=== PATIENT | female | born 1960 | race American Indian/Alaskan Native ===

== ENCOUNTER 2017-05-20 01:27 | Inpatient (IN) | payer BC, OTHER ==
[2017-05-20] MEDS ORDERED: HYDROmorphone 2 mg/ml ISec IVP STA (01:39)
--- NOTE | 2017-05-20 01:50 | ED PDOC ---
Arrival/HPI - General Chief Complaint: Abdominal Pain Time Seen by Provider: 05/20/17 01:33 Historian: Patient - History of Present Illness Narrative History of Present Illness (Text): 05/20/17 01:32 56 year old female patient, whose past medical history includes history of hypertension, anemia, HIV, cholecystitis,bilateral hip replacement, and splenectomy, who presents to the emergency department brought in by EMS of abdominal pain. Patient began experiencing diffuse abdominal pain approximately 20:30. Patient notes she has also been experiencing nausea and vomiting. Patient denies any fever, chills, diarrhea, chest pain, palpitations , shortness of breath, cough, headache, or any other complaints. Time/Duration: 4-6 hours (20:30) Symptom Onset: Gradual Symptom Course: Unchanged Activities at Onset: Rest, Light Context: Home Past Medical History - Provider Review Nursing Documentation Reviewed: Yes - Cardiac Hx Hypertension: Yes - Pulmonary Hx Respiratory Disorders: No - Neurological Hx Neurological Disorder: No - HEENT Hx HEENT Disorder: Yes Hx Blind: No Other/Comment: Use eyeglasses for reading - Renal Hx Renal Disorder: No - Endocrine/Metabolic Hx Endocrine Disorders: No - Hematological/Oncological Hx Anemia: Yes - Integumentary Hx Dermatological Disorder: Yes (chronic ulcers) - Musculoskeletal/Rheumatological Hx Falls: No - Gastrointestinal Hx Gastrointestinal Disorders: No - Genitourinary/Gynecological Hx Genitourinary Disorders: No - Psychiatric Hx Emotional Abuse: No Hx Physical Abuse: No Hx Substance Use: No - Surgical History Hx Breast Biopsy: Yes (Right breast- benign finding) Hx Joint Replacement: Yes (bilateral hip) Hx Orthopedic Surgery: Yes (Bilateral hip replacement 2008) Hx Vascular Access Device: Yes (hx of [facility]) Other/Comment: 3 right benign breast biopsy, 2 bilateral hip surgery, 15 ankle surgery, 1 - Anesthesia Hx Anesthesia: Yes - Suicidal Assessment Feels Threatened In Home Enviroment: No Family/Social History - Physician Review Nursing Documentation Reviewed: Yes Family/Social History: No Known Family HX Smoking Status: Never Smoked Hx Alcohol Use: No Hx Substance Use: No Allergies/Home Meds Allergies/Adverse Reactions: Allergies doxycycline Allergy (Verified 05/20/17 01:30) RASH sulfamethoxazole [From Bactrim] Allergy (Verified 05/20/17 01:30) RASH tramadol HCl [From Ultram] Allergy (Verified 05/20/17 01:30) RASH trimethoprim [From Bactrim] Allergy (Verified 05/20/17 01:30) RASH Home Medications: Home Meds Medication Instructions Recorded Confirmed Abacavir Sulfate/Lamivudine 1 each PO DAILY 05/20/17 05/20/17 [Abacavir-Lamivudine 600-300 mg] Carvedilol [Coreg] 3.125 mg PO BID 05/20/17 05/20/17 Furosemide [Lasix] 40 mg PO BID 05/20/17 05/20/17 Gabapentin [Neurontin] 300 mg PO TID 05/20/17 05/20/17 Ledipasvir/Sofosbuvir [Harvoni 1 tab PO DAILY 05/20/17 05/20/17 90-400 mg Tablet] Lisinopril [Zestril] 2.5 mg PO DAILY 05/20/17 05/20/17 Omeprazole 40 mg PO DAILY 05/20/17 05/20/17 Ondansetron ODT [Zofran ODT] 4 mg PO Q8H PRN 05/20/17 05/20/17 Pentoxifylline [Pentoxil] 400 mg PO TID 05/20/17 05/20/17 Raltegravir Potassium [Isentress] 400 mg PO BID 05/20/17 05/20/17 oxyCODONE [oxyCODONE Immediate 15 mg PO Q6H PRN 05/20/17 05/20/17 Release Tab] Review of Systems - Physician Review All systems were reviewed & negative as marked: Yes - Review of Systems Constitutional: Normal. absent: Fevers, Night Sweats Respiratory: Normal. absent: SOB, Cough Cardiovascular: absent: Chest Pain, Palpitations Gastrointestinal: Abdominal Pain, Nausea, Vomiting. absent: Diarrhea Genitourinary Female: Normal Musculoskeletal: Normal Skin: Normal Neurological: Normal. absent: Headache, Dizziness Physical Exam Vital Signs Reviewed: Yes Vital Signs Temp Pulse Resp BP Pulse Ox 05/20/17 04:00 48 L 16 132/72 98 05/20/17 03:25 68 16 142/81 99 05/20/17 01:33 97.9 F 49 L 20 140/66 100 Temperature: Afebrile Blood Pressure: Normal Pulse: Bradycardic Respiratory Rate: Normal Appearance: Positive for: Well-Appearing, Non-Toxic Pain Distress: None Mental Status: Positive for: Alert and Oriented X 3 - Systems Exam Head: Present: Atraumatic, Normocephalic Pupils: Present: PERRL Extroacular Muscles: Present: EOMI Conjunctiva: Present: Normal Mouth: Present: Moist Mucous Membranes Neck: Present: Normal Range of Motion Respiratory/Chest: Present: Clear to Auscultation, Good Air Exchange. No: Respiratory Distress, Accessory Muscle Use Cardiovascular: Present: Regular Rate and Rhythm, Normal S1, S2. No: Murmurs Abdomen: Present: Tenderness (LUQ tenderness), Normal Bowel Sounds. No: Distention, Peritoneal Signs Back: Present: Normal Inspection Upper Extremity: Present: Normal Inspection. No: Cyanosis, Edema Lower Extremity: Present: Normal Inspection. No: Edema Neurological: Present: GCS=15, CN II-XII Intact, Speech Normal Skin: Present: Warm, Dry, Normal Color. No: Rashes Psychiatric: Present: Alert, Oriented x 3, Normal Insight, Normal Concentration Medical Decision Making ED Course and Treatment: 05/20/17 01:40 Impression: 56 year old female with severe abdominal pain. Physical exam shows LUQ tenderness. Differential Diagnosis included but are not limited to: Plan: -- CT Abdomen and Pelvis -- EKG -- Labs -- Dilaudid -- IV Fluids -- Zofran -- Urinalysis -- Blood Gas -- Reassess and disposition Prior Visits: Notes and results from previous visits were reviewed. Patient was last seen in the emergency department on 05/03/2016 presents to the ED with nausea, vomiting , and abdominal pain. Patient was admitted. Progress Notes: 05/20/2017 02:33 EKG: Ordered, reviewed, and independently interpreted the EKG. Rate : 43 BPM Rhythm : Sinus bradychardia Interpretation : No ST-segment elevations or depressions, no T-wave inversions, normal intervals. 05/20/2017 01:38 CT Abdomen and Pelvis Without Intravenous Contrast FINDINGS: Lower thorax: No acute findings. ABDOMEN: Liver: Decreased overall size of the liver that appears mildly hyperdense. Gallbladder and bile ducts: Gallbladder appears mildly distended. Pancreas: Unremarkable. No ductal dilation. Spleen: Spleen enlarged 19 cm length. Adrenals: Unremarkable. No mass. Kidneys and ureters: Unremarkable. No obstructing stones. No hydronephrosis. Stomach and bowel: Mild wall thickening and/or edema cecum-ascending colon. Appendix: Visualized portions of appendix appear normal. PELVIS: Bladder: Bladder not seen well. Uterus not seen well. Reproductive: See above. ABDOMEN and PELVIS: Intraperitoneal space: Unremarkable. No free air. No significant fluid collection. Bones/joints: Bilateral total hip arthroplasties create artifact limiting images of the pelvis. Chronic degenerative changes of the lumbar spine. Soft tissues: Mild inhomogeneity right paracolic fat. Vasculature: IVC filter. Chronic atherosclerotic calcification of the vasculature. No abdominal aortic aneurysm. Lymph nodes: Unremarkable. No enlarged lymph nodes. IMPRESSION: 1. Bilateral total hip arthroplasties create artifact limiting images of the pelvis. 2. Mild wall thickening and/or edema cecum-ascending colon. Possible mild inflammation/colitis. 3. Mild inhomogeneity right paracolic fat. 4. Possible underlying liver disease. 5. Splenomegaly. 6. Gallbladder appears mildly distended. No evidence of gallstones. No evidence of intrahepatic or extrahepatic biliary ductal dilatation. 05/20/17 04:[address] Denise, covering for Dr. Barton, who is aware and agrees with plan. Pt will go [facility] observation for abdominal pain. - Lab Interpretations Lab Results: 05/20/17 01:55 05/20/17 01:55 Lab Results 05/20/17 04:00: Urine Color yellow, Urine Appearance Clear, Urine pH 8.0, Ur Specific [place] 1.020, Urine Protein 30 H, Urine Glucose (UA) Negative, Urine Ketones 15 H, Urine Blood Negative, Urine Nitrate Negative, Urine Bilirubin Negative, Urine Urobilinogen 1.0 H, Ur Leukocyte Esterase Negative, Urine RBC TEST NOT PERFORMED, Urine WBC 5 - 10, Ur Epithelial Cells 6 - 8, Amorphous Sediment Small, Urine Bacteria Trace 05/20/17 01:55: pO2 37, VBG pH 7.53 H, VBG pCO2 28.0 L, VBG HCO3 23.4, VBG Total CO2 24.3, VBG O2 Sat (Calc) 81.6 H, VBG Base Excess 1.8, VBG Potassium 3.5 L, Sodium 142.0, Chloride 107.0, Glucose 135 H, Lactate 3.7 H, FiO2 21.0, Venous Blood Potassium 3.5 L 05/20/17 01:55: Sodium 141, Chloride 106, Potassium 3.4 L, Carbon Dioxide 25, Anion Gap 13, BUN 11, Creatinine 0.9, Est GFR ( Amer) > 60, Est GFR (Non- Af Amer) > 60, Random Glucose 142 H, Calcium 10.7 H, Total Bilirubin 1.8 H, AST 33, ALT 29, Alkaline Phosphatase 119, Lactate Dehydrogenase 477, Total Creatine Kinase 81, Troponin I 0.03, Total Protein 10.0 H, Albumin 4.2, Globulin 5.9, Albumin/Globulin Ratio 0.7 L, Amylase 110, Lipase 167 05/20/17 01:55: PT 15.3 H, INR 1.42 H, APTT 26.4 05/20/17 01:55: WBC 5.0, RBC 4.04, Hgb 13.7, Hct 39.8, MCV 98.5, MCH 33.9, MCHC 34.4, RDW 13.4, Plt Count 80 L, MPV 10.7, Gran % 62.9, Lymph % (Auto) 26.8, [place] % (Auto) 7.9 H, Eos % (Auto) 1.8, Baso % (Auto) 0.6, Gran # 3.17, Lymph # 1.4, [place] # 0.4, Eos # 0.1, Baso # 0.03 I have reviewed the lab results: Yes - RAD Interpretation Radiology Orders: 05/20/17 01:38 ABD & PELVIS W/O PO OR IV CONT [CT] Stat 05/20/17 04:18 CHEST PORTABLE [RAD] Stat Machine Clipper: ED Physician - EKG Interpretation Type: 12 lead EKG - Medication Orders Current Medication Orders: Acetaminophen (Tylenol 325mg Tab) 650 mg PO Q4H PRN PRN Reason: Fever >100.5 F Carvedilol (Coreg) 3.125 mg PO BID [facility] Last Admin: 05/20/17 18:01 Dose: Gabapentin (Neurontin) 300 mg PO TID DOUGIE PRN Reason: Protocol Last Admin: 05/20/17 18:00 Dose: 300 mg Re-Assess: Reassess Psych Meds Document 05/20/17 18:50 DLL (Rec: 05/20/17 18:50 DLL [id number]) Reassess Psych Med Effective Hydromorphone HCl (Dilaudid) 2 mg IVP Q6H PRN PRN Reason: Pain, severe (8-10) Last Admin: 05/21/17 00:24 Dose: 2 mg Sodium Chloride (Sodium Chloride 0.9%) 1,000 mls @ 80 mls/hr IV .[id number] DOUGIE Last Admin: 05/20/17 14:21 Dose: 80 mls/hr Piperacillin Sod/Tazobactam Sod (Zosyn 3.375 In Ns 100ml) 100 mls @ 200 mls/hr IVPB Q6 DOUGIE PRN Reason: Protocol Stop: 06/03/17 12:01 Last Admin: 05/21/17 00:14 Dose: 200 mls/hr Lisinopril (Zestril) 2.5 mg PO DAILY [facility] Last Admin: 05/20/17 12:17 Dose: Not Given Non-Admin Reason: BP Parameters Not Met Ondansetron HCl (Zofran Inj) 4 mg IVP Q4H PRN PRN Reason: Nausea/Vomiting Last Admin: 05/21/17 00:25 Dose: 4 mg Discontinued Medications Hydromorphone HCl (Dilaudid) 2 mg IVP STAT STA Stop: 05/20/17 01:40 Last Admin: 05/20/17 01:59 Dose: 2 mg Re-Assess: [facility] Pain Assessment Document 05/20/17 02:59 YP (Rec: 05/20/17 03:25 YP [id number]) Pain Reassessment Is this a pain reassessment? Yes Sleep Is patient sleeping during reassessment? No Presence of Pain Presence of Pain No Hydromorphone HCl (Dilaudid) 0.5 mg IVP STAT STA Stop: 05/20/17 06:10 Hydromorphone HCl (Dilaudid) 1 mg IVP Q3H PRN PRN Reason: Pain, moderate (4-7) Hydromorphone HCl (Dilaudid) 1 mg IVP Q3H PRN PRN Reason: Pain, moderate (4-7) Last Admin: 05/20/17 12:16 Dose: 1 mg Re-Assess: [facility] Pain Assessment Document 05/20/17 13:16 DLL (Rec: 05/20/17 14:20 DLL [id number]) Pain Reassessment Is this a pain reassessment? Yes Sleep Is patient sleeping during reassessment? No Presence of Pain Presence of Pain Yes Pain Scale Used Pain Scale Used Numeric Description Intensity of Pain at present 8 Pain not relieved and LIP/MD was Yes notified Hydromorphone HCl (Dilaudid) 2 mg IM Q6H PRN PRN Reason: Pain, severe (8-10) Metronidazole (Flagyl) 500 mg in 100 mls @ 100 mls/hr IVPB STAT STA PRN Reason: Protocol Stop: 05/20/17 03:42 Last Admin: 05/20/17 04:37 Dose: 100 mls/hr Piperacillin Sod/Tazobactam Sod (Zosyn 3.375 In Ns 100ml) 100 mls @ 200 mls/hr IVPB STAT STA PRN Reason: Protocol Stop: 05/20/17 03:11 Last Admin: 05/20/17 03:07 Dose: 200 mls/hr Sodium Chloride (Sodium Chloride 0.9%) 1,000 mls @ 100 mls/hr IV .Q10H STA Stop: 05/20/17 14:26 Last Admin: 05/20/17 04:37 Dose: 100 mls/hr Potassium Chloride (Potassium Chloride 10 Meq/100 Ml) 10 meq in 100 mls @ 100 mls/hr IVPB Q2H DOUGIE Stop: 05/20/17 09:59 Last Admin: 05/20/17 09:14 Dose: 100 mls/hr Non-Formulary Medication (Abacavir Sulfate/Lamivudine [Abacavir-Lamivudine 600- 300 Mg]) 1 each PO DAILY DOUGIE Non-Formulary Medication (Ledipasvir/Sofosbuvir [Harvoni 90-400 Mg Tablet]) 1 tab PO DAILY DOUGIE Ondansetron HCl (Zofran Inj) 4 mg IVP STAT STA Stop: 05/20/17 01:40 Last Admin: 05/20/17 01:59 Dose: 4 mg Raltegravir (Isentress) 400 mg PO BID DOUGIE - Scribe Statement The provider has reviewed the documentation as recorded by the Theresa Pineda training under Angle Kramer Disposition/Present on Arrival - Present on Arrival Any Indicators Present on Arrival: No History of DVT/PE: No History of Uncontrolled Diabetes: No Urinary Catheter: No History of Decub. Ulcer: No History Surgical Site Infection Following: None - Disposition Have Diagnosis and Disposition been Completed?: Yes Diagnosis: Abdominal pain Disposition: HOSPITALIZED Disposition Time: 04:25 Condition: FAIR
[2017-05-20] MEDS: Sodium Chloride 0.9% 1,000 ML IV SCH ×2 (01:59→14:21)
[2017-05-20 02:04] LABS: ADD MANUAL DIFF? NO
[2017-05-20 02:06] LABS: BASO # 0.03 K/mm3 (0.0-2.0); BASO % 0.6 % (0.0-3.0); EOS # 0.1 (0.0-0.7); EOS % 1.8 % (1.5-5.0); GRAN # 3.17 (1.4-6.5); GRAN % 62.9 % (50.0-68.0); HEMATOCRIT 39.8 % (36.0-48.0); LYMPH # 1.4 (1.2-3.4); LYMPH % 26.8 % (22.0-35.0); MEAN CELL VOLUME 98.5 fL (80.0-105.0); MEAN CORPUSCULAR HEMOGLOBIN 33.9 pg (25.0-35.0); MEAN CORPUSCULAR HGB CONC 34.4 g/dl (31.0-37.0); MEAN PLATELET VOLUME 10.7 fl (7.0-11.0); MONO # 0.4 (0.1-0.6); MONO % 7.9 % (1.0-6.0); PLATELET COUNT 80 10^3/uL (120.0-450.0); RED CELL DISTRIBUTION WIDTH 13.4 % (11.5-14.5); VENOUS BLOOD GAS BASE EXCESS 1.8 mmol/L (0.0-2.0); VENOUS BLOOD PH 7.53 (7.32-7.43)
[2017-05-20 02:17] LABS: ALB/GLOB RATIO 0.7 (1.1-1.8); ALKALINE PHOSPHATASE 119 U/L (38-133); ALT/SGPT 29 U/L (7-56); AMYLASE 110 U/L (35-125); AST/SGOT 33 U/L (15-39); BILIRUBIN,TOTAL 1.8 mg/dL (0.2-1.3); BLOOD UREA NITROGEN 11 mg/dL (7-21); CALCIUM 10.7 mg/dL (8.4-10.5); CARBON DIOXIDE 25 mmol/L (21-33); CHLORIDE 106 mmol/L (98-107); GFR AFRICAN-AMERICAN > 60; GLUCOSE,RANDOM 142 mg/dL (70-110); LIPASE 167 U/L (23-300); POTASSIUM 3.4 mmol/L (3.6-5.0); SODIUM 141 mmol/L (132-148)
[2017-05-20 02:18] LABS: INR 1.42 (0.93-1.08); PARTIAL THROMBOPLASTIN TIME 26.4 Seconds (23.7-30.8)
[2017-05-20 02:27] LABS: TROPONIN I 0.03 ng/mL
[2017-05-20] MEDS ORDERED: Piperacillin/Tazobact 3.375 gm 100 ML IVPB STA (02:42)
[2017-05-20] MEDS ORDERED: metroNIDAZOLE IV 500 mg/100 ml 500 MG/100 ML BAG IVPB STA (02:43)
[2017-05-20 04:21] LABS: URINE BILIRUBIN NEGATIVE (NEGATIVE); URINE BLOOD NEGATIVE (NEGATIVE); URINE GLUCOSE (UA) NEGATIVE (NEGATIVE); URINE KETONE 15 mg/dL (NEGATIVE); URINE LEUKOCYTE ESTERASE NEGATIVE Leu/uL (NEGATIVE); URINE PROTEIN 30 mg/dL (<30 mg/dL)
[2017-05-20] MEDS ORDERED: Sodium Chloride 0.9% 1,000 ML IV STA (04:27)
[2017-05-20 04:30] LABS: URINE APPEARANCE CLEAR (CLEAR)
[2017-05-20 04:32] LABS: URINE AMORPHOUS SEDIMENT SMALL; URINE BACTERIA TRACE (NEG)
[2017-05-20 05:16] LABS: VENOUS BLOOD GAS BASE EXCESS 3.6 mmol/L (0.0-2.0); VENOUS BLOOD PH 7.34 (7.32-7.43)
[2017-05-20] MEDS ORDERED: HYDROmorphone 0.5 mg/0.5 ml ISec IVP STA (06:09)
--- NOTE | 2017-05-20 07:03 | CP.PCM.PN ---
Subjective - Date & Time of Evaluation Date of Evaluation: 05/20/17 Time of Evaluation: 07:00 - Subjective Subjective: Patient was seen at bedside. Complains of RUQ pain. Also has nausea. Has no other Complaints. ROS:Negative for symptoms except as mentioned above. Medical record was reviewed. 55 year old woman was admitted abdominal pain,fever. Has PMH of HTN, hepatitis C , AIDS/HIV,chronic foot ulcer. Objective - Vital Signs/Intake and Output Vital Signs (last 24 hours): Temp Pulse Resp BP Pulse Ox 97.9 F 51 L 16 133/88 97 05/20/17 01:33 05/20/17 04:57 05/20/17 04:57 05/20/17 04:57 05/20/17 04:57 - Medications Medications: Current Medications Acetaminophen (Tylenol 325mg Tab) 650 mg PO Q4H PRN PRN Reason: Fever >100.5 F Sodium Chloride (Sodium Chloride 0.9%) 1,000 mls @ 80 mls/hr IV .[id number] [facility] Last Admin: 05/20/17 01:59 Dose: 80 mls/hr Sodium Chloride (Sodium Chloride 0.9%) 1,000 mls @ 100 mls/hr IV .Q10H STA Stop: 05/20/17 14:26 Last Admin: 05/20/17 04:37 Dose: 100 mls/hr Potassium Chloride (Potassium Chloride 10 Meq/100 Ml) 10 meq in 100 mls @ 100 mls/hr IVPB Q2H DOUGIE Stop: 05/20/17 09:59 Ondansetron HCl (Zofran Inj) 4 mg IVP Q4H PRN PRN Reason: Nausea/Vomiting - Labs Labs: PT 15.3 Seconds (9.9-11.8) H 05/20/17 01:55 INR 1.42 (0.93-1.08) H 05/20/17 01:55 APTT 26.4 Seconds (23.7-30.8) 05/20/17 01:55 Laboratory Last Values WBC 5.0 10^3/ul (4.5-11.0) 05/20/17 01:55 RBC 4.04 10^6/uL (3.5-6.1) 05/20/17 01:55 Hgb 13.7 gm/dL (12.0-16.0) 05/20/17 01:55 Hct 39.8 % (36.0-48.0) 05/20/17 01:55 MCV 98.5 fL (80.0-105.0) 05/20/17 01:55 MCH 33.9 pg (25.0-35.0) 05/20/17 01:55 MCHC 34.4 g/dl (31.0-37.0) 05/20/17 01:55 RDW 13.4 % (11.5-14.5) 05/20/17 01:55 Plt Count 80 10^3/uL (120.0-450.0) L 05/20/17 01:55 MPV 10.7 fl (7.0-11.0) 05/20/17 01:55 Gran % 62.9 % (50.0-68.0) 05/20/17 01:55 Lymph % (Auto) 26.8 % (22.0-35.0) 05/20/17 01:55 [place] % (Auto) 7.9 % (1.0-6.0) H 05/20/17 01:55 Eos % (Auto) 1.8 % (1.5-5.0) 05/20/17 01:55 Baso % (Auto) 0.6 % (0.0-3.0) 05/20/17 01:55 Gran # 3.17 (1.4-6.5) 05/20/17 01:55 Lymph # 1.4 (1.2-3.4) 05/20/17 01:55 [place] # 0.4 (0.1-0.6) 05/20/17 01:55 Eos # 0.1 (0.0-0.7) 05/20/17 01:55 Baso # 0.03 K/mm3 (0.0-2.0) 05/20/17 01:55 PT 15.3 Seconds (9.9-11.8) H 05/20/17 01:55 INR 1.42 (0.93-1.08) H 05/20/17 01:55 APTT 26.4 Seconds (23.7-30.8) 05/20/17 01:55 pO2 28 mm/Hg (30-55) L 05/20/17 05:00 VBG pH 7.34 (7.32-7.43) 05/20/17 05:00 VBG pCO2 57.0 (40-60) 05/20/17 05:00 VBG HCO3 30.8 mmol/l (21-28) H 05/20/17 05:00 VBG Total CO2 32.5 mmol.L (22-28) H 05/20/17 05:00 VBG O2 Sat (Calc) 56.3 % (40-65) 05/20/17 05:00 VBG Base Excess 3.6 mmol/L (0.0-2.0) H 05/20/17 05:00 VBG Potassium 3.6 mmol/L (3.6-5.2) 05/20/17 05:00 Sodium 142.0 mmol/L (132-148) 05/20/17 05:00 Chloride 109.0 mmol/L (98-107) H 05/20/17 05:00 Glucose 112 mg/dl (65-105) H 05/20/17 05:00 Lactate 1.4 mmol/L (0.7-2.1) 05/20/17 05:00 FiO2 21.0 % 05/20/17 05:00 Sodium 141 mmol/L (132-148) 05/20/17 01:55 Potassium 3.4 mmol/L (3.6-5.0) L 05/20/17 01:55 Chloride 106 mmol/L (98-107) 05/20/17 01:55 Carbon Dioxide 25 mmol/L (21-33) 05/20/17 01:55 Anion Gap 13 (10-20) 05/20/17 01:55 BUN 11 mg/dL (7-21) 05/20/17 01:55 Creatinine 0.9 mg/dL (0.5-1.4) 05/20/17 01:55 Est GFR ( Amer) > 60 05/20/17 01:55 Est GFR (Non-Af Amer) > 60 05/20/17 01:55 Random Glucose 142 mg/dL (70-110) H 05/20/17 01:55 Calcium 10.7 mg/dL (8.4-10.5) H 05/20/17 01:55 Total Bilirubin 1.8 mg/dL (0.2-1.3) H 05/20/17 01:55 AST 33 U/L (15-39) 05/20/17 01:55 ALT 29 U/L (7-56) 05/20/17 01:55 Alkaline Phosphatase 119 U/L (38-133) 05/20/17 01:55 Lactate Dehydrogenase 477 U/L (333-699) 05/20/17 01:55 Total Creatine Kinase 81 U/L (35-230) 05/20/17 01:55 Troponin I 0.03 ng/mL 05/20/17 01:55 Total Protein 10.0 g/dL (5.8-8.3) H 05/20/17 01:55 Albumin 4.2 g/dL (3.0-4.8) 05/20/17 01:55 Globulin 5.9 gm/dL 05/20/17 01:55 Albumin/Globulin Ratio 0.7 (1.1-1.8) L 05/20/17 01:55 Amylase 110 U/L (35-125) 05/20/17 01:55 Lipase 167 U/L (23-300) 05/20/17 01:55 Venous Blood Potassium 3.6 mmol/L (3.6-5.2) 05/20/17 05:00 Urine Color yellow (YELLOW) 05/20/17 04:00 Urine Appearance Clear (CLEAR) 05/20/17 04:00 Urine pH 8.0 (4.7-8.0) 05/20/17 04:00 Ur Specific [place] 1.020 (1.005-1.035) 05/20/17 04:00 Urine Protein 30 mg/dL (<30 mg/dL) H 05/20/17 04:00 Urine Glucose (UA) Negative mg/dL (NEGATIVE) 05/20/17 04:00 Urine Ketones 15 mg/dL (NEGATIVE) H 05/20/17 04:00 Urine Blood Negative (NEGATIVE) 05/20/17 04:00 Urine Nitrate Negative (NEGATIVE) 05/20/17 04:00 Urine Bilirubin Negative (NEGATIVE) 05/20/17 04:00 Urine Urobilinogen 1.0 E.U./dL (<1 E.U./dL) H 05/20/17 04:00 Ur Leukocyte Esterase Negative [place]/uL (NEGATIVE) 05/20/17 04:00 Urine RBC TEST NOT PERFORMED 05/20/17 04:00 Urine WBC 5 - 10 /hpf (0-6) 05/20/17 04:00 Ur Epithelial Cells 6 - 8 /hpf (0-5) 05/20/17 04:00 Amorphous Sediment Small 05/20/17 04:00 Urine Bacteria Trace (NEG) 05/20/17 04:00 - Constitutional Appears: Well, No Acute Distress - Head Exam Head Exam: ATRAUMATIC, NORMAL INSPECTION, NORMOCEPHALIC - Eye Exam Eye Exam: Normal appearance - ENT Exam ENT Exam: Mucous Membranes Dry - Neck Exam Neck Exam: Normal Inspection - Respiratory Exam Respiratory Exam: NORMAL BREATHING PATTERN - Cardiovascular Exam Cardiovascular Exam: absent: JVD - GI/Abdominal Exam GI & Abdominal Exam: Soft (Yes.), Tenderness (RUQ.), Normal Bowel Sounds. absent: Bruit, Distended, Firm, Guarding, Rigid, Mass, Organomegaly, Pulsatile Mass - Rectal Exam Rectal Exam: Deferred - Exam Additional comments: Deferred. - Extremities Exam Extremities Exam: Normal Inspection - Back Exam Back Exam: NORMAL INSPECTION - Neurological Exam Neurological Exam: Alert, Oriented x3 - Psychiatric Exam Psychiatric exam: Normal Affect, Normal Mood - Skin Skin Exam: Normal Color Assessment and Plan - Assessment and Plan (Free Text) Assessment: RUQ pain. Nausea. Hypokalemia. HIV/AIDS. Hepatitis C. Plan: K magali x 2 as ordered. Dilaudid 0.5 mg IV stat. Zofran 4 mg IV stat. Continue present management.
[2017-05-20 08:04] VITALS: BMI 31.2
[2017-05-20] MEDS ORDERED: HYDROmorphone 0.5 mg/0.5 ml ISec IVP PRN (08:34)
--- NOTE | 2017-05-20 08:44 | CT ---
PROCEDURE: CT Abdomen and Pelvis without intravenous contrast HISTORY: abd pain COMPARISON: None. TECHNIQUE: Without contrast.. Contrast Dose: 0 Radiation dose: Total exam DLP = 705.77 mGy-cm. This CT exam was performed using one or more of the following dose reduction techniques: Automated exposure control, adjustment of the mA and/or kV according to patient size, and/or use of iterative reconstruction technique. FINDINGS: LOWER THORAX: Unremarkable. LIVER: Normal size. Nodular contour consistent with hepatic cirrhosis. Periportal edema, nonspecific. No biliary dilatation. No mass. GALLBLADDER AND BILE DUCTS: Questionable nonspecific mural thickening of gallbladder. No calcified stones identified. No pericholecystic fluid/inflammatory change evident. PANCREAS: Unremarkable. No gross lesion or ductal dilatation. SPLEEN: Splenomegaly. The spleen measures up to is 18 cm in greatest dimension. No mass. ADRENALS: Unremarkable. No mass. KIDNEYS AND URETERS: Unremarkable. No hydronephrosis. No solid mass. VASCULATURE: Inferior vena caval filter. No evidence of abdominal aortic aneurysm. BOWEL: Mild circumferential mural thickening of the cecum and ascending colon. This is nonspecific. Also noted is streaky increased attenuation of the right pericolic. Consider infectious or inflammatory etiology. No other abnormal bowel loops. No bowel obstruction. APPENDIX: Unremarkable PERITONEUM: No ascites. No pneumoperitoneum. LYMPH NODES: Unremarkable. No enlarged lymph nodes. BLADDER: Grossly limited evaluation due to beam hardening artifact arising from bilateral hip prostheses. REPRODUCTIVE: Limited. BONES: Bilateral total hip replacement. No acute fracture identified. OTHER FINDINGS: None. IMPRESSION: Probable hepatic cirrhosis. Periportal edema. Splenomegaly. Mural thickening of cecum and ascending colon, nonspecific. Consider infectious or inflammatory colitis. Possible gallbladder wall thickening without evidence of calcified stones. No pericholecystic fluid/ inflammatory change. Please correlate clinically. No bowel obstruction. No generalized ascites. Bilateral total hip replacement. Preliminary interpretation of this examination was reported by [email or web address] at 3:42 a.m. on 05/20/2017. There is concurrence of this report with the preliminary interpretation.
[2017-05-20] MEDS: HYDROmorphone 1 mg/ml ISec IVP PRN ×2 (09:12→12:16)
--- NOTE | 2017-05-20 10:11 | RAD ---
HISTORY: cp COMPARISON: No prior. FINDINGS: LUNGS: No active pulmonary disease. PLEURA: No significant pleural effusion identified, no pneumothorax apparent. CARDIOVASCULAR: Normal heart size. Right internal jugular central venous infusion port terminating in right atrium. OSSEOUS STRUCTURES: No significant abnormalities. VISUALIZED UPPER ABDOMEN: Normal. OTHER FINDINGS: None. IMPRESSION: No active disease.
[2017-05-20] MEDS ORDERED: SOFOSBUVIR PO SCH (11:15)
[2017-05-20] MEDS ORDERED: [UNRECOGNIZED DRUG - OTHER] PO SCH (11:15)
[2017-05-20] MEDS ORDERED: LEDIPASVIR PO SCH (11:15)
[2017-05-20] MEDS ORDERED: ABACAVIR SULFATE PO SCH (11:15)
[2017-05-20] MEDS ORDERED: LAMIVUDINE PO SCH (11:15)
--- NOTE | 2017-05-20 11:33 | CARD ---
APPROVED REPORT EKG Measurement Heart [id number] <Conclusion> Marked sinus bradycardia Abnormal ECG
[2017-05-20] MEDS: Piperacillin/Tazobact 3.375 gm 100 ML IVPB SCH ×2 (12:18→17:59)
[2017-05-20] MEDS ORDERED: HYDROmorphone 2 mg/ml ISec IM PRN (16:01)
[2017-05-20] MEDS: HYDROmorphone 2 mg/ml ISec IVP PRN (16:21)
--- NOTE | 2017-05-20 21:11 | CON ---
DATE: 05/20/2017 The patient is in bed, in no acute distress. The patient was seen earlier in room 378, bed 1. CHIEF COMPLAINT: Abdominal pain since several days. HISTORY OF PRESENT ILLNESS: This is a 56-year-old female with hepatitic C, positive HIV and AIDS, hypertension, anemia, on HIV medications of abacavir, Isentress and on Harvoni which is ledipasvir and sofosbuvir for her hepatitic C. She is being managed by , her HIV and hepatitic C doctor at [facility]. The patient states she has been complaint with her raltegravir, abacavir and her Harvoni who is now admitted with an abdominal pain. The abdominal pain is located in her right upper quadrant, associated with nausea, but no vomiting. She states she has fevers at home but only low grade fevers have been documented here and no chills, no shortness of breath, cough and no headaches, no blurred vision and no diarrhea or constipation now. She did have diarrhea earlier. PAST MEDICAL HISTORY: Significant for positive HIV, positive AIDS, hepatitis C, hypertension, anemia. PAST SURGICAL HISTORY: Significant for bilateral hip replacement, splenectomy, right breast biopsy. She has a port just on her right chest, IVC filter and a hysterotomy. She states she has been taking her medications and she does not know what her T-cells are on laboratory. ALLERGIES: ALLERGIC TO DOXYCYCLINE, SULFAMETHOXAZOLE, TRAMADOL AND TRIMETHOPRIM. PHYSICAL EXAMINATION GENERAL: The patient is in bed. VITAL SIGNS: Temperature of 99.3, heart rate of 68, respiratory rate of 20, and blood pressure is 140/80. HEENT: Unremarkable. NECK: Supple. LUNGS: Decreased breath sounds. HEART: Normal S1 and S2. ABDOMEN: Soft and nontender. There is right upper quadrant but no rebound or guarding. LABORATORY DATA: Examination reveals a white count is 5,000, hemoglobin of 13, platelets of 80,000. Coagulation is noted. Chemistries reveal a BUN of 11, creatinine of 0.9, gulose is 142 and calcium is 10.7. Urine analysis is noted and 5-10 WBCs. The patient had a chest x-ray which was negative. Abdominal CAT scan showed cirrhosis and possibly colitis. No mention of ascites is noted. The patient's INR is 1.42 and PT of 16 with LFTs normal. Alkaline phosphatase is normal and the patient's bilirubin is elevated at 1.8. ASSESSMENT AND PLAN: This is a 56-year-old female with human immunodeficiency virus and acquired immune deficiency syndrome, hepatitic C, hypertension, anemia, presenting with abdominal pain, rule out cholecystitis and the patient did have colitis in a patient with acquired immune deficiency syndrome, hypercalcemia, and hepatitic C. We will continue the present course, her human immunodeficiency virus medications and Harvoni and I will add Zosyn and order a HIDA scan and do T-cells and HIV/PCR, order a crypt antigen and RPR. I will make further recommendation based upon initial workup results. Panfilo Marcelo MD
--- NOTE | 2017-05-20 23:08 | CP.PCM.CON ---
History of Present Illness - History of Present Illness History of Present Illness: ralph is a 56-year-old patient with the chronic hepatitis C on EPCLUSA HIV/ AIDS was admitted to [facility] with the complaints of acute right- sided abdominal pain. Patient had a CAT scan done which showed a circumferential thickening of the cecum and ascending colon area suggestive colitis patient has been on antibiotics Zosyn and patient is feeling much better. Patient was admitted several times in [facility] in [place]. History of colitis since her last colonoscopy. History of DVT status post filter placement. Patient also had complaint of low-grade fever at home history of nausea and vomiting. Her other past medical history significant for bilateral hip replacement hypertension splenectomy status post cholecystectomy Review of Systems - Review of Systems All systems: reviewed and no additional remarkable complaints except - Constitutional Constitutional: Fever, Weakness - EENT Eyes: absent: Diplopia, Pain Ears: Ear Discharge, Tinnitus Nose/Mouth/Throat: absent: Nasal Congestion, Post Nasal Drip, Neck Mass - Cardiovascular Cardiovascular: absent: Chest Pain, Palpitations - Respiratory Respiratory: absent: Cough, Dyspnea - Gastrointestinal Gastrointestinal: As Per HPI - Genitourinary Genitourinary: absent: Dysuria, Hematuria - Psychiatric Psychiatric: absent: Change in Libido, Panic Attacks - Hematologic/Lymphatic Hematologic: absent: Easy Bruising, Lymphadenopathy Past Patient History - Past Medical History & Family History Past Medical History?: Yes - Past Social History Smoking Status: Never Smoked - CARDIAC Hx Cardiac Disorders: Yes Hx Hypertension: Yes - PULMONARY Hx Respiratory Disorders: No - NEUROLOGICAL Hx Neurological Disorder: No - HEENT Hx HEENT Problems: Yes - RENAL Hx Chronic Kidney Disease: No - ENDOCRINE/METABOLIC Hx Endocrine Disorders: No - HEMATOLOGICAL/ONCOLOGICAL Hx Blood Disorders: Yes Hx AIDS: Yes Hx Anemia: Yes Hx Human Immunodeficiency Virus (HIV): Yes - INTEGUMENTARY Hx Dermatological Problems: Yes (chronic ulcers) - MUSCULOSKELETAL/RHEUMATOLOGICAL Hx Musculoskeletal Disorders: Yes Hx Falls: Yes - GASTROINTESTINAL Hx Gastrointestinal Disorders: No - GENITOURINARY/GYNECOLOGICAL Hx Genitourinary Disorders: No - PSYCHIATRIC Hx Psychophysiologic Disorder: No Hx Substance Use: No - SURGICAL HISTORY Hx Joint Replacement: Yes (B/L hip) Hx Orthopedic Surgery: Yes (B/L hip replacement) - ANESTHESIA Hx Anesthesia: Yes Meds Allergies/Adverse Reactions: Allergies Allergy/AdvReac Type Severity Reaction Status Date / Time doxycycline Allergy RASH Verified 05/20/17 01:30 sulfamethoxazole Allergy RASH Verified 05/20/17 01:30 [From Bactrim] tramadol HCl [From Ultram] Allergy RASH Verified 05/20/17 01:30 trimethoprim [From Bactrim] Allergy RASH Verified 05/20/17 01:30 - Medications Medications: Current Medications Acetaminophen (Tylenol 325mg Tab) 650 mg PO Q4H PRN PRN Reason: Fever >100.5 F Carvedilol (Coreg) 3.125 mg PO BID [facility] Last Admin: 05/20/17 18:01 Dose: Not Given Gabapentin (Neurontin) 300 mg PO TID [facility] PRN Reason: Protocol Last Admin: 05/20/17 18:00 Dose: 300 mg Hydromorphone HCl (Dilaudid) 2 mg IVP Q6H PRN PRN Reason: Pain, severe (8-10) Last Admin: 05/20/17 16:21 Dose: 2 mg Sodium Chloride (Sodium Chloride 0.9%) 1,000 mls @ 80 mls/hr IV .[id number] [facility] Last Admin: 05/20/17 14:21 Dose: 80 mls/hr Piperacillin Sod/Tazobactam Sod (Zosyn 3.375 In Ns 100ml) 100 mls @ 200 mls/hr IVPB Q6 [facility] PRN Reason: Protocol Stop: 06/03/17 12:01 Last Admin: 05/20/17 17:59 Dose: 200 mls/hr Lisinopril (Zestril) 2.5 mg PO DAILY [facility] Last Admin: 05/20/17 12:17 Dose: Not Given Ondansetron HCl (Zofran Inj) 4 mg IVP Q4H PRN PRN Reason: Nausea/Vomiting Last Admin: 05/20/17 16:19 Dose: 4 mg Physical Exam - Head Exam Head Exam: ATRAUMATIC, NORMOCEPHALIC - Eye Exam Eye Exam: EOMI, PERRL - ENT Exam ENT Exam: Mucous Membranes Moist, Normal External Ear Exam - Neck Exam Neck exam: Positive for: Full Rom. Negative for: Lymphadenopathy - Respiratory Exam Respiratory Exam: Clear to Auscultation Bilateral. absent: Accessory Muscle Use , Respiratory Distress - Cardiovascular Exam Cardiovascular Exam: REGULAR RHYTHM, +S1, +S2. absent: JVD - GI/Abdominal Exam GI & Abdominal Exam: Normal Bowel Sounds. absent: Mass - Extremities Exam Extremities exam: Positive for: pedal pulses present. Negative for: calf tenderness - Neurological Exam Neurological exam: Alert, CN II-XII Intact - Psychiatric Exam Psychiatric exam: Anxious, Normal Affect Results - Vital Signs Recent Vital Signs: Last Vital Signs Temp 98.5 F 05/20/17 16:00 Pulse 53 L 05/20/17 18:01 Resp 20 05/20/17 16:00 BP 146/85 05/20/17 18:01 Pulse Ox 100 05/20/17 16:00 - Labs Result Diagrams: 05/20/17 01:55 05/20/17 01:55 Labs: Laboratory Results - last 24 hr 05/20/17 05/20/17 05:00 12:45 pO2 28 L VBG pH 7.34 VBG pCO2 57.0 VBG HCO3 30.8 H VBG Total CO2 32.5 H VBG O2 Sat (Calc) 56.3 VBG Base Excess 3.6 H VBG Potassium 3.6 Sodium 142.0 Chloride 109.0 H Glucose 112 H Lactate 1.4 FiO2 21.0 Venous Blood Potassium 3.6 RPR Nonreactive Assessment & Plan - Assessment and Plan (Free Text) Plan: this 56-year-old patient with a past medical history of HIV AIDSchronic hep C on epclusa was admitted with acute onset of abdominal pain mainly right side CT shows thickening of the ascending colon and cecum. A pressure diagnosis should include her colitis rule out ischemic colitis. Rule out infectious colitis other differential diagnoses should include inflammatory bowel disease. Patient 's last CAT scan was more than 2 years ago patient did have significant bowel symptoms only after the colonoscopy as per the patient. Patient does have significant tenderness in the right lower quadrant area clinically improving. Plan 1. Continue the antibiotics number to slowly advance the diet and patient will benefit from elective repeat colonoscopy evaluation The findings and follow-up recommendations were discussed with the patient at length . Would slowly advance the diet need to complete the antibiotic Course
[2017-05-21] MEDS: Piperacillin/Tazobact 3.375 gm 100 ML IVPB SCH ×4 (00:14→18:46)
[2017-05-21] MEDS: HYDROmorphone 2 mg/ml ISec IVP PRN ×5 (00:24→22:00)
--- NOTE | 2017-05-21 00:51 | HP ---
HISTORY OF PRESENT ILLNESS: The patient is a 56-year-old female admitted with abdominal pain. She has history of HIV, hepatitis C. CAT scan of the abdomen showed hepatosplenomegaly. She also had nausea and vomiting. Denies any diarrhea. No fever. No cough with expectoration. She is on HAART for HIV. She is asking for 2 mg Dilaudid, currently, she is getting 1 mg. She is stating that if she does not get 2 mg Dilaudid she will leave AMA. CAT scan of the abdomen did not show any acute changes. She also had bilateral hip replacement. PAST MEDICAL HISTORY: Hypertension, hepatitis C, HIV positive, thrombocytopenia, anemia. PAST SURGICAL HISTORY: Bilateral hip replacement and breast biopsies. FAMILY HISTORY: Noncontributory. No positive family history in mother or father. PERSONAL HISTORY: Never smokes. No history of substance abuse. SOCIAL HISTORY: Lives at home with mother. ALLERGIES: DOXYCYCLINE, BACTRIM, TRAMADOL. HOME MEDICATIONS: HAART, abacavir/lamivudine 600/300 mg one daily, Coreg 3.125 mg p.o. b.i.d., Lasix 40 mg b.i.d., gabapentin 300 mg p.o. t.i.d., Harvoni one tablet daily, lisinopril 2.5 mg daily, omeprazole 40 mg daily, Zofran 4 mg q. 4 hours p.r.n., *------* 400 mg p.o. b.i.d., oxycodone p.r.n. q. 6 hours. REVIEW OF SYSTEMS: As per HPI. Rest of the 12-point review of systems reviewed and negative. PHYSICAL EXAMINATION GENERAL: Comfortable in bed, in no acute distress. VITAL SIGNS: Temperature 97.9, heart rate 65 per minute, respiratory rate 20 per minute, blood pressure 140/60, oxygen saturation 100% room air. HEENT: Normal. CHEST: Air entry present and equal bilaterally. No added sounds. CARDIOVASCULAR: S1 and S2 normal. No murmur. No gallop. ABDOMEN: Soft and nontender. No rebound or tenderness. Mildly tender right upper quadrant. EXTREMITIES: No edema. SKIN: No petechiae. No rash. NEUROLOGIC: Alert, oriented x 3. No focal sensory or motor deficit. SPINE: Nontender. LABORATORY DATA: White count 5, hemoglobin 13.7, hematocrit 39.8, platelet count 80. Sodium 141, potassium 3.4, BUN 11, creatinine 0.9, glucose 142. CAT scan imaging as per HPI. ASSESSMENT AND PLAN: 1. Abdominal pain. 2. Human immunodeficiency virus positive. 3. Hepatitis C. 4. Hepatosplenomegaly. 5. Thrombocytopenia. 6. History of deep vein thrombosis of lower extremities, status post IVC filter placement. PLAN: ID consultation with Dr. Marcelo appreciated. She is currently on Zosyn. HIDA scan is ordered to be done tomorrow. HAART and Harvoni on hold. Hepatitis and HIV serologies ordered. Dr. Marcelo following. Patient is insisting on 2 mg IV Dilaudid. I will change it to 2 mg q. 6 hour p.r.n. She was previously getting 1 mg q. 4 hour p.r.n. We will continue gabapentin 300 mg p.o. t.i.d. Continue Coreg 3.125 mg p.o. b.i.d. IV fluid at 80 mL/hour. She is tolerating liquid diet. If HIDA scan is negative, possible discharge tomorrow. Torrie Denise MD
[2017-05-21] MEDS: Sodium Chloride 0.9% 1,000 ML IV SCH ×2 (04:28→21:59)
--- NOTE | 2017-05-21 11:18 | CP.PCM.PN ---
<Alysa Gracia - Last Filed: 05/21/17 11:18> Subjective - Date & Time of Evaluation Date of Evaluation: 05/21/17 Time of Evaluation: 09:40 - Subjective Subjective: S&E at bedside, chart reviewed. Consuming clear liquid. No nausea now, taking Zofran prn, abdominal pain is under control on pain med prn. No reports of vomiting. Express that she want to be DC to day she has an important appt. that she needs to attend to. No acute overnight events reported. No BM. Objective - Vital Signs/Intake and Output Vital Signs (last 24 hours): Temp Pulse Resp BP Pulse Ox 98.5 F 53 L 20 146/85 100 05/20/17 16:00 05/20/17 18:01 05/20/17 16:00 05/20/17 18:01 05/20/17 16:00 Intake and Output: 05/21/17 05/21/17 06:59 18:59 Intake Total 540 Balance 540 - Medications Medications: Current Medications Acetaminophen (Tylenol 325mg Tab) 650 mg PO Q4H PRN PRN Reason: Fever >100.5 F Carvedilol (Coreg) 3.125 mg PO BID [facility] Last Admin: 05/20/17 18:01 Dose: Not Given Gabapentin (Neurontin) 300 mg PO TID [facility] PRN Reason: Protocol Last Admin: 05/20/17 18:00 Dose: 300 mg Hydromorphone HCl (Dilaudid) 2 mg IVP Q6H PRN PRN Reason: Pain, severe (8-10) Last Admin: 05/21/17 06:30 Dose: 2 mg Sodium Chloride (Sodium Chloride 0.9%) 1,000 mls @ 80 mls/hr IV .[id number] [facility] Last Admin: 05/21/17 04:28 Dose: 80 mls/hr Piperacillin Sod/Tazobactam Sod (Zosyn 3.375 In Ns 100ml) 100 mls @ 200 mls/hr IVPB Q6 [facility] PRN Reason: Protocol Stop: 06/03/17 12:01 Last Admin: 05/21/17 05:52 Dose: 200 mls/hr Lisinopril (Zestril) 2.5 mg PO DAILY [facility] Last Admin: 05/20/17 12:17 Dose: Not Given Ondansetron HCl (Zofran Inj) 4 mg IVP Q4H PRN PRN Reason: Nausea/Vomiting Last Admin: 05/21/17 10:05 Dose: 4 mg - Labs Labs: PT 15.3 Seconds (9.9-11.8) H 05/20/17 01:55 INR 1.42 (0.93-1.08) H 05/20/17 01:55 APTT 26.4 Seconds (23.7-30.8) 05/20/17 01:55 - Constitutional Appears: No Acute Distress - Head Exam Head Exam: NORMOCEPHALIC - Eye Exam Eye Exam: Normal appearance. absent: Scleral icterus - ENT Exam ENT Exam: Mucous Membranes Moist - Neck Exam Neck Exam: Normal Inspection - Respiratory Exam Respiratory Exam: NORMAL BREATHING PATTERN. absent: Respiratory Distress - Cardiovascular Exam Cardiovascular Exam: +S1, +S2 - GI/Abdominal Exam GI & Abdominal Exam: Guarding, Soft, Tenderness, Normal Bowel Sounds. absent: Distended, Rebound - Extremities Exam Extremities Exam: Normal Capillary Refill. absent: Calf Tenderness, Pedal Edema - Neurological Exam Neurological Exam: Alert, Awake, Oriented x3 Assessment and Plan - Assessment and Plan (Free Text) Assessment: Assessemnt: Acute Abdominal pain Right side ascending/cecal thickening on Ct scan, r/o ischemic colitis, infectious or Infammatory Bowel Disease. Patient's last CAT scan was more than 2 years ago patient did have significant bowel symptoms only after the colonoscopy as per the patient. Chronic Hepatitis C HIV/AIDS H/O DVT, s/p IVC filter HTN Splenectomy Plan on IV antibiotics, Zosyn on clear liquids, advance diet patient may benefit from elective repeat colonoscopy evaluation spoke to patient that if dc, important to FU with her GI doctor, patient states that she has personal GI MD. Also discussed with patient that if symptoms reoccur or worsen to return to the ER further evaluation. Discussed with Dr. Sharma. <Avery Sharma V - Last Filed: 06/09/17 21:54> Objective - Vital Signs/Intake and Output Vital Signs (last 24 hours): Temp Pulse Resp BP Pulse Ox 99.4 F 60 19 125/85 96 05/21/17 16:00 05/21/17 16:00 05/21/17 16:00 05/21/17 16:00 05/21/17 16:00 Intake and Output: 05/21/17 05/22/17 18:59 06:59 Intake Total 300 Balance 300 - Medications Medications: Current Medications Abacavir Sulfate (Ziagen) 600 mg PO DAILY [facility] Acetaminophen (Tylenol 325mg Tab) 650 mg PO Q4H PRN PRN Reason: Fever >100.5 F Carvedilol (Coreg) 3.125 mg PO BID [facility] Last Admin: 05/21/17 18:54 Dose: Not Given Gabapentin (Neurontin) 300 mg PO TID [facility] PRN Reason: Protocol Last Admin: 05/21/17 18:54 Dose: Not Given Hydromorphone HCl (Dilaudid) 2 mg IVP Q4H PRN PRN Reason: Pain, moderate (4-7) Last Admin: 05/21/17 22:00 Dose: 2 mg Sodium Chloride (Sodium Chloride 0.9%) 1,000 mls @ 80 mls/hr IV .[id number] [facility] Last Admin: 05/21/17 21:59 Dose: 80 mls/hr Piperacillin Sod/Tazobactam Sod (Zosyn 3.375 In Ns 100ml) 100 mls @ 200 mls/hr IVPB Q6 [facility] PRN Reason: Protocol Stop: 06/03/17 12:01 Last Admin: 05/21/17 18:46 Dose: 200 mls/hr Metronidazole (Flagyl) 250 mg in 50 mls @ 100 mls/hr IV Q8 [facility] PRN Reason: Protocol Stop: 05/26/17 14:01 Last Admin: 05/21/17 21:58 Dose: 100 mls/hr Vancomycin HCl (Vancomycin 1gm) 1 gm in 250 mls @ 167 mls/hr IVPB Q12H [facility] PRN Reason: Protocol Stop: 05/28/17 22:01 Last Admin: 05/21/17 21:58 Dose: 167 mls/hr Lisinopril (Zestril) 2.5 mg PO DAILY [facility] Last Admin: 05/21/17 11:00 Dose: Not Given Ondansetron HCl (Zofran Inj) 4 mg IVP Q4H PRN PRN Reason: Nausea/Vomiting Last Admin: 05/21/17 22:00 Dose: 4 mg Pentoxifylline (Pentoxil) 400 mg PO TID [facility] Last Admin: 05/21/17 18:55 Dose: Not Given Raltegravir (Isentress) 400 mg PO BID [facility] Last Admin: 05/21/17 18:54 Dose: Not Given - Labs Labs: PT 15.3 Seconds (9.9-11.8) H 05/20/17 01:55 INR 1.42 (0.93-1.08) H 05/20/17 01:55 APTT 26.4 Seconds (23.7-30.8) 05/20/17 01:55 Attending/Attestation - Attestation I have personally seen and examined this patient.: Yes I have fully participated in the care of the patient.: Yes I have reviewed all pertinent clinical information, including history, physical exam and plan: Yes Notes (Text): This is an addendum report dictated by Alysa Templeton's [employer] ATTENDANT. Patient was seen and evaluated the area discussed with . Also discussed with the infectious diseases specialist. History of AIDS ,hep C ,colitis, history of DVT status post IVC filter splenectomy. Abdominal examination revealed a softly distended abdomen with the diffuse tenderness no rebound. Stools for C. difficile continue the IV antibiotics would consider flexible sigmoidoscopy based on the clinical course awaiting for report from [facility].
--- NOTE | 2017-05-21 15:23 | CP.PCM.PN ---
Subjective - Date & Time of Evaluation Date of Evaluation: 05/21/17 Time of Evaluation: 11:40 - Subjective Subjective: Comfortable, not in distress, afebrile, still with right sided abdominal pain, still with nausea. Objective - Vital Signs/Intake and Output Vital Signs (last 24 hours): Temp Pulse Resp BP Pulse Ox 98.5 F 53 L 20 143/85 100 05/20/17 16:00 05/20/17 18:01 05/20/17 16:00 05/21/17 10:00 05/20/17 16:00 Intake and Output: 05/21/17 05/21/17 06:59 18:59 Intake Total 540 360 Balance 540 360 - Medications Medications: Current Medications Acetaminophen (Tylenol 325mg Tab) 650 mg PO Q4H PRN PRN Reason: Fever >100.5 F Carvedilol (Coreg) 3.125 mg PO BID [facility] Last Admin: 05/21/17 10:00 Dose: Not Given Gabapentin (Neurontin) 300 mg PO TID [facility] PRN Reason: Protocol Last Admin: 05/21/17 10:00 Dose: Not Given Hydromorphone HCl (Dilaudid) 2 mg IVP Q4H PRN PRN Reason: Pain, moderate (4-7) Sodium Chloride (Sodium Chloride 0.9%) 1,000 mls @ 80 mls/hr IV .[id number] [facility] Last Admin: 05/21/17 04:28 Dose: 80 mls/hr Piperacillin Sod/Tazobactam Sod (Zosyn 3.375 In Ns 100ml) 100 mls @ 200 mls/hr IVPB Q6 [facility] PRN Reason: Protocol Stop: 06/03/17 12:01 Last Admin: 05/21/17 12:34 Dose: 200 mls/hr Metronidazole (Flagyl) 250 mg in 50 mls @ 100 mls/hr IV Q8 [facility] PRN Reason: Protocol Stop: 05/26/17 14:01 Lisinopril (Zestril) 2.5 mg PO DAILY [facility] Last Admin: 05/20/17 12:17 Dose: Not Given Ondansetron HCl (Zofran Inj) 4 mg IVP Q4H PRN PRN Reason: Nausea/Vomiting Last Admin: 05/21/17 10:05 Dose: 4 mg Pentoxifylline (Pentoxil) 400 mg PO TID [facility] - Labs Labs: PT 15.3 Seconds (9.9-11.8) H 05/20/17 01:55 INR 1.42 (0.93-1.08) H 05/20/17 01:55 APTT 26.4 Seconds (23.7-30.8) 05/20/17 01:55 - Constitutional Appears: Non-toxic, No Acute Distress - Head Exam Head Exam: NORMAL INSPECTION - ENT Exam ENT Exam: Mucous Membranes Moist - Neck Exam Neck Exam: absent: Lymphadenopathy, Meningismus - Cardiovascular Exam Cardiovascular Exam: +S1, +S2 - GI/Abdominal Exam GI & Abdominal Exam: Soft, Tenderness (right sided). absent: Distended, Guarding, Rigid, Rebound Assessment and Plan - Assessment and Plan (Free Text) Plan: Assessment Acute colitis in a patient with liver cirrhosis from chronic active Hepatitis C (recently finished 16 weeks of therapy with Ledipasvir and Sofosbuvir but has not reached SVR yet) Coagulase negative staph bacteremia, R/O related to the port HIV/AIDS on Raltegravir and Abacavir HTN S/P bilateral hip replacement S/P right port placement chronic anemia Plan Continue Zosyn and follow up further plans of GI (ie. colonoscopy) will add IV vancomycin and will repeat 1 set of blood cx from the port and 1 set from a peripheral vein; will get Vanco trough before the 4th dose; will check a 2D echo continue Raltegravir and Abacavir follow up HIV-VL, CD4 count; RPR is non-reactive and serum Crypt Ag is negative
[2017-05-21] MEDS ORDERED: Vancomycin 1gm in NS 250ml 1 GM/250 ML BAG IVPB SCH (15:30)
--- NOTE | 2017-05-21 15:33 | PN ---
SUBJECTIVE: The patient is 56 years old with history of being HIV positive. The patient states last year, she had colonoscopy done and she had some complication in her rectal area. Since then, she is having intermittent colon infections, so she states she started with abdominal discomfort with some chills, no fever, no rectal bleeding, and no diarrhea. The patient states she was treated with Harvoni by Dr. Valentine and currently she is on HIV medication. Her surgical history is significant for 15 surgeries on her left ankle and status post hysterectomy and also has bilateral hip replacements. PHYSICAL EXAMINATION: GENERAL: Today complaining of abdominal discomfort and complaining of nausea. VITAL SIGNS: She is afebrile, pulse 53, respirations 20, and blood pressure 146/85. LUNGS: Bilateral good air flow. No rhonchi or crackles. HEART: S1 and S2 audible. ABDOMEN: Soft and nontender. No rebound. No guarding. NEUROLOGIC: The patient is awake and alert and communicative. LABORATORY DATA: WBC is 5.0, hemoglobin 13.7, hematocrit 39.8, and platelets of 80. Chemistry; sodium 141, potassium 3.4, chloride 106, CO2 of 25, BUN 11, creatinine 0.9, blood sugar of 142, calcium 10.7, and total bilirubin 1.8. LFTs are within normal limits. Urinalysis is unremarkable. RPR is undetectable. CT scan of the abdomen and pelvis was done that shows hepatic cirrhosis, periportal edema with splenomegaly, mural thickening of cecum, ascending colon, and also thickening of gallbladder without evidence of calcific stones. No pericholecystic fluid found. ASSESSMENT: 1. Abdominal pain, questionable colitis, mural thickening of the cecum and ascending colon and thickening of gallbladder wall. 2. Human immunodeficiency virus positive. 3. Hepatitis C. 4. Urine culture positive for Gram-negative rods and both blood culture positive for Gram-positive cocci. PLAN: Currently, the patient is on Coreg. I will continue her on analgesic. We will order echocardiogram. The patient is going for HIDA scan, Zofran as needed, and currently she is on antibiotic as per ID. She is getting Zosyn and I will add Flagyl and we will repeat blood culture. We will followup the patient and followup workup has been ordered. Will Barton MD [facility] # [id number]
--- NOTE | 2017-05-21 15:51 | NM ---
PROCEDURE: Nuclear Medicine Hepatobiliary Scan HISTORY: RUQ PAIN COMPARISON: None available. TECHNIQUE: 6.3 mCi of technetium 99m Mebrofenin was administered intravenously. Planar images of the abdomen were obtained at 5 min intervals to 60 mins. Delayed images were also obtained. FINDINGS: LIVER: Timely and homogenous uptake. COMMON BILE DUCT: identified at 15 mins. GALLBLADDER: identified at 15 mins. SMALL BOWEL: Identified at 30 mins. IMPRESSION: Normal Hepatobiliary Scan. The cystic duct is patent.
[2017-05-21] MEDS: metroNIDAZOLE IV 250mg/50 ml 250 MG/50 ML BAG IV SCH ×2 (17:08→21:58)
--- NOTE | 2017-05-21 20:15 | CARD ---
APPROVED REPORT EXAM: Two-dimensional and M-mode echocardiogram with Doppler and color Doppler. INDICATION R/O ENDOCARDITIS 2D DIMENSIONS Left Atrium (2D)4.9 (1.6-4.0cm)IVSd0.8 (0.7-1.1cm) LVDd4.6 (3.9-5.9cm)PWd0.9 (0.7-1.1cm) LVDs2.8 (2.5-4.0cm)FS (%) 40.0 % LVEF (%)70.6 (>50%) M-Mode DIMENSIONS Aortic Root3.20 (2.2-3.7cm)Aortic Cusp Exc.1.90 (1.5-2.0cm) Aortic Valve AoV Peak Jhghczhf870.0cm/Sandra Peak GR.10mmHg Mitral Valve MV E Numbzuhg81.1cm/sMV A Syardchf25.7cm/sE/A ratio0.8 TDI Lateral E' Peak V9.16cm/sMedial E' Peak V5.17cm/sE/Lateral E'6.1 E/Medial E'10.9 Pulmonary Valve PV Peak Aeohokpr59.7cm/sPV Peak Grad.2mmHg Tricuspid Valve TR Peak Kawahibb659hp/sRAP [id number] Peak Gr.38mmHg [id number] LEFT VENTRICLE The left ventricle is normal size. There is normal left ventricular wall thickness. The left ventricular function is normal. The left ventricular ejection fraction is within the normal range. There is normal LV segmental wall motion. Transmitral Doppler flow pattern is Grade I-abnormal relaxation pattern. RIGHT VENTRICLE The right ventricle is normal size. There is normal right ventricular wall thickness. The right ventricular systolic function is normal. ATRIA The left atrium is moderately dilated. The right atrium is mildly dilated. A catheter is seen in the right atrium AORTIC VALVE The aortic valve is mildly thickened. There is no aortic valvular vegetation. MITRAL VALVE The mitral valve is moderately thickened. Mitral regurgitation is trace. TRICUSPID VALVE There is mild to moderate tricuspid regurgitation. There is mild to moderate pulmonary hypertension. GREAT VESSELS The aortic root is normal in size. The IVC is normal in size and collapses >50% with inspiration. <Conclusion> The mitral valve is moderately thickened. No definit Vegitation Consider ALEXIA if Clinically suspicious A catheter is seen in the right atrium There is mild to moderate tricuspid regurgitation. There is mild to moderate pulmonary hypertension.
[2017-05-21] MEDS: Vancomycin 1gm in NS 250ml 1 GM/250 ML BAG IVPB SCH (21:58)
[2017-05-22] MEDS: Piperacillin/Tazobact 3.375 gm 100 ML IVPB SCH ×4 (00:57→17:13)
[2017-05-22] MEDS: HYDROmorphone 2 mg/ml ISec IVP PRN ×2 (03:10→07:16)
[2017-05-22] MEDS: Sodium Chloride 0.9% 1,000 ML IV SCH (04:43)
[2017-05-22] MEDS: metroNIDAZOLE IV 250mg/50 ml 250 MG/50 ML BAG IV SCH ×3 (05:04→22:08)
--- NOTE | 2017-05-22 06:43 | CP.PCM.PN ---
Subjective - Date & Time of Evaluation Date of Evaluation: 05/22/17 Time of Evaluation: 06:40 - Subjective Subjective: Nurse calls and tells that patient has been vomiting, has blood in vomiting , little bit more than tinge of blood,is diaphoretic. 215/115 98/min fsbs-130 mg %. Patient was seen at bedside. She had vomited about 15 ml blood tinge vomiting/sputum which I saw in a container. I also noticed patient laying in pool of dark , tarry , liquidy about 500 CC stool. Patient is sick looking, has no complaints. This 56 year old woman was admitted with abdominal pain,nausea, vomiting. Has PMH of HTN,HIV,hepatitis C,anemia, thrombocytopenia,DVT, IVC filter placement. Objective - Vital Signs/Intake and Output Vital Signs (last 24 hours): Temp Pulse Resp BP Pulse Ox 99.4 F 60 19 125/85 96 05/21/17 16:00 05/21/17 16:00 05/21/17 16:00 05/21/17 16:00 05/21/17 16:00 Intake and Output: 05/21/17 05/22/17 18:59 06:59 Intake Total 1710 Balance 1710 - Medications Medications: Current Medications Abacavir Sulfate (Ziagen) 600 mg PO DAILY [facility] Acetaminophen (Tylenol 325mg Tab) 650 mg PO Q4H PRN PRN Reason: Fever >100.5 F Carvedilol (Coreg) 3.125 mg PO BID [facility] Last Admin: 05/21/17 18:54 Dose: Not Given Gabapentin (Neurontin) 300 mg PO TID [facility] PRN Reason: Protocol Last Admin: 05/21/17 18:54 Dose: Not Given Hydromorphone HCl (Dilaudid) 2 mg IVP Q4H PRN PRN Reason: Pain, moderate (4-7) Last Admin: 05/22/17 03:10 Dose: 2 mg Sodium Chloride (Sodium Chloride 0.9%) 1,000 mls @ 80 mls/hr IV .[id number] [facility] Last Admin: 05/22/17 04:43 Dose: 80 mls/hr Piperacillin Sod/Tazobactam Sod (Zosyn 3.375 In Ns 100ml) 100 mls @ 200 mls/hr IVPB Q6 [facility] PRN Reason: Protocol Stop: 06/03/17 12:01 Last Admin: 05/22/17 05:05 Dose: 200 mls/hr Metronidazole (Flagyl) 250 mg in 50 mls @ 100 mls/hr IV Q8 [facility] PRN Reason: Protocol Stop: 05/26/17 14:01 Last Admin: 05/22/17 05:04 Dose: 100 mls/hr Vancomycin HCl (Vancomycin 1gm) 1 gm in 250 mls @ 167 mls/hr IVPB Q12H [facility] PRN Reason: Protocol Stop: 05/28/17 22:01 Last Admin: 05/21/17 21:58 Dose: 167 mls/hr Lisinopril (Zestril) 2.5 mg PO DAILY [facility] Last Admin: 05/21/17 11:00 Dose: Not Given Ondansetron HCl (Zofran Inj) 4 mg IVP Q4H PRN PRN Reason: Nausea/Vomiting Last Admin: 05/22/17 03:10 Dose: 4 mg Pentoxifylline (Pentoxil) 400 mg PO TID [facility] Last Admin: 05/21/17 18:55 Dose: Not Given Raltegravir (Isentress) 400 mg PO BID [facility] Last Admin: 05/21/17 18:54 Dose: Not Given - Labs Labs: PT 15.3 Seconds (9.9-11.8) H 05/20/17 01:55 INR 1.42 (0.93-1.08) H 05/20/17 01:55 APTT 26.4 Seconds (23.7-30.8) 05/20/17 01:55 - Constitutional Appears: Other (Ill looking.) - Head Exam Head Exam: ATRAUMATIC, NORMAL INSPECTION, NORMOCEPHALIC - Eye Exam Additional comments: Pale conjunctiva. - ENT Exam ENT Exam: Mucous Membranes Dry - Neck Exam Neck Exam: Normal Inspection - Respiratory Exam Respiratory Exam: Clear to Ausculation Bilateral, NORMAL BREATHING PATTERN - Cardiovascular Exam Cardiovascular Exam: REGULAR RHYTHM. absent: JVD - GI/Abdominal Exam GI & Abdominal Exam: Soft (Yes.), Tenderness (Mild diffuse tenderness.), Normal Bowel Sounds. absent: Distended, Firm, Guarding, Rigid, Organomegaly, Pulsatile Mass, Rebound - Rectal Exam Rectal Exam: Deferred - Exam Additional comments: Deferred. - Extremities Exam Extremities Exam: Normal Inspection - Back Exam Back Exam: NORMAL INSPECTION - Neurological Exam Neurological Exam: Alert, Oriented x3 - Psychiatric Exam Psychiatric exam: Normal Affect, Normal Mood - Skin Skin Exam: Pallor Assessment and Plan - Assessment and Plan (Free Text) Assessment: Hypertensive emergency. Upper GI bleeding. Hepatitis C. Cirrhosis of liver? Esophageal varices? Anemia. Thrombocytopenia. HIV. Plan: NPO. CBC,CMP,PT/INR/PTT,Type & crosss match for 2 units. Stool for occult blood , vomitus for occult blood. Hydralazine 10 mg IV stat. Discussed with . Discussed with . Manual platelet. Sandostatin drip as ordered. Transfer to ICU. Attempted to call and Dr.Inamul Byrd. CRITICAL CARE TIME SPENT 60 MINUTES.
[2017-05-22] MEDS ORDERED: Nitroglycerin 2% Ointment Foilpak UD TOP STA (06:56)
[2017-05-22 07:29] LABS: ADD MANUAL DIFF? NO
[2017-05-22 07:32] LABS: BASO # 0.02 K/mm3 (0.0-2.0); BASO % 0.4 % (0.0-3.0); EOS # 0.1 (0.0-0.7); EOS % 1.5 % (1.5-5.0); GRAN # 3.18 (1.4-6.5); GRAN % 60.7 % (50.0-68.0); HEMATOCRIT 38.9 % (36.0-48.0); LYMPH # 1.5 (1.2-3.4); LYMPH % 28.2 % (22.0-35.0); MEAN CELL VOLUME 99.7 fL (80.0-105.0); MEAN CORPUSCULAR HEMOGLOBIN 33.8 pg (25.0-35.0); MEAN CORPUSCULAR HGB CONC 33.9 g/dl (31.0-37.0); MEAN PLATELET VOLUME 11.2 fl (7.0-11.0); MONO # 0.5 (0.1-0.6); MONO % 9.2 % (1.0-6.0); PLATELET COUNT 60 10^3/uL (120.0-450.0); RED CELL DISTRIBUTION WIDTH 13.8 % (11.5-14.5); WHITE BLOOD COUNT 5.2 10^3/ul (4.5-11.0)
[2017-05-22 07:43] LABS: BLOOD UREA NITROGEN 21 mg/dL (7-21); CALCIUM 10.1 mg/dL (8.4-10.5); CARBON DIOXIDE 19 mmol/L (21-33); CHLORIDE 109 mmol/L (98-107); GFR AFRICAN-AMERICAN > 60; GLUCOSE,RANDOM 109 mg/dL (70-110); INR 1.46 (0.93-1.08); PARTIAL THROMBOPLASTIN TIME 24.9 Seconds (23.7-30.8); POTASSIUM 3.4 mmol/L (3.6-5.0); SODIUM 143 mmol/L (132-148)
[2017-05-22] MEDS ORDERED: Pantoprazole 40mg/100ml IVPB 40 MG/100 ML BAG IVPB SCH (08:00)
[2017-05-22] MEDS ORDERED: Naloxone 0.02 mg/ml Inj (Neonatal) IV ONE (09:03)
--- NOTE | 2017-05-22 09:05 | CP.PCM.PCO ---
<Jame Christine - Last Filed: 05/22/17 09:01> Physician Communication Note - Physician Communication Note Physician Communication Note: Please see attached section for code stroke NIHSS score NIHSS Scale ([place]) Time Performed: 08:42 - How Severe is the Stoke Baseline Level of Consciousness: 1=Drowsy LOC to Questions: 2=Neither correct (unable to answer) LOC to commands: 0=Obeys both correctly Best Gaze: 1=Partial gaze palsy Visual: 0=No visual loss Facial: 2=Partial (lower face paralysis) Motor Arm - Left: 3=No effort against gravity (falls immediately) Motor Arm - Right: 2=Falls before 10 sec Motor Leg - Left: 2=Falls before 5 sec Motor Leg - Right: 1=Drift before 5 sec Limb Ataxia: 0=Absent (Patient unable to comprehend/follow comand) Sensory: 0=Normal Best Language: 1=Mild to moderate aphasia Dysarthia: 2=Severe, near unintelligible or worse Extinction & Inattention (Neglect): 0=Normal, no object Score: 17 Risk Level: Mod/Sev Stroke Risk - Notes Notes: As per ICU team, patient was previously answering questions (occasionally nonsensical). Now only non-verbal moaning. Still following most commands. <Chente Byrd - Last Filed: 05/23/17 07:39> Addendum Addendum: 05/23/17 07:33 pt was in icu had received dilauded at 7:15 am. pt became obtunded . code stroke was called by resident .and pt was taken for ct brain.pt is drowsy but responds appropriately.pupils was pin potnt bilaterally.pt was rx narcain , but was held for the time for pt was commming around to be given later if needed.neurochecks was ordered.ct head was negative.
--- NOTE | 2017-05-22 09:07 | CT ---
PROCEDURE: CT HEAD WITHOUT CONTRAST. HISTORY: r/o stroke COMPARISON: None available. TECHNIQUE: Axial computed tomography images were obtained through the head/brain without intravenous contrast. This CT exam was performed using one or more of the following dose reduction techniques: Automated exposure control, adjustment of the mA and/or kV according to patient size, and/or use of iterative reconstruction technique. FINDINGS: HEMORRHAGE: No intracranial hemorrhage. BRAIN: Theodore-white matter differentiation is preserved. There is no mass, mass effect or abnormal extra-axial fluid collection. There are symmetric calcifications in bilateral basal ganglia. VENTRICLES: There is mild global parenchymal volume loss and proportionate enlargement of the ventricles and cortical sulci, advanced for the patient's age. CALVARIUM: The skull base and calvarium are normal. PARANASAL SINUSES: Predominantly clear. MASTOID AIR CELLS: Predominantly clear. OTHER FINDINGS: None. IMPRESSION: No acute intracranial abnormality. If there is a persistent focal neurologic deficit and an ongoing clinical concern for acute infarction, an MRI of the brain without intravenous contrast would be a more sensitive modality for evaluation of hyperacute/acute ischemic infarction. Important findings were discussed with Sabrina Gan on 05/22/2017 at 9:05 a.m.
--- NOTE | 2017-05-22 09:33 | CP.PCM.CON ---
<Sabrina Gan - Last Filed: 05/22/17 15:35> History of Present Illness - History of Present Illness History of Present Illness: PGY-2 ICU consult note 56 yo female with PMH of HIV, Hep C presented with abdominal pain with nausea and vomiting. Patient had CT scan showing CT abd showed CT abd showed hepatic cirrhosis, periportal edema, splenomegaly, mural thickening of cecum adn ascending colon possible colitis. This morning patient began to have episodes of vomiting with bright red blood. Per nurse she vomited about 300cc. This morning patient was having multiple episodes of hematemsis. She continues to report abd pain. When patient was evaluated in ICU she was alert but not able to answer questions. She also presented with facial asymmetry. Code stroke was called. CT showed no acute stroke. She was given narcan. PMH: HTN, Hep C, HIV, anemia PSH: bilateral hip replacement fam hx: denies social hx: denies alcohol use, smoking Review of Systems - Review of Systems Systems not reviewed;Unavailable: Altered Mental Status Past Patient History - Past Medical History & Family History Past Medical History?: Yes - Past Social History Smoking Status: Never Smoked - CARDIAC Hx Hypertension: Yes - PULMONARY Hx Respiratory Disorders: No - NEUROLOGICAL Hx Neurological Disorder: No - HEENT Hx HEENT Problems: Yes Hx Blind: No Other/Comment: Use eyeglasses for reading - RENAL Hx Chronic Kidney Disease: No - ENDOCRINE/METABOLIC Hx Endocrine Disorders: No - HEMATOLOGICAL/ONCOLOGICAL Hx Anemia: Yes - INTEGUMENTARY Hx Dermatological Problems: Yes (chronic ulcers) - MUSCULOSKELETAL/RHEUMATOLOGICAL Hx Falls: No - GASTROINTESTINAL Hx Gastrointestinal Disorders: No - GENITOURINARY/GYNECOLOGICAL Hx Genitourinary Disorders: No - PSYCHIATRIC Hx Emotional Abuse: No Hx Physical Abuse: No Hx Substance Use: No - SURGICAL HISTORY Hx Breast Biopsy: Yes (Right breast- benign finding) Hx Joint Replacement: Yes (bilateral hip) Hx Orthopedic Surgery: Yes (Bilateral hip replacement 2008) Hx Vascular Access Device: Yes (hx of LIFE PORT) Other/Comment: 3 right benign breast biopsy, 2 bilateral hip surgery, 15 ankle surgery, 1 - ANESTHESIA Hx Anesthesia: Yes Meds Allergies/Adverse Reactions: Allergies Allergy/AdvReac Type Severity Reaction Status Date / Time doxycycline Allergy RASH Verified 05/20/17 01:30 sulfamethoxazole Allergy RASH Verified 05/20/17 01:30 [From Bactrim] tramadol HCl [From Ultram] Allergy RASH Verified 05/20/17 01:30 trimethoprim [From Bactrim] Allergy RASH Verified 05/20/17 01:30 - Medications Medications: Current Medications Abacavir Sulfate (Ziagen) 600 mg PO DAILY [facility] Acetaminophen (Tylenol 325mg Tab) 650 mg PO Q4H PRN PRN Reason: Fever >100.5 F Carvedilol (Coreg) 3.125 mg PO BID [facility] Last Admin: 05/21/17 18:54 Dose: Not Given Gabapentin (Neurontin) 300 mg PO TID [facility] PRN Reason: Protocol Last Admin: 05/21/17 18:54 Dose: Not Given Hydromorphone HCl (Dilaudid) 2 mg IVP Q4H PRN PRN Reason: Pain, moderate (4-7) Last Admin: 05/22/17 07:16 Dose: 2 mg Sodium Chloride (Sodium Chloride 0.9%) 1,000 mls @ 80 mls/hr IV .[id number] [facility] Last Admin: 05/22/17 04:43 Dose: 80 mls/hr Piperacillin Sod/Tazobactam Sod (Zosyn 3.375 In Ns 100ml) 100 mls @ 200 mls/hr IVPB Q6 [facility] PRN Reason: Protocol Stop: 06/03/17 12:01 Last Admin: 05/22/17 05:05 Dose: 200 mls/hr Metronidazole (Flagyl) 250 mg in 50 mls @ 100 mls/hr IV Q8 [facility] PRN Reason: Protocol Stop: 05/26/17 14:01 Last Admin: 05/22/17 05:04 Dose: 100 mls/hr Vancomycin HCl (Vancomycin 1gm) 1 gm in 250 mls @ 167 mls/hr IVPB Q12H [facility] PRN Reason: Protocol Stop: 05/28/17 22:01 Last Admin: 05/21/17 21:58 Dose: 167 mls/hr Octreotide Acetate 50 mcg/ (Sodium Chloride) 51 mls @ 102 mls/hr IV Q8 [facility] PRN Reason: Protocol Pantoprazole Sodium (Protonix 40mg Ivpb) 40 mg in 100 mls @ 20 mls/hr IVPB .Q5H [facility] Last Admin: 05/22/17 08:31 Dose: 20 mls/hr Lisinopril (Zestril) 2.5 mg PO DAILY [facility] Last Admin: 05/21/17 11:00 Dose: Not Given Naloxone HCl (Narcan) 0.02 mg IV ONCE ONE Stop: 05/22/17 09:04 Ondansetron HCl (Zofran Inj) 4 mg IVP Q4H PRN PRN Reason: Nausea/Vomiting Last Admin: 05/22/17 07:16 Dose: 4 mg Pentoxifylline (Pentoxil) 400 mg PO TID [facility] Last Admin: 05/21/17 18:55 Dose: Not Given Raltegravir (Isentress) 400 mg PO BID [facility] Last Admin: 05/21/17 18:54 Dose: Not Given Physical Exam - Constitutional Appears: In Acute Distress - Head Exam Head Exam: ATRAUMATIC, NORMOCEPHALIC - Eye Exam Eye Exam: EOMI, Normal appearance - ENT Exam ENT Exam: Mucous Membranes Moist - Respiratory Exam Respiratory Exam: Clear to Auscultation Bilateral, NORMAL BREATHING PATTERN. absent: Rales, Rhonchi, Wheezes, Respiratory Distress - Cardiovascular Exam Cardiovascular Exam: REGULAR RHYTHM, +S1, +S2. absent: Tachycardia, Diastolic murmur, Systolic Murmur - GI/Abdominal Exam GI & Abdominal Exam: Guarding, Normal Bowel Sounds, Tenderness. absent: Distended Additional comments: bloody emesis - Extremities Exam Extremities exam: Positive for: normal inspection. Negative for: pedal edema, tenderness - Neurological Exam Neurological exam: Alert, Oriented x3 - Skin Skin Exam: Dry, Intact, Normal Color, Warm Results - Vital Signs Recent Vital Signs: Last Vital Signs Temp 99.4 F 05/21/17 16:00 Pulse 59 L 05/22/17 07:15 Resp 19 05/21/17 16:00 BP 206/107 H 05/22/17 07:15 Pulse Ox 96 05/21/17 16:00 - Labs Result Diagrams: 05/22/17 07:25 05/22/17 07:25 Labs: Laboratory Results - last 24 hr 05/22/17 05/22/17 05/22/17 07:25 07:25 07:25 WBC 5.2 RBC 3.90 Hgb 13.2 Hct 38.9 MCV 99.7 MCH 33.8 MCHC 33.9 RDW 13.8 Plt Count 60 L Manual Plt Count MPV 11.2 H Gran % 60.7 Lymph % (Auto) 28.2 [place] % (Auto) 9.2 H Eos % (Auto) 1.5 Baso % (Auto) 0.4 Gran # 3.18 Lymph # 1.5 [place] # 0.5 Eos # 0.1 Baso # 0.02 PT 15.8 H INR 1.46 H APTT 24.9 Sodium 143 Potassium 3.4 L Chloride 109 H Carbon Dioxide 19 L Anion Gap 18 BUN 21 Creatinine 0.9 Est GFR ( Amer) > 60 Est GFR (Non-Af Amer) > 60 Random Glucose 109 Calcium 10.1 Stool Occult Blood Blood Type Antibody Screen Crossmatch BBK History Checked 05/22/17 05/22/17 05/22/17 07:25 07:25 08:00 WBC RBC Hgb Hct MCV MCH MCHC RDW Plt Count Manual Plt Count 70 L* MPV Gran % Lymph % (Auto) [place] % (Auto) Eos % (Auto) Baso % (Auto) Gran # Lymph # [place] # Eos # Baso # PT INR APTT Sodium Potassium Chloride Carbon Dioxide Anion Gap BUN Creatinine Est GFR ( Amer) Est GFR (Non-Af Amer) Random Glucose Calcium Stool Occult Blood Positive H Blood Type A POSITIVE Antibody Screen Negative Crossmatch See Detail BBK History Checked No verified bt Assessment & Plan - Assessment and Plan (Free Text) Assessment: 56 yo female with PMH of HIV, Hep C presented to ICU with hematemsis, abdominal pain. Patient had CT abd showed hepatic cirrhosis, periportal edema, splenomegaly, mural thickening of cecum adn ascending colon possible colitis. CT head showed no acute stroke. Plan: Neuro: patient was altered in ED with facial asymmetry CT head showed no acute stroke. patient received Dilaudid, most likely cause of AMS, patient given narcan hold dilaudid continue to monitor Cardio patient SBP was greater then 200. she was given 20 hydralazine BP improved will start lopressor 5 q2 prn Echo showed mitral valve thickened. EF of 70% will need ALEXIA to r/o endocarditis maintain MAP>65 Pulm patient is saturating well continue to monitor maintain supplemental O2> 90% GI continues to have abd pain will start morphine prn requested records of EGD from [place] EGD per GI, Dr. Sharma CT abd showed hepatic cirrhosis, periportal edema, splenomegaly, mural thickening of cecum adn ascending colon possible colitis. octretide drip and protonix 40 q12 NPO hold medications Renal stable BUN and cr cont to replace electrolytes as needed continue to monitor ID Blood cultures positive for gram positive cocci urine cultures positive for gram neg charles cont zosyn, metronidazole echo showed mitral valve thickening, will need possible ALEXIA patient has h/o HIV ID following heme/onc hemetemais and positive stool occult cont to monitor CBC platelets decreased to 70 patient typed and screened for possible blood transfusion will consult hemetologist <Israel Byrd MD - Last Filed: 05/23/17 14:26> Meds - Medications Medications: Current Medications Abacavir Sulfate (Ziagen) 600 mg PO DAILY [facility] Last Admin: 05/23/17 10:38 Dose: Not Given Carvedilol (Coreg) 3.125 mg PO BID [facility] Last Admin: 05/23/17 10:37 Dose: Not Given Gabapentin (Neurontin) 300 mg PO TID [facility] PRN Reason: Protocol Last Admin: 05/23/17 14:07 Dose: Not Given Hydralazine HCl (Apresoline) 10 mg IVP Q6 PRN PRN Reason: for SBP>170 & Diastolic>100 Piperacillin Sod/Tazobactam Sod (Zosyn 3.375 In Ns 100ml) 100 mls @ 200 mls/hr IVPB Q6 [facility] PRN Reason: Protocol Stop: 06/03/17 12:01 Last Admin: 05/23/17 11:57 Dose: 200 mls/hr Vancomycin HCl (Vancomycin 1gm) 1 gm in 250 mls @ 167 mls/hr IVPB Q12H [facility] PRN Reason: Protocol Stop: 05/28/17 22:01 Last Admin: 05/23/17 10:09 Dose: 167 mls/hr Pantoprazole Sodium (Protonix 40mg Ivpb) 40 mg in 100 mls @ 20 mls/hr IVPB .Q5H [facility] Last Admin: 05/22/17 08:31 Dose: 20 mls/hr Octreotide Acetate 1,250 mcg/ (Dextrose) 252.5 mls @ 5.05 mls/hr IV .Q24H [facility]; 25 MCG/HR PRN Reason: Protocol Last Admin: 05/22/17 13:41 Dose: 25 mcg/hr, 5.05 mls/hr Metronidazole (Flagyl) 500 mg in 100 mls @ 100 mls/hr IVPB Q8 [facility] PRN Reason: Protocol Last Admin: 05/23/17 13:54 Dose: 100 mls/hr Sodium Chloride (Sodium Chloride 0.9%) 1,000 mls @ 200 mls/hr IV .Q5H [facility] Last Admin: 05/23/17 13:15 Dose: 200 mls/hr Potassium Chloride (Potassium Chloride 10 Meq/100 Ml) 10 meq in 100 mls @ 100 mls/hr IVPB Q2H [facility] Stop: 05/23/17 16:29 Last Admin: 05/23/17 13:48 Dose: 100 mls/hr Lisinopril (Zestril) 20 mg PO DAILY [facility] Last Admin: 05/23/17 10:38 Dose: Not Given Morphine Sulfate (Morphine) 2 mg IVP Q4H PRN PRN Reason: Pain, moderate (4-7) Last Admin: 05/23/17 11:59 Dose: 2 mg Ondansetron HCl (Zofran Inj) 4 mg IVP Q4H PRN PRN Reason: Nausea/Vomiting Last Admin: 05/23/17 08:47 Dose: 4 mg Pantoprazole Sodium (Protonix Inj) 40 mg IVP Q12 [facility] Last Admin: 05/23/17 10:07 Dose: 40 mg Pentoxifylline (Pentoxil) 400 mg PO TID [facility] Last Admin: 05/23/17 14:07 Dose: Not Given Phytonadione (Vitamin K Inj) 10 mg SC DAILY [facility] Stop: 05/24/17 16:00 Last Admin: 05/23/17 10:07 Dose: 10 mg Raltegravir (Isentress) 400 mg PO BID [facility] Last Admin: 05/23/17 10:37 Dose: Not Given Rifaximin (Xifaxan) 550 mg PO BID [facility] PRN Reason: Protocol Last Admin: 05/23/17 14:07 Dose: Not Given Results - Vital Signs Recent Vital Signs: Last Vital Signs Temp 98.7 F 05/23/17 12:00 Pulse 65 05/23/17 13:35 Resp 15 05/23/17 13:35 BP 155/81 H 05/23/17 07:00 Pulse Ox 83 L 05/23/17 07:30 - Labs Result Diagrams: 05/23/17 05:00 05/23/17 04:45 Labs: Laboratory Results - last 24 hr 05/22/17 05/23/17 05/23/17 18:13 00:00 04:45 WBC 5.5 5.2 RBC 3.66 3.75 Hgb 12.5 12.8 Hct 35.7 L 35.7 L MCV 97.5 95.2 MCH 34.2 34.1 MCHC 35.0 35.9 RDW 13.8 13.7 Plt Count 61 L 68 L MPV 11.2 H 10.7 Gran % 87.3 H 78.4 H Lymph % (Auto) 10.9 L 16.0 L [place] % (Auto) 1.6 5.4 Eos % (Auto) 0.0 L 0.0 L Baso % (Auto) 0.2 0.2 Gran # 4.78 4.06 Lymph # 0.6 L 0.8 L [place] # 0.1 0.3 Eos # 0.0 0.0 Baso # 0.01 0.01 Sodium 136 Potassium 3.1 L Chloride 100 Carbon Dioxide 31 Anion Gap 8 L BUN 10 Creatinine 0.8 Est GFR ( Amer) > 60 Est GFR (Non-Af Amer) > 60 Random Glucose 173 H Calcium 11.9 H Magnesium Total Bilirubin 1.5 H AST 29 ALT 13 Alkaline Phosphatase 51 Total Protein 8.9 H Albumin 4.0 Globulin 4.9 Albumin/Globulin Ratio 0.8 L 05/23/17 05/23/17 04:45 05:00 WBC 5.5 RBC 3.80 Hgb 13.0 Hct 36.4 MCV 95.8 MCH 34.2 MCHC 35.7 RDW 13.9 Plt Count 70 L MPV 11.5 H Gran % 74.0 H Lymph % (Auto) 17.7 L [place] % (Auto) 8.1 H Eos % (Auto) 0.0 L Baso % (Auto) 0.2 Gran # 4.10 Lymph # 1.0 L [place] # 0.5 Eos # 0.0 Baso # 0.01 Sodium Potassium Chloride Carbon Dioxide Anion Gap BUN Creatinine Est GFR ( Amer) Est GFR (Non-Af Amer) Random Glucose Calcium Magnesium 2.8 H Total Bilirubin AST ALT Alkaline Phosphatase Total Protein Albumin Globulin Albumin/Globulin Ratio Attending/Attestation - Attestation I have personally seen and examined this patient.: Yes I have fully participated in the care of the patient.: Yes I have reviewed all pertinent clinical information: Yes Notes (Text): 05/23/17 14:25 56 y/o F w/ HEp C cirrhosis AIDS UGI vs LGI bleed Encephalopathy ? Hepatology consult, serial cbc Keep HGB> 7 Platelets > 20k INR<2 ABX , cx drawn. monitor airway . Opiod withdrawl treatment. dvt p SCD PPI and Octreotide . cc time 72 min
[2017-05-22] MEDS ORDERED: Naloxone 0.4 mg/ml Inj (Adult) IVP ONE (09:35)
[2017-05-22] MEDS: Vancomycin 1gm in NS 250ml 1 GM/250 ML BAG IVPB SCH ×2 (10:23→22:12)
[2017-05-22 10:31] LABS: % CD16+CD56+(NK CELL) 6 Percent (4-25); % CD19 (B CELL) 18 Percent (6-29); % CD3 (MATURE T CELL) 73 Percent (57-85); ABSOLUTE CD16+CD56+CELLS 25 Cells/mcL (70-760)
[2017-05-22] MEDS: Morphine 2 mg/ml ISec IVP PRN ×3 (10:31→18:24)
--- NOTE | 2017-05-22 11:10 | CP.PCM.PN ---
<Alysa Gracia - Last Filed: 05/22/17 11:07> Subjective - Date & Time of Evaluation Date of Evaluation: 05/22/17 Time of Evaluation: 09:05 - Subjective Subjective: S&E in ICU, patient had hematemesis this am and also reported to have melena. Patient just given pain med for abdominal pain, she is drowsy but arousable. No respiratory distress. No CP. Code stroke was called in ICU. Objective - Vital Signs/Intake and Output Vital Signs (last 24 hours): Temp Pulse Resp BP Pulse Ox 99.4 F 59 L 19 206/107 H 96 05/21/17 16:00 05/22/17 07:15 05/21/17 16:00 05/22/17 07:15 05/21/17 16:00 Intake and Output: 05/22/17 05/22/17 06:59 18:59 Intake Total 1710 Balance 1710 - Medications Medications: Current Medications Abacavir Sulfate (Ziagen) 600 mg PO DAILY [facility] Last Admin: 05/22/17 10:15 Dose: Not Given Acetaminophen (Tylenol 325mg Tab) 650 mg PO Q4H PRN PRN Reason: Fever >100.5 F Carvedilol (Coreg) 3.125 mg PO BID [facility] Last Admin: 05/22/17 10:14 Dose: Not Given Gabapentin (Neurontin) 300 mg PO TID [facility] PRN Reason: Protocol Last Admin: 05/22/17 10:14 Dose: Not Given Sodium Chloride (Sodium Chloride 0.9%) 1,000 mls @ 80 mls/hr IV .[id number] [facility] Last Admin: 05/22/17 04:43 Dose: 80 mls/hr Piperacillin Sod/Tazobactam Sod (Zosyn 3.375 In Ns 100ml) 100 mls @ 200 mls/hr IVPB Q6 [facility] PRN Reason: Protocol Stop: 06/03/17 12:01 Last Admin: 05/22/17 05:05 Dose: 200 mls/hr Metronidazole (Flagyl) 250 mg in 50 mls @ 100 mls/hr IV Q8 [facility] PRN Reason: Protocol Stop: 05/26/17 14:01 Last Admin: 05/22/17 05:04 Dose: 100 mls/hr Vancomycin HCl (Vancomycin 1gm) 1 gm in 250 mls @ 167 mls/hr IVPB Q12H [facility] PRN Reason: Protocol Stop: 05/28/17 22:01 Last Admin: 05/22/17 10:23 Dose: 167 mls/hr Octreotide Acetate 50 mcg/ (Sodium Chloride) 51 mls @ 102 mls/hr IV Q8 [facility] PRN Reason: Protocol Last Admin: 05/22/17 10:20 Dose: 102 mls/hr Pantoprazole Sodium (Protonix 40mg Ivpb) 40 mg in 100 mls @ 20 mls/hr IVPB .Q5H [facility] Last Admin: 05/22/17 08:31 Dose: 20 mls/hr Lisinopril (Zestril) 2.5 mg PO DAILY [facility] Last Admin: 05/22/17 10:15 Dose: Not Given Metoprolol Tartrate (Lopressor) 5 mg IVP Q2H PRN PRN Reason: Systolic Blood Pressure Morphine Sulfate (Morphine) 2 mg IVP Q4H PRN PRN Reason: Pain, moderate (4-7) Last Admin: 05/22/17 10:31 Dose: 2 mg Ondansetron HCl (Zofran Inj) 4 mg IVP Q4H PRN PRN Reason: Nausea/Vomiting Last Admin: 05/22/17 10:28 Dose: 4 mg Pantoprazole Sodium (Protonix Inj) 40 mg IVP Q12 [facility] Last Admin: 05/22/17 10:45 Dose: 40 mg Pentoxifylline (Pentoxil) 400 mg PO TID [facility] Last Admin: 05/22/17 10:14 Dose: Not Given Raltegravir (Isentress) 400 mg PO BID [facility] Last Admin: 05/22/17 10:14 Dose: Not Given - Labs Labs: 05/22/17 07:25 05/22/17 07:25 PT 15.8 Seconds (9.9-11.8) H 05/22/17 07:25 INR 1.46 (0.93-1.08) H 05/22/17 07:25 APTT 24.9 Seconds (23.7-30.8) 05/22/17 07:25 - Constitutional Appears: No Acute Distress - Head Exam Head Exam: NORMAL INSPECTION - Eye Exam Eye Exam: absent: Scleral icterus - ENT Exam ENT Exam: Mucous Membranes Moist - Neck Exam Neck Exam: Normal Inspection - Cardiovascular Exam Cardiovascular Exam: +S1, +S2 - GI/Abdominal Exam GI & Abdominal Exam: Distended, Soft, Tenderness, Normal Bowel Sounds. absent: Guarding, Rebound Additional comments: diffuse tenderness but seems more left quaderant - Extremities Exam Extremities Exam: absent: Calf Tenderness, Pedal Edema - Neurological Exam Neurological Exam: Altered (s/p pain med, sleepy but arousable) - Skin Skin Exam: Dry, Warm Assessment and Plan - Assessment and Plan (Free Text) Assessment: ASSESSMENT: Acute GI bleed, r/o varices, PUD S/P Code stroke, ct head no bleed/infarct Acute Abdominal pain Anemia, secondary to bleeding Right side ascending/cecal thickening on Ct scan, r/o ischemic colitis, infectious or Infammatory Bowel Disease. Patient's last CAT scan was more than 2 years ago patient did have significant bowel symptoms only after the colonoscopy as per the patient. Chronic Hepatitis C Thrombocytopenia HIV/AIDS H/O DVT, s/p IVC filter HTN Splenectomy Plan NPO, continue IVF for hydration continue Protonix drip continue Sandostain on IV antibiotics, Zosyn monitor H/H Q 4H consider repeat ct scan A& P, increase abdominal pain consider FFP, check stat manual platelets spoke to ICU team for copy of recent GI work up done at [facility] in [place] , patient was hospitalized on July Patient will need EGD evaluate GI bleeding, discussed with ICU team, FU closely Discussed with Dr. Sharma. <Avery Sharma V - Last Filed: 06/09/17 22:08> Objective - Vital Signs/Intake and Output Vital Signs (last 24 hours): Temp Pulse Resp BP Pulse Ox 97.8 F 70 18 187/78 H 100 05/22/17 18:00 05/22/17 21:00 05/22/17 18:54 05/22/17 21:00 05/22/17 18:50 Intake and Output: 05/22/17 05/23/17 18:59 06:59 Intake Total 1340 Output Total 710 Balance 630 - Medications Medications: Current Medications Abacavir Sulfate (Ziagen) 600 mg PO DAILY [facility] Last Admin: 05/22/17 10:15 Dose: Not Given Carvedilol (Coreg) 3.125 mg PO BID [facility] Last Admin: 05/22/17 17:12 Dose: Not Given Gabapentin (Neurontin) 300 mg PO TID [facility] PRN Reason: Protocol Last Admin: 05/22/17 17:12 Dose: Not Given Sodium Chloride (Sodium Chloride 0.9%) 1,000 mls @ 80 mls/hr IV .[id number] [facility] Last Admin: 05/22/17 04:43 Dose: 80 mls/hr Piperacillin Sod/Tazobactam Sod (Zosyn 3.375 In Ns 100ml) 100 mls @ 200 mls/hr IVPB Q6 [facility] PRN Reason: Protocol Stop: 06/03/17 12:01 Last Admin: 05/22/17 17:13 Dose: 200 mls/hr Metronidazole (Flagyl) 250 mg in 50 mls @ 100 mls/hr IV Q8 [facility] PRN Reason: Protocol Stop: 05/26/17 14:01 Last Admin: 05/22/17 22:08 Dose: 100 mls/hr Vancomycin HCl (Vancomycin 1gm) 1 gm in 250 mls @ 167 mls/hr IVPB Q12H [facility] PRN Reason: Protocol Stop: 05/28/17 22:01 Last Admin: 05/22/17 22:12 Dose: 167 mls/hr Pantoprazole Sodium (Protonix 40mg Ivpb) 40 mg in 100 mls @ 20 mls/hr IVPB .Q5H [facility] Last Admin: 05/22/17 08:31 Dose: 20 mls/hr Octreotide Acetate 1,250 mcg/ (Dextrose) 252.5 mls @ 5.05 mls/hr IV .Q24H [facility]; 25 MCG/HR PRN Reason: Protocol Last Admin: 05/22/17 13:41 Dose: 25 mcg/hr, 5.05 mls/hr Lactulose (Enulose) 20 gm PO Q8H [facility] Lisinopril (Zestril) 2.5 mg PO DAILY [facility] Last Admin: 05/22/17 10:15 Dose: Not Given Metoprolol Tartrate (Lopressor) 5 mg IVP Q2H PRN PRN Reason: Systolic Blood Pressure Last Admin: 05/22/17 21:00 Dose: 5 mg Metronidazole (Flagyl) 500 mg PO Q8 [facility] PRN Reason: Protocol Last Admin: 05/22/17 22:08 Dose: 500 mg Morphine Sulfate (Morphine) 2 mg IVP Q4H PRN PRN Reason: Pain, moderate (4-7) Last Admin: 05/22/17 18:24 Dose: 2 mg Ondansetron HCl (Zofran Inj) 4 mg IVP Q4H PRN PRN Reason: Nausea/Vomiting Last Admin: 05/22/17 14:26 Dose: 4 mg Pantoprazole Sodium (Protonix Inj) 40 mg IVP Q12 [facility] Last Admin: 05/22/17 22:11 Dose: 40 mg Pentoxifylline (Pentoxil) 400 mg PO TID [facility] Last Admin: 05/22/17 17:13 Dose: Not Given Phytonadione (Vitamin K Inj) 10 mg SC DAILY [facility] Stop: 05/24/17 16:00 Last Admin: 05/22/17 16:06 Dose: 10 mg Raltegravir (Isentress) 400 mg PO BID [facility] Last Admin: 05/22/17 17:12 Dose: Not Given - Labs Labs: 05/22/17 18:13 05/22/17 07:25 PT 15.8 Seconds (9.9-11.8) H 05/22/17 07:25 INR 1.46 (0.93-1.08) H 05/22/17 07:25 APTT 24.9 Seconds (23.7-30.8) 05/22/17 07:25 Attending/Attestation - Attestation I have personally seen and examined this patient.: Yes I have fully participated in the care of the patient.: Yes I have reviewed all pertinent clinical information, including history, physical exam and plan: Yes Notes (Text): the patient still complains of diffuse abdominal pain. CT and sonogram were reviewed. Examination abdomen soft and diffuse tenderness present. Would request to do repeat stool for C. difficile and add by mouth Flagyl patent recently had EGD and colonoscopy at [facility]. Still awaiting for the reports
[2017-05-22] MEDS: Metoprolol 1 mg/ml Inj IVP PRN ×4 (12:31→21:00)
[2017-05-22] MEDS ORDERED: Octreotide 1,250 MCG in Dextrose 5% In Water 250 ML IV SCH (12:45)
--- NOTE | 2017-05-22 12:53 | CP.PCM.CON ---
<Jim Balbuena - Last Filed: 05/22/17 12:48> History of Present Illness - History of Present Illness History of Present Illness: PGY-[address] Venegas's Neurology Service: Reason for consult: Code stroke This is a 56 year old female with PMHx HTN, HIV/AIDS, Hepatitis C who presented to the hospital with complaint of chronic abdominal pain. Patient was transferred to the ICU for multiple episodes of hematemesis. While in the ICU, patient became unable to answer questions and had some facial droop. Code stroke was called. PMHx: HTN, HIV/AIDS, Hep C, DVT PSHx: Bilateral hip replacement, cholecystectomy, splenectomy, IVC filter placement Allergies: doxycycline, sulfamethoxazole, trimethoprim, tramadol Review of Systems - Review of Systems Review of Systems: 14 point ROS could not be ascertained due to patient's lethargic and drowsy status Past Patient History - Past Medical History & Family History Past Medical History?: Yes - Past Social History Smoking Status: Never Smoked - CARDIAC Hx Hypertension: Yes - PULMONARY Hx Respiratory Disorders: No - NEUROLOGICAL Hx Neurological Disorder: No - HEENT Hx HEENT Problems: Yes Hx Blind: No Other/Comment: Use eyeglasses for reading - RENAL Hx Chronic Kidney Disease: No - ENDOCRINE/METABOLIC Hx Endocrine Disorders: No - HEMATOLOGICAL/ONCOLOGICAL Hx Anemia: Yes - INTEGUMENTARY Hx Dermatological Problems: Yes (chronic ulcers) - MUSCULOSKELETAL/RHEUMATOLOGICAL Hx Falls: No - GASTROINTESTINAL Hx Gastrointestinal Disorders: No - GENITOURINARY/GYNECOLOGICAL Hx Genitourinary Disorders: No - PSYCHIATRIC Hx Emotional Abuse: No Hx Physical Abuse: No Hx Substance Use: No - SURGICAL HISTORY Hx Breast Biopsy: Yes (Right breast- benign finding) Hx Joint Replacement: Yes (bilateral hip) Hx Orthopedic Surgery: Yes (Bilateral hip replacement 2008) Hx Vascular Access Device: Yes (hx of LIFE PORT) Other/Comment: 3 right benign breast biopsy, 2 bilateral hip surgery, 15 ankle surgery, 1 - ANESTHESIA Hx Anesthesia: Yes Meds Allergies/Adverse Reactions: Allergies Allergy/AdvReac Type Severity Reaction Status Date / Time doxycycline Allergy RASH Verified 05/20/17 01:30 sulfamethoxazole Allergy RASH Verified 05/20/17 01:30 [From Bactrim] tramadol HCl [From Ultram] Allergy RASH Verified 05/20/17 01:30 trimethoprim [From Bactrim] Allergy RASH Verified 05/20/17 01:30 - Medications Medications: Current Medications Abacavir Sulfate (Ziagen) 600 mg PO DAILY [facility] Last Admin: 05/22/17 10:15 Dose: Not Given Acetaminophen (Tylenol 325mg Tab) 650 mg PO Q4H PRN PRN Reason: Fever >100.5 F Carvedilol (Coreg) 3.125 mg PO BID [facility] Last Admin: 05/22/17 10:14 Dose: Not Given Gabapentin (Neurontin) 300 mg PO TID [facility] PRN Reason: Protocol Last Admin: 05/22/17 10:14 Dose: Not Given Sodium Chloride (Sodium Chloride 0.9%) 1,000 mls @ 80 mls/hr IV .[id number] [facility] Last Admin: 05/22/17 04:43 Dose: 80 mls/hr Piperacillin Sod/Tazobactam Sod (Zosyn 3.375 In Ns 100ml) 100 mls @ 200 mls/hr IVPB Q6 [facility] PRN Reason: Protocol Stop: 06/03/17 12:01 Last Admin: 05/22/17 12:31 Dose: 200 mls/hr Metronidazole (Flagyl) 250 mg in 50 mls @ 100 mls/hr IV Q8 [facility] PRN Reason: Protocol Stop: 05/26/17 14:01 Last Admin: 05/22/17 05:04 Dose: 100 mls/hr Vancomycin HCl (Vancomycin 1gm) 1 gm in 250 mls @ 167 mls/hr IVPB Q12H [facility] PRN Reason: Protocol Stop: 05/28/17 22:01 Last Admin: 05/22/17 10:23 Dose: 167 mls/hr Pantoprazole Sodium (Protonix 40mg Ivpb) 40 mg in 100 mls @ 20 mls/hr IVPB .Q5H [facility] Last Admin: 05/22/17 08:31 Dose: 20 mls/hr Octreotide Acetate 1,250 mcg/ (Dextrose) 252.5 mls @ 5.05 mls/hr IV .Q24H [facility]; 25 MCG/HR PRN Reason: Protocol Lisinopril (Zestril) 2.5 mg PO DAILY [facility] Last Admin: 05/22/17 10:15 Dose: Not Given Metoprolol Tartrate (Lopressor) 5 mg IVP Q2H PRN PRN Reason: Systolic Blood Pressure Last Admin: 05/22/17 12:31 Dose: 5 mg Morphine Sulfate (Morphine) 2 mg IVP Q4H PRN PRN Reason: Pain, moderate (4-7) Last Admin: 05/22/17 10:31 Dose: 2 mg Ondansetron HCl (Zofran Inj) 4 mg IVP Q4H PRN PRN Reason: Nausea/Vomiting Last Admin: 05/22/17 10:28 Dose: 4 mg Pantoprazole Sodium (Protonix Inj) 40 mg IVP Q12 [facility] Last Admin: 05/22/17 10:45 Dose: 40 mg Pentoxifylline (Pentoxil) 400 mg PO TID [facility] Last Admin: 05/22/17 10:14 Dose: Not Given Raltegravir (Isentress) 400 mg PO BID [facility] Last Admin: 05/22/17 10:14 Dose: Not Given Physical Exam - Constitutional Additional comments: Drowsy - Head Exam Head Exam: ATRAUMATIC, NORMAL INSPECTION, NORMOCEPHALIC - Eye Exam Eye Exam: EOMI, PERRL - Respiratory Exam Respiratory Exam: Clear to Auscultation Bilateral - Cardiovascular Exam Cardiovascular Exam: REGULAR RHYTHM - GI/Abdominal Exam GI & Abdominal Exam: Normal Bowel Sounds - Neurological Exam Additional comments: No focal neurologic signs. Patient able to move all extremities but is limited due to pain. No pronator drift. No Babinski. Normal finger to nose. Results - Vital Signs Recent Vital Signs: Last Vital Signs Temp 99.4 F 05/21/17 16:00 Pulse 76 05/22/17 12:31 Resp 19 05/21/17 16:00 BP 198/97 H 05/22/17 12:31 Pulse Ox 96 05/21/17 16:00 - Labs Result Diagrams: 05/22/17 07:25 05/22/17 07:25 Labs: Laboratory Results - last 24 hr 05/22/17 05/22/17 05/22/17 06:46 07:25 07:25 WBC 5.2 RBC 3.90 Hgb 13.2 Hct 38.9 MCV 99.7 MCH 33.8 MCHC 33.9 RDW 13.8 Plt Count 60 L Manual Plt Count MPV 11.2 H Gran % 60.7 Lymph % (Auto) 28.2 [place] % (Auto) 9.2 H Eos % (Auto) 1.5 Baso % (Auto) 0.4 Gran # 3.18 Lymph # 1.5 [place] # 0.5 Eos # 0.1 Baso # 0.02 PT INR APTT Sodium 143 Potassium 3.4 L Chloride 109 H Carbon Dioxide 19 L Anion Gap 18 BUN 21 Creatinine 0.9 Est GFR ( Amer) > 60 Est GFR (Non-Af Amer) > 60 POC Glucose (mg/dL) 95 Random Glucose 109 Calcium 10.1 Ammonia Stool Occult Blood Blood Type Blood Type Confirm Antibody Screen Crossmatch BBK History Checked 05/22/17 05/22/17 05/22/17 07:25 07:25 07:25 WBC RBC Hgb Hct MCV MCH MCHC RDW Plt Count Manual Plt Count 70 L* MPV Gran % Lymph % (Auto) [place] % (Auto) Eos % (Auto) Baso % (Auto) Gran # Lymph # [place] # Eos # Baso # PT 15.8 H INR 1.46 H APTT 24.9 Sodium Potassium Chloride Carbon Dioxide Anion Gap BUN Creatinine Est GFR ( Amer) Est GFR (Non-Af Amer) POC Glucose (mg/dL) Random Glucose Calcium Ammonia Stool Occult Blood Blood Type A POSITIVE Blood Type Confirm Antibody Screen Negative Crossmatch See Detail BBK History Checked No verified bt 05/22/17 05/22/17 05/22/17 08:00 10:50 10:50 WBC RBC Hgb Hct MCV MCH MCHC RDW Plt Count Manual Plt Count MPV Gran % Lymph % (Auto) [place] % (Auto) Eos % (Auto) Baso % (Auto) Gran # Lymph # [place] # Eos # Baso # PT INR APTT Sodium Potassium Chloride Carbon Dioxide Anion Gap BUN Creatinine Est GFR ( Amer) Est GFR (Non-Af Amer) POC Glucose (mg/dL) Random Glucose Calcium Ammonia < 9 L Stool Occult Blood Positive H Blood Type Blood Type Confirm A POSITIVE Antibody Screen Crossmatch BBK History Checked Assessment & Plan - Assessment and Plan (Free Text) Assessment: This is a 56 year old female with PMHx HTN, HIV/AIDS, Hepatitis C who presented to the hospital with complaint of chronic abdominal pain. Patient's transient confusional state is due to pain medication side effects as well as episodes of hypertensive urgency secondary to pain. CT head did not reveal evidence of acute ischemic or hemorrhagic pathology. Plan: 1) Continue to monitor. 2) Avoid hypotensive or hypertensive episodes. 3) Avoid sedating medications and opioid overuse. 4) Check ammonia levels. Case discussed with Dr. Rubi Balbuena, PGY-1 - Date & Time Date: 05/22/17 Time: 09:30 <Corey Venegas - Last Filed: 05/23/17 09:50> Meds - Medications Medications: Current Medications Abacavir Sulfate (Ziagen) 600 mg PO DAILY [facility] Last Admin: 05/22/17 10:15 Dose: Not Given Carvedilol (Coreg) 3.125 mg PO BID [facility] Last Admin: 05/22/17 17:12 Dose: Not Given Gabapentin (Neurontin) 300 mg PO TID [facility] PRN Reason: Protocol Last Admin: 05/23/17 09:40 Dose: Not Given Hydralazine HCl (Apresoline) 10 mg IVP Q6 PRN PRN Reason: for SBP>170 & Diastolic>100 Sodium Chloride (Sodium Chloride 0.9%) 1,000 mls @ 80 mls/hr IV .[id number] [facility] Last Admin: 05/22/17 04:43 Dose: 80 mls/hr Piperacillin Sod/Tazobactam Sod (Zosyn 3.375 In Ns 100ml) 100 mls @ 200 mls/hr IVPB Q6 [facility] PRN Reason: Protocol Stop: 06/03/17 12:01 Last Admin: 05/23/17 00:00 Dose: 200 mls/hr Vancomycin HCl (Vancomycin 1gm) 1 gm in 250 mls @ 167 mls/hr IVPB Q12H [facility] PRN Reason: Protocol Stop: 05/28/17 22:01 Last Admin: 05/22/17 22:12 Dose: 167 mls/hr Pantoprazole Sodium (Protonix 40mg Ivpb) 40 mg in 100 mls @ 20 mls/hr IVPB .Q5H [facility] Last Admin: 05/22/17 08:31 Dose: 20 mls/hr Octreotide Acetate 1,250 mcg/ (Dextrose) 252.5 mls @ 5.05 mls/hr IV .Q24H [facility]; 25 MCG/HR PRN Reason: Protocol Last Admin: 05/22/17 13:41 Dose: 25 mcg/hr, 5.05 mls/hr Metronidazole (Flagyl) 500 mg in 100 mls @ 100 mls/hr IVPB Q8 [facility] PRN Reason: Protocol Sodium Chloride (Sodium Chloride 0.9%) 2,000 mls @ 999 mls/hr IV .Q2H1M [facility] Stop: 05/23/17 11:40 Lactulose (Enulose) 20 gm PO Q8H [facility] Last Admin: 05/23/17 06:00 Dose: Not Given Lisinopril (Zestril) 20 mg PO DAILY [facility] Morphine Sulfate (Morphine) 2 mg IVP Q4H PRN PRN Reason: Pain, moderate (4-7) Last Admin: 05/23/17 08:47 Dose: 2 mg Ondansetron HCl (Zofran Inj) 4 mg IVP Q4H PRN PRN Reason: Nausea/Vomiting Last Admin: 05/23/17 08:47 Dose: 4 mg Pantoprazole Sodium (Protonix Inj) 40 mg IVP Q12 [facility] Last Admin: 05/22/17 22:11 Dose: 40 mg Pentoxifylline (Pentoxil) 400 mg PO TID [facility] Last Admin: 05/22/17 17:13 Dose: Not Given Phytonadione (Vitamin K Inj) 10 mg SC DAILY [facility] Stop: 05/24/17 16:00 Last Admin: 05/22/17 16:06 Dose: 10 mg Raltegravir (Isentress) 400 mg PO BID [facility] Last Admin: 05/22/17 17:12 Dose: Not Given Results - Vital Signs Recent Vital Signs: Last Vital Signs Temp 99.2 F 05/23/17 00:00 Pulse 58 L 05/23/17 07:30 Resp 16 05/23/17 07:30 BP 155/81 H 05/23/17 07:00 Pulse Ox 83 L 05/23/17 07:30 - Labs Result Diagrams: 05/23/17 05:00 05/23/17 04:45 Labs: Laboratory Results - last 24 hr 05/22/17 05/22/17 05/22/17 07:25 10:50 10:50 WBC RBC Hgb Hct MCV MCH MCHC RDW Plt Count MPV Gran % Lymph % (Auto) [place] % (Auto) Eos % (Auto) Baso % (Auto) Gran # Lymph # [place] # Eos # Baso # Sodium Potassium Chloride Carbon Dioxide Anion Gap BUN Creatinine Est GFR ( Amer) Est GFR (Non-Af Amer) Random Glucose Calcium Total Bilirubin AST ALT Alkaline Phosphatase Ammonia < 9 L Total Protein Albumin Globulin Albumin/Globulin Ratio Blood Type A POSITIVE Blood Type Confirm A POSITIVE Antibody Screen Negative Crossmatch See Detail BBK History Checked No verified bt 05/22/17 05/23/17 05/23/17 18:13 00:00 04:45 WBC 5.5 5.2 RBC 3.66 3.75 Hgb 12.5 12.8 Hct 35.7 L 35.7 L MCV 97.5 95.2 MCH 34.2 34.1 MCHC 35.0 35.9 RDW 13.8 13.7 Plt Count 61 L 68 L MPV 11.2 H 10.7 Gran % 87.3 H 78.4 H Lymph % (Auto) 10.9 L 16.0 L [place] % (Auto) 1.6 5.4 Eos % (Auto) 0.0 L 0.0 L Baso % (Auto) 0.2 0.2 Gran # 4.78 4.06 Lymph # 0.6 L 0.8 L [place] # 0.1 0.3 Eos # 0.0 0.0 Baso # 0.01 0.01 Sodium 136 Potassium 3.1 L Chloride 100 Carbon Dioxide 31 Anion Gap 8 L BUN 10 Creatinine 0.8 Est GFR ( Amer) > 60 Est GFR (Non-Af Amer) > 60 Random Glucose 173 H Calcium 11.9 H Total Bilirubin 1.5 H AST 29 ALT 13 Alkaline Phosphatase 51 Ammonia Total Protein 8.9 H Albumin 4.0 Globulin 4.9 Albumin/Globulin Ratio 0.8 L Blood Type Blood Type Confirm Antibody Screen Crossmatch BBK History Checked 05/23/17 05:00 WBC 5.5 RBC 3.80 Hgb 13.0 Hct 36.4 MCV 95.8 MCH 34.2 MCHC 35.7 RDW 13.9 Plt Count 70 L MPV 11.5 H Gran % 74.0 H Lymph % (Auto) 17.7 L [place] % (Auto) 8.1 H Eos % (Auto) 0.0 L Baso % (Auto) 0.2 Gran # 4.10 Lymph # 1.0 L [place] # 0.5 Eos # 0.0 Baso # 0.01 Sodium Potassium Chloride Carbon Dioxide Anion Gap BUN Creatinine Est GFR ( Amer) Est GFR (Non-Af Amer) Random Glucose Calcium Total Bilirubin AST ALT Alkaline Phosphatase Ammonia Total Protein Albumin Globulin Albumin/Globulin Ratio Blood Type Blood Type Confirm Antibody Screen Crossmatch BBK History Checked Attending/Attestation - Attestation I have personally seen and examined this patient.: Yes I have fully participated in the care of the patient.: Yes I have reviewed all pertinent clinical information: Yes
--- NOTE | 2017-05-22 14:29 | PN ---
DATE: 05/22/2017 SUBJECTIVE: The patient is now in the ICU 128, bed #7. The patient has had a "stroke" and was transferred to unit and ICU team following her and there is no fevers reported and no chills reported. PHYSICAL EXAMINATION: VITAL SIGNS: Temperature is 99, blood pressure is 206/107, respiratory rate of 19 and heart rate of 60. HEENT: Noted. NECK: Supple. LUNGS: Decreased breath sounds. HEART: Normal S1 and S2. ABDOMEN: Soft and nontender. LABORATORY DATA: Reveal a white count of 5.2, hemoglobin of 13 and platelets of 70. Coagulation is noted. The patient has a BUN of 11, creatinine of 0.9 and RPR is negative, crypt antigen is negative and microbiology reveals all the blood cultures are positive for gram-positive cocci which is coag-negative staph by PNA FISH in both bottles and the patient has a gram-negative charles in the urine. ASSESSMENT AND PLAN: She is a 56-year-old female with acute colitis in a patient with cirrhosis and chronic active hepatitis C with a coag-negative staph bacteremia, possibly related to the port, now status post "stroke" in a patient with HIV and AIDS, was on raltegravir and abacavir; history of hypertension, history of bilateral hip replacement and currently on Zosyn and awaiting for repeat blood cultures. We will give a dose of vancomycin pending repeat panculture and HIV PCR and T cells and we will make further recommendations. Currently on vancomycin and Zosyn. The patient had an echo yesterday, which did not reveal any vegetations. No definite vegetations as read by Dr. Velasquez. There is mitral valve thickening and we will follow with you. Panfilo Marcelo MD
--- NOTE | 2017-05-22 14:57 | PN ---
SUBJECTIVE: The patient is 56-year-old, this morning's event noted. The patient was found to be lethargic after she was given Dilaudid, residents called code stroke, and thus the patient was transferred to ICU. Also earlier this morning, her blood pressure went up to 206/107 and her blood work shows she has episode of coffee-ground vomitus, complained of belly pain, so initial plan was to transfer to telemetry, but she was found to be lethargic after Dilaudid, she was transferred to ICU. The patient was seen and examined in the ICU, seems to be little better. No chest pain. No shortness of breath. PHYSICAL EXAMINATION: VITAL SIGNS: She has a temperature of 99.4, pulse 60, respirations 19, blood pressure 125/85. LUNGS: Bilateral fair air flow. No rhonchi or crackle. HEART: S1, S2 audible. ABDOMEN: Soft, nontender. Slight epigastric and left lower quadrant discomfort. NEUROLOGIC: She is awake and alert, communicative. LABORATORY DATA: WBC is 5.2, hemoglobin 13, hematocrit 38 and platelets 60, manual platelet count is 70. PT 15.8, INR 1.46. Chemistry; sodium 143, potassium 3.4, chloride 109, CO2 of 19, BUN 21, creatinine 0.9, blood sugar of 109. Stool for Hemoccult is positive. RPR is negative. Cryptococcal antigen is negative. She had CT scan of the head done, negative. ASSESSMENT: 1 Gastrointestinal bleed. 2. Status post episode of melena. 3. Chronic anemia. 4. Diverticulitis versus ischemic colitis, cannot rule out infectious or inflammatory causes yet. 5. History of hepatitis C, was treated with Harvoni. 6. Thrombocytopenia. 7. Human immunodeficiency virus positive. 8. Hypertension. 9. Chronic pain syndrome. PLAN: Currently, the patient is on Coreg, metronidazole 250 q. 8 and she is getting gabapentin. She is on IV fluids. She is on Protonix. She is getting vancomycin 1 g q. 12, and she is on Zosyn. We will continue on that, but now she is n.p.o. We will follow up her electrolyte and CBC and CMP in the a.m. Will Barton MD [facility] # [id number]
--- NOTE | 2017-05-22 15:24 | US ---
HISTORY: Abdominal pain COMPARISON: CT abdomen and pelvis from 05/20/2017 TECHNIQUE: Grayscale imaging was performed. FINDINGS: LIVER: Measures 17.8 cm. There is diffuse increased echogenicity with heterogeneous coarse echotexture and nodular contour. No mass. No intrahepatic bile duct dilatation. GALLBLADDER: There are no gallstones. There is diffuse gallbladder wall thickening likely secondary to liver disease. No pericholecystic fluid. COMMON BILE DUCT: Measures 5.0 mm. No stones. No dilatation. PANCREAS: Unremarkable as visualized. No mass. No ductal dilatation. RIGHT KIDNEY: Measures 8.9cm. Normal echogenicity. No calculus, mass, or hydronephrosis. LEFT KIDNEY: Measures 11.2cm. Normal echogenicity. No calculus, mass, or hydronephrosis. SPLEEN: Enlarged and measures 16.4 cm. Also noted are multiple splenic varices. AORTA: No aneurysmal dilatation. IVC: Unremarkable. OTHER FINDINGS: None. IMPRESSION: Findings are most compatible with cirrhosis of liver with splenomegaly and splenic varices.
[2017-05-22] MEDS: Phytonadione 10 mg/ml Inj (Adult) SC SCH (16:06)
--- NOTE | 2017-05-22 16:18 | CT ---
PROCEDURE: CT Abdomen and Pelvis without intravenous contrast HISTORY: adb pain' COMPARISON: 05/20/2017 TECHNIQUE: Without contrast. Contrast Dose: Radiation dose: Total exam DLP = 623 mGy-cm. This CT exam was performed using one or more of the following dose reduction techniques: Automated exposure control, adjustment of the mA and/or kV according to patient size, and/or use of iterative reconstruction technique. FINDINGS: LOWER THORAX: Unremarkable. LIVER: There is hepatic cirrhosis with an abnormal contour of the liver and periportal edema. GALLBLADDER AND BILE DUCTS: There is moderate distention of the gallbladder. There is a small amount of ascites. Fluid is seen adjacent to the gallbladder PANCREAS: Unremarkable. No gross lesion or ductal dilatation. SPLEEN: Unremarkable. ADRENALS: Unremarkable. No mass. KIDNEYS AND URETERS: Unremarkable. No hydronephrosis. No solid mass. VASCULATURE: Unremarkable. No aortic aneurysm. A caval filter is seen BOWEL: There is extensive mural thickening and edema throughout the colon consistent with severe colitis. This has rapidly progressed since the previous exam. APPENDIX: Unremarkable. Normal appendix. PERITONEUM: Unremarkable. No free fluid. No free air. LYMPH NODES: Unremarkable. No enlarged lymph nodes. BLADDER: Unremarkable. REPRODUCTIVE: Unremarkable. BONES: No acute fracture. OTHER FINDINGS: None. IMPRESSION: There is extensive mural thickening and edema throughout the colon consistent with severe colitis. This has rapidly progressed since the previous exam.
[2017-05-22 18:14] LABS: ADD MANUAL DIFF? NO
[2017-05-22 18:19] LABS: BASO # 0.01 K/mm3 (0.0-2.0); BASO % 0.2 % (0.0-3.0); GRAN # 4.78 (1.4-6.5); GRAN % 87.3 % (50.0-68.0); HEMATOCRIT 35.7 % (36.0-48.0); LYMPH # 0.6 (1.2-3.4); LYMPH % 10.9 % (22.0-35.0); MEAN CELL VOLUME 97.5 fL (80.0-105.0); MEAN CORPUSCULAR HEMOGLOBIN 34.2 pg (25.0-35.0); MEAN PLATELET VOLUME 11.2 fl (7.0-11.0); MONO # 0.1 (0.1-0.6); MONO % 1.6 % (1.0-6.0); PLATELET COUNT 61 10^3/uL (120.0-450.0); RED CELL DISTRIBUTION WIDTH 13.8 % (11.5-14.5); WHITE BLOOD COUNT 5.5 10^3/ul (4.5-11.0)
--- NOTE | 2017-05-22 23:21 | CP.PCM.PN ---
Subjective - Date & Time of Evaluation Date of Evaluation: 05/22/17 Time of Evaluation: 18:00 - Subjective Subjective: Pt. is a 56 year old female admitted with abdominal pain. CT abdomen showed colitis. She has chirrosis of liver, Hep C, HIV positive. History of DVT in past with IVC filter. She developed hematemesis. She was also confused. She demanded increase in dilaudid dose to 2 mg from 1 mg or she will leave AMA on 05/20. She was transferred to ICU. she became alert with one dose of narcan. Repeat CT abdomen showed progression of colitis. Objective - Vital Signs/Intake and Output Vital Signs (last 24 hours): Temp Pulse Resp BP Pulse Ox 97.8 F 70 18 187/78 H 100 05/22/17 18:00 05/22/17 21:00 05/22/17 18:54 05/22/17 21:00 05/22/17 18:50 Intake and Output: 05/22/17 05/23/17 18:59 06:59 Intake Total 1340 Output Total 710 Balance 630 - Medications Medications: Current Medications Abacavir Sulfate (Ziagen) 600 mg PO DAILY [facility] Last Admin: 05/22/17 10:15 Dose: Not Given Carvedilol (Coreg) 3.125 mg PO BID [facility] Last Admin: 05/22/17 17:12 Dose: Not Given Gabapentin (Neurontin) 300 mg PO TID [facility] PRN Reason: Protocol Last Admin: 05/22/17 17:12 Dose: Not Given Sodium Chloride (Sodium Chloride 0.9%) 1,000 mls @ 80 mls/hr IV .[id number] [facility] Last Admin: 05/22/17 04:43 Dose: 80 mls/hr Piperacillin Sod/Tazobactam Sod (Zosyn 3.375 In Ns 100ml) 100 mls @ 200 mls/hr IVPB Q6 [facility] PRN Reason: Protocol Stop: 06/03/17 12:01 Last Admin: 05/22/17 17:13 Dose: 200 mls/hr Metronidazole (Flagyl) 250 mg in 50 mls @ 100 mls/hr IV Q8 [facility] PRN Reason: Protocol Stop: 05/26/17 14:01 Last Admin: 05/22/17 22:08 Dose: 100 mls/hr Vancomycin HCl (Vancomycin 1gm) 1 gm in 250 mls @ 167 mls/hr IVPB Q12H [facility] PRN Reason: Protocol Stop: 05/28/17 22:01 Last Admin: 05/22/17 22:12 Dose: 167 mls/hr Pantoprazole Sodium (Protonix 40mg Ivpb) 40 mg in 100 mls @ 20 mls/hr IVPB .Q5H [facility] Last Admin: 05/22/17 08:31 Dose: 20 mls/hr Octreotide Acetate 1,250 mcg/ (Dextrose) 252.5 mls @ 5.05 mls/hr IV .Q24H [facility]; 25 MCG/HR PRN Reason: Protocol Last Admin: 05/22/17 13:41 Dose: 25 mcg/hr, 5.05 mls/hr Lactulose (Enulose) 20 gm PO Q8H [facility] Lisinopril (Zestril) 2.5 mg PO DAILY [facility] Last Admin: 05/22/17 10:15 Dose: Not Given Metoprolol Tartrate (Lopressor) 5 mg IVP Q2H PRN PRN Reason: Systolic Blood Pressure Last Admin: 05/22/17 21:00 Dose: 5 mg Metronidazole (Flagyl) 500 mg PO Q8 [facility] PRN Reason: Protocol Last Admin: 05/22/17 22:08 Dose: 500 mg Morphine Sulfate (Morphine) 2 mg IVP Q4H PRN PRN Reason: Pain, moderate (4-7) Last Admin: 05/22/17 18:24 Dose: 2 mg Ondansetron HCl (Zofran Inj) 4 mg IVP Q4H PRN PRN Reason: Nausea/Vomiting Last Admin: 05/22/17 14:26 Dose: 4 mg Pantoprazole Sodium (Protonix Inj) 40 mg IVP Q12 [facility] Last Admin: 05/22/17 22:11 Dose: 40 mg Pentoxifylline (Pentoxil) 400 mg PO TID [facility] Last Admin: 05/22/17 17:13 Dose: Not Given Phytonadione (Vitamin K Inj) 10 mg SC DAILY [facility] Stop: 05/24/17 16:00 Last Admin: 05/22/17 16:06 Dose: 10 mg Raltegravir (Isentress) 400 mg PO BID [facility] Last Admin: 05/22/17 17:12 Dose: Not Given - Labs Labs: 05/22/17 18:13 05/22/17 07:25 PT 15.8 Seconds (9.9-11.8) H 05/22/17 07:25 INR 1.46 (0.93-1.08) H 05/22/17 07:25 APTT 24.9 Seconds (23.7-30.8) 05/22/17 07:25 - Constitutional Appears: Agitated, Confused - Head Exam Head Exam: ATRAUMATIC, NORMAL INSPECTION, NORMOCEPHALIC - Eye Exam Eye Exam: Normal appearance Pupil Exam: NORMAL ACCOMODATION - ENT Exam ENT Exam: Mucous Membranes Moist - Neck Exam Neck Exam: Normal Inspection - Respiratory Exam Respiratory Exam: Clear to Ausculation Bilateral - Cardiovascular Exam Cardiovascular Exam: REGULAR RHYTHM, +S1, +S2 - GI/Abdominal Exam GI & Abdominal Exam: Soft, Normal Bowel Sounds - Back Exam Back Exam: NORMAL INSPECTION - Neurological Exam Neurological Exam: Awake, CN II-XII Intact - Skin Skin Exam: Normal Color, Warm Assessment and Plan - Assessment and Plan (Free Text) Assessment: 1. Colitis. 2. HIV 3. Hep C 4. Coagulopathy 5. Chirrosis liver 6. Hematemesis 7. Thrombocytopenia Plan : Vit K 10 mg SQ q daily for 3 days. Coagulopathy related to chirrosis of liver. If develops hematemesis agin consider platelet transfusion. If needed FFP can be considered. She has history of DVT in past. Thrombocytopenia likely related to splenomegaly related to chirrosis of liver. Will monitor blood counts. Coags in am. ID following for colitis. Discussed with staff nurse, ICU MD. Thank you Dr. Barton for allowing us to participate in her care.
[2017-05-23] MEDS: Morphine 2 mg/ml ISec IVP PRN ×4 (00:01→20:10)
[2017-05-23 01:09] LABS: ADD MANUAL DIFF? NO; BASO # 0.01 K/mm3 (0.0-2.0); BASO % 0.2 % (0.0-3.0); GRAN # 4.06 (1.4-6.5); GRAN % 78.4 % (50.0-68.0); HEMATOCRIT 35.7 % (36.0-48.0); LYMPH # 0.8 (1.2-3.4); MEAN CELL VOLUME 95.2 fL (80.0-105.0); MEAN CORPUSCULAR HEMOGLOBIN 34.1 pg (25.0-35.0); MEAN CORPUSCULAR HGB CONC 35.9 g/dl (31.0-37.0); MEAN PLATELET VOLUME 10.7 fl (7.0-11.0); MONO # 0.3 (0.1-0.6); MONO % 5.4 % (1.0-6.0); PLATELET COUNT 68 10^3/uL (120.0-450.0); RED CELL DISTRIBUTION WIDTH 13.7 % (11.5-14.5); WHITE BLOOD COUNT 5.2 10^3/ul (4.5-11.0)
[2017-05-23 05:51] LABS: ADD MANUAL DIFF? NO; BASO # 0.01 K/mm3 (0.0-2.0); BASO % 0.2 % (0.0-3.0); HEMATOCRIT 36.4 % (36.0-48.0); LYMPH % 17.7 % (22.0-35.0); MEAN CELL VOLUME 95.8 fL (80.0-105.0); MEAN CORPUSCULAR HEMOGLOBIN 34.2 pg (25.0-35.0); MEAN CORPUSCULAR HGB CONC 35.7 g/dl (31.0-37.0); MEAN PLATELET VOLUME 11.5 fl (7.0-11.0); MONO # 0.5 (0.1-0.6); MONO % 8.1 % (1.0-6.0); PLATELET COUNT 70 10^3/uL (120.0-450.0); RED CELL DISTRIBUTION WIDTH 13.9 % (11.5-14.5); WHITE BLOOD COUNT 5.5 10^3/ul (4.5-11.0)
[2017-05-23 06:38] LABS: ALB/GLOB RATIO 0.8 (1.1-1.8); ALKALINE PHOSPHATASE 51 U/L (38-133); ALT/SGPT 13 U/L (7-56); AST/SGOT 29 U/L (15-39); BILIRUBIN,TOTAL 1.5 mg/dL (0.2-1.3); BLOOD UREA NITROGEN 10 mg/dL (7-21); CALCIUM 11.9 mg/dL (8.4-10.5); CHLORIDE 100 mmol/L (98-107); GFR AFRICAN-AMERICAN > 60; GLUCOSE,RANDOM 173 mg/dL (70-110); POTASSIUM 3.1 mmol/L (3.6-5.0); SODIUM 136 mmol/L (132-148); TOTAL PROTEIN 8.9 g/dL (5.8-8.3)
[2017-05-23 07:19] LABS: CARBON DIOXIDE 31 mmol/L (21-33)
--- NOTE | 2017-05-23 09:22 | CP.PCM.PN ---
<AndrewMarissa - Last Filed: 05/23/17 15:15> Subjective - Date & Time of Evaluation Date of Evaluation: 05/23/17 Time of Evaluation: 09:19 - Subjective Subjective: Patient seen and examined at bedside. Overnight patient had nausea and vomiting. Vomitus was clear, non-bloody. Patient is currently resting comfortably. Objective - Vital Signs/Intake and Output Vital Signs (last 24 hours): Temp Pulse Resp BP Pulse Ox 99.2 F 58 L 16 155/81 H 83 L 05/23/17 00:00 05/23/17 07:30 05/23/17 07:30 05/23/17 07:00 05/23/17 07:30 Intake and Output: 05/23/17 05/23/17 06:59 18:59 Intake Total 2850 Output Total 4810 Balance -1960 - Medications Medications: Current Medications Abacavir Sulfate (Ziagen) 600 mg PO DAILY [facility] Last Admin: 05/22/17 10:15 Dose: Not Given Carvedilol (Coreg) 3.125 mg PO BID [facility] Last Admin: 05/22/17 17:12 Dose: Not Given Gabapentin (Neurontin) 300 mg PO TID [facility] PRN Reason: Protocol Last Admin: 05/22/17 17:12 Dose: Not Given Hydralazine HCl (Apresoline) 10 mg IVP Q6 PRN PRN Reason: for SBP>170 & Diastolic>100 Sodium Chloride (Sodium Chloride 0.9%) 1,000 mls @ 80 mls/hr IV .[id number] [facility] Last Admin: 05/22/17 04:43 Dose: 80 mls/hr Piperacillin Sod/Tazobactam Sod (Zosyn 3.375 In Ns 100ml) 100 mls @ 200 mls/hr IVPB Q6 [facility] PRN Reason: Protocol Stop: 06/03/17 12:01 Last Admin: 05/23/17 00:00 Dose: 200 mls/hr Vancomycin HCl (Vancomycin 1gm) 1 gm in 250 mls @ 167 mls/hr IVPB Q12H [facility] PRN Reason: Protocol Stop: 05/28/17 22:01 Last Admin: 05/22/17 22:12 Dose: 167 mls/hr Pantoprazole Sodium (Protonix 40mg Ivpb) 40 mg in 100 mls @ 20 mls/hr IVPB .Q5H [facility] Last Admin: 05/22/17 08:31 Dose: 20 mls/hr Octreotide Acetate 1,250 mcg/ (Dextrose) 252.5 mls @ 5.05 mls/hr IV .Q24H [facility]; 25 MCG/HR PRN Reason: Protocol Last Admin: 05/22/17 13:41 Dose: 25 mcg/hr, 5.05 mls/hr Metronidazole (Flagyl) 500 mg in 100 mls @ 100 mls/hr IVPB Q8 [facility] PRN Reason: Protocol Lactulose (Enulose) 20 gm PO Q8H [facility] Last Admin: 05/23/17 06:00 Dose: Not Given Lisinopril (Zestril) 20 mg PO DAILY [facility] Morphine Sulfate (Morphine) 2 mg IVP Q4H PRN PRN Reason: Pain, moderate (4-7) Last Admin: 05/23/17 08:47 Dose: 2 mg Ondansetron HCl (Zofran Inj) 4 mg IVP Q4H PRN PRN Reason: Nausea/Vomiting Last Admin: 05/23/17 08:47 Dose: 4 mg Pantoprazole Sodium (Protonix Inj) 40 mg IVP Q12 [facility] Last Admin: 05/22/17 22:11 Dose: 40 mg Pentoxifylline (Pentoxil) 400 mg PO TID [facility] Last Admin: 05/22/17 17:13 Dose: Not Given Phytonadione (Vitamin K Inj) 10 mg SC DAILY [facility] Stop: 05/24/17 16:00 Last Admin: 05/22/17 16:06 Dose: 10 mg Raltegravir (Isentress) 400 mg PO BID [facility] Last Admin: 05/22/17 17:12 Dose: Not Given - Labs Labs: 05/23/17 05:00 05/23/17 04:45 PT 15.8 Seconds (9.9-11.8) H 05/22/17 07:25 INR 1.46 (0.93-1.08) H 05/22/17 07:25 APTT 24.9 Seconds (23.7-30.8) 05/22/17 07:25 - Constitutional Appears: No Acute Distress - Head Exam Head Exam: ATRAUMATIC, NORMOCEPHALIC - Eye Exam Eye Exam: Normal appearance Assessment and Plan - Assessment and Plan (Free Text) Assessment: 56 yo AA female with HIV, HCV, HTN, history of IV drug use, who was admitted to the ICU for hematemesis complicated by AMS secondary to TIA vs drug withdrawal. Plan: Neurologic: Patient's stroke-like symptoms resolved within [address] head w/o contrast showed no evidence of intracranial bleed. MRI not ordered given the transient nature of her neurologic symptoms, but will reconsider if symptoms re-emerge. Given her episode of AMS, likely multifactorial in nature, we will still try to reverse treatable causes her potential AMS. Serum ammonia was and may be related to drug withdrawal (opiods, specifically). Hypercalcemia, of unknown origin. Currently, patient is lethargic/sleeping, awakens to verbal/tactile. Cardiovascular: Patient's BP is stable. Will continue to monitor and treat as needed with PRN hydralazine. Currently, carvedilol and lisinopril are being held given BP is stable. TTE performed which did not identify any vegetations, but did note mitral valve thickening. ALEXIA ordered to assess for any vegetations on the valves. Given the patient's history of IV drug abuse, HIV, HCV, recent catheter insertion, and blood culture positive for Coagulase (-) Staph and recent introduction of a port cath, a ALEXIA is scheduled today to further evaluate for any possible clots/ vegetations. Respiratory: CTAB, on RA maintaining O2>90%. Renal: 3.1 K. Repleting intravenously, will continue to monitor via serial BMP. Mg is normal. Hypercalcemia due to unknown etiology, will check PTH, Parathyroid related peptide, and repeat serum Ca. GI: No hematemesis or hematochezia today, H&H stable. Will continue with IV protonix and octreotide. GI is following, at this time no bright red blood PO or rectum. Awaiting old records from [facility] reports. ID: Patient CD4 count is 129, need to consider prophylactic antimicrobials, following. On Vancomycin, pipercillin/tazobactam, and metronidazole per ID. Endocrine: Euglycemia. <Israel Byrd MD H - Last Filed: 05/23/17 19:33> Objective - Vital Signs/Intake and Output Vital Signs (last 24 hours): Temp Pulse Resp BP Pulse Ox 98.7 F 67 15 133/61 100 05/23/17 12:00 05/23/17 18:01 05/23/17 17:50 05/23/17 17:00 05/23/17 17:50 Intake and Output: 05/23/17 05/24/17 18:59 06:59 Intake Total 5310 Output Total 1400 Balance 3910 - Medications Medications: Current Medications Abacavir Sulfate (Ziagen) 600 mg PO DAILY [facility] Last Admin: 05/23/17 10:38 Dose: Not Given Carvedilol (Coreg) 3.125 mg PO BID [facility] Last Admin: 05/23/17 17:36 Dose: Not Given Gabapentin (Neurontin) 300 mg PO TID [facility] PRN Reason: Protocol Last Admin: 05/23/17 17:37 Dose: Not Given Hydralazine HCl (Apresoline) 10 mg IVP Q6 PRN PRN Reason: for SBP>170 & Diastolic>100 Piperacillin Sod/Tazobactam Sod (Zosyn 3.375 In Ns 100ml) 100 mls @ 200 mls/hr IVPB Q6 [facility] PRN Reason: Protocol Stop: 06/03/17 12:01 Last Admin: 05/23/17 17:17 Dose: 200 mls/hr Vancomycin HCl (Vancomycin 1gm) 1 gm in 250 mls @ 167 mls/hr IVPB Q12H [facility] PRN Reason: Protocol Stop: 05/28/17 22:01 Last Admin: 05/23/17 10:09 Dose: 167 mls/hr Pantoprazole Sodium (Protonix 40mg Ivpb) 40 mg in 100 mls @ 20 mls/hr IVPB .Q5H [facility] Last Admin: 05/22/17 08:31 Dose: 20 mls/hr Octreotide Acetate 1,250 mcg/ (Dextrose) 252.5 mls @ 5.05 mls/hr IV .Q24H [facility]; 25 MCG/HR PRN Reason: Protocol Last Admin: 05/22/17 13:41 Dose: 25 mcg/hr, 5.05 mls/hr Metronidazole (Flagyl) 500 mg in 100 mls @ 100 mls/hr IVPB Q8 [facility] PRN Reason: Protocol Last Admin: 05/23/17 13:54 Dose: 100 mls/hr Sodium Chloride (Sodium Chloride 0.9%) 1,000 mls @ 200 mls/hr IV .Q5H [facility] Last Admin: 05/23/17 17:16 Dose: 200 mls/hr Potassium Chloride (Potassium Chloride 20 Meq/100 Ml) 20 meq in 100 mls @ 50 mls/hr IVPB Q2H [facility] Stop: 05/23/17 22:29 Last Admin: 05/23/17 19:01 Dose: 50 mls/hr Lisinopril (Zestril) 20 mg PO DAILY [facility] Last Admin: 05/23/17 10:38 Dose: Not Given Morphine Sulfate (Morphine) 2 mg IVP Q4H PRN PRN Reason: Pain, moderate (4-7) Last Admin: 05/23/17 11:59 Dose: 2 mg Ondansetron HCl (Zofran Inj) 4 mg IVP Q4H PRN PRN Reason: Nausea/Vomiting Last Admin: 05/23/17 08:47 Dose: 4 mg Pantoprazole Sodium (Protonix Inj) 40 mg IVP Q12 [facility] Last Admin: 05/23/17 10:07 Dose: 40 mg Pentoxifylline (Pentoxil) 400 mg PO TID [facility] Last Admin: 05/23/17 17:37 Dose: Not Given Phytonadione (Vitamin K Inj) 10 mg SC DAILY [facility] Stop: 05/24/17 16:00 Last Admin: 05/23/17 10:07 Dose: 10 mg Raltegravir (Isentress) 400 mg PO BID [facility] Last Admin: 05/23/17 17:36 Dose: Not Given Rifaximin (Xifaxan) 550 mg PO BID [facility] PRN Reason: Protocol Last Admin: 05/23/17 17:37 Dose: Not Given - Labs Labs: 05/23/17 05:00 05/23/17 15:45 PT 15.8 Seconds (9.9-11.8) H 05/22/17 07:25 INR 1.46 (0.93-1.08) H 05/22/17 07:25 APTT 24.9 Seconds (23.7-30.8) 05/22/17 07:25 Attending/Attestation - Attestation I have personally seen and examined this patient.: Yes I have fully participated in the care of the patient.: Yes I have reviewed all pertinent clinical information, including history, physical exam and plan: Yes Notes (Text): 05/23/17 19:31 56 y/o F w/ Severe COlitis in th esetting of immunocompromised state. On empiric abx per ID. If no improvement can treat or look for other causes such as CMV etc. Hypercalcemia on treatment with IV fluids , repeat Ca in the afternoon. Monitor urine output. HGB stable, no further melena noted. HGB>7 Mental status improved. Records needed from ID and PCP. HIV/AIDS HEP C Liver cirrhosis . poor prognosis cc time 65 min
[2017-05-23] MEDS ORDERED: Sodium Chloride 0.9% 2,000 ML IV STA (09:40)
[2017-05-23] MEDS: Phytonadione 10 mg/ml Inj (Adult) SC SCH (10:07)
[2017-05-23] MEDS: Vancomycin 1gm in NS 250ml 1 GM/250 ML BAG IVPB SCH ×2 (10:09→22:44)
--- NOTE | 2017-05-23 11:11 | CP.PCM.PN ---
<Alysa Gracia - Last Filed: 05/24/17 07:22> Subjective - Date & Time of Evaluation Date of Evaluation: 05/23/17 Time of Evaluation: 08:50 - Subjective Subjective: S&E at bedside, A/A/O, still have abdominal pain, but better than yesterday. Mainly abdominal pain is mid abdomen.Had no BM yet, does get nausea but no vomiting/hematemesis. Still await record from [facility] workup. Had repeat ct scan yesterday and show increase inflammation in colon then previous study on admission. Objective - Vital Signs/Intake and Output Vital Signs (last 24 hours): Temp Pulse Resp BP Pulse Ox 99.2 F 58 L 16 155/81 H 83 L 05/23/17 00:00 05/23/17 07:30 05/23/17 07:30 05/23/17 07:00 05/23/17 07:30 Intake and Output: 05/23/17 05/23/17 06:59 18:59 Intake Total 2850 Output Total 4810 Balance -1960 - Medications Medications: Current Medications Abacavir Sulfate (Ziagen) 600 mg PO DAILY [facility] Last Admin: 05/23/17 10:38 Dose: Not Given Carvedilol (Coreg) 3.125 mg PO BID [facility] Last Admin: 05/23/17 10:37 Dose: Not Given Gabapentin (Neurontin) 300 mg PO TID [facility] PRN Reason: Protocol Last Admin: 05/23/17 09:40 Dose: Not Given Hydralazine HCl (Apresoline) 10 mg IVP Q6 PRN PRN Reason: for SBP>170 & Diastolic>100 Piperacillin Sod/Tazobactam Sod (Zosyn 3.375 In Ns 100ml) 100 mls @ 200 mls/hr IVPB Q6 [facility] PRN Reason: Protocol Stop: 06/03/17 12:01 Last Admin: 05/23/17 00:00 Dose: 200 mls/hr Vancomycin HCl (Vancomycin 1gm) 1 gm in 250 mls @ 167 mls/hr IVPB Q12H [facility] PRN Reason: Protocol Stop: 05/28/17 22:01 Last Admin: 05/23/17 10:09 Dose: 167 mls/hr Pantoprazole Sodium (Protonix 40mg Ivpb) 40 mg in 100 mls @ 20 mls/hr IVPB .Q5H [facility] Last Admin: 05/22/17 08:31 Dose: 20 mls/hr Octreotide Acetate 1,250 mcg/ (Dextrose) 252.5 mls @ 5.05 mls/hr IV .Q24H [facility]GIE; 25 MCG/HR PRN Reason: Protocol Last Admin: 05/22/17 13:41 Dose: 25 mcg/hr, 5.05 mls/hr Metronidazole (Flagyl) 500 mg in 100 mls @ 100 mls/hr IVPB Q8 [facility] PRN Reason: Protocol Sodium Chloride (Sodium Chloride 0.9%) 2,000 mls @ 999 mls/hr IV .Q2H1M STA Stop: 05/23/17 11:40 Last Admin: 05/23/17 10:08 Dose: 999 mls/hr Sodium Chloride (Sodium Chloride 0.9%) 1,000 mls @ 200 mls/hr IV .Q5H [facility] Lactulose (Enulose) 20 gm PO Q8H [facility] Last Admin: 05/23/17 06:00 Dose: Not Given Lisinopril (Zestril) 20 mg PO DAILY [facility] Last Admin: 05/23/17 10:38 Dose: Not Given Morphine Sulfate (Morphine) 2 mg IVP Q4H PRN PRN Reason: Pain, moderate (4-7) Last Admin: 05/23/17 08:47 Dose: 2 mg Ondansetron HCl (Zofran Inj) 4 mg IVP Q4H PRN PRN Reason: Nausea/Vomiting Last Admin: 05/23/17 08:47 Dose: 4 mg Pantoprazole Sodium (Protonix Inj) 40 mg IVP Q12 [facility] Last Admin: 05/23/17 10:07 Dose: 40 mg Pentoxifylline (Pentoxil) 400 mg PO TID [facility] Last Admin: 05/23/17 10:37 Dose: Not Given Phytonadione (Vitamin K Inj) 10 mg SC DAILY [facility] Stop: 05/24/17 16:00 Last Admin: 05/23/17 10:07 Dose: 10 mg Raltegravir (Isentress) 400 mg PO BID [facility] Last Admin: 05/23/17 10:37 Dose: Not Given - Labs Labs: 05/23/17 05:00 05/23/17 04:45 PT 15.8 Seconds (9.9-11.8) H 05/22/17 07:25 INR 1.46 (0.93-1.08) H 05/22/17 07:25 APTT 24.9 Seconds (23.7-30.8) 05/22/17 07:25 - Constitutional Appears: No Acute Distress - Head Exam Head Exam: NORMOCEPHALIC - Eye Exam Eye Exam: Normal appearance. absent: Scleral icterus - ENT Exam ENT Exam: Mucous Membranes Moist - Neck Exam Neck Exam: Normal Inspection - Respiratory Exam Respiratory Exam: Respiratory Distress. absent: NORMAL BREATHING PATTERN - Cardiovascular Exam Cardiovascular Exam: +S1, +S2 - GI/Abdominal Exam GI & Abdominal Exam: Distended, Guarding, Soft, Tenderness, Normal Bowel Sounds. absent: Rebound - Neurological Exam Neurological Exam: Alert, Awake, Oriented x3 - Skin Skin Exam: Dry, Warm Assessment and Plan - Assessment and Plan (Free Text) Assessment: ASSESSMENT: Acute GI bleed, r/o varices, PUD, S/P Code stroke, ct head no bleed/infarct, likely narcotic induced Acute Abdominal pain Worsening Colitis, H/O colitis post colonoscopy 2 years ago (+) Blood cultures; staph/Mitral Valve thickening, r/o endocarditis Thrombocytopenia HIV/AIDS H/O DVT, s/p IVC filter HTN Splenectomy Plan NPO, continue IVF for hydration continue Protonix drip continue Sandostatin drip on IV antibiotics, Zosyn, vancomycin,flagyl as per ID on antiviral meds monitor H/H Q 4H repeat CDiff for ALEXIA w/cardiology on lactulose but patient refusing, will change Xifaxin Await endo report from [facility], request sent yesterday. No immediate plans for endo now, H/H is stable, no active GI bleed now Discussed with Dr. Sharma. <Avery Sharma V - Last Filed: 06/09/17 22:16> Objective - Vital Signs/Intake and Output Vital Signs (last 24 hours): Temp Pulse Resp BP Pulse Ox 98.4 F 57 L 19 125/76 100 05/23/17 20:00 05/23/17 21:10 05/23/17 21:10 05/23/17 21:00 05/23/17 21:10 Intake and Output: 05/23/17 05/24/17 18:59 06:59 Intake Total 5310 Output Total 1400 Balance 3910 - Medications Medications: Current Medications Abacavir Sulfate (Ziagen) 600 mg PO DAILY [facility] Last Admin: 05/23/17 10:38 Dose: Not Given Carvedilol (Coreg) 3.125 mg PO BID [facility] Last Admin: 05/23/17 17:36 Dose: Not Given Gabapentin (Neurontin) 300 mg PO TID [facility] PRN Reason: Protocol Last Admin: 05/23/17 17:37 Dose: Not Given Hydralazine HCl (Apresoline) 10 mg IVP Q6 PRN PRN Reason: for SBP>170 & Diastolic>100 Piperacillin Sod/Tazobactam Sod (Zosyn 3.375 In Ns 100ml) 100 mls @ 200 mls/hr IVPB Q6 [facility] PRN Reason: Protocol Stop: 06/03/17 12:01 Last Admin: 05/23/17 17:17 Dose: 200 mls/hr Vancomycin HCl (Vancomycin 1gm) 1 gm in 250 mls @ 167 mls/hr IVPB Q12H [facility] PRN Reason: Protocol Stop: 05/28/17 22:01 Last Admin: 05/23/17 22:44 Dose: 167 mls/hr Pantoprazole Sodium (Protonix 40mg Ivpb) 40 mg in 100 mls @ 20 mls/hr IVPB .Q5H [facility] Last Admin: 05/22/17 08:31 Dose: 20 mls/hr Octreotide Acetate 1,250 mcg/ (Dextrose) 252.5 mls @ 5.05 mls/hr IV .Q24H [facility]; 25 MCG/HR PRN Reason: Protocol Last Admin: 05/22/17 13:41 Dose: 25 mcg/hr, 5.05 mls/hr Metronidazole (Flagyl) 500 mg in 100 mls @ 100 mls/hr IVPB Q8 [facility] PRN Reason: Protocol Last Admin: 05/23/17 22:43 Dose: 100 mls/hr Sodium Chloride (Sodium Chloride 0.9%) 1,000 mls @ 200 mls/hr IV .Q5H [facility] Last Admin: 05/23/17 22:44 Dose: 200 mls/hr Lisinopril (Zestril) 20 mg PO DAILY [facility] Last Admin: 05/23/17 10:38 Dose: Not Given Morphine Sulfate (Morphine) 2 mg IVP Q4H PRN PRN Reason: Pain, moderate (4-7) Last Admin: 05/23/17 20:10 Dose: 2 mg Ondansetron HCl (Zofran Inj) 4 mg IVP Q4H PRN PRN Reason: Nausea/Vomiting Last Admin: 05/23/17 08:47 Dose: 4 mg Pantoprazole Sodium (Protonix Inj) 40 mg IVP Q12 [facility] Last Admin: 05/23/17 10:07 Dose: 40 mg Pentoxifylline (Pentoxil) 400 mg PO TID [facility] Last Admin: 05/23/17 17:37 Dose: Not Given Phytonadione (Vitamin K Inj) 10 mg SC DAILY [facility] Stop: 05/24/17 16:00 Last Admin: 05/23/17 10:07 Dose: 10 mg Raltegravir (Isentress) 400 mg PO BID [facility] Last Admin: 05/23/17 17:36 Dose: Not Given Rifaximin (Xifaxan) 550 mg PO BID [facility] PRN Reason: Protocol Last Admin: 05/23/17 17:37 Dose: Not Given - Labs Labs: 05/23/17 05:00 05/23/17 15:45 PT 15.8 Seconds (9.9-11.8) H 05/22/17 07:25 INR 1.46 (0.93-1.08) H 05/22/17 07:25 APTT 24.9 Seconds (23.7-30.8) 05/22/17 07:25 Attending/Attestation - Attestation I have personally seen and examined this patient.: Yes I have fully participated in the care of the patient.: Yes I have reviewed all pertinent clinical information, including history, physical exam and plan: Yes Notes (Text): This patient was seen and evaluated. Discussed with the PCP and ID feeling slightly better complaining of abdominal pain and loose BMs. On examination had diffuse tenderness ,no rebound, soft distended abdomen Follow-up the previous GI workup 2. Continue antibiotics as per ID. Follow up Stool studies.
[2017-05-23] MEDS: Piperacillin/Tazobact 3.375 gm 100 ML IVPB SCH ×3 (11:57→17:17)
[2017-05-23] MEDS: Sodium Chloride 0.9% 1,000 ML IV SCH ×3 (13:15→22:44)
--- NOTE | 2017-05-23 13:53 | CON ---
DATE: 05/23/2017 REASON FOR CONSULTATION: ALEXIA to rule out endocarditis. BRIEF CLINICAL HISTORY: The patient is a 56-year-old female with a past medical history significant for hepatitis C, positive HIV, admitted with hematemesis. Blood culture is positive. Cardiology consult was called for ALEXIA to rule out endocarditis. Past history is significant for nonischemic cardiomyopathy, status post cardiac catheterization at [facility] found to be decreased LV function with leaky valve and the patient was sent with the LifeVest admitted here with abdominal pain and had bright red blood vomited and then the patient is very lethargic responded to Narcan, now the patient is awake and alert. PAST SURGICAL HISTORY: Significant for bilateral hip replacement. PAST MEDICAL HISTORY: As mentioned hepatitis C, hepatitis B, anemia, and HIV. SOCIAL HISTORY: . Denies any history of alcohol abuse. CURRENT MEDICATIONS: The patient at home supposed to take HIV medication plus lisinopril 2.5 mg, Coreg 3.125 mg, Lasix, and gabapentin plus HIV medication as mentioned. ALLERGIES: DOXYCYCLINE, SULFAMETHOXAZOLE, TRAMADOL, TRIMETHOPRIM, AND SULFA. REVIEW OF SYSTEMS: As per HPI. PHYSICAL EXAMINATION: As follows: GENERAL: The patient is awake and alert. VITAL SIGNS: Height of the patient 5 feet 2 inches, weight of the patient 155 pounds, and body mass index 30.2 kg/m2. Heart rate is 58 and blood pressure 175/115. HEENT: PERRLA. Extraocular muscles are intact. NECK: Supple. No carotid bruits or thyromegaly. HEART: S1 and S2. Regular. CHEST: Clear to auscultation. ABDOMEN: Soft. EXTREMITIES: Clubbing and cyanosis negative. LABORATORY DATA: Blood workup as follows; WBC 5.5, hemoglobin 13, hematocrit 36.4, and platelet count 70. Chemistry shows sodium 137, potassium 3.1, chloride 100, carbon dioxide 31, anion gap of 8, BUN 10, creatinine 3.8, and total bilirubin 1.5. Blood culture, urine Gram-negative charles, blood Coagulase positive, Staphylococcus aureus. We have the regular echo dated 05/21/2017. Mitral valve is moderately patent. No definite vegetation. clinically suspicious. Catheter seen in right atrium, [id number] tricuspid regurgitation, moderate pulmonary hypertension of 48, ejection fraction of 70% suggested ALEXIA. IMPRESSION: A 56-year-old female with past medical history of human immunodeficiency virus, hepatitis C, admitted with abdominal pain, hematemesis now in the unit, n.p.o., history of Port-A-Cath, history of Gram-positive sepsis, transesophageal echocardiogram recommended, rule out vegetation. The patient is recently seen at [facility]. Cardiac catheterization found to be nonischemic cardiomyopathy. Chart is still pending. Awaiting to be transferred chart or faxed from [facility], but by history said the patient's heart muscles are weak and it was given LifeVest and discharged on LifeVest to be followed by EP there. RECOMMENDATIONS: We will keep n.p.o., do the ALEXIA, further recommendations after ALEXIA. Thank you doctor for providing me the opportunity in taking care of the patient, Brynn Perea. We will discontinue beta-ruben, because the patient is bradycardic. We will put p.r.n. hydralazine. Once the patient has started p.o., we will change it lisinopril. We will follow with you. We will discuss with her mother also. Shaji Modi MD
[2017-05-23] MEDS: metroNIDAZOLE IV 500 mg/100 ml 500 MG/100 ML BAG IVPB SCH ×2 (13:54→22:43)
[2017-05-23] MEDS ORDERED: Midazolam 2 MG/2 ML VIAL ONE (14:09)
[2017-05-23] MEDS ORDERED: Flumazenil 0.1 mg/ml Inj (5ml) IVP ONE (14:10)
[2017-05-23] MEDS ORDERED: Naloxone 0.4 mg/ml Inj (Adult) ONE (14:10)
[2017-05-23] MEDS ORDERED: Midazolam 2 MG/2 ML VIAL IV ONE ×4 (14:57→15:02)
[2017-05-23 16:22] LABS: CALCIUM 6.7 mg/dL (8.4-10.5)
--- NOTE | 2017-05-23 16:36 | CARD ---
APPROVED REPORT EXAM: Transesophageal echocardiogram with color flow Doppler. INDICATION ENDOCARDITIS Reason For Test : Rule out endocarditis. PROCEDURE After obtaining informed consent, patient underwent transesophageal echo in the ICU. Type of Sedation : Conscious Sedation Sedation was administered by Dr conde. Sedation was achieved with Versed and , Fentanyl 4mg and 100mcg intravenously. Transesophageal probe was inserted and advanced into esophagus without difficulty. Echo enhancement indication: R/O Septal defect. Echo enhancement agent administered: Agitated Saline The ALEXIA was performed without complications. Throughout the procedure, the blood pressure, pulse oximetry, cardiac rhythm, and rate were monitored. The patient tolerated the procedure without adverse effects. Recovery from conscious sedation was uneventful and vital signs were stable. LEFT VENTRICLE The left ventricle is normal size. There is normal left ventricular wall thickness. The left ventricular function is normal.EF-65% There is normal LV segmental wall motion. The left ventricular diastolic function is normal. No left ventricle thrombus noted on this study. There is no ventricular septal defect visualized. There is no left ventricular aneurysm. There is no mass noted in the left ventricle. RIGHT VENTRICLE The right ventricle is normal size. There is normal right ventricular wall thickness. The right ventricular systolic function is normal. ATRIA The left atrium is mildly dilated. The right atrium is mildly dilated. The interatrial septum is intact with no evidence for an atrial septal defect. AORTIC VALVE The aortic valve is normal in structure. No aortic regurgitation is present. There is no aortic valvular stenosis. There is no aortic valvular vegetation. MITRAL VALVE The mitral valve leaflets are thickened. There is no evidence of mitral valve prolapse. There is no mitral valve stenosis. Mitral regurgitation is trace. TRICUSPID VALVE The tricuspid valve leaflets display thickening. There is trace tricuspid regurgitation. There is no tricuspid valve prolapse or vegetation. There is no tricuspid valve stenosis. PULMONIC VALVE The pulmonic valve is mildly thickened. There is trace pulmonic valvular regurgitation. There is no pulmonic valvular stenosis. GREAT VESSELS The aortic root is normal in size. The ascending aorta is normal in size. The pulmonary artery is normal. The IVC is normal in size and collapses >50% with inspiration. PERICARDIAL EFFUSION There is no pericardial effusion. There is no pleural effusion. <Conclusion> Normal LV Size and Fx, EF-65% Biatrial Enlargement Trace MR/TR?PI No Vegetation noted on Valves but Echogenic Mobile structure notes attaced to To tip of yuli catheter, can not R/o Vegetation Vs Fibrin thread. Suggest ; Removal Of yuli catheter If blood Culture remains positive.
[2017-05-23 18:11] LABS: ALB/GLOB RATIO 0.7 (1.1-1.8); ALKALINE PHOSPHATASE < 20 U/L (38-133); ALT/SGPT 10 U/L (7-56); AST/SGOT 21 U/L (15-39); BILIRUBIN,TOTAL 1.2 mg/dL (0.2-1.3); BLOOD UREA NITROGEN 8 mg/dL (7-21); CARBON DIOXIDE 28 mmol/L (21-33); CHLORIDE 109 mmol/L (95-110); GFR AFRICAN-AMERICAN > 60; GLUCOSE,RANDOM 123 mg/dL (70-110); SODIUM 138 mmol/L (132-148); TOTAL PROTEIN 6.4 g/dL (5.8-8.3)
[2017-05-23 18:19] LABS: POTASSIUM 2.7 mmol/L (3.6-5.0)
--- NOTE | 2017-05-23 19:25 | PN ---
SUBJECTIVE: The patient is [id number] seen and examined, seems to be much more awake, alert and oriented, communicative, no more nausea or vomiting, no hemoptysis, no hematemesis. She is in ICU. PHYSICAL EXAMINATION: VITAL SIGNS: She is afebrile, pulse 67, respirations 18, blood pressure 133/61. LUNGS: Bilateral fair air flow. No rhonchi or crackles. HEART: S1 and S2 audible. ABDOMEN: Soft and nontender. No rebound. No guarding. NEUROLOGIC: She is awake and alert and communicative. LABORATORY DATA: WBC is 5.5, hemoglobin 13, hematocrit 36, and platelets of 70. PT 15.8, INR 1.46. Chemistry; sodium 138, potassium 2.7, chloride 109, CO2 of 28, BUN 8, creatinine 0.7, blood sugar of 123, calcium 6.7. Her stool for Hemoccult is positive, cryptococcal antigen negative. The two blood cultures are positive for coag negative staph and urine is gram-negative rods, colony count is below 10,000. ASSESSMENT: 1. Bacteriemia. 2. HIV positive. 3. Upper GI bleed. 4. History of hepatitis C. 5. Biatrial enlargement. 6. Port-A-Cath lumen positive for questionable vegetation. 7. Mural thickening and edema of colon consistent with colitis. PLAN: At this point, the patient is currently n.p.o. She is on IV fluids. Continue on Protonix until she is on antibiotic as per ID. She is receiving Flagyl and vancomycin 1 g q. 12 and cefixime. She is also receiving Zosyn. She will continue all that. Her hypokalemia has been addressed and the patient received 40 mEq IV. Followup CBC and CMP in a.m. We will discuss with other consultants. Also we will discuss with ID if we need to have ALEXIA done since repeat cultures are negative. We might be able to treat her with IV antibiotics and not remove Port-A-Cath. Will Barton MD
--- NOTE | 2017-05-23 23:07 | CP.PCM.CON ---
History of Present Illness - History of Present Illness History of Present Illness: General Surgery - Dr. Moss 56 yo F w/ hx of HIV, Hep C/Cirrhosis, HTN, DVT, who was admitted on 05/21 with colitis. Initial Blood Cx were positive for Coag Negative Staph x2. Pt underwent ALEXIA today which showed thickening of the mitral valve, no vegetations seen on the valves, however something seen on the tip of her port-a-cath which could be vegetation vs. fibrin. Pt states that she had the port placed approx 5 years ago for medications/access as she has poor veins. She has never had any issues with the port functioning or being infected. PT currently complains of abdominal pain, diarrhea, and some blurry vision but states that these issues have been ongoing for some time and her abdominal pain is slowly improving. She denies any discomfort at the port site, Fevers/Chills, SOb/ Chest pains. PMH: HIV, HepC/Cirrhosis, HTN, DVT PSH: B/L Hip replacement, IVC Filter, Hysterectomy, Port-a-cath Allergic to Doxy, Bactrim, Tramadol Review of Systems - Review of Systems All systems: reviewed and no additional remarkable complaints except (as per hPI ) Past Patient History - Past Medical History & Family History Past Medical History?: Yes - Past Social History Smoking Status: Never Smoked - CARDIAC Hx Hypertension: Yes - PULMONARY Hx Respiratory Disorders: No - NEUROLOGICAL Hx Neurological Disorder: No - HEENT Hx HEENT Problems: Yes Hx Blind: No Other/Comment: Use eyeglasses for reading - RENAL Hx Chronic Kidney Disease: No - ENDOCRINE/METABOLIC Hx Endocrine Disorders: No - HEMATOLOGICAL/ONCOLOGICAL Hx Blood Transfusions: Yes - INTEGUMENTARY Hx Dermatological Problems: Yes (chronic ulcers) - MUSCULOSKELETAL/RHEUMATOLOGICAL Hx Falls: No - GASTROINTESTINAL Hx Gastrointestinal Disorders: No - GENITOURINARY/GYNECOLOGICAL Hx Genitourinary Disorders: No - PSYCHIATRIC Hx Emotional Abuse: No Hx Physical Abuse: No Hx Substance Use: No - SURGICAL HISTORY Hx Surgeries: Yes - ANESTHESIA Hx Anesthesia Reactions: No Hx Malignant Hyperthermia: No Meds Allergies/Adverse Reactions: Allergies Allergy/AdvReac Type Severity Reaction Status Date / Time doxycycline Allergy RASH Verified 05/20/17 01:30 sulfamethoxazole Allergy RASH Verified 05/20/17 01:30 [From Bactrim] tramadol HCl [From Ultram] Allergy RASH Verified 05/20/17 01:30 trimethoprim [From Bactrim] Allergy RASH Verified 05/20/17 01:30 - Medications Medications: Current Medications Abacavir Sulfate (Ziagen) 600 mg PO DAILY [facility] Last Admin: 05/23/17 10:38 Dose: Not Given Carvedilol (Coreg) 3.125 mg PO BID [facility] Last Admin: 05/23/17 17:36 Dose: Not Given Gabapentin (Neurontin) 300 mg PO TID [facility] PRN Reason: Protocol Last Admin: 05/23/17 17:37 Dose: Not Given Hydralazine HCl (Apresoline) 10 mg IVP Q6 PRN PRN Reason: for SBP>170 & Diastolic>100 Piperacillin Sod/Tazobactam Sod (Zosyn 3.375 In Ns 100ml) 100 mls @ 200 mls/hr IVPB Q6 [facility]IE PRN Reason: Protocol Stop: 06/03/17 12:01 Last Admin: 05/23/17 17:17 Dose: 200 mls/hr Vancomycin HCl (Vancomycin 1gm) 1 gm in 250 mls @ 167 mls/hr IVPB Q12H [facility] PRN Reason: Protocol Stop: 05/28/17 22:01 Last Admin: 05/23/17 22:44 Dose: 167 mls/hr Pantoprazole Sodium (Protonix 40mg Ivpb) 40 mg in 100 mls @ 20 mls/hr IVPB .Q5H [facility] Last Admin: 05/22/17 08:31 Dose: 20 mls/hr Octreotide Acetate 1,250 mcg/ (Dextrose) 252.5 mls @ 5.05 mls/hr IV .Q24H DOUGIE; 25 MCG/HR PRN Reason: Protocol Last Admin: 05/22/17 13:41 Dose: 25 mcg/hr, 5.05 mls/hr Metronidazole (Flagyl) 500 mg in 100 mls @ 100 mls/hr IVPB Q8 [facility] PRN Reason: Protocol Last Admin: 05/23/17 22:43 Dose: 100 mls/hr Sodium Chloride (Sodium Chloride 0.9%) 1,000 mls @ 200 mls/hr IV .Q5H [facility] Last Admin: 05/23/17 22:44 Dose: 200 mls/hr Lisinopril (Zestril) 20 mg PO DAILY [facility] Last Admin: 05/23/17 10:38 Dose: Not Given Morphine Sulfate (Morphine) 2 mg IVP Q4H PRN PRN Reason: Pain, moderate (4-7) Last Admin: 05/23/17 20:10 Dose: 2 mg Ondansetron HCl (Zofran Inj) 4 mg IVP Q4H PRN PRN Reason: Nausea/Vomiting Last Admin: 05/23/17 08:47 Dose: 4 mg Pantoprazole Sodium (Protonix Inj) 40 mg IVP Q12 [facility] Last Admin: 05/23/17 10:07 Dose: 40 mg Pentoxifylline (Pentoxil) 400 mg PO TID [facility] Last Admin: 05/23/17 17:37 Dose: Not Given Phytonadione (Vitamin K Inj) 10 mg SC DAILY [facility] Stop: 05/24/17 16:00 Last Admin: 05/23/17 10:07 Dose: 10 mg Raltegravir (Isentress) 400 mg PO BID [facility] Last Admin: 05/23/17 17:36 Dose: Not Given Rifaximin (Xifaxan) 550 mg PO BID [facility] PRN Reason: Protocol Last Admin: 05/23/17 17:37 Dose: Not Given Physical Exam - Constitutional Appears: No Acute Distress - Head Exam Head Exam: ATRAUMATIC, NORMAL INSPECTION, NORMOCEPHALIC - Eye Exam Eye Exam: Normal appearance - Respiratory Exam Respiratory Exam: NORMAL BREATHING PATTERN. absent: Respiratory Distress - Cardiovascular Exam Cardiovascular Exam: REGULAR RHYTHM - GI/Abdominal Exam GI & Abdominal Exam: Soft, Tenderness (mild). absent: Distended - Neurological Exam Neurological exam: Alert, Oriented x3 - Psychiatric Exam Psychiatric exam: Normal Affect, Normal Mood - Skin Skin Exam: Dry, Intact Additional comments: Port Site C/D/I with no erythema, warmth, tenderness, drainage or swelling Results - Vital Signs Recent Vital Signs: Last Vital Signs Temp 98.4 F 05/23/17 20:00 Pulse 57 L 05/23/17 21:10 Resp 19 05/23/17 21:10 BP 125/76 05/23/17 21:00 Pulse Ox 100 05/23/17 21:10 - Labs Result Diagrams: 05/23/17 05:00 05/23/17 15:45 Labs: Laboratory Results - last 24 hr 05/23/17 05/23/17 05/23/17 00:00 04:45 04:45 WBC 5.2 RBC 3.75 Hgb 12.8 Hct 35.7 L MCV 95.2 MCH 34.1 MCHC 35.9 RDW 13.7 Plt Count 68 L MPV 10.7 Gran % 78.4 H Lymph % (Auto) 16.0 L [place] % (Auto) 5.4 Eos % (Auto) 0.0 L Baso % (Auto) 0.2 Gran # 4.06 Lymph # 0.8 L [place] # 0.3 Eos # 0.0 Baso # 0.01 Sodium 136 Potassium 3.1 L Chloride 100 Carbon Dioxide 31 Anion Gap 8 L BUN 10 Creatinine 0.8 Est GFR ( Amer) > 60 Est GFR (Non-Af Amer) > 60 Random Glucose 173 H Calcium 11.9 H Magnesium 2.8 H Total Bilirubin 1.5 H AST 29 ALT 13 Alkaline Phosphatase 51 Total Protein 8.9 H Albumin 4.0 Globulin 4.9 Albumin/Globulin Ratio 0.8 L 05/23/17 05/23/17 05:00 15:45 WBC 5.5 RBC 3.80 Hgb 13.0 Hct 36.4 MCV 95.8 MCH 34.2 MCHC 35.7 RDW 13.9 Plt Count 70 L MPV 11.5 H Gran % 74.0 H Lymph % (Auto) 17.7 L [place] % (Auto) 8.1 H Eos % (Auto) 0.0 L Baso % (Auto) 0.2 Gran # 4.10 Lymph # 1.0 L [place] # 0.5 Eos # 0.0 Baso # 0.01 Sodium 138 Potassium 2.7 L* Chloride 109 Carbon Dioxide 28 Anion Gap 4 L BUN 8 Creatinine 0.7 Est GFR ( Amer) > 60 Est GFR (Non-Af Amer) > 60 Random Glucose 123 H Calcium 6.7 L* Magnesium Total Bilirubin 1.2 AST 21 ALT 10 Alkaline Phosphatase < 20 L Total Protein 6.4 Albumin 2.6 L Globulin 3.8 Albumin/Globulin Ratio 0.7 L Assessment & Plan - Assessment and Plan (Free Text) Assessment: 56 yo F HIV+ with severe colitis, +Blood Cultures and poss. infected port -F/U repeat Blood Cx as initial coag neg. staph may have been contaminant -Cont. care as per ICU and ID -Will plan for Port removal if repeat cultures positive DW Dr Ajay iFnch PGY3
[2017-05-24] MEDS: Morphine 2 mg/ml ISec IVP PRN ×6 (00:12→21:12)
[2017-05-24] MEDS: Piperacillin/Tazobact 3.375 gm 100 ML IVPB SCH ×3 (00:13→12:46)
--- NOTE | 2017-05-24 00:34 | PN ---
DATE: 05/23/2017 SUBJECTIVE: The patient is seen in bed, in no acute distress, was nontoxic. Seen early this morning in ICU 128, bed 7. PHYSICAL EXAMINATION: VITAL SIGNS: Temperature is 98, blood pressure is 130/60 and respiratory rate of 18. HEENT: Unremarkable. NECK: Supple. LUNGS: Decreased breath sounds. HEART: Normal S1 and S2. ABDOMEN: Soft. LABORATORY DATA: Reveals a white count of 5.5, hemoglobin of 13 and platelets of 70. Chemistry reveals a BUN of 8 and creatinine of 0.7. Urinalysis is noted and percent of CD4 is 30% with an absolute CD4 count of 129 and serology antigen is negative. RPR is negative. Microbiology, initial blood cultures, coag-negative staph and repeat blood cultures have no growth. Urine culture is gram-negative charles. ASSESSMENT AND PLAN: A 56-year-old female with cirrhosis and chronic active hepatitis presenting with coag-negative Staphylococcus bacteremia with acute colitis on CAT scan; currently on vancomycin, Zosyn and Flagyl. Etiology of the colitis is not entirely clear. Transesophageal echo results are noted by Dr. Modi. Also, no vegetation is seen. Questionable mobile echo is seen on the tip of the Port-a-Cath and echogenic mobile structure, by definition that is an endocarditis mobile structure on tip of the Port-a-Cath. We recommend Port-a-Cath removal. I will continue the vancomycin and Zosyn. Stool workup still pending. Doubt CMV, due to the relatively high CD4 count, even at 129 absolute number would be too high, for CMV colitis should be less than 50 with 30% of T4 most likely a CD4 absolute count of 125 was mostly low. We will check on the stool cultures, norovirus, rotavirus and HIV PCR, and we will also order a CMV quantitative PCR and will follow closely with you. Should have a vancomycin trough level. Reviewed medications. In view of the patient receives the vancomycin on 10 a.m. and 10 p.m., we will order a vancomycin trough level and transfer tomorrow morning at 9 a.m. an hour before the 10 a.m. dose for vancomycin trough level. We will follow closely with you. Panfilo Marcelo MD
[2017-05-24] MEDS: metroNIDAZOLE IV 500 mg/100 ml 500 MG/100 ML BAG IVPB SCH ×3 (05:19→21:34)
--- NOTE | 2017-05-24 07:01 | CP.PCM.PN ---
<AndrewMarissa - Last Filed: 05/24/17 17:00> Subjective - Date & Time of Evaluation Date of Evaluation: 05/24/17 Time of Evaluation: 15:26 - Subjective Subjective: Patient reports having persistent diarrhea, abdominal discomfort controlled with current pain medications. Objective - Vital Signs/Intake and Output Vital Signs (last 24 hours): Temp Pulse Resp BP Pulse Ox 98.4 F 50 L 40 H 139/72 96 05/23/17 20:00 05/24/17 05:50 05/24/17 05:50 05/24/17 05:00 05/24/17 05:50 Intake and Output: 05/23/17 05/24/17 18:59 06:59 Intake Total 5310 Output Total 1400 Balance 3910 - Medications Medications: Current Medications Abacavir Sulfate (Ziagen) 600 mg PO DAILY COUNTS INCLUDE 234 BEDS AT [facility] Last Admin: 05/23/17 10:38 Dose: Not Given Carvedilol (Coreg) 3.125 mg PO BID COUNTS INCLUDE 234 BEDS AT THE [facility] Last Admin: 05/23/17 17:36 Dose: Not Given Gabapentin (Neurontin) 300 mg PO TID [facility]IE PRN Reason: Protocol Last Admin: 05/23/17 17:37 Dose: Not Given Hydralazine HCl (Apresoline) 10 mg IVP Q6 PRN PRN Reason: for SBP>170 & Diastolic>100 Piperacillin Sod/Tazobactam Sod (Zosyn 3.375 In Ns 100ml) 100 mls @ 200 mls/hr IVPB Q6 DOUGIE PRN Reason: Protocol Stop: 06/03/17 12:01 Last Admin: 05/24/17 05:20 Dose: 200 mls/hr Vancomycin HCl (Vancomycin 1gm) 1 gm in 250 mls @ 167 mls/hr IVPB Q12H [facility]IE PRN Reason: Protocol Stop: 05/28/17 22:01 Last Admin: 05/23/17 22:44 Dose: 167 mls/hr Pantoprazole Sodium (Protonix 40mg Ivpb) 40 mg in 100 mls @ 20 mls/hr IVPB .Q5H COUNTS INCLUDE 234 BEDS AT THE [facility] Last Admin: 05/22/17 08:31 Dose: 20 mls/hr Octreotide Acetate 1,250 mcg/ (Dextrose) 252.5 mls @ 5.05 mls/hr IV .Q24H DOUGIE; 25 MCG/HR PRN Reason: Protocol Last Admin: 05/22/17 13:41 Dose: 25 mcg/hr, 5.05 mls/hr Metronidazole (Flagyl) 500 mg in 100 mls @ 100 mls/hr IVPB Q8 [facility]IE PRN Reason: Protocol Last Admin: 05/24/17 05:19 Dose: 100 mls/hr Sodium Chloride (Sodium Chloride 0.9%) 1,000 mls @ 200 mls/hr IV .Q5H COUNTS INCLUDE 234 BEDS AT [facility] Last Admin: 05/23/17 22:44 Dose: 200 mls/hr Lisinopril (Zestril) 20 mg PO DAILY COUNTS INCLUDE 234 BEDS AT [facility] Last Admin: 05/23/17 10:38 Dose: Not Given Morphine Sulfate (Morphine) 2 mg IVP Q4H PRN PRN Reason: Pain, moderate (4-7) Last Admin: 05/24/17 05:21 Dose: 2 mg Ondansetron HCl (Zofran Inj) 4 mg IVP Q4H PRN PRN Reason: Nausea/Vomiting Last Admin: 05/24/17 00:12 Dose: 4 mg Pantoprazole Sodium (Protonix Inj) 40 mg IVP Q12 COUNTS [facility]CLUDE 234 BEDS AT [facility] Last Admin: 05/24/17 00:16 Dose: 40 mg Pentoxifylline (Pentoxil) 400 mg PO TID COUNTS INCLUDE 234 BEDS AT [facility] Last Admin: 05/23/17 17:37 Dose: Not Given Phytonadione (Vitamin K Inj) 10 mg SC DAILY COUNTS INCLUDE 234 BEDS AT [facility] Stop: 05/24/17 16:00 Last Admin: 05/23/17 10:07 Dose: 10 mg Raltegravir (Isentress) 400 mg PO BID COUNTS INCLUDE 234 BEDS AT [facility] Last Admin: 05/23/17 17:36 Dose: Not Given Rifaximin (Xifaxan) 550 mg PO BID COUNTS INCLUDE 234 BEDS AT [facility] PRN Reason: Protocol Last Admin: 05/23/17 17:37 Dose: Not Given - Labs Labs: 05/23/17 05:00 05/23/17 15:45 PT 15.8 Seconds (9.9-11.8) H 05/22/17 07:25 INR 1.46 (0.93-1.08) H 05/22/17 07:25 APTT 24.9 Seconds (23.7-30.8) 05/22/17 07:25 - Constitutional Appears: Non-toxic, No Acute Distress - Head Exam Head Exam: ATRAUMATIC, NORMOCEPHALIC - Eye Exam Eye Exam: EOMI, Normal appearance, PERRL Pupil Exam: PERRL - Neck Exam Neck Exam: Normal Inspection - Respiratory Exam Respiratory Exam: Clear to Ausculation Bilateral, NORMAL BREATHING PATTERN Assessment and Plan - Assessment and Plan (Free Text) Assessment: 56 yo female admitted to the ICU for hematemesis Plan: Neurologic: TIA vs embolic stroke secondary to endocarditis. -ALEXIA reads a "vegetation vs fibrin clot" attached to tip Port-a-Cath. -Persistent blood cultures positive raise the probability that there was an embolic phenomena. -Consider MRI to evaluate for infarction -AMS resolved after repleting electrolytes (Ca) and fluid resuscitation. Cardiovascular: Endocarditis, will continue with IV Vancomycin. Respiratory: CTAB on RA maintaining O2>90%. Renal: Potassium repleted - Serum Ca normal. - Will continue to monitor via serial BMP. -Mg is normal. - Hypercalcemia has resolved with IV fluids; work-up pending to rule of other etiologies of hypercalcemia GI: Pancolitis, abdominal discomfort, persistent diarrhea with C. difficile (+) antigen, toxin (-) - Tx for Pseudomembranous colitis with IV metronidazole and PO Vancomycin 250 mg QID - Check stool for ova and parasites Pseudomembranous colitsNo hematemesis or hematochezia today, H&H stable. Will continue with IV protonix and octreotide. GI is following, at this time no bright red blood PO or rectum. Awaiting old records from [facility] endoscopy reports. ID: Endocarditis treatment with IV vancomycin. -C.difficile antigen (+), toxin (-), started PO 250 Vancomycin QID and continue IV Metronidazole. Hematology: Pancytopenia vs aplastic anemia: work-up pending <Carson LEW,Israel H - Last Filed: 05/24/17 17:19> Objective - Vital Signs/Intake and Output Vital Signs (last 24 hours): Temp Pulse Resp BP Pulse Ox 100 F H 55 L 14 147/80 100 05/24/17 12:00 05/24/17 16:20 05/24/17 16:20 05/24/17 16:00 05/24/17 16:20 Intake and Output: 05/24/17 05/24/17 06:59 18:59 Intake Total 2760 Output Total 300 Balance 2460 - Medications Medications: Current Medications Abacavir Sulfate (Ziagen) 600 mg PO DAILY COUNTS INCLUDE 234 BEDS AT [facility] Last Admin: 05/24/17 11:18 Dose: Not Given Carvedilol (Coreg) 6.25 mg PO BID [facility] Gabapentin (Neurontin) 300 mg PO TID COUNTS INCLUDE 234 BEDS AT [facility] PRN Reason: Protocol Last Admin: 05/24/17 14:41 Dose: 300 mg Hydralazine HCl (Apresoline) 10 mg IVP Q6 PRN PRN Reason: for SBP>170 & Diastolic>100 Vancomycin HCl (Vancomycin 1gm) 1 gm in 250 mls @ 167 mls/hr IVPB Q12H [facility]IE PRN Reason: Protocol Stop: 05/28/17 22:01 Last Admin: 05/24/17 09:16 Dose: 167 mls/hr Pantoprazole Sodium (Protonix 40mg Ivpb) 40 mg in 100 mls @ 20 mls/hr IVPB .Q5H COUNTS INCLUDE 234 BEDS AT [facility] Last Admin: 05/22/17 08:31 Dose: 20 mls/hr Metronidazole (Flagyl) 500 mg in 100 mls @ 100 mls/hr IVPB Q8 [facility] PRN Reason: Protocol Last Admin: 05/24/17 14:42 Dose: 100 mls/hr Lisinopril (Zestril) 20 mg PO DAILY COUNTS INCLUDE 234 BEDS AT [facility] Last Admin: 05/24/17 11:18 Dose: Not Given Morphine Sulfate (Morphine) 2 mg IVP Q4H PRN PRN Reason: Pain, moderate (4-7) Last Admin: 05/24/17 16:33 Dose: 2 mg Ondansetron HCl (Zofran Inj) 4 mg IVP Q4H PRN PRN Reason: Nausea/Vomiting Last Admin: 05/24/17 00:12 Dose: 4 mg Pantoprazole Sodium (Protonix Inj) 40 mg IVP Q12 COUNTS INCLUDE 234 BEDS AT [facility] Last Admin: 05/24/17 11:29 Dose: 40 mg Pentoxifylline (Pentoxil) 400 mg PO TID COUNTS INCLUDE 234 BEDS AT [facility] Last Admin: 05/24/17 14:41 Dose: 400 mg Raltegravir (Isentress) 400 mg PO BID COUNTS INCLUDE 234 BEDS AT [facility] Last Admin: 05/24/17 09:10 Dose: Not Given Vancomycin HCl (Vancocin 25 Mg/Ml (Oral Use)) 250 mg PO QID COUNTS INCLUDE 234 BEDS AT THE [facility] PRN Reason: Protocol Stop: 06/07/17 18:00 - Labs Labs: 05/24/17 16:20 05/24/17 05:40 PT 15.9 Seconds (9.9-11.8) H 05/24/17 16:20 INR 1.47 (0.93-1.08) H 05/24/17 16:20 APTT 25.4 Seconds (23.7-30.8) 05/24/17 16:20 Attending/Attestation - Attestation I have personally seen and examined this patient.: Yes I have fully participated in the care of the patient.: Yes I have reviewed all pertinent clinical information, including history, physical exam and plan: Yes Notes (Text): 05/24/17 17:12 56 y/o F w/ acute colitis . C DIFF On Flagyl I.V , P.O vancomycin to complete 14 days of treatment . PORT on ALEXIA shows possible vegetation at the tip and needs to be removed emergently. Surgery team is aware . On Empiric treatment for Endocarditis . Lab work today shows leukopenia, anemia and thrombocytopenia. Unclear if this is due to worsening sepsis state , HIV/HEP C or medications. Pain better controlled and diet resumed as tolerated. HIV plan to restart p.o medications . HGB lowered today likely from large hydration for hypercalcemia , no overt blood loss noted. Keep HGB>7 . Platelets> 50k INR< 2 dvt p scd cc time 65 min
[2017-05-24 07:26] LABS: ALB/GLOB RATIO 0.7 (1.1-1.8); ALKALINE PHOSPHATASE 47 U/L (38-133); ALT/SGPT 23 U/L (7-56); AST/SGOT 30 U/L (15-39); BILIRUBIN,TOTAL 1.2 mg/dL (0.2-1.3); BLOOD UREA NITROGEN 9 mg/dL (7-21); CALCIUM 8.3 mg/dL (8.4-10.5); CARBON DIOXIDE 26 mmol/L (21-33); CHLORIDE 110 mmol/L (98-107); GFR AFRICAN-AMERICAN > 60; GLUCOSE,RANDOM 93 mg/dL (70-110); POTASSIUM 3.3 mmol/L (3.6-5.0); SODIUM 141 mmol/L (132-148)
[2017-05-24 07:33] LABS: HEMATOCRIT 26.2 % (36.0-48.0); MEAN CELL VOLUME 98.9 fL (80.0-105.0); MEAN CORPUSCULAR HEMOGLOBIN 32.5 pg (25.0-35.0); MEAN CORPUSCULAR HGB CONC 32.8 g/dl (31.0-37.0); MEAN PLATELET VOLUME 9.9 fl (7.0-11.0); PLATELET COUNT 31 10^3/uL (120.0-450.0)
[2017-05-24 07:54] LABS: ADD MANUAL DIFF? YES; WHITE BLOOD COUNT 1.3 10^3/ul (4.5-11.0)
--- NOTE | 2017-05-24 08:32 | CP.PCM.PN ---
Subjective - Date & Time of Evaluation Date of Evaluation: 05/24/17 Time of Evaluation: 08:30 - Subjective Subjective: General Surgery Dr. Moss Patient seen and examined at bedside this morning. No acute events overnight. Patient states that she is still having abdominal pain and diarrhea. Denies F/C , N/V, SOB or CP. Objective - Vital Signs/Intake and Output Vital Signs (last 24 hours): Temp Pulse Resp BP Pulse Ox 98.4 F 50 L 40 H 139/72 96 05/23/17 20:00 05/24/17 05:50 05/24/17 05:50 05/24/17 05:00 05/24/17 05:50 Intake and Output: 05/24/17 05/24/17 06:59 18:59 Intake Total 2760 Output Total 300 Balance 2460 - Medications Medications: Current Medications Abacavir Sulfate (Ziagen) 600 mg PO DAILY [facility] Last Admin: 05/23/17 10:38 Dose: Not Given Carvedilol (Coreg) 3.125 mg PO BID [facility] Last Admin: 05/23/17 17:36 Dose: Not Given Gabapentin (Neurontin) 300 mg PO TID DOUGIE PRN Reason: Protocol Last Admin: 05/23/17 17:37 Dose: Not Given Hydralazine HCl (Apresoline) 10 mg IVP Q6 PRN PRN Reason: for SBP>170 & Diastolic>100 Piperacillin Sod/Tazobactam Sod (Zosyn 3.375 In Ns 100ml) 100 mls @ 200 mls/hr IVPB Q6 DOUGIE PRN Reason: Protocol Stop: 06/03/17 12:01 Last Admin: 05/24/17 05:20 Dose: 200 mls/hr Vancomycin HCl (Vancomycin 1gm) 1 gm in 250 mls @ 167 mls/hr IVPB Q12H [facility]OU[facility]IE PRN Reason: Protocol Stop: 05/28/17 22:01 Last Admin: 05/23/17 22:44 Dose: 167 mls/hr Pantoprazole Sodium (Protonix 40mg Ivpb) 40 mg in 100 mls @ 20 mls/hr IVPB .Q5H [facility] Last Admin: 05/22/17 08:31 Dose: 20 mls/hr Octreotide Acetate 1,250 mcg/ (Dextrose) 252.5 mls @ 5.05 mls/hr IV .Q24H DOUGIE; 25 MCG/HR PRN Reason: Protocol Last Admin: 05/22/17 13:41 Dose: 25 mcg/hr, 5.05 mls/hr Metronidazole (Flagyl) 500 mg in 100 mls @ 100 mls/hr IVPB Q8 DOUGIE PRN Reason: Protocol Last Admin: 05/24/17 05:19 Dose: 100 mls/hr Sodium Chloride (Sodium Chloride 0.9%) 1,000 mls @ 200 mls/hr IV .Q5H [facility] Last Admin: 05/23/17 22:44 Dose: 200 mls/hr Lisinopril (Zestril) 20 mg PO DAILY [facility] Last Admin: 05/23/17 10:38 Dose: Not Given Morphine Sulfate (Morphine) 2 mg IVP Q4H PRN PRN Reason: Pain, moderate (4-7) Last Admin: 05/24/17 05:21 Dose: 2 mg Ondansetron HCl (Zofran Inj) 4 mg IVP Q4H PRN PRN Reason: Nausea/Vomiting Last Admin: 05/24/17 00:12 Dose: 4 mg Pantoprazole Sodium (Protonix Inj) 40 mg IVP Q12 [facility] Last Admin: 05/24/17 00:16 Dose: 40 mg Pentoxifylline (Pentoxil) 400 mg PO TID [facility] Last Admin: 05/23/17 17:37 Dose: Not Given Phytonadione (Vitamin K Inj) 10 mg SC DAILY [facility] Stop: 05/24/17 16:00 Last Admin: 05/23/17 10:07 Dose: 10 mg Raltegravir (Isentress) 400 mg PO BID [facility] Last Admin: 05/23/17 17:36 Dose: Not Given Rifaximin (Xifaxan) 550 mg PO BID [facility] PRN Reason: Protocol Last Admin: 05/23/17 17:37 Dose: Not Given - Labs Labs: 05/24/17 05:40 05/24/17 05:40 PT 15.8 Seconds (9.9-11.8) H 05/22/17 07:25 INR 1.46 (0.93-1.08) H 05/22/17 07:25 APTT 24.9 Seconds (23.7-30.8) 05/22/17 07:25 - Constitutional Appears: Non-toxic, No Acute Distress - Eye Exam Eye Exam: EOMI - ENT Exam ENT Exam: Mucous Membranes Moist - Respiratory Exam Respiratory Exam: NORMAL BREATHING PATTERN. absent: Accessory Muscle Use, Respiratory Distress - Cardiovascular Exam Cardiovascular Exam: REGULAR RHYTHM - GI/Abdominal Exam GI & Abdominal Exam: Soft, Tenderness. absent: Distended, Guarding - Neurological Exam Neurological Exam: Alert, Awake, Oriented x3 - Psychiatric Exam Psychiatric exam: Normal Affect, Normal Mood - Skin Skin Exam: Dry, Normal Color, Warm - Additional Findings Additional findings: Port site is C/D/I, no signs of inflammation, tenderness, erythema or drainage. Assessment and Plan - Assessment and Plan (Free Text) Assessment: 56 yo F HIV+ with severe colitis, + Blood Cultures and poss. infected port Plan: F/U repeat Blood Cx -initial coag neg. staph may have been contaminant - no growth on repeat cultures at 48 hours Cont. medicine jason. as per ICU and ID Will plan for Port removal if repeat cultures positive Will discuss with Dr Ajay Seaman Karlene PGY 1
[2017-05-24 08:52] LABS: BASOPHIL 1 % (0.0-1.0); EOSINOPHIL 1 % (0.0-3.0); MYELOCYTE 1 %; NEUTROPHIL 53 % (50.0-70.0)
[2017-05-24 08:53] LABS: PLATELET ESTIMATE LOW (NORMAL)
[2017-05-24 09:07] LABS: ADD MANUAL DIFF? NO
[2017-05-24 09:10] LABS: BASO # 0.01 K/mm3 (0.0-2.0); BASO % 0.7 % (0.0-3.0); EOS % 2.1 % (1.5-5.0); GRAN # 0.74 (1.4-6.5); GRAN % 50.6 % (50.0-68.0); HEMATOCRIT 25.5 % (36.0-48.0); LYMPH # 0.6 (1.2-3.4); LYMPH % 37.7 % (22.0-35.0); MEAN CELL VOLUME 99.2 fL (80.0-105.0); MEAN CORPUSCULAR HEMOGLOBIN 33.5 pg (25.0-35.0); MEAN CORPUSCULAR HGB CONC 33.7 g/dl (31.0-37.0); MEAN PLATELET VOLUME 10.3 fl (7.0-11.0); MONO # 0.1 (0.1-0.6); MONO % 8.9 % (1.0-6.0)
[2017-05-24] MEDS: Phytonadione 10 mg/ml Inj (Adult) SC SCH (09:14)
[2017-05-24] MEDS: Vancomycin 1gm in NS 250ml 1 GM/250 ML BAG IVPB SCH ×2 (09:16→22:20)
[2017-05-24 09:21] LABS: PLATELET COUNT 30 10^3/uL (120.0-450.0)
[2017-05-24 09:22] LABS: WHITE BLOOD COUNT 1.5 10^3/ul (4.5-11.0)
--- NOTE | 2017-05-24 11:59 | CP.PCM.PN ---
<Alysa Gracia - Last Filed: 05/24/17 11:57> Subjective - Date & Time of Evaluation Date of Evaluation: 05/24/17 Time of Evaluation: 09:10 - Subjective Subjective: S&E at bedside, no acute overnight events, No N/V, no further bleeding. Abdominal still present and have diarrhea. No SOB, or CP. Had ALEXIA yesterday no vegetation on valves but echogenic structure on tip of port. Objective - Vital Signs/Intake and Output Vital Signs (last 24 hours): Temp Pulse Resp BP Pulse Ox 98.4 F 71 14 140/73 86 L 05/23/17 20:00 05/24/17 11:10 05/24/17 11:00 05/24/17 11:00 05/24/17 11:10 Intake and Output: 05/24/17 05/24/17 06:59 18:59 Intake Total 2760 Output Total 300 Balance 2460 - Medications Medications: Current Medications Abacavir Sulfate (Ziagen) 600 mg PO DAILY [facility] Last Admin: 05/24/17 11:18 Dose: Not Given Carvedilol (Coreg) 6.25 mg PO BID [facility] Gabapentin (Neurontin) 300 mg PO TID DOUGIE PRN Reason: Protocol Last Admin: 05/24/17 11:17 Dose: Not Given Hydralazine HCl (Apresoline) 10 mg IVP Q6 PRN PRN Reason: for SBP>170 & Diastolic>100 Piperacillin Sod/Tazobactam Sod (Zosyn 3.375 In Ns 100ml) 100 mls @ 200 mls/hr IVPB Q6 DOUGIE PRN Reason: Protocol Stop: 06/03/17 12:01 Last Admin: 05/24/17 05:20 Dose: 200 mls/hr Vancomycin HCl (Vancomycin 1gm) 1 gm in 250 mls @ 167 mls/hr IVPB Q12H [facility] PRN Reason: Protocol Stop: 05/28/17 22:01 Last Admin: 05/24/17 09:16 Dose: 167 mls/hr Pantoprazole Sodium (Protonix 40mg Ivpb) 40 mg in 100 mls @ 20 mls/hr IVPB .Q5H [facility] Last Admin: 05/22/17 08:31 Dose: 20 mls/hr Metronidazole (Flagyl) 500 mg in 100 mls @ 100 mls/hr IVPB Q8 [facility] PRN Reason: Protocol Last Admin: 05/24/17 05:19 Dose: 100 mls/hr Sodium Chloride (Sodium Chloride 0.9%) 1,000 mls @ 200 mls/hr IV .Q5H [facility] Last Admin: 05/23/17 22:44 Dose: 200 mls/hr Potassium Chloride (Potassium Chloride 20 Meq/100 Ml) 20 meq in 100 mls @ 50 mls/hr IVPB Q2H [facility] Stop: 05/24/17 14:59 Last Admin: 05/24/17 11:29 Dose: 50 mls/hr Lisinopril (Zestril) 20 mg PO DAILY [facility] Last Admin: 05/24/17 11:18 Dose: Not Given Morphine Sulfate (Morphine) 2 mg IVP Q4H PRN PRN Reason: Pain, moderate (4-7) Last Admin: 05/24/17 09:11 Dose: 2 mg Ondansetron HCl (Zofran Inj) 4 mg IVP Q4H PRN PRN Reason: Nausea/Vomiting Last Admin: 05/24/17 00:12 Dose: 4 mg Pantoprazole Sodium (Protonix Inj) 40 mg IVP Q12 [facility] Last Admin: 05/24/17 11:29 Dose: 40 mg Pentoxifylline (Pentoxil) 400 mg PO TID [facility] Last Admin: 05/24/17 11:18 Dose: Not Given Phytonadione (Vitamin K Inj) 10 mg SC DAILY [facility] Stop: 05/24/17 16:00 Last Admin: 05/24/17 09:14 Dose: 10 mg Raltegravir (Isentress) 400 mg PO BID [facility] Last Admin: 05/24/17 09:10 Dose: Not Given Rifaximin (Xifaxan) 550 mg PO BID [facility] PRN Reason: Protocol Last Admin: 05/24/17 11:18 Dose: Not Given - Labs Labs: 05/24/17 09:00 05/24/17 05:40 PT 15.8 Seconds (9.9-11.8) H 05/22/17 07:25 INR 1.46 (0.93-1.08) H 05/22/17 07:25 APTT 24.9 Seconds (23.7-30.8) 05/22/17 07:25 - Constitutional Appears: No Acute Distress - Head Exam Head Exam: NORMOCEPHALIC - Eye Exam Eye Exam: Normal appearance. absent: Scleral icterus - ENT Exam ENT Exam: Mucous Membranes Moist - Neck Exam Neck Exam: Normal Inspection - Respiratory Exam Respiratory Exam: NORMAL BREATHING PATTERN. absent: Respiratory Distress - Cardiovascular Exam Cardiovascular Exam: +S1, +S2 - GI/Abdominal Exam GI & Abdominal Exam: Soft, Tenderness, Normal Bowel Sounds. absent: Guarding, Rebound - Extremities Exam Extremities Exam: absent: Calf Tenderness, Pedal Edema - Neurological Exam Neurological Exam: Alert, Awake, Oriented x3 - Skin Skin Exam: Dry, Warm Assessment and Plan - Assessment and Plan (Free Text) Assessment: ASSESSMENT: Acute GI bleed, r/o varices, PUD, S/P Code stroke, ct head no bleed/infarct, likely narcotic induced Acute Abdominal pain Worsening Colitis, H/O colitis post colonoscopy 2 years ago (+) Blood cultures; staph/Mitral Valve thickening, r/o endocarditis Thrombocytopenia HIV/AIDS H/O DVT, s/p IVC filter HTN Splenectomy Plan start on clear continue IVF for hydration Protonix drip D/C , now pn IV BID D/C Sandostatin drip on IV antibiotics, Zosyn, vancomycin,flagyl as per ID on antiviral meds monitor H/H Q 4H repeat CDiff continue Xifaxin may have to remove port if reepat blood culture are positive. Await endo report from [facility], request sent yesterday. No immediate plans for endo now, H/H is stable, no active GI bleed now Discussed with Dr. Sharma. <Avery Sharma V - Last Filed: 06/09/17 22:23> Objective - Vital Signs/Intake and Output Vital Signs (last 24 hours): Temp Pulse Resp BP Pulse Ox 98.9 F 58 L 16 108/55 L 97 05/24/17 18:00 05/24/17 23:00 05/24/17 23:00 05/24/17 23:00 05/24/17 23:00 - Medications Medications: Current Medications Abacavir Sulfate (Ziagen) 600 mg PO DAILY [facility] Last Admin: 05/24/17 11:18 Dose: Not Given Carvedilol (Coreg) 6.25 mg PO BID [facility] Last Admin: 05/24/17 17:49 Dose: 6.25 mg Gabapentin (Neurontin) 300 mg PO TID [facility] PRN Reason: Protocol Last Admin: 05/24/17 17:49 Dose: 300 mg Hydralazine HCl (Apresoline) 10 mg IVP Q6 PRN PRN Reason: for SBP>170 & Diastolic>100 Vancomycin HCl (Vancomycin 1gm) 1 gm in 250 mls @ 167 mls/hr IVPB Q12H [facility] PRN Reason: Protocol Stop: 05/28/17 22:01 Last Admin: 05/24/17 22:20 Dose: 167 mls/hr Pantoprazole Sodium (Protonix 40mg Ivpb) 40 mg in 100 mls @ 20 mls/hr IVPB .Q5H [facility] Last Admin: 05/22/17 08:31 Dose: 20 mls/hr Metronidazole (Flagyl) 500 mg in 100 mls @ 100 mls/hr IVPB Q8 [facility] PRN Reason: Protocol Last Admin: 05/24/17 21:34 Dose: 100 mls/hr Micafungin Sodium 100 mg/ (Sodium Chloride) 100 mls @ 100 mls/hr IV DAILY [facility] PRN Reason: Protocol Stop: 05/25/17 22:01 Last Admin: 05/24/17 22:20 Dose: 100 mls/hr Lisinopril (Zestril) 20 mg PO DAILY [facility] Last Admin: 05/24/17 11:18 Dose: Not Given Morphine Sulfate (Morphine) 2 mg IVP Q4H PRN PRN Reason: Pain, moderate (4-7) Last Admin: 05/24/17 21:12 Dose: 2 mg Ondansetron HCl (Zofran Inj) 4 mg IVP Q4H PRN PRN Reason: Nausea/Vomiting Last Admin: 05/24/17 00:12 Dose: 4 mg Pantoprazole Sodium (Protonix Inj) 40 mg IVP Q12 [facility] Last Admin: 05/24/17 21:34 Dose: 40 mg Pentoxifylline (Pentoxil) 400 mg PO TID [facility] Last Admin: 05/24/17 17:48 Dose: 400 mg Raltegravir (Isentress) 400 mg PO BID [facility] Last Admin: 05/24/17 17:49 Dose: 400 mg Vancomycin HCl (Vancocin 25 Mg/Ml (Oral Use)) 250 mg PO QID [facility] PRN Reason: Protocol Stop: 06/07/17 18:00 Last Admin: 05/24/17 21:34 Dose: 250 mg - Labs Labs: 05/24/17 16:20 05/24/17 05:40 PT 15.9 Seconds (9.9-11.8) H 05/24/17 16:20 INR 1.47 (0.93-1.08) H 05/24/17 16:20 APTT 25.4 Seconds (23.7-30.8) 05/24/17 16:20 Attending/Attestation - Attestation I have personally seen and examined this patient.: Yes I have fully participated in the care of the patient.: Yes I have reviewed all pertinent clinical information, including history, physical exam and plan: Yes Notes (Text): This is an addendum to the GI progress report dictated by Alysa Dumont.Patient is thrombocytopenic ,diffuse colitis HIV aids. On examination Abdomen Softly distended with mild diffuse tenderness present. Continue antibiotics as per ID close follow-up for platelet count hematology follow-up discussed with the patient and patient's family.
--- NOTE | 2017-05-24 12:56 | PN ---
DATE: 05/24/2017 SUBJECTIVE: The patient is in bed and in no acute distress, nontoxic. She is awake and alert. She is having abdominal cramps and she is having diarrhea. PHYSICAL EXAMINATION: VITAL SIGNS: Temperature is 98, blood pressure is 150/50 and respiratory rate of 18. HEENT: Unremarkable. NECK: Supple. LUNGS: Decreased breath sounds. HEART: Normal S1 and S2. ABDOMEN: Soft and nontender. LABORATORY DATA: Examination reveals a white count of 1.5, hemoglobin of 8, and platelets of 30. Chemistry reveals a BUN of 9 and creatinine of 0.9. Her vancomycin trough is 15.9. Cryptococcal antigen is negative. RPR is negative. Microbiology reveals the repeat blood cultures are negative. DIAGNOSTIC DATA: The patient's echo results are noted and notes is reviewed. ASSESSMENT AND PLAN: This is a 56-year-old female with cirrhosis, chronic active hepatitis, with hepatitis C with port-a-cath who was admitted with bacteremia, and positive blood cultures, which are coagulase negative Staphylococcus with a questionable vegetation on the catheter tip of the port-a-cath with high definition is endocarditis with transient ischemic attack, questionable embolic disease, recommend removal of the port-a-cath. We will continue the vancomycin and stool workup for colitis pending. The patient does have a human immunodeficiency virus and acquired immune deficiency syndrome, with hepatitis C and cirrhosis and chronic active hepatitis, and cirrhosis of the liver, now with coagulase negative Staphylococcus bacteriemia with a positive port-a-cath tip, positive echogenic mobile and a the patient had a status post "stroke," questionable transient ischemic attack, may be endocarditis with embolic phenomenon. Once the port-a-cath is removed, we will consider an MRI of the head and we will make further recommendations, currently awaiting for the stool workup for stool cultures and stool for Clostridium difficile. Repeat blood cultures are negative. The patient is on Flagyl intravenously, intravenous vancomycin and the patient is also on Zosyn, vancomycin intravenously and intravenous Flagyl. Pending stool culture results. Recommend removal of the port-a-cath. We will follow with you Panfilo Marcelo MD
--- NOTE | 2017-05-24 13:51 | PN ---
SUBJECTIVE: The patient is a 56-year-old seen and examined. She is ICU. She is more alert, less pain, no nausea or hemoptysis, no vomiting or hematemesis. PHYSICAL EXAMINATION: VITAL SIGNS: She is afebrile, pulse 54, respirations 18, blood pressure 140/73. LUNGS: Bilateral fair air flow. No rhonchi or crackles. HEART: S1 and S2 audible. ABDOMEN: Soft and nontender. No rebound. No guarding. NEUROLOGIC: She is awake and alert, able to communicative. LABORATORY DATA: WBC is 1.5, hemoglobin 8.6, hematocrit 25, platelets of 30. Chemistry; sodium 141, potassium 3.3, chloride 110, CO2 of 26, BUN 9, creatinine 0.9, blood sugar of 93. Her initial blood culture was positive for coag negative both bottles, repeat are negative, and first two were positive. Her echocardiogram shows small vegetation, thread like. The patient was seen by other various bi consultant including surgeon, GI and infectious disease and input noted and appreciated. ASSESSMENT: 1. Sepsis. 2. Pancytopenia. 3. Bacteremia, followup cultures are clear. 4. HIV positive. 5. Treated hepatitis C. 6. Pancolitis. PLAN: The patient is currently on Coreg. She is on metronidazole, Protonix. She is on IV fluid and clear liquid. She is getting vancomycin. She is on cefixime and Zosyn. We will cut down on her fluid. Followup with CBC, CMP. Potassium has been supplemented. Will Barton MD
--- NOTE | 2017-05-24 16:00 | PN ---
DATE: 05/24/2017 REASON FOR FOLLOWUP: Rule out endocarditis. BRIEF CLINICAL HISTORY: He is a 56-year-old female with a past medical history significant for hepatitis C, HIV positive, admitted with hematemesis, blood culture positive. Yesterday, patient underwent a ALEXIA, no evidence of endocarditis, preserved LV function. Denies any chest pain, shortness of breath, any palpitation. PHYSICAL EXAMINATION VITAL SIGNS: Temperature afebrile, heart rate 72, blood pressure 150/78. HEENT: PERRLA. Extraocular muscles intact. NECK: Supple. No carotid bruits or thyromegaly. CHEST: Clear to auscultation. HEART: S1 and S2. Regular. ABDOMEN: Soft. EXTREMITIES: Clubbing and cyanosis negative. LABORATORY DATA: Blood workup as follows: WBC of 1.5, hemoglobin 8.6, hematocrit of 25.5, and platelet count 30. Chemistry shows sodium 141, potassium 3.3, chloride of 110, carbon dioxide of 26, anion gap of 8, BUN 9, creatinine 0.9, calcium 8.2. Total protein 2.9. IMPRESSION: Gastrointestinal bleed, pancytopenia, anemia, thrombocytopenia, severe neutropenia, hypokalemia, protein-calorie malnutrition, negative very well for endocarditis, but echogenic mobile structure noted attached to the tip of the Port-A-Cath. If the blood culture remains positive, suggested removal of the tip. The patient also had history of that ____ had cardiac catheterization, being followed by Dr. Meg Kaiser and was told the patient may need the defibrillator, but yesterday echo showed preserved LV function, and according to the patient, he has normal coronaries. I doubt the patient may need defibrillator or any coronary intervention, but needs aggressive control of blood pressure and hematologic problem as well as HIV. Suggested yesterday that if the blood culture remains positive, needs removal of Port-A-Cath, optimize antihypertensive medication. We will sign off and would like to follow p.r.n. Upon discharge explained the patient and the patient's mom that patient needs to be followed with Dr. Meg Kaiser. In the interim, continue medication for HIV and follow with the ID. We will increase carvedilol 6.25, we will increase lisinopril to 20 mg, and as mentioned, upon discharge the patient will be followed with Dr. Kaiser and we will sign off the case for now, glad to follow p.r.n. We will supplement potassium as well. Thank you taking care of the patient. Shaji Modi MD
[2017-05-24 16:25] LABS: ADD MANUAL DIFF? NO
[2017-05-24 16:30] LABS: BASO # 0.02 K/mm3 (0.0-2.0); EOS # 0.1 (0.0-0.7); EOS % 3.8 % (1.5-5.0); GRAN # 1.09 (1.4-6.5); GRAN % 52.2 % (50.0-68.0); HEMATOCRIT 27.7 % (36.0-48.0); LYMPH # 0.7 (1.2-3.4); LYMPH % 34.9 % (22.0-35.0); MEAN CORPUSCULAR HEMOGLOBIN 33.2 pg (25.0-35.0); MEAN CORPUSCULAR HGB CONC 33.2 g/dl (31.0-37.0); MEAN PLATELET VOLUME 10.7 fl (7.0-11.0); MONO # 0.2 (0.1-0.6); MONO % 8.1 % (1.0-6.0); RED CELL DISTRIBUTION WIDTH 13.9 % (11.5-14.5)
[2017-05-24 16:32] LABS: PLATELET COUNT 38 10^3/uL (120.0-450.0); WHITE BLOOD COUNT 2.1 10^3/ul (4.5-11.0)
[2017-05-24 16:43] LABS: INR 1.47 (0.93-1.08); PARTIAL THROMBOPLASTIN TIME 25.4 Seconds (23.7-30.8)
[2017-05-24] MEDS: Vancomycin 25 MG/ML PO SCH ×2 (18:42→21:34)
[2017-05-24] MEDS: Micafungin 100 MG in Sodium Chloride 0.9% 100 ML IV SCH (22:20)
[2017-05-25] MEDS: Morphine 2 mg/ml ISec IVP PRN ×3 (01:26→08:36)
[2017-05-25] MEDS: metroNIDAZOLE IV 500 mg/100 ml 500 MG/100 ML BAG IVPB SCH ×3 (05:09→21:31)
[2017-05-25 05:48] LABS: HEMATOCRIT 26.6 % (36.0-48.0); MEAN CELL VOLUME 99.3 fL (80.0-105.0); MEAN CORPUSCULAR HEMOGLOBIN 33.2 pg (25.0-35.0); MEAN CORPUSCULAR HGB CONC 33.5 g/dl (31.0-37.0); MEAN PLATELET VOLUME 10.5 fl (7.0-11.0); RED CELL DISTRIBUTION WIDTH 13.9 % (11.5-14.5)
[2017-05-25 06:01] LABS: WHITE BLOOD COUNT 1.7 10^3/ul (4.5-11.0)
[2017-05-25 06:02] LABS: PLATELET COUNT 36 10^3/uL (120.0-450.0)
--- NOTE | 2017-05-25 06:08 | CP.CCUPN ---
CCU Objective - Vital Signs / Intake & Output Vital Signs (Last 4 hours): Vital Signs Pulse Resp BP Pulse Ox 05/25/17 05:00 56 L 138/63 96 05/25/17 04:50 56 L 20 97 05/25/17 04:40 54 L 20 97 05/25/17 04:30 55 L 14 98 05/25/17 04:20 55 L 14 97 05/25/17 04:10 56 L 14 97 05/25/17 04:00 51 L 12 155/74 H 98 05/25/17 03:50 56 L 20 98 05/25/17 03:40 60 17 98 05/25/17 03:30 57 L 16 98 05/25/17 03:20 57 L 15 97 05/25/17 03:10 56 L 15 97 05/25/17 03:00 55 L 15 128/72 96 05/25/17 02:50 52 L 15 99 05/25/17 02:40 53 L 13 98 05/25/17 02:30 53 L 14 99 05/25/17 02:20 50 L 13 98 05/25/17 02:10 48 L 13 99 Intake and Output (Last 8hrs): Intake & Output 05/24/17 05/24/17 05/25/17 14:59 22:59 06:59 Intake Total 750 Output Total 700 Balance 50 Intake: IV 500 Right Subclavian 500 Oral 250 Output: Urine 700 Urine, Voided 700 Other: Voiding Method Bedpan Diaper # Bowel Movements 3 - Physical Exam Head: Positive for: Atraumatic, Normocephalic Pupils: Positive for: PERRL Extroacular Muscles: Positive for: EOMI Conjunctiva: Positive for: Normal Mouth: Positive for: Moist Mucous Membranes Neck: Positive for: Normal Range of Motion Respiratory/Chest: Positive for: Clear to Auscultation, Good Air Exchange. Negative for: Respiratory Distress, Accessory Muscle Use Cardiovascular: Positive for: Regular Rate and Rhythm, Normal S1, S2. Negative for: Murmurs Abdomen: Positive for: Tenderness (LUQ tenderness), Normal Bowel Sounds. Negative for: Distention, Peritoneal Signs Back: Positive for: Normal Inspection Upper Extremity: Positive for: Normal Inspection. Negative for: Cyanosis, Edema Lower Extremity: Positive for: Normal Inspection. Negative for: Edema Neurological: Positive for: GCS=15, CN II-XII Intact, Speech Normal Skin: Positive for: Warm, Dry, Normal Color. Negative for: Rashes Psychiatric: Positive for: Alert, Oriented x 3, Normal Insight, Normal Concentration - Medications Active Medications: Active Medications Generic Name Dose Route Start Last Admin Trade Name Freq PRN Reason Stop Dose Admin Abacavir Sulfate 600 mg 05/22/17 10:00 05/24/17 11:18 Ziagen PO Not Given DAILY DOUGIE Carvedilol 6.25 mg 05/24/17 18:00 05/24/17 17:49 Coreg PO 6.25 mg BID DOUGIE Administration Gabapentin 300 mg 05/20/17 14:00 05/24/17 17:49 Neurontin PO 300 mg TID DOUGIE Administration Protocol Hydralazine HCl 10 mg 05/23/17 08:46 Apresoline IVP Q6 PRN for SBP>170 & Diastolic>100 Vancomycin HCl 1 gm in 250 mls @ 167 mls/hr 05/21/17 22:00 05/24/17 22:20 Vancomycin 1gm IVPB 05/28/17 22:01 167 mls/hr Q12H DOUGIE Administration Protocol Pantoprazole Sodium 40 mg in 100 mls @ 20 mls/hr 05/22/17 08:00 05/22/17 08: 31 Protonix 40mg Ivpb IVPB 20 mls/hr .Q5H DOUGIE Administration Metronidazole 500 mg in 100 mls @ 100 mls/hr 05/23/17 14:00 05/25/17 05:09 Flagyl IVPB 100 mls/hr Q8 DOUGIE Administration Protocol Micafungin Sodium 100 mg/ 100 mls @ 100 mls/hr 05/24/17 22:00 05/24/17 22:20 Sodium Chloride IV 05/25/17 22:01 100 mls/hr DAILY DOUGIE Administration Protocol Lisinopril 20 mg 05/23/17 10:00 05/24/17 11:18 Zestril PO Not Given DAILY DOUGIE Morphine Sulfate 2 mg 05/22/17 10:26 05/25/17 05:29 Morphine IVP 2 mg Q4H PRN Administration Pain, moderate (4-7) Ondansetron HCl 4 mg 05/20/17 04:27 05/24/17 00:12 Zofran Inj IVP 4 mg Q4H PRN Administration Nausea/Vomiting Pantoprazole Sodium 40 mg 05/22/17 10:30 05/24/17 21:34 Protonix Inj IVP 40 mg Q12 DOUGIE Administration Pentoxifylline 400 mg 05/21/17 14:00 05/24/17 17:48 Pentoxil PO 400 mg TID DOUGIE Administration Raltegravir 400 mg 05/21/17 18:00 05/24/17 17:49 Isentress PO 400 mg BID DOUGIE Administration Vancomycin HCl 250 mg 05/24/17 18:00 05/24/17 21:34 Vancocin 25 Mg/Ml (Oral Use) PO 06/07/17 18:00 250 mg QID DOUGIE Administration Protocol - Patient Studies Lab Studies: Microbiology Studies 05/23/17 04:45 Blood Culture - Preliminary Blood NO GROWTH AFTER 24 HOURS Gram Stain - Final 05/23/17 04:45 Blood Culture - Preliminary Blood NO GROWTH AFTER 24 HOURS 05/21/17 18:30 Blood Culture - Preliminary Blood-Venous NO GROWTH AFTER 3 DAYS 05/21/17 18:00 Blood Culture - Preliminary Blood-Thru Central Line NO GROWTH AFTER 3 DAYS 05/23/17 21:15 C. difficile Antigen & Toxin A,B (M - Final Stool Lab Studies 05/25/17 05/24/17 05/24/17 Range/Units 05:30 16:20 16:20 WBC 1.7 L* (4.5-11.0) 10^3/ul RBC 2.68 L (3.5-6.1) 10^6/uL Hgb 8.9 L (12.0-16.0) gm/dL Hct 26.6 L (36.0-48.0) % MCV 99.3 (80.0-105.0) fL MCH 33.2 (25.0-35.0) pg MCHC 33.5 (31.0-37.0) g/dl RDW 13.9 (11.5-14.5) % Plt Count 36 L* (120.0-450.0) 10^3/uL MPV 10.5 (7.0-11.0) fl Gran % 50.6 (50.0-68.0) % Lymph % (Auto) 36.9 H (22.0-35.0) % [place] % (Auto) 8.3 H (1.0-6.0) % Eos % (Auto) 3.0 (1.5-5.0) % Baso % (Auto) 1.2 (0.0-3.0) % Gran # 0.85 L (1.4-6.5) Lymph # 0.6 L (1.2-3.4) [place] # 0.1 (0.1-0.6) Eos # 0.1 (0.0-0.7) Baso # 0.02 (0.0-2.0) K/mm3 Neutrophils % (Manual) (50.0-70.0) % Lymphocytes % (Manual) (22.0-35.0) % Monocytes % (Manual) (1.0-6.0) % Eosinophils % (Manual) (0.0-3.0) % Basophils % (Manual) (0.0-1.0) % Myelocytes % % Platelet Evaluation (NORMAL) Retic Count (0.5-1.5) % PT 15.9 H (9.9-11.8) Seconds INR 1.47 H (0.93-1.08) APTT 25.4 (23.7-30.8) Seconds Sodium (132-148) mmol/L Potassium (3.6-5.0) mmol/L Chloride (98-107) mmol/L Carbon Dioxide (21-33) mmol/L Anion Gap (10-20) BUN (7-21) mg/dL Creatinine (0.5-1.4) mg/dL Est GFR ( Amer) Est GFR (Non-Af Amer) Random Glucose (70-110) mg/dL Calcium (8.4-10.5) mg/dL Ferritin 67.0 ng/mL Total Bilirubin (0.2-1.3) mg/dL AST (15-39) U/L ALT (7-56) U/L Alkaline Phosphatase (38-133) U/L Lactate Dehydrogenase 417 (333-699) U/L Total Protein (5.8-8.3) g/dL Albumin (3.0-4.8) g/dL Globulin gm/dL Albumin/Globulin Ratio (1.1-1.8) Triglycerides 82 (35-160) mg/dL PTH Intact Whole Molec (14-64) pg/mL Vancomycin Trough (5.0-10.0) ug/mL 05/24/17 05/24/17 05/24/17 Range/Units 16:20 09:00 09:00 WBC 2.1 L* D 1.5 L* (4.5-11.0) 10^3/ul RBC 2.77 L 2.57 L (3.5-6.1) 10^6/uL Hgb 9.2 L 8.6 L (12.0-16.0) gm/dL Hct 27.7 L 25.5 L (36.0-48.0) % MCV 100.0 99.2 (80.0-105.0) fL MCH 33.2 33.5 (25.0-35.0) pg MCHC 33.2 33.7 (31.0-37.0) g/dl RDW 13.9 14.0 (11.5-14.5) % Plt Count 38 L* 30 L* (120.0-450.0) 10^3/uL MPV 10.7 10.3 (7.0-11.0) fl Gran % 52.2 50.6 (50.0-68.0) % Lymph % (Auto) 34.9 37.7 H (22.0-35.0) % [place] % (Auto) 8.1 H 8.9 H (1.0-6.0) % Eos % (Auto) 3.8 2.1 (1.5-5.0) % Baso % (Auto) 1.0 0.7 (0.0-3.0) % Gran # 1.09 L 0.74 L (1.4-6.5) Lymph # 0.7 L 0.6 L (1.2-3.4) [place] # 0.2 0.1 (0.1-0.6) Eos # 0.1 0.0 (0.0-0.7) Baso # 0.02 0.01 (0.0-2.0) K/mm3 Neutrophils % (Manual) (50.0-70.0) % Lymphocytes % (Manual) (22.0-35.0) % Monocytes % (Manual) (1.0-6.0) % Eosinophils % (Manual) (0.0-3.0) % Basophils % (Manual) (0.0-1.0) % Myelocytes % % Platelet Evaluation (NORMAL) Retic Count 2.40 H (0.5-1.5) % PT (9.9-11.8) Seconds INR (0.93-1.08) APTT (23.7-30.8) Seconds Sodium (132-148) mmol/L Potassium (3.6-5.0) mmol/L Chloride (98-107) mmol/L Carbon Dioxide (21-33) mmol/L Anion Gap (10-20) BUN (7-21) mg/dL Creatinine (0.5-1.4) mg/dL Est GFR ( Amer) Est GFR (Non-Af Amer) Random Glucose (70-110) mg/dL Calcium (8.4-10.5) mg/dL Ferritin ng/mL Total Bilirubin (0.2-1.3) mg/dL AST (15-39) U/L ALT (7-56) U/L Alkaline Phosphatase (38-133) U/L Lactate Dehydrogenase (333-699) U/L Total Protein (5.8-8.3) g/dL Albumin (3.0-4.8) g/dL Globulin gm/dL Albumin/Globulin Ratio (1.1-1.8) Triglycerides (35-160) mg/dL PTH Intact Whole Molec (14-64) pg/mL Vancomycin Trough 15.9 H* (5.0-10.0) ug/mL 05/24/17 05/24/17 05/23/17 Range/Units 05:40 05:40 11:00 WBC 1.3 L* D (4.5-11.0) 10^3/ul RBC 2.65 L (3.5-6.1) 10^6/uL Hgb 8.6 L (12.0-16.0) gm/dL Hct 26.2 L (36.0-48.0) % MCV 98.9 (80.0-105.0) fL MCH 32.5 (25.0-35.0) pg MCHC 32.8 (31.0-37.0) g/dl RDW 14.0 (11.5-14.5) % Plt Count 31 L* (120.0-450.0) 10^3/uL MPV 9.9 (7.0-11.0) fl Gran % (50.0-68.0) % Lymph % (Auto) (22.0-35.0) % [place] % (Auto) (1.0-6.0) % Eos % (Auto) (1.5-5.0) % Baso % (Auto) (0.0-3.0) % Gran # (1.4-6.5) Lymph # (1.2-3.4) [place] # (0.1-0.6) Eos # (0.0-0.7) Baso # (0.0-2.0) K/mm3 Neutrophils % (Manual) 53 (50.0-70.0) % Lymphocytes % (Manual) 38 H (22.0-35.0) % Monocytes % (Manual) 6 (1.0-6.0) % Eosinophils % (Manual) 1 (0.0-3.0) % Basophils % (Manual) 1 (0.0-1.0) % Myelocytes % 1 % Platelet Evaluation Low (NORMAL) Retic Count (0.5-1.5) % PT (9.9-11.8) Seconds INR (0.93-1.08) APTT (23.7-30.8) Seconds Sodium 141 (132-148) mmol/L Potassium 3.3 L (3.6-5.0) mmol/L Chloride 110 H (98-107) mmol/L Carbon Dioxide 26 (21-33) mmol/L Anion Gap 8 L (10-20) BUN 9 (7-21) mg/dL Creatinine 0.9 (0.5-1.4) mg/dL Est GFR ( Amer) > 60 Est GFR (Non-Af Amer) > 60 Random Glucose 93 (70-110) mg/dL Calcium 8.3 L (8.4-10.5) mg/dL Ferritin ng/mL Total Bilirubin 1.2 (0.2-1.3) mg/dL AST 30 (15-39) U/L ALT 23 (7-56) U/L Alkaline Phosphatase 47 (38-133) U/L Lactate Dehydrogenase (333-699) U/L Total Protein 7.0 (5.8-8.3) g/dL Albumin 2.9 L (3.0-4.8) g/dL Globulin 4.1 gm/dL Albumin/Globulin Ratio 0.7 L (1.1-1.8) Triglycerides (35-160) mg/dL PTH Intact Whole Molec 82 H (14-64) pg/mL Vancomycin Trough (5.0-10.0) ug/mL Laboratory Results - last 24 hr 05/23/17 05/24/17 05/24/17 11:00 05:40 05:40 WBC 1.3 L* D RBC 2.65 L Hgb 8.6 L Hct 26.2 L MCV 98.9 MCH 32.5 MCHC 32.8 RDW 14.0 Plt Count 31 L* MPV 9.9 Gran % Lymph % (Auto) [place] % (Auto) Eos % (Auto) Baso % (Auto) Gran # Lymph # [place] # Eos # Baso # Neutrophils % (Manual) 53 Lymphocytes % (Manual) 38 H Monocytes % (Manual) 6 Eosinophils % (Manual) 1 Basophils % (Manual) 1 Myelocytes % 1 Platelet Evaluation Low Retic Count PT INR APTT Sodium 141 Potassium 3.3 L Chloride 110 H Carbon Dioxide 26 Anion Gap 8 L BUN 9 Creatinine 0.9 Est GFR ( Amer) > 60 Est GFR (Non-Af Amer) > 60 Random Glucose 93 Calcium 8.3 L Ferritin Total Bilirubin 1.2 AST 30 ALT 23 Alkaline Phosphatase 47 Lactate Dehydrogenase Total Protein 7.0 Albumin 2.9 L Globulin 4.1 Albumin/Globulin Ratio 0.7 L Triglycerides PTH Intact Whole Molec 82 H Vancomycin Trough 05/24/17 05/24/17 05/24/17 09:00 09:00 16:20 WBC 1.5 L* 2.1 L* D RBC 2.57 L 2.77 L Hgb 8.6 L 9.2 L Hct 25.5 L 27.7 L MCV 99.2 100.0 MCH 33.5 33.2 MCHC 33.7 33.2 RDW 14.0 13.9 Plt Count 30 L* 38 L* MPV 10.3 10.7 Gran % 50.6 52.2 Lymph % (Auto) 37.7 H 34.9 [place] % (Auto) 8.9 H 8.1 H Eos % (Auto) 2.1 3.8 Baso % (Auto) 0.7 1.0 Gran # 0.74 L 1.09 L Lymph # 0.6 L 0.7 L [place] # 0.1 0.2 Eos # 0.0 0.1 Baso # 0.01 0.02 Neutrophils % (Manual) Lymphocytes % (Manual) Monocytes % (Manual) Eosinophils % (Manual) Basophils % (Manual) Myelocytes % Platelet Evaluation Retic Count 2.40 H PT INR APTT Sodium Potassium Chloride Carbon Dioxide Anion Gap BUN Creatinine Est GFR ( Amer) Est GFR (Non-Af Amer) Random Glucose Calcium Ferritin Total Bilirubin AST ALT Alkaline Phosphatase Lactate Dehydrogenase Total Protein Albumin Globulin Albumin/Globulin Ratio Triglycerides PTH Intact Whole Molec Vancomycin Trough 15.9 H* 05/24/17 05/24/17 05/25/17 16:20 16:20 05:30 WBC 1.7 L* RBC 2.68 L Hgb 8.9 L Hct 26.6 L MCV 99.3 MCH 33.2 MCHC 33.5 RDW 13.9 Plt Count 36 L* MPV 10.5 Gran % 50.6 Lymph % (Auto) 36.9 H [place] % (Auto) 8.3 H Eos % (Auto) 3.0 Baso % (Auto) 1.2 Gran # 0.85 L Lymph # 0.6 L [place] # 0.1 Eos # 0.1 Baso # 0.02 Neutrophils % (Manual) Lymphocytes % (Manual) Monocytes % (Manual) Eosinophils % (Manual) Basophils % (Manual) Myelocytes % Platelet Evaluation Retic Count PT 15.9 H INR 1.47 H APTT 25.4 Sodium Potassium Chloride Carbon Dioxide Anion Gap BUN Creatinine Est GFR ( Amer) Est GFR (Non-Af Amer) Random Glucose Calcium Ferritin 67.0 Total Bilirubin AST ALT Alkaline Phosphatase Lactate Dehydrogenase 417 Total Protein Albumin Globulin Albumin/Globulin Ratio Triglycerides 82 PTH Intact Whole Molec Vancomycin Trough Critical Care Progress Note - Nutrition Nutrition: Nutrition Category Date Time Status Regular Diet [DIET] Diets 05/24/17 Dinner Ordered Assessment/Plan - Assessment and Plan (Free Text) Plan: Neurologic: TIA vs embolic stroke secondary to endocarditis -ALEXIA read as "vegetation vs fibrin clot" attached to tip Port-a-Cath. -Persistent blood cultures positive raise the probability that there was an embolic phenomena. -We will consider an MRI of brain once Port-a-Cath is removed. -AMS resolved after repleting electrolytes (Ca) and fluid resuscitation. Cardiovascular:Empirically treating for Endocarditis, will continue with IV Vancomycin. Respiratory: CTAB. No wheezes, rubs, or rhonchi. -On RA maintaining O2>90%. Renal: Potassium repleted - Serum Ca normal. - Will continue to monitor via serial BMP and replace electrolytes as needed - Hypercalcemia has resolved with IV fluids; work-up pending to rule of other etiologiesof hypercalcemia GI: Pancolitis, abdominal discomfort, persistent diarrhea with C. difficile (+) antigen, toxin (-) - Tx for Pseudomembranous colitis with IV metronidazole and PO Vancomycin 250 mg QID - Check stool for ova and parasites - No hematemesis, melena, or hematochezia. Pain better tolerated and diet resume as tolerate Patient switched from therapetuc Protonix drip to with prophylactic IV, d/c octreotide, will consider starting non-selective B-ruben based . GI is following, at this time no bright red blood PO or rectum. Awaiting old records from [facility] endoscopy reports. ID: Endocarditis treatment with IV vancomycin -C.difficile antigen (+), toxin (-), started PO 250 Vancomycin QID and continue IV Metronidazole. - Blood culture from ___ site showed yeast, patient started on Micafungin IV. Hematology:Leukopenia, throbocytopenia, and anemia. Unclear if this is due to worsening sepsis state, HIV/HCV or medications. Keep Hgb > 7. Platelets> 50,000, INR<2 56 y/o F w/ acute colitis . C DIFF On Flagyl I.V , P.O vancomycin to complete 14 days of treatment . PORT on ALEXIA shows possible vegetation at the tip and needs to be removed emergently. Surgery team is aware . On Empiric treatment for Endocarditis . Lab work today shows leukopenia, anemia and thrombocytopenia. Unclear if this is due to worsening sepsis state , HIV/HEP C or medications. Pain better controlled and diet resumed as tolerated. HIV plan to restart p.o medications . HGB lowered today likely from large hydration for hypercalcemia , no overt blood loss noted. Keep HGB>7 . Platelets> 50k INR< 2 dvt p scd
[2017-05-25 06:14] LABS: ALB/GLOB RATIO 0.7 (1.1-1.8); ALKALINE PHOSPHATASE 51 U/L (38-133); ALT/SGPT 24 U/L (7-56); AST/SGOT 30 U/L (15-39); BILIRUBIN,TOTAL 0.7 mg/dL (0.2-1.3); BLOOD UREA NITROGEN 7 mg/dL (7-21); CALCIUM 8.5 mg/dL (8.4-10.5); CARBON DIOXIDE 28 mmol/L (21-33); CHLORIDE 108 mmol/L (98-107); GFR AFRICAN-AMERICAN > 60; GLUCOSE,RANDOM 94 mg/dL (70-110); POTASSIUM 3.2 mmol/L (3.6-5.0); SODIUM 139 mmol/L (132-148); TOTAL PROTEIN 7.3 g/dL (5.8-8.3)
--- NOTE | 2017-05-25 10:08 | CP.PCM.PN ---
<Alysa Gracia - Last Filed: 05/25/17 10:09> Subjective - Date & Time of Evaluation Date of Evaluation: 05/25/17 Time of Evaluation: 08:15 - Subjective Subjective: S&E at bedside, chart reviewed. Hadepisode of loose BMs 2 AM last night, no reports of any melena or bright red blood. Still has abdominal discomfort 8 out of 10, no acute distress. Patient positive C. difficile, started on oral vancomycin. Tolerating oral intake. Denies any dyspepsia, nausea, vomiting, shortness of breath, or chest pain. Objective - Vital Signs/Intake and Output Vital Signs (last 24 hours): Temp Pulse Resp BP Pulse Ox 98.1 F 59 L 14 155/47 H 97 05/25/17 00:01 05/25/17 08:10 05/25/17 08:10 05/25/17 06:00 05/25/17 08:10 Intake and Output: 05/25/17 05/25/17 06:59 18:59 Intake Total 750 Output Total 700 Balance 50 - Medications Medications: Current Medications Abacavir Sulfate (Ziagen) 600 mg PO DAILY [facility] Last Admin: 05/24/17 11:18 Dose: Not Given Carvedilol (Coreg) 6.25 mg PO BID [facility] Last Admin: 05/24/17 17:49 Dose: 6.25 mg Gabapentin (Neurontin) 300 mg PO TID DOUGIE PRN Reason: Protocol Last Admin: 05/24/17 17:49 Dose: 300 mg Hydralazine HCl (Apresoline) 10 mg IVP Q6 PRN PRN Reason: for SBP>170 & Diastolic>100 Vancomycin HCl (Vancomycin 1gm) 1 gm in 250 mls @ 167 mls/hr IVPB Q12H DOUGIE PRN Reason: Protocol Stop: 05/28/17 22:01 Last Admin: 05/24/17 22:20 Dose: 167 mls/hr Pantoprazole Sodium (Protonix 40mg Ivpb) 40 mg in 100 mls @ 20 mls/hr IVPB .Q5H [facility] Last Admin: 05/22/17 08:31 Dose: 20 mls/hr Metronidazole (Flagyl) 500 mg in 100 mls @ 100 mls/hr IVPB Q8 DOUGIE PRN Reason: Protocol Last Admin: 05/25/17 05:09 Dose: 100 mls/hr Micafungin Sodium 100 mg/ (Sodium Chloride) 100 mls @ 100 mls/hr IV DAILY [facility] PRN Reason: Protocol Stop: 05/25/17 22:01 Last Admin: 05/24/17 22:20 Dose: 100 mls/hr Lisinopril (Zestril) 20 mg PO DAILY [facility] Last Admin: 05/24/17 11:18 Dose: Not Given Morphine Sulfate (Morphine) 2 mg IVP Q4H PRN PRN Reason: Pain, moderate (4-7) Last Admin: 05/25/17 08:36 Dose: 2 mg Ondansetron HCl (Zofran Inj) 4 mg IVP Q4H PRN PRN Reason: Nausea/Vomiting Last Admin: 05/24/17 00:12 Dose: 4 mg Pentoxifylline (Pentoxil) 400 mg PO TID [facility] Last Admin: 05/24/17 17:48 Dose: 400 mg Raltegravir (Isentress) 400 mg PO BID [facility] Last Admin: 05/24/17 17:49 Dose: 400 mg Vancomycin HCl (Vancocin 25 Mg/Ml (Oral Use)) 250 mg PO QID [facility] PRN Reason: Protocol Stop: 06/07/17 18:00 Last Admin: 05/24/17 21:34 Dose: 250 mg - Labs Labs: 05/25/17 05:30 05/25/17 05:30 PT 15.9 Seconds (9.9-11.8) H 05/24/17 16:20 INR 1.47 (0.93-1.08) H 05/24/17 16:20 APTT 25.4 Seconds (23.7-30.8) 05/24/17 16:20 - Constitutional Appears: No Acute Distress - Head Exam Head Exam: NORMOCEPHALIC - Eye Exam Eye Exam: absent: Scleral icterus - ENT Exam ENT Exam: Mucous Membranes Moist - Neck Exam Neck Exam: Normal Inspection - Respiratory Exam Respiratory Exam: NORMAL BREATHING PATTERN. absent: Respiratory Distress - Cardiovascular Exam Cardiovascular Exam: +S1, +S2 - GI/Abdominal Exam GI & Abdominal Exam: Soft, Tenderness, Normal Bowel Sounds. absent: Guarding, Rebound - Extremities Exam Extremities Exam: absent: Calf Tenderness, Pedal Edema - Neurological Exam Neurological Exam: Alert, Awake, Oriented x3 - Skin Skin Exam: Dry, Warm Assessment and Plan - Assessment and Plan (Free Text) Assessment: ASSESSMENT: Sepsis s/p GI Bleed S/P Code stroke, ct head no bleed/infarct, likely narcotic induced Acute Abdominal pain Pancolitis, H/O colitis post colonoscopy 2 years ago (+) Blood cultures; staph/Mitral Valve thickening, r/o endocarditis Thrombocytopenia HIV/AIDS Hepatitis C, was on [place] H/O DVT, s/p IVC filter HTN Splenectomy Plan on regular diet Decrease Protonix to 20 mg daily continue IVF for hydration on oral vancomycin on IV antibiotics, Zosyn, vancomycin,flagyl , on Micfungin as per ID on antiviral meds monitor H/H Q 4H repeat CDiff continue Xifaxin possible port removal for today still Await endo report from [facility], spoke to the unit reactor operator for follow-up Discussed with Dr. Sharma. <Avery Sharma V - Last Filed: 06/09/17 22:30> Objective - Vital Signs/Intake and Output Vital Signs (last 24 hours): Temp Pulse Resp BP Pulse Ox 98.1 F 53 L 20 135/78 97 05/25/17 00:01 05/26/17 00:00 05/26/17 00:00 05/26/17 00:00 05/26/17 00:00 Intake and Output: 05/25/17 05/26/17 18:59 06:59 Intake Total 1050 Output Total 1350 Balance -300 - Medications Medications: Current Medications Abacavir Sulfate (Ziagen) 600 mg PO DAILY [facility] Last Admin: 05/25/17 10:45 Dose: 300 mg Carvedilol (Coreg) 6.25 mg PO BID [facility] Last Admin: 05/25/17 18:12 Dose: 6.25 mg Gabapentin (Neurontin) 300 mg PO TID [facility] PRN Reason: Protocol Last Admin: 05/25/17 18:08 Dose: 300 mg Hydralazine HCl (Apresoline) 10 mg IVP Q6 PRN PRN Reason: for SBP>170 & Diastolic>100 Hydromorphone HCl (Dilaudid) 1 mg IVP Q3 PRN PRN Reason: Pain, severe (8-10) Last Admin: 05/25/17 23:03 Dose: 1 mg Vancomycin HCl (Vancomycin 1gm) 1 gm in 250 mls @ 167 mls/hr IVPB Q12H DOUGIE PRN Reason: Protocol Stop: 05/28/17 22:01 Last Admin: 05/25/17 21:32 Dose: 167 mls/hr Metronidazole (Flagyl) 500 mg in 100 mls @ 100 mls/hr IVPB Q8 DOUGIE PRN Reason: Protocol Last Admin: 05/25/17 21:31 Dose: 100 mls/hr Lisinopril (Zestril) 20 mg PO DAILY [facility] Last Admin: 05/25/17 10:46 Dose: 20 mg Ondansetron HCl (Zofran Inj) 4 mg IVP Q4H PRN PRN Reason: Nausea/Vomiting Last Admin: 05/25/17 12:10 Dose: 4 mg Pantoprazole Sodium (Protonix Ec Tab) 20 mg PO 0600 [facility] Pentoxifylline (Pentoxil) 400 mg PO TID [facility] Last Admin: 05/25/17 18:09 Dose: 400 mg Raltegravir (Isentress) 400 mg PO BID [facility] Last Admin: 05/25/17 18:04 Dose: 400 mg Vancomycin HCl (Vancocin 25 Mg/Ml (Oral Use)) 250 mg PO QID [facility] PRN Reason: Protocol Stop: 06/07/17 18:00 Last Admin: 05/25/17 21:31 Dose: 250 mg - Labs Labs: 05/25/17 05:30 05/25/17 05:30 PT 15.9 Seconds (9.9-11.8) H 05/24/17 16:20 INR 1.47 (0.93-1.08) H 05/24/17 16:20 APTT 25.4 Seconds (23.7-30.8) 05/24/17 16:20 Attending/Attestation - Attestation I have personally seen and examined this patient.: Yes I have fully participated in the care of the patient.: Yes I have reviewed all pertinent clinical information, including history, physical exam and plan: Yes Notes (Text): This is an addendum to the GI progress report dictated by Alysa Gracia APN. Patient did complaints of abdominal discomfort Abdomen soft and mild tenderness on deep palpationIn the epigastric area otherwise unremarkable Follow up with the hemoglobin hematocrit Follow her platelet count Continue antibiotics as per ID. .
[2017-05-25] MEDS: Micafungin 100 MG in Sodium Chloride 0.9% 100 ML IV SCH (10:53)
[2017-05-25] MEDS: Vancomycin 25 MG/ML PO SCH ×4 (10:54→21:31)
[2017-05-25] MEDS ORDERED: Lidocaine 2% Inj (20ml) ONE (11:07)
--- NOTE | 2017-05-25 11:29 | CP.PCM.PN ---
Subjective - Date & Time of Evaluation Date of Evaluation: 05/25/17 Time of Evaluation: 11:24 - Subjective Subjective: General Surgery Progress Note for Dr. Moss PT S&E at bedside. VITA. Dr. Dangelo said he would remove the port. Patient denies F/C, N/V, Abdominal pain. Objective - Vital Signs/Intake and Output Vital Signs (last 24 hours): Temp Pulse Resp BP Pulse Ox 98.1 F 58 L 15 148/82 99 05/25/17 00:01 05/25/17 10:46 05/25/17 10:10 05/25/17 10:46 05/25/17 10:10 Intake and Output: 05/25/17 05/25/17 06:59 18:59 Intake Total 750 Output Total 700 350 Balance 50 -350 - Medications Medications: Current Medications Abacavir Sulfate (Ziagen) 600 mg PO DAILY [facility] Last Admin: 05/25/17 10:45 Dose: 300 mg Carvedilol (Coreg) 6.25 mg PO BID [facility] Last Admin: 05/25/17 10:44 Dose: 6.25 mg Gabapentin (Neurontin) 300 mg PO TID [facility] PRN Reason: Protocol Last Admin: 05/25/17 10:42 Dose: 300 mg Hydralazine HCl (Apresoline) 10 mg IVP Q6 PRN PRN Reason: for SBP>170 & Diastolic>100 Hydromorphone HCl (Dilaudid) 1 mg IVP Q3 PRN PRN Reason: Pain, severe (8-10) Vancomycin HCl (Vancomycin 1gm) 1 gm in 250 mls @ 167 mls/hr IVPB Q12H [facility]IE PRN Reason: Protocol Stop: 05/28/17 22:01 Last Admin: 05/24/17 22:20 Dose: 167 mls/hr Metronidazole (Flagyl) 500 mg in 100 mls @ 100 mls/hr IVPB Q8 DOUGIE PRN Reason: Protocol Last Admin: 05/25/17 05:09 Dose: 100 mls/hr Micafungin Sodium 100 mg/ (Sodium Chloride) 100 mls @ 100 mls/hr IV DAILY [facility] PRN Reason: Protocol Stop: 05/25/17 22:01 Last Admin: 05/25/17 10:53 Dose: 100 mls/hr Lisinopril (Zestril) 20 mg PO DAILY [facility] Last Admin: 05/25/17 10:46 Dose: 20 mg Ondansetron HCl (Zofran Inj) 4 mg IVP Q4H PRN PRN Reason: Nausea/Vomiting Last Admin: 05/24/17 00:12 Dose: 4 mg Pantoprazole Sodium (Protonix Ec Tab) 20 mg PO 0600 [facility] Pentoxifylline (Pentoxil) 400 mg PO TID [facility] Last Admin: 05/25/17 10:44 Dose: 400 mg Raltegravir (Isentress) 400 mg PO BID [facility] Last Admin: 05/25/17 10:51 Dose: 400 mg Vancomycin HCl (Vancocin 25 Mg/Ml (Oral Use)) 250 mg PO QID [facility] PRN Reason: Protocol Stop: 06/07/17 18:00 Last Admin: 05/25/17 10:54 Dose: 225 mg - Labs Labs: 05/25/17 05:30 05/25/17 05:30 PT 15.9 Seconds (9.9-11.8) H 05/24/17 16:20 INR 1.47 (0.93-1.08) H 05/24/17 16:20 APTT 25.4 Seconds (23.7-30.8) 05/24/17 16:20 - Constitutional Appears: Chronically Ill - Head Exam Head Exam: NORMAL INSPECTION, NORMOCEPHALIC - Eye Exam Eye Exam: EOMI, Normal appearance - ENT Exam ENT Exam: Mucous Membranes Moist - Neck Exam Neck Exam: Full ROM, Normal Inspection - Respiratory Exam Respiratory Exam: NORMAL BREATHING PATTERN - Cardiovascular Exam Cardiovascular Exam: REGULAR RHYTHM. absent: Bradycardia, Tachycardia - GI/Abdominal Exam GI & Abdominal Exam: Soft, Normal Bowel Sounds. absent: Distended, Firm, Guarding, Tenderness, Diminished Bowel Sounds, Hyperactive Bowel Sounds, Hypoactive Bowel Sounds - Extremities Exam Extremities Exam: Full ROM, Normal Capillary Refill. absent: Joint Swelling - Neurological Exam Neurological Exam: Alert, Awake, Oriented x3. absent: Altered - Skin Skin Exam: Dry, Intact, Normal Color, Warm Assessment and Plan - Assessment and Plan (Free Text) Assessment: 56 F colitis. with history of of HIV/AIDs, Hep C, HTN Plan: Reg Diet c/w abx treatment C/w current medical management IR will take out the portacath, no surgical intervention at this time. Jazmine Varela, PGY1
[2017-05-25] MEDS: HYDROmorphone 1 mg/ml ISec IVP PRN ×3 (12:09→23:03)
--- NOTE | 2017-05-25 12:22 | CP.CCUPN ---
CCU Subjective - Physician Review Events Since Last Encounter (Free Text): 05/25/17 12:17 No acute events overnight. Continues to have some loose stools. Pain somewhat controlled. Vitals are WNL. CCU Objective - Vital Signs / Intake & Output Vital Signs (Last 4 hours): Vital Signs Pulse Resp BP Pulse Ox 05/25/17 10:46 58 L 148/82 05/25/17 10:44 58 L 142/82 05/25/17 10:10 56 L 15 99 05/25/17 10:00 67 18 141/62 97 05/25/17 09:50 58 L 16 98 05/25/17 09:40 57 L 11 L 98 05/25/17 09:30 59 L 48 H 97 05/25/17 09:20 58 L 15 98 05/25/17 09:10 55 L 13 96 05/25/17 09:00 53 L 13 143/66 95 05/25/17 08:50 55 L 12 96 05/25/17 08:40 58 L 13 97 05/25/17 08:30 56 L 11 L 97 05/25/17 08:20 59 L 11 L 99 Intake and Output (Last 8hrs): Intake & Output 05/24/17 05/25/17 05/25/17 22:59 06:59 14:59 Intake Total 750 Output Total 700 350 Balance 50 -350 Intake: IV 500 Right Subclavian 500 Oral 250 Output: Urine 700 350 Urine, Voided 700 350 Other: Voiding Method Diaper Diaper # Bowel Movements 3 - Physical Exam Head: Positive for: Atraumatic, Normocephalic Pupils: Positive for: PERRL Extroacular Muscles: Positive for: EOMI Conjunctiva: Positive for: Normal Mouth: Positive for: Moist Mucous Membranes Neck: Positive for: Normal Range of Motion Respiratory/Chest: Positive for: Clear to Auscultation, Good Air Exchange. Negative for: Respiratory Distress, Accessory Muscle Use Cardiovascular: Positive for: Regular Rate and Rhythm, Normal S1, S2. Negative for: Murmurs Abdomen: Positive for: Tenderness (LUQ tenderness), Normal Bowel Sounds, Guarding. Negative for: Distention, Peritoneal Signs Genitourinary/Pelvic Exam: Positive for: Normal External Genitalia Back: Positive for: Normal Inspection Upper Extremity: Positive for: Normal Inspection. Negative for: Cyanosis, Edema Lower Extremity: Positive for: Normal Inspection. Negative for: Edema Neurological: Positive for: GCS=15, CN II-XII Intact, Speech Normal Skin: Positive for: Warm, Dry, Normal Color. Negative for: Rashes Psychiatric: Positive for: Alert, Oriented x 3, Normal Insight, Normal Concentration - Medications Active Medications: Active Medications Generic Name Dose Route Start Last Admin Trade Name Freq PRN Reason Stop Dose Admin Abacavir Sulfate 600 mg 05/22/17 10:00 05/25/17 10:45 Ziagen PO 300 mg DAILY DOUGIE Administration Carvedilol 6.25 mg 05/24/17 18:00 05/25/17 10:44 Coreg PO 6.25 mg BID DOUGIE Administration Gabapentin 300 mg 05/20/17 14:00 05/25/17 10:42 Neurontin PO 300 mg TID DOUGIE Administration Protocol Hydralazine HCl 10 mg 05/23/17 08:46 Apresoline IVP Q6 PRN for SBP>170 & Diastolic>100 Hydromorphone HCl 1 mg 05/25/17 09:35 05/25/17 12:09 Dilaudid IVP 1 mg Q3 PRN Administration Pain, severe (8-10) Vancomycin HCl 1 gm in 250 mls @ 167 mls/hr 05/21/17 22:00 05/24/17 22:20 Vancomycin 1gm IVPB 05/28/17 22:01 167 mls/hr Q12H DOUGIE Administration Protocol Metronidazole 500 mg in 100 mls @ 100 mls/hr 05/23/17 14:00 05/25/17 05:09 Flagyl IVPB 100 mls/hr Q8 DOUGIE Administration Protocol Micafungin Sodium 100 mg/ 100 mls @ 100 mls/hr 05/24/17 22:00 05/25/17 10:53 Sodium Chloride IV 05/25/17 22:01 100 mls/hr DAILY DOUGIE Administration Protocol Lisinopril 20 mg 05/23/17 10:00 05/25/17 10:46 Zestril PO 20 mg DAILY [facility]IE Administration Ondansetron HCl 4 mg 05/20/17 04:27 05/25/17 12:10 Zofran Inj IVP 4 mg Q4H PRN Administration Nausea/Vomiting Pantoprazole Sodium 20 mg 05/26/17 06:00 Protonix Ec Tab PO 0600 DOUGIE Pentoxifylline 400 mg 05/21/17 14:00 05/25/17 10:44 Pentoxil PO 400 mg TID DOUGIE Administration Raltegravir 400 mg 05/21/17 18:00 05/25/17 10:51 Isentress PO 400 mg BID DOUGIE Administration Vancomycin HCl 250 mg 05/24/17 18:00 05/25/17 10:54 Vancocin 25 Mg/Ml (Oral Use) PO 06/07/17 18:00 225 mg QID DOUGIE Administration Protocol - Patient Studies Lab Studies: Microbiology Studies 05/23/17 04:45 Blood Culture - Preliminary Blood Yeast Species Gram Stain - Final 05/23/17 04:45 Blood Culture - Preliminary Blood NO GROWTH AFTER 48 HOURS 05/21/17 18:30 Blood Culture - Preliminary Blood-Venous NO GROWTH AFTER 3 DAYS 05/21/17 18:00 Blood Culture - Preliminary Blood-Thru Central Line NO GROWTH AFTER 3 DAYS 05/23/17 21:15 C. difficile Antigen & Toxin A,B (M - Final Stool Lab Studies 05/25/17 05/25/17 05/24/17 Range/Units 05:30 05:30 16:20 WBC 1.7 L* (4.5-11.0) 10^3/ul RBC 2.68 L (3.5-6.1) 10^6/uL Hgb 8.9 L (12.0-16.0) gm/dL Hct 26.6 L (36.0-48.0) % MCV 99.3 (80.0-105.0) fL MCH 33.2 (25.0-35.0) pg MCHC 33.5 (31.0-37.0) g/dl RDW 13.9 (11.5-14.5) % Plt Count 36 L* (120.0-450.0) 10^3/uL MPV 10.5 (7.0-11.0) fl Gran % 50.6 (50.0-68.0) % Lymph % (Auto) 36.9 H (22.0-35.0) % [place] % (Auto) 8.3 H (1.0-6.0) % Eos % (Auto) 3.0 (1.5-5.0) % Baso % (Auto) 1.2 (0.0-3.0) % Gran # 0.85 L (1.4-6.5) Lymph # 0.6 L (1.2-3.4) [place] # 0.1 (0.1-0.6) Eos # 0.1 (0.0-0.7) Baso # 0.02 (0.0-2.0) K/mm3 Retic Count (0.5-1.5) % Haptoglobin <15 L (43-212) mg/dL PT (9.9-11.8) Seconds INR (0.93-1.08) APTT (23.7-30.8) Seconds Sodium 139 (132-148) mmol/L Potassium 3.2 L (3.6-5.0) mmol/L Chloride 108 H (98-107) mmol/L Carbon Dioxide 28 (21-33) mmol/L Anion Gap 6 L (10-20) BUN 7 (7-21) mg/dL Creatinine 0.9 (0.5-1.4) mg/dL Est GFR ( Amer) > 60 Est GFR (Non-Af Amer) > 60 Random Glucose 94 (70-110) mg/dL Calcium 8.5 (8.4-10.5) mg/dL Ferritin ng/mL Total Bilirubin 0.7 (0.2-1.3) mg/dL AST 30 (15-39) U/L ALT 24 (7-56) U/L Alkaline Phosphatase 51 (38-133) U/L Lactate Dehydrogenase (333-699) U/L Total Protein 7.3 (5.8-8.3) g/dL Albumin 3.1 (3.0-4.8) g/dL Globulin 4.3 gm/dL Albumin/Globulin Ratio 0.7 L (1.1-1.8) Triglycerides (35-160) mg/dL PTH Intact Whole Molec (14-64) pg/mL Crossmatch 05/24/17 05/24/17 05/24/17 Range/Units 16:20 16:20 16:20 WBC 2.1 L* D (4.5-11.0) 10^3/ul RBC 2.77 L (3.5-6.1) 10^6/uL Hgb 9.2 L (12.0-16.0) gm/dL Hct 27.7 L (36.0-48.0) % MCV 100.0 (80.0-105.0) fL MCH 33.2 (25.0-35.0) pg MCHC 33.2 (31.0-37.0) g/dl RDW 13.9 (11.5-14.5) % Plt Count 38 L* (120.0-450.0) 10^3/uL MPV 10.7 (7.0-11.0) fl Gran % 52.2 (50.0-68.0) % Lymph % (Auto) 34.9 (22.0-35.0) % [place] % (Auto) 8.1 H (1.0-6.0) % Eos % (Auto) 3.8 (1.5-5.0) % Baso % (Auto) 1.0 (0.0-3.0) % Gran # 1.09 L (1.4-6.5) Lymph # 0.7 L (1.2-3.4) [place] # 0.2 (0.1-0.6) Eos # 0.1 (0.0-0.7) Baso # 0.02 (0.0-2.0) K/mm3 Retic Count 2.40 H (0.5-1.5) % Haptoglobin (43-212) mg/dL PT 15.9 H (9.9-11.8) Seconds INR 1.47 H (0.93-1.08) APTT 25.4 (23.7-30.8) Seconds Sodium (132-148) mmol/L Potassium (3.6-5.0) mmol/L Chloride (98-107) mmol/L Carbon Dioxide (21-33) mmol/L Anion Gap (10-20) BUN (7-21) mg/dL Creatinine (0.5-1.4) mg/dL Est GFR ( Amer) Est GFR (Non-Af Amer) Random Glucose (70-110) mg/dL Calcium (8.4-10.5) mg/dL Ferritin 67.0 ng/mL Total Bilirubin (0.2-1.3) mg/dL AST (15-39) U/L ALT (7-56) U/L Alkaline Phosphatase (38-133) U/L Lactate Dehydrogenase 417 (333-699) U/L Total Protein (5.8-8.3) g/dL Albumin (3.0-4.8) g/dL Globulin gm/dL Albumin/Globulin Ratio (1.1-1.8) Triglycerides 82 (35-160) mg/dL PTH Intact Whole Molec (14-64) pg/mL Crossmatch 05/23/17 05/22/17 Range/Units 11:00 07:25 WBC (4.5-11.0) 10^3/ul RBC (3.5-6.1) 10^6/uL Hgb (12.0-16.0) gm/dL Hct (36.0-48.0) % MCV (80.0-105.0) fL MCH (25.0-35.0) pg MCHC (31.0-37.0) g/dl RDW (11.5-14.5) % Plt Count (120.0-450.0) 10^3/uL MPV (7.0-11.0) fl Gran % (50.0-68.0) % Lymph % (Auto) (22.0-35.0) % [place] % (Auto) (1.0-6.0) % Eos % (Auto) (1.5-5.0) % Baso % (Auto) (0.0-3.0) % Gran # (1.4-6.5) Lymph # (1.2-3.4) [place] # (0.1-0.6) Eos # (0.0-0.7) Baso # (0.0-2.0) K/mm3 Retic Count (0.5-1.5) % Haptoglobin (43-212) mg/dL PT (9.9-11.8) Seconds INR (0.93-1.08) APTT (23.7-30.8) Seconds Sodium (132-148) mmol/L Potassium (3.6-5.0) mmol/L Chloride (98-107) mmol/L Carbon Dioxide (21-33) mmol/L Anion Gap (10-20) BUN (7-21) mg/dL Creatinine (0.5-1.4) mg/dL Est GFR ( Amer) Est GFR (Non-Af Amer) Random Glucose (70-110) mg/dL Calcium (8.4-10.5) mg/dL Ferritin ng/mL Total Bilirubin (0.2-1.3) mg/dL AST (15-39) U/L ALT (7-56) U/L Alkaline Phosphatase (38-133) U/L Lactate Dehydrogenase (333-699) U/L Total Protein (5.8-8.3) g/dL Albumin (3.0-4.8) g/dL Globulin gm/dL Albumin/Globulin Ratio (1.1-1.8) Triglycerides (35-160) mg/dL PTH Intact Whole Molec 82 H (14-64) pg/mL Crossmatch See Detail Laboratory Results - last 24 hr 05/22/17 05/23/17 05/24/17 07:25 11:00 16:20 WBC 2.1 L* D RBC 2.77 L Hgb 9.2 L Hct 27.7 L MCV 100.0 MCH 33.2 MCHC 33.2 RDW 13.9 Plt Count 38 L* MPV 10.7 Gran % 52.2 Lymph % (Auto) 34.9 [place] % (Auto) 8.1 H Eos % (Auto) 3.8 Baso % (Auto) 1.0 Gran # 1.09 L Lymph # 0.7 L [place] # 0.2 Eos # 0.1 Baso # 0.02 Retic Count 2.40 H Haptoglobin PT INR APTT Sodium Potassium Chloride Carbon Dioxide Anion Gap BUN Creatinine Est GFR ( Amer) Est GFR (Non-Af Amer) Random Glucose Calcium Ferritin Total Bilirubin AST ALT Alkaline Phosphatase Lactate Dehydrogenase Total Protein Albumin Globulin Albumin/Globulin Ratio Triglycerides PTH Intact Whole Molec 82 H Crossmatch See Detail 05/24/17 05/24/17 05/24/17 16:20 16:20 16:20 WBC RBC Hgb Hct MCV MCH MCHC RDW Plt Count MPV Gran % Lymph % (Auto) [place] % (Auto) Eos % (Auto) Baso % (Auto) Gran # Lymph # [place] # Eos # Baso # Retic Count Haptoglobin <15 L PT 15.9 H INR 1.47 H APTT 25.4 Sodium Potassium Chloride Carbon Dioxide Anion Gap BUN Creatinine Est GFR ( Amer) Est GFR (Non-Af Amer) Random Glucose Calcium Ferritin 67.0 Total Bilirubin AST ALT Alkaline Phosphatase Lactate Dehydrogenase 417 Total Protein Albumin Globulin Albumin/Globulin Ratio Triglycerides 82 PTH Intact Whole Molec Crossmatch 05/25/17 05/25/17 05:30 05:30 WBC 1.7 L* RBC 2.68 L Hgb 8.9 L Hct 26.6 L MCV 99.3 MCH 33.2 MCHC 33.5 RDW 13.9 Plt Count 36 L* MPV 10.5 Gran % 50.6 Lymph % (Auto) 36.9 H [place] % (Auto) 8.3 H Eos % (Auto) 3.0 Baso % (Auto) 1.2 Gran # 0.85 L Lymph # 0.6 L [place] # 0.1 Eos # 0.1 Baso # 0.02 Retic Count Haptoglobin PT INR APTT Sodium 139 Potassium 3.2 L Chloride 108 H Carbon Dioxide 28 Anion Gap 6 L BUN 7 Creatinine 0.9 Est GFR ( Amer) > 60 Est GFR (Non-Af Amer) > 60 Random Glucose 94 Calcium 8.5 Ferritin Total Bilirubin 0.7 AST 30 ALT 24 Alkaline Phosphatase 51 Lactate Dehydrogenase Total Protein 7.3 Albumin 3.1 Globulin 4.3 Albumin/Globulin Ratio 0.7 L Triglycerides PTH Intact Whole Molec Crossmatch Review of Systems - Review of Systems Systems not reviewed;Unavailable: Acuity of Condition - EENT Eyes: UNREMARKABLE Ears: UNREMARKABLE Nose/Mouth/Throat: UNREMARKABLE - Breasts Breasts: UNREMARKABLE - Respiratory Respiratory: UNREMARKABLE - Gastrointestinal Gastrointestinal: Cramping, Diarrhea, Loose Stools - Genitourinary Genitourinary: UNREMARKABLE - Menstruation Menstruation: UNREMARKABLE Critical Care Progress Note - Ventilator Checklist Head of Bed 30 Degrees: Yes PUD Prophalyxis: Yes DVT Prophylaxis: Yes - Nutrition Nutrition: Nutrition Category Date Time Status Regular Diet [DIET] Diets 05/24/17 Dinner Ordered Assessment/Plan - Assessment and Plan (Free Text) Assessment: 56 y/o F w/ HEP C Liver cirrhosis HIV/AIDS Admitted for acute abdominal pain w/ Loose stools , Melena and Sepsis. Melena resolved, loos stools continues. Found to have C. Diff and Colitis on CT. On Flagyl and Vanco P.O HGB stable to EGD needed or SIG G.I following Sepsis- Likely from Blood cx + from PORT source. ALEXIA shows Vegetation at tip. + Blood cx and Yeast . On IV Vanco and Mycafungin. PORT removal today from IR and NEW PICC in 24 hrs or sooner if needed clinically. HIV/AIDS on HAART per ID. Borderline neutropenia , Diff pending. Platelets > 20K no bleeding. DVT P SCD CC time 65 min
[2017-05-25] MEDS ORDERED: Midazolam 2 MG/2 ML VIAL ONE (12:55)
--- NOTE | 2017-05-25 13:29 | PN ---
SUBJECTIVE: The patient is a [id number] seen and examined, seems to be more comfortable, more awake, alert, oriented. PHYSICAL EXAMINATION: VITAL SIGNS: She is afebrile, pulse 54, respirations 17, blood pressure 109/45. LUNGS: Bilateral fair air flow. No rhonchi or crackles. HEART: S1 and S2 audible. ABDOMEN: Soft and nontender. No rebound. No guarding. NEUROLOGIC: She is awake and alert, able to communicate. Moves all extremities. Complain of ankle discomfort at times. LABORATORY DATA: WBC is 1.7, hemoglobin 8.9, hematocrit 26.6, platelets of 36. Chemistry; sodium 139, potassium 3.2, chloride 108, CO2 of 28, BUN 7, creatinine 0.9, blood sugar of 94. Stool for Hemoccult is positive. RPR test is reactive minimal. First two blood cultures were positive for coag negative and on 05/23 her blood culture is positive with yeast. Stool for C. diff is also positive. ASSESSMENT: 1. Clostridium difficile colitis. 2. Bacteriemia. 3. Fungemia. 4. Positive education on Port-A-Cath tape. 5. Human immunodeficiency virus positive. 6. History of hepatitis C. 7. Pancytopenia. PLAN: Discussed with Dr. Byrd. The patient is scheduled to have Port-A-Cath removed and have PICC line placed. In the meantime, currently she is on HIV medication. She is getting vancomycin p.o. 250 q.i.d. and 1 g q. 12 and followup this patient in a.m. Will Barton MD
--- NOTE | 2017-05-25 13:54 | PN ---
DATE: 05/25/2017 SUBJECTIVE: The patient seen early this morning in the ICU. The patient is awake and alert, doing well. PHYSICAL EXAMINATION VITAL SIGNS: She had a temperature yesterday of 100, blood pressure is 150/40, respiratory rate of 18, and heart rate of 55. HEENT: Unremarkable. NECK: Supple. LUNGS: Decreased breath sounds. HEART: Normal S1 and S2. ABDOMEN: Soft and nontender. LABORATORY DATA: Examination reveals the patient's white count is 1.7, hemoglobin of 8, and platelets of 36. Chemistry reveals a BUN of 7 and creatinine of 0.9. Urinalysis is noted and the patient's blood cultures on the are reported to have yeast, these are the repeat blood cultures. note is reviewed. ASSESSMENT AND PLAN: A 56-year-old female with human immunodeficiency virus and acquired immune deficiency syndrome and hepatitis C and cirrhosis and chronic active hepatitis C with Port-A-Cath, admitted now with fungemia with endocarditis with a Port-A-Cath that has vegetation and the patient had an embolic phenomenon with a TIA. The patient is to have the Port-A-Cath removed. The patient also had coagulase negative Staphylococcus and two bottles on admission and on vancomycin. Also has acute colitis, pseudomembranous colitis and IV Flagyl and p.o. vancomycin. Also the transesophageal echo did not show valve involvement, it did show the tip of the [id number]-H-Cfft wire has a vegetation, mobile echogenic shadow was seen and once the Port-A-Cath is removed, the patient will need an MRI and MRA to rule out myocardiac aneurysm and LIGHTHOUSE KEEPER event. We will continue present course and I started empiric Mycamine therapy. Of note is that the patient's cryptococcal antigen is negative, not detected since Mycamine does not have cryptococcal activity and the patient's T cells are too high to have crypt, most likely Holly in the blood. The patient also need an ophthalmology evaluation because of the yeast in the blood is an indication for ophthalmology evaluation to rule out involvement of the eye, should get ophthalmology to evaluate the patient. We will follow closely with you. Panfilo Marcelo MD
[2017-05-25 14:09] LABS: ROTAVIRUS AG Not Detected (Not Detected)
[2017-05-25 14:09] LABS: ADD MANUAL DIFF? YES
[2017-05-25 14:15] LABS: EOSINOPHIL 8 % (0.0-3.0); NEUTROPHIL 55 % (50.0-70.0); PLATELET ESTIMATE LOW (NORMAL)
[2017-05-25] MEDS: Vancomycin 1gm in NS 250ml 1 GM/250 ML BAG IVPB SCH ×2 (16:06→21:32)
--- NOTE | 2017-05-25 19:17 | VASCULAR ---
PROCEDURE: Removal of tunneled right internal jugular venous access port. CLINICAL HISTORY: Infected Port-A-Cath. Needs removal. PHYSICIAN(S): Alek Dangelo M.D. TECHNIQUE: The relative risks and indications of the procedure were explained to the patient and consent obtained. The patient was placed supine on the arteriogram table and the right neck and chest prepped and draped usual sterile fashion. Conscious sedation and monitoring were provided throughout the procedure by a nurse. 1% Xylocaine was used to anesthetize the skin and soft tissues at the port. A 4 cm incision was made. The port was bluntly dissected and removed. The catheter was removed under fluoroscopic guidance. No retained catheter fragments were seen. The pocket was lavaged with normal saline. The pocket was closed in 2 layers. The patient tolerated the procedure well. The catheter tip was sent for culture P IMPRESSION: 1. Removal of tunneled right internal jugular venous access port. The catheter tip was sent for culture
--- NOTE | 2017-05-25 19:18 | VASCULAR ---
PROCEDURE: Ultrasound and fluoroscopically placed left upper extremity PICC line. HISTORY: Infected port a cath. Sepsis. Needs long-term IV antibiotics. PHYSICIAN(S): Alek Dangelo MD. TECHNIQUE: The relative risks and indications of the procedure were explained to the patient and consent obtained. The patient was placed supine on the arteriogram table and the left arm prepped and draped in the usual sterile fashion. A tourniquet was applied to the left axilla. 1% Xylocaine was used to anesthetize the skin and soft tissues at the puncture site above the elbow. The left basilic vein was punctured under direct ultrasound guidance with a micropuncture set. A 0.018 guidewire was advanced centrally and used to measure the length to the SVC/RA junction. A 5 Lebanese single-lumen PICC line 44 cm long was advanced to the SVC/RA junction. The catheter was flushed and secured. The patient tolerated the procedure well. IMPRESSION: 1. Ultrasound and fluoroscopically placed left upper extremity PICC line. A 5 Lebanese single-lumen PICC line 44 cm long was advanced to the SVC/RA junction.
[2017-05-25] MEDS ORDERED: Micafungin 100 MG in Sodium Chloride 0.9% 100 ML IV SCH (22:00)
[2017-05-26] MEDS: HYDROmorphone 1 mg/ml ISec IVP PRN ×6 (03:33→20:38)
[2017-05-26] MEDS: metroNIDAZOLE IV 500 mg/100 ml 500 MG/100 ML BAG IVPB SCH ×3 (06:44→21:21)
[2017-05-26] MEDS: Pantoprazole 20 mg EC Tab PO SCH (06:45)
[2017-05-26 07:39] LABS: ADD MANUAL DIFF? NO
[2017-05-26 07:47] LABS: BASO # 0.03 K/mm3 (0.0-2.0); BASO % 1.2 % (0.0-3.0); EOS # 0.1 (0.0-0.7); GRAN # 1.31 (1.4-6.5); GRAN % 51.6 % (50.0-68.0); HEMATOCRIT 28.1 % (36.0-48.0); LYMPH # 0.9 (1.2-3.4); LYMPH % 35.8 % (22.0-35.0); MEAN CELL VOLUME 98.3 fL (80.0-105.0); MEAN CORPUSCULAR HEMOGLOBIN 33.6 pg (25.0-35.0); MEAN CORPUSCULAR HGB CONC 34.2 g/dl (31.0-37.0); MEAN PLATELET VOLUME 11.1 fl (7.0-11.0); MONO # 0.2 (0.1-0.6); MONO % 9.4 % (1.0-6.0); PLATELET COUNT 43 10^3/uL (120.0-450.0); RED CELL DISTRIBUTION WIDTH 13.9 % (11.5-14.5)
[2017-05-26 07:57] LABS: WHITE BLOOD COUNT 2.5 10^3/ul (4.5-11.0)
[2017-05-26 08:10] LABS: ALB/GLOB RATIO 0.7 (1.1-1.8); ALKALINE PHOSPHATASE 43 U/L (38-133); ALT/SGPT 28 U/L (7-56); AST/SGOT 24 U/L (15-39); BILIRUBIN,TOTAL 0.9 mg/dL (0.2-1.3); BLOOD UREA NITROGEN 7 mg/dL (7-21); CARBON DIOXIDE 30 mmol/L (21-33); CHLORIDE 103 mmol/L (98-107); GFR AFRICAN-AMERICAN > 60; GLUCOSE,RANDOM 88 mg/dL (70-110); SODIUM 135 mmol/L (132-148); TOTAL PROTEIN 7.5 g/dL (5.8-8.3)
[2017-05-26 08:11] LABS: POTASSIUM 2.9 mmol/L (3.6-5.0)
[2017-05-26] MEDS: Vancomycin 1gm in NS 250ml 1 GM/250 ML BAG IVPB SCH ×2 (10:00→22:52)
--- NOTE | 2017-05-26 10:01 | RAD ---
PROCEDURE: Left Foot Radiographs. HISTORY: r/o septic joint COMPARISON: None. FINDINGS: BONES: Pain status post arthrodesis of the talocalcaneal joint by a solitary screw. Pes planus is likely. There is a gross hallux valgus deformity. A sock radiodensity obscures soft tissue and bony density. No definitive focal lytic or blastic change identified although advanced degenerate changes seen at the midfoot joints predominately at the proximal row. Follow-up MRI is advised to evaluate for potential osteomyelitis to the low sensitivity of this examination. JOINTS: As above. SOFT TISSUES: Nonfocal but obscured. OTHER FINDINGS: None. IMPRESSION: As above
[2017-05-26] MEDS: Vancomycin 25 MG/ML PO SCH ×4 (10:44→21:44)
--- NOTE | 2017-05-26 12:19 | PN ---
DATE: 05/26/2017 SUBJECTIVE: The patient is in bed, in no acute distress, nontoxic. PHYSICAL EXAMINATION VITAL SIGNS: Temperature is 98, blood pressure is 160/80, respiratory rate of 18 and heart rate of 47. HEENT: Unremarkable. NECK: Supple. LUNGS: Decreased breath sounds. HEART: Normal S1, S2. ABDOMEN: Soft. LABORATORY DATA: Reveal the patient's white count of 2.5, hemoglobin of 9, platelets of 43,000. Chemistry reveals a BUN of 7, creatinine of 0.8. Urinalysis is noted, T-cells are noted. Cryptococcal antigen is negative. Microbiology reveals yeast in the blood and initial blood cultures have coag-negative staph and the tip of Port-A-Cath culture is pending. Review of orders reveals the patient to be on IV Flagyl, p.o. vancomycin, and IV vancomycin. The patient is supposed to be on Mycamine; however, the pharmacy has stopped the Mycamine. ASSESSMENT AND PLAN: This is a 56-year-old female with human immunodeficiency virus and acquired immune deficiency syndrome, hepatitis C and cirrhosis of the liver and chronic active hepatitis who was admitted with fungemia. Blood culture is positive for yeast, had a Port-A-Cath and Port-A-Cath was taken out, was removed and the patient is on , transesophageal eco, has vegetation on the Port-A-Cath tip and also had coag-negative staph in two bottles of blood cultures, now also with pseudomembranous colitis in this patient with acquired immune deficiency syndrome. The patient does have a negative cryptococcal antigen with yeast in the blood and is not crypt and her T cells are too high. Awaiting for repeat blood cultures. Awaiting for identification of the yeast in the blood. We will discontinue the IV Flagyl, continue IV Mycamine and check on the repeat blood cultures, check on the catheter tip cultures and should have an ophthalmology evaluation because of the fungemia as discussed with the residents. Please ask for an ophthalmology evaluation and we will make further recommendations. Most likely will need four weeks of vancomycin and antifungal therapy. The patient is on raltegravir which is an integrase inhibitor and abacavir for her HIV medications. The patient gets vancomycin trough level. The patient gets vancomycin for 05/27/2017 at 9 a.m., an hour prior to the 10 o'clock dose tomorrow. Panfilo Marcelo MD [facility] # [id number]
--- NOTE | 2017-05-26 15:21 | PN ---
SUBJECTIVE: The patient is a 56 years old with complicated history; came in with abdominal pin; was found to have generalized mural thickening with impression of colitis. She had positive blood culture for coag negative streptococus and was found to have fungemia. Echocardiogram positive for blood clot versus vegetation on the tip of the Port-A-Cath that was remote yesterday and the patient had PICC line placed; transfer to telemetry. PHYSICAL EXAMINATION: GENERAL: Today, she is doing well; awake, alert, oriented; still has some abdominal discomfort and diarrhea. VITAL SIGNS: She is afebrile, pulse 56, respirations 20, and blood pressure 138/81. LUNGS: Bilateral fair air flow. No rhonchi or crackle. HEART: S1 and S2, audible slight. ABDOMEN: Discomfort on the left lower quadrant area. No rebound. No guarding. NEUROLOGICAL: She is awake and alert. Able to communicate. LABORATORY DATA: WBC is 2.5, hemoglobin 9.6, hematocrit , and platelet 43. Chemistry; sodium 135, potassium 2.9, chloride 103, CO2 of 30, BUN 7, creatinine 0.8, blood sugar of 88. Blood cultures positive for coag negative. Urine positive for gram-negative rods. Blood culture on 05/23 positive for vicky . ASSESSMENT AND PLAN: 1. Fungemia. 2. Bacteremia. 3. Clostridium difficile colitis. 4. Escherichia coli urinary tract infection. 5. Human immunodeficiency virus positive. 6. Status post Port-A-Cath removed, having vegetation on the tip. PLAN: Currently, the patient is on oral vancomycin for C. diff. She is receiving metronidazole 500 q. 8. She is on Mycamine and vancomycin 250 q.i.d. She is also receiving vancomycin 1 g q. 12. She is pancytopenic as being monitored closely. I will follow up her CBC and CMP and electrolyte in a.m. Her potassium is also being supplemented. I will reevaluate the patient in a.m. Will Barton MD
[2017-05-26] MEDS: Micafungin 100 MG in Sodium Chloride 0.9% 100 ML IV SCH (16:29)
[2017-05-26 18:46] LABS: ADD MANUAL DIFF? NO
[2017-05-26 18:49] LABS: BASO # 0.03 K/mm3 (0.0-2.0); BASO % 1.2 % (0.0-3.0); EOS # 0.1 (0.0-0.7); EOS % 1.9 % (1.5-5.0); GRAN # 1.55 (1.4-6.5); GRAN % 59.9 % (50.0-68.0); HEMATOCRIT 27.2 % (36.0-48.0); LYMPH # 0.7 (1.2-3.4); MEAN CELL VOLUME 97.1 fL (80.0-105.0); MEAN CORPUSCULAR HEMOGLOBIN 33.9 pg (25.0-35.0); MEAN CORPUSCULAR HGB CONC 34.9 g/dl (31.0-37.0); MEAN PLATELET VOLUME 10.6 fl (7.0-11.0); MONO # 0.3 (0.1-0.6); PLATELET COUNT 39 10^3/uL (120.0-450.0); RED CELL DISTRIBUTION WIDTH 13.6 % (11.5-14.5)
[2017-05-26 18:53] LABS: WHITE BLOOD COUNT 2.6 10^3/ul (4.5-11.0)
[2017-05-27] MEDS: HYDROmorphone 1 mg/ml ISec IVP PRN ×7 (00:19→21:12)
[2017-05-27] MEDS: metroNIDAZOLE IV 500 mg/100 ml 500 MG/100 ML BAG IVPB SCH (05:50)
[2017-05-27] MEDS: Pantoprazole 20 mg EC Tab PO SCH (05:51)
[2017-05-27 06:13] LABS: ADD MANUAL DIFF? NO
[2017-05-27 06:38] LABS: ALB/GLOB RATIO 0.7 (1.1-1.8); ALKALINE PHOSPHATASE 50 U/L (38-133); ALT/SGPT 21 U/L (7-56); AST/SGOT 23 U/L (15-39); BILIRUBIN,TOTAL 0.8 mg/dL (0.2-1.3); BLOOD UREA NITROGEN 4 mg/dL (7-21); CALCIUM 8.8 mg/dL (8.4-10.5); CARBON DIOXIDE 29 mmol/L (21-33); CHLORIDE 103 mmol/L (98-107); GFR AFRICAN-AMERICAN > 60; GLUCOSE,RANDOM 96 mg/dL (70-110); POTASSIUM 3.1 mmol/L (3.6-5.0); SODIUM 136 mmol/L (132-148); TOTAL PROTEIN 7.3 g/dL (5.8-8.3)
[2017-05-27 08:00] LABS: BASO # 0.02 K/mm3 (0.0-2.0); EOS % 1.6 % (1.5-5.0); GRAN # 1.14 (1.4-6.5); GRAN % 59.7 % (50.0-68.0); HEMATOCRIT 25.7 % (36.0-48.0); LYMPH # 0.6 (1.2-3.4); LYMPH % 30.4 % (22.0-35.0); MEAN CELL VOLUME 97.7 fL (80.0-105.0); MEAN CORPUSCULAR HEMOGLOBIN 33.5 pg (25.0-35.0); MEAN CORPUSCULAR HGB CONC 34.2 g/dl (31.0-37.0); MEAN PLATELET VOLUME 12.1 fl (7.0-11.0); MONO # 0.1 (0.1-0.6); MONO % 7.3 % (1.0-6.0); PLATELET COUNT 40 10^3/uL (120.0-450.0); RED CELL DISTRIBUTION WIDTH 13.9 % (11.5-14.5)
[2017-05-27 08:05] LABS: WHITE BLOOD COUNT 1.9 10^3/ul (4.5-11.0)
[2017-05-27] MEDS ORDERED: Potassium Chloride 20 mEq ER Tab PO ONE ×2 (10:15→18:00)
[2017-05-27] MEDS: Micafungin 100 MG in Sodium Chloride 0.9% 100 ML IV SCH (10:26)
[2017-05-27] MEDS: Vancomycin 25 MG/ML PO SCH ×4 (10:27→21:12)
[2017-05-27] MEDS: Vancomycin 1gm in NS 250ml 1 GM/250 ML BAG IVPB SCH ×2 (10:28→21:11)
--- NOTE | 2017-05-27 10:48 | PN ---
DATE: 05/27/2017 SUBJECTIVE: The patient is in bed, but seen earlier this morning, no acute distress, nontoxic. She said she has had no diarrhea over the 24 hours. PHYSICAL EXAMINATION: VITAL SIGNS: Temperature is 98, blood pressure is 127/70, respiratory rate of 16. HEENT: Unremarkable. NECK: Supple. LUNGS: Decreased breath sounds bilaterally. HEART: Normal S1, S2. ABDOMEN: Soft, nontender. No organomegaly. No rebound. LABORATORY DATA: Reveals the blood cultures from 05/23/2017 are positive for Holly ciferrii in the blood. The catheter tip culture has no growth at 24 hours, and today's white count is 1.9 with hemoglobin of 8 and platelets of 40. Chemistry reveals a BUN of 4, creatinine of 0.7. Urinalysis is noted. T-cells are noted. HIV viral load is undetectable. Review of orders reveals repeat blood cultures are pending. The patient is currently on IV Flagyl. The patient is also on p.o. vancomycin, IV vancomycin. The patient is on Mycamine. ASSESSMENT AND PLAN: This is a 56-year-old female with human immunodeficiency virus and acquired immune deficiency syndrome, hepatitis C and cirrhosis of the liver, chronic active hepatitis C, who was now with Holly ciferrii fungemia in one bottle, had a Port-A-Cath which was removed, and had a transesophageal echo, which has vegetation at the tip of the wire of the Port-A-Cath, and initial blood cultures also grew coagulase-negative staph in two sets and on vancomycin, Mycamine and also patient has pseudomembranous colitis, on p.o. vancomycin. We will discontinue the IV Flagyl. Her diarrhea has resolved for the past 24-48 hours. We will follow closely with you. For her human immunodeficiency virus, patient is on raltegravir and abacavir. For Holly in the blood, waiting for repeat blood cultures. She should also have an ophthalmology exam because of Holly in the blood. Ophthalmology exam should be performed by an senior electrical project manager, and her HIV PCR is undetectable, and her T-cell percentage is CD4 of 30% with absolute count of 129. She does have pancytopenia with leukopenia, anemia and thrombocytopenia. We will follow closely with you. The patient's vancomycin trough level was 15.9 on the 05/24/2017. Repeat trough level is ordered for this morning, we will check on that. Panfilo Marcelo MD
--- NOTE | 2017-05-27 14:56 | PN ---
DATE: 05/27/2017 SUBJECTIVE: The patient has no complaints of any chest pain. No shortness of breath. No headaches. She says the pain medications are helping her pain. PHYSICAL EXAMINATION: VITAL SIGNS: Temperature is 98.7, pulse is 78, blood pressure 127/72, respirations 18. GENERAL: The patient is comfortable, in no acute distress. HEENT: Anicteric sclerae. Moist mucosa. NECK: No JVD or adenopathy. CARDIAC: S1, S2. No murmurs. No rubs. Regular. RESPIRATORY: Clear to auscultation bilaterally. No wheezes, rales, or rhonchi. Good air entry. ABDOMEN: Bowel sounds are positive, soft. There is mild tenderness with palpation. No rebound. EXTREMITIES: No edema. Has 1+ pulses. LABORATORY DATA: White count of 1.9, hemoglobin 8.8. Creatinine is 0.7, potassium 3.1. ASSESSMENT: 1. Fungemia. 2. Hypokalemia. 3. Bacteremia. 4. Urinary tract infection secondary to Escherichia coli. 5. HIV. 6. Status post Port-A-Cath removal. 7. Pancytopenia. PLAN: The patient is currently on IV Flagyl and p.o. vancomycin as well as IV vancomycin. The patient is on carvedilol. She is going to continue on micafungin 100 mg daily for her fungemia. She remains critically ill. She is on Zestril for her hypertension. She is on a regular diet. Her pain is controlled with Dilaudid. She will most likely need an Ophthalmology evaluation. She is on her HIV medications. The patient's platelet count is also low. Will need to be followed closely. She has no signs of bleeding. Bowen Bailey MD
[2017-05-27 17:35] LABS: ADD MANUAL DIFF? NO
[2017-05-27 17:38] LABS: BASO # 0.01 K/mm3 (0.0-2.0); BASO % 0.5 % (0.0-3.0); EOS # 0.1 (0.0-0.7); GRAN # 1.24 (1.4-6.5); HEMATOCRIT 26.2 % (36.0-48.0); LYMPH # 0.5 (1.2-3.4); LYMPH % 26.1 % (22.0-35.0); MEAN CELL VOLUME 97.8 fL (80.0-105.0); MEAN CORPUSCULAR HEMOGLOBIN 32.8 pg (25.0-35.0); MEAN CORPUSCULAR HGB CONC 33.6 g/dl (31.0-37.0); MONO # 0.2 (0.1-0.6); MONO % 9.4 % (1.0-6.0); PLATELET COUNT 37 10^3/uL (120.0-450.0); RED CELL DISTRIBUTION WIDTH 13.9 % (11.5-14.5)
[2017-05-28] MEDS: HYDROmorphone 1 mg/ml ISec IVP PRN ×7 (00:43→23:25)
[2017-05-28] MEDS: Pantoprazole 20 mg EC Tab PO SCH (05:59)
[2017-05-28] MEDS: Vancomycin 1gm in NS 250ml 1 GM/250 ML BAG IVPB SCH ×3 (09:53→22:07)
[2017-05-28 12:12] LABS: PARVOVIRUS B19 AB (IGG) 0.3 (<0.9)
[2017-05-28] MEDS: Micafungin 100 MG in Sodium Chloride 0.9% 100 ML IV SCH (12:35)
--- NOTE | 2017-05-28 13:21 | PN ---
SUBJECTIVE: Seen and examined at the bedside earlier this morning. Abdominal pain continues to improve at 7/10. She is able to tolerate a diet. She had a soft bowel movement this morning, no reports of any bleeding or bright red blood per rectum. Denies any fevers or chills. No acute overnight events reported. The patient reports that she is feeling little better. PHYSICAL EXAMINATION VITAL SIGNS: Temperature is 98.9, blood pressure is 144/84, pulse 82, respirations 20, and 97 room air. HEENT: Sclera is anicteric. NECK: Supple. CARDIAC: S1 and S2. LUNGS: With decreased breath sounds, but good air entry. No rales or wheeze. ABDOMEN: Bowel sounds, soft. Mild tenderness on palpation, it has definitely improved. No rebound or guarding. EXTREMITIES: Positive pedal pulses. No edema. NEUROLOGIC: Awake, alert and oriented. LABORATORY DATA: Her labs noted are from 05/27/2017. No new labs are noted for today. She had blood cultures which are negative x2 that was done on 05/26/2017. ASSESSMENT: Pancytopenia; Clostridium difficile colitis; bacteremia; fungemia; urinary tract infection; positive Escherichia coli; human immunodeficiency virus; history of hepatitis C, was on Epclusa; history of deep vein thrombosis, status post IVC filter; history of splenotomy. PLAN: The patient is on a regular diet. Monitor H and H and electrolyte. The patient is on antiviral medication. She is also on micafungin, oral vancomycin. She is on IV vancomycin. Continue PPI. She is on Zofran p.r.n. nausea, on Dilaudid for pain. Repeat labs in the a.m. The patient was seen and case discussed with Dr. Sharma. ALVARO Sousa
[2017-05-28 14:37] LABS: PARVOVIRUS B19 AB (IGM) 0.1 (<0.9)
--- NOTE | 2017-05-28 14:58 | CP.PCM.PN ---
Subjective - Date & Time of Evaluation Date of Evaluation: 05/28/17 Time of Evaluation: 09:50 - Subjective Subjective: Comfortable in bed, not in distress, afebrile, no diarrhea currently, feeling better today, no nausea or vomiting. Objective - Vital Signs/Intake and Output Vital Signs (last 24 hours): Temp Pulse Resp BP Pulse Ox 98.8 F 61 20 158/86 H 97 05/28/17 06:00 05/28/17 06:00 05/28/17 06:00 05/28/17 06:00 05/28/17 06:00 Intake and Output: 05/28/17 05/28/17 06:59 18:59 Intake Total 600 480 Output Total 250 Balance 600 230 - Medications Medications: Current Medications Abacavir Sulfate (Ziagen) 600 mg PO DAILY [facility] Last Admin: 05/27/17 10:29 Dose: 600 mg Carvedilol (Coreg) 6.25 mg PO BID [facility] Last Admin: 05/27/17 18:25 Dose: 6.25 mg Gabapentin (Neurontin) 300 mg PO TID [facility] PRN Reason: Protocol Last Admin: 05/27/17 18:27 Dose: 300 mg Hydralazine HCl (Apresoline) 10 mg IVP Q6 PRN PRN Reason: for SBP>170 & Diastolic>100 Hydromorphone HCl (Dilaudid) 1 mg IVP Q3 PRN PRN Reason: Pain, severe (8-10) Last Admin: 05/28/17 05:59 Dose: 1 mg Vancomycin HCl (Vancomycin 1gm) 1 gm in 250 mls @ 167 mls/hr IVPB Q12H [facility] PRN Reason: Protocol Stop: 05/28/17 22:01 Last Admin: 05/27/17 21:11 Dose: 167 mls/hr Micafungin Sodium 100 mg/ (Sodium Chloride) 100 mls @ 100 mls/hr IV DAILY [facility] PRN Reason: Protocol Stop: 06/23/17 10:01 Last Admin: 05/27/17 10:26 Dose: 100 mls/hr Lisinopril (Zestril) 20 mg PO DAILY [facility] Last Admin: 05/27/17 10:28 Dose: 20 mg Ondansetron HCl (Zofran Inj) 4 mg IVP Q4H PRN PRN Reason: Nausea/Vomiting Last Admin: 05/27/17 08:09 Dose: 4 mg Pantoprazole Sodium (Protonix Ec Tab) 20 mg PO 0600 [facility] Last Admin: 05/28/17 05:59 Dose: 20 mg Pentoxifylline (Pentoxil) 400 mg PO TID [facility] Last Admin: 05/27/17 18:27 Dose: 400 mg Raltegravir (Isentress) 400 mg PO BID [facility] Last Admin: 05/27/17 18:26 Dose: 400 mg Vancomycin HCl (Vancocin 25 Mg/Ml (Oral Use)) 250 mg PO QID [facility] PRN Reason: Protocol Stop: 06/07/17 18:00 Last Admin: 05/27/17 21:12 Dose: 250 mg - Labs Labs: 05/27/17 17:30 05/27/17 06:04 PT 15.9 Seconds (9.9-11.8) H 05/24/17 16:20 INR 1.47 (0.93-1.08) H 05/24/17 16:20 APTT 25.4 Seconds (23.7-30.8) 05/24/17 16:20 - Constitutional Appears: Non-toxic, No Acute Distress - Head Exam Head Exam: NORMAL INSPECTION - ENT Exam ENT Exam: Mucous Membranes Moist - Neck Exam Neck Exam: absent: Meningismus - Respiratory Exam Respiratory Exam: Decreased Breath Sounds - Cardiovascular Exam Cardiovascular Exam: +S1, +S2 - GI/Abdominal Exam GI & Abdominal Exam: Soft. absent: Tenderness Assessment and Plan - Assessment and Plan (Free Text) Plan: Assessment Acute colitis in a patient with liver cirrhosis from chronic active Hepatitis C (recently finished 16 weeks of therapy with Ledipasvir and Sofosbuvir but has not reached SVR yet) with C. diff. antigen positive on 05/23/2017 Methicillin-resistant coagulase negative staph and Holly ciferrii bacteremia and fungemia (respectively), probably related to the port HIV/AIDS on Raltegravir and Abacavir HTN S/P bilateral hip replacement S/P right port placement chronic anemia Plan continue IV Vancomycin and maintain Vanco trough levels between 15-20 continue Mycamine will need Ophtho exam continue antiretroviral therapy will continue to monitor clinically
--- NOTE | 2017-05-28 15:28 | PN ---
SUBJECTIVE: The patient is a 56 years old female examined lying in bed, seems to be comfortable. She said her diarrhea is almost gone, and her abdominal discomfort is significantly improved. No significant nausea or vomiting. No fever or chills. PHYSICAL EXAMINATION VITAL SIGNS: She is afebrile, pulse 65, respirations 18, blood pressure 130/76. LUNGS: Bilateral airflow. No rhonchi or crackle. HEART: S1 and S2 audible. ABDOMEN: Soft, nontender. No rebound. No guarding. NEUROLOGIC: She is awake and alert, able to communicate. LABORATORY EXAM: WBC 2.0, hemoglobin 8.8, hematocrit 26.2, platelets of 737. Chemistries: Sodium 136, potassium 3.1, chloride 103, CO2 of 29, BUN 4, creatinine 0.7, blood sugar of 96. Her blood culture on 05/26 are negative. Stool for C. diff done on 05/26 is negative. Blood culture on 05/23 shows Holly , and catheter tip that was Port-A-Cath was removed on 05/25 and has no growth. ASSESSMENT: 1. Fungemia. 2. Status post bacteremia. Repeat cultures are negative. 3. Hypokalemia. 4. Escherichia coli urinary tract infection. 5. Human immunodeficiency virus positive. 6. Hepatitis C, was on Harvoni. 7. Pancytopenia. 8. Clostridium difficile colitis. Repeat test was negative. 9. Status post Port-A-Cath removed. PLAN: The patient is hemodynamically stable. I will discontinue telemetry, supplement her potassium. We will discuss with Dr. Marcelo about duration of antibiotic and has to make arrangement for that. The patient prefers to have antibiotics be given at home. She states she can handle it and she can give herself. Probably, she is going to need 6 weeks of antifungal. After discussing with ID, we will make the plan for her disposition. Will Barton MD
[2017-05-28] MEDS: Vancomycin 25 MG/ML PO SCH ×3 (16:17→22:14)
[2017-05-28 17:31] VITALS: O2SAT 98
[2017-05-28 23:41] VITALS: RESP 18
[2017-05-29] MEDS: HYDROmorphone 1 mg/ml ISec IVP PRN ×3 (03:02→09:37)
[2017-05-29 05:37] VITALS: TEMP 97.8
[2017-05-29] MEDS: Pantoprazole 20 mg EC Tab PO SCH (07:49)
[2017-05-29 08:48] LABS: ALB/GLOB RATIO 0.7 (1.1-1.8); ALKALINE PHOSPHATASE 23 U/L (38-133); ALT/SGPT 15 U/L (7-56); AST/SGOT 19 U/L (15-39); BILIRUBIN,TOTAL 0.3 mg/dL (0.2-1.3); BLOOD UREA NITROGEN 3 mg/dL (7-21); CALCIUM 10.2 mg/dL (8.4-10.5); CARBON DIOXIDE 35 mmol/L (21-33); CHLORIDE 103 mmol/L (95-110); GFR AFRICAN-AMERICAN > 60; GLUCOSE,RANDOM 107 mg/dL (70-110); POTASSIUM 3.4 mmol/L (3.6-5.0); SODIUM 135 mmol/L (132-148); TOTAL PROTEIN 7.1 g/dL (5.8-8.3)
[2017-05-29] MEDS: Vancomycin 25 MG/ML PO SCH ×3 (09:34→16:53)
[2017-05-29] MEDS: Micafungin 100 MG in Sodium Chloride 0.9% 100 ML IV SCH (09:36)
[2017-05-29 09:44] VITALS: PULSE 64
[2017-05-29] MEDS ORDERED: HYDROmorphone 2 mg/ml ISec IVP STA (13:02)
[2017-05-29] MEDS ORDERED: HYDROmorphone 1 mg/ml ISec IVP STA (13:02)
--- NOTE | 2017-05-29 14:23 | CP.PCM.PN ---
Subjective - Date & Time of Evaluation Date of Evaluation: 05/29/17 Time of Evaluation: 09:50 - Subjective Subjective: Patient has no diarrhea currently, eating better, no fevers overnight. No abdominal pain. Objective - Vital Signs/Intake and Output Vital Signs (last 24 hours): Temp Pulse Resp BP Pulse Ox 97.8 F 56 L 18 119/70 98 05/29/17 05:36 05/29/17 05:36 05/29/17 05:36 05/29/17 05:36 05/29/17 05:36 Intake and Output: 05/29/17 05/29/17 06:59 18:59 Intake Total 720 Balance 720 - Medications Medications: Current Medications Abacavir Sulfate (Ziagen) 600 mg PO DAILY [facility] Last Admin: 05/28/17 09:52 Dose: 600 mg Carvedilol (Coreg) 6.25 mg PO BID [facility] Last Admin: 05/28/17 18:16 Dose: 6.25 mg Gabapentin (Neurontin) 300 mg PO TID [facility] PRN Reason: Protocol Last Admin: 05/28/17 18:17 Dose: 300 mg Hydralazine HCl (Apresoline) 10 mg IVP Q6 PRN PRN Reason: for SBP>170 & Diastolic>100 Hydromorphone HCl (Dilaudid) 1 mg IVP Q3 PRN PRN Reason: Pain, severe (8-10) Last Admin: 05/29/17 06:09 Dose: 1 mg Micafungin Sodium 100 mg/ (Sodium Chloride) 100 mls @ 100 mls/hr IV DAILY [facility] PRN Reason: Protocol Stop: 06/23/17 10:01 Last Admin: 05/28/17 12:35 Dose: 100 mls/hr Lisinopril (Zestril) 20 mg PO DAILY [facility] Last Admin: 05/28/17 09:52 Dose: 20 mg Ondansetron HCl (Zofran Inj) 4 mg IVP Q4H PRN PRN Reason: Nausea/Vomiting Last Admin: 05/28/17 18:31 Dose: 4 mg Pantoprazole Sodium (Protonix Ec Tab) 20 mg PO 0600 [facility] Last Admin: 05/29/17 07:49 Dose: 20 mg Pentoxifylline (Pentoxil) 400 mg PO TID [facility] Last Admin: 05/28/17 18:17 Dose: 400 mg Raltegravir (Isentress) 400 mg PO BID [facility] Last Admin: 05/28/17 18:16 Dose: 400 mg Vancomycin HCl (Vancocin 25 Mg/Ml (Oral Use)) 250 mg PO QID [facility] PRN Reason: Protocol Stop: 06/07/17 18:00 Last Admin: 05/28/17 22:14 Dose: 250 mg - Labs Labs: 05/27/17 17:30 05/29/17 07:30 PT 15.9 Seconds (9.9-11.8) H 05/24/17 16:20 INR 1.47 (0.93-1.08) H 05/24/17 16:20 APTT 25.4 Seconds (23.7-30.8) 05/24/17 16:20 - Constitutional Appears: Non-toxic, No Acute Distress - Head Exam Head Exam: NORMAL INSPECTION - ENT Exam ENT Exam: Mucous Membranes Moist - Neck Exam Neck Exam: absent: Lymphadenopathy, Meningismus - Respiratory Exam Respiratory Exam: Decreased Breath Sounds - Cardiovascular Exam Cardiovascular Exam: +S1, +S2 - GI/Abdominal Exam GI & Abdominal Exam: Soft. absent: Tenderness Assessment and Plan - Assessment and Plan (Free Text) Plan: Assessment Acute colitis in a patient with liver cirrhosis from chronic active Hepatitis C (recently finished 16 weeks of therapy with Ledipasvir and Sofosbuvir but has not reached SVR yet) with C. diff. antigen positive on 05/23/2017 Methicillin-resistant coagulase negative staph and Holly ciferrii bacteremia and fungemia (respectively), probably related to the port S/P removal of the port HIV/AIDS on Raltegravir and Abacavir HTN S/P bilateral hip replacement S/P right port placement chronic anemia Plan continue IV Vancomycin and maintain Vanco trough levels between 15-20 (day 4 since negative blood cx) - will need 10 more days of antibiotics with at least one measurement of Vanco trough while on the IV Vancomycin (with CBC and CMP) continue Mycamine to complete 4 weeks of therapy (patient should get Ophtho exam ) - should have weekly CBC and CMP while on Mycamine Discussed with Dr. Barton
--- NOTE | 2017-05-29 15:58 | CP.PCM.PN ---
Subjective - Date & Time of Evaluation Date of Evaluation: 05/29/17 Time of Evaluation: 15:56 - Subjective Subjective: Prescriptions written for patient as per the discharge instruction on PMD's request Mycimine 100mg iv daily for 30 days, vancomycin 125mg oral qid for 6 days. Objective - Vital Signs/Intake and Output Vital Signs (last 24 hours): Temp Pulse Resp BP Pulse Ox 97.8 F 64 18 137/84 98 05/29/17 05:36 05/29/17 09:36 05/29/17 05:36 05/29/17 09:36 05/29/17 05:36 Intake and Output: 05/29/17 05/29/17 06:59 18:59 Intake Total 720 Balance 720 - Medications Medications: Current Medications Abacavir Sulfate (Ziagen) 600 mg PO DAILY [facility] Last Admin: 05/29/17 09:37 Dose: 600 mg Carvedilol (Coreg) 6.25 mg PO BID [facility] Last Admin: 05/29/17 09:35 Dose: 6.25 mg Gabapentin (Neurontin) 300 mg PO TID [facility] PRN Reason: Protocol Last Admin: 05/29/17 13:15 Dose: 300 mg Hydralazine HCl (Apresoline) 10 mg IVP Q6 PRN PRN Reason: for SBP>170 & Diastolic>100 Micafungin Sodium 100 mg/ (Sodium Chloride) 100 mls @ 100 mls/hr IV DAILY [facility] PRN Reason: Protocol Stop: 06/23/17 10:01 Last Admin: 05/29/17 09:36 Dose: 100 mls/hr Lisinopril (Zestril) 20 mg PO DAILY [facility] Last Admin: 05/29/17 09:36 Dose: 20 mg Ondansetron HCl (Zofran Inj) 4 mg IVP Q4H PRN PRN Reason: Nausea/Vomiting Last Admin: 05/28/17 18:31 Dose: 4 mg Pantoprazole Sodium (Protonix Ec Tab) 20 mg PO 0600 [facility] Last Admin: 05/29/17 07:49 Dose: 20 mg Raltegravir (Isentress) 400 mg PO BID [facility] Last Admin: 05/29/17 09:35 Dose: 400 mg Vancomycin HCl (Vancocin 25 Mg/Ml (Oral Use)) 250 mg PO QID [facility] PRN Reason: Protocol Stop: 06/07/17 18:00 Last Admin: 05/29/17 13:12 Dose: 250 mg - Labs Labs: 05/27/17 17:30 05/29/17 07:30 PT 15.9 Seconds (9.9-11.8) H 05/24/17 16:20 INR 1.47 (0.93-1.08) H 05/24/17 16:20 APTT 25.4 Seconds (23.7-30.8) 05/24/17 16:20
[2017-05-29 17:11] VITALS: BP 138/83
--- NOTE | 2017-05-29 22:30 | PN ---
GI FOLLOWUP NOTE DATE: SUBJECTIVE: Seen and examined at the bedside earlier today. The patient reports improving abdominal pain. She is tolerating oral intake. No nausea or vomiting. The bowel movements are improving. It is more of a mushy bowel movement. She had 4 total late this morning. No reports of any melena or bright red blood per rectum. Denies any fever, chills, shortness of breath, or chest pain. PHYSICAL EXAMINATION: VITAL SIGNS: Temperature is 97.8, blood pressure is 137/84, pulse 64, respirations 18, 96% on room air. HEENT: Sclerae are anicteric. NECK: Supple. CARDIAC: S1, S2. LUNGS: Sounds with decreased breath sounds. No rales or wheeze. ABDOMEN: With bowel sounds, soft. There is still tenderness, more free to the mid-left abdomen. No rebound or guarding. EXTREMITIES: No edema. NEUROLOGIC: Awake, alert, and oriented. LABORATORY DATA: Sodium 135, K 3.4, BUN is 3, creatinine is 1.0. Her LFTs are within normal limits. The alkaline phosphatase is a little low at 23. ASSESSMENT: Status post bacteremia and fungemia. The patient with clostridium difficile colitis. She had repeat stool that was negative; history of hepatitis C; pancytopenia; human immunodeficiency virus positive; history of deep venous thrombosis, status post inferior vena cava filter and history of splenectomy. PLAN: Continue diet as tolerated. Continue to monitor H and H. Patient is on antiviral medications, on micafungin. Continue PPI. On oral vancomycin. On low-dose Protonix. The patient is going to receive outpatient IV antibiotics as per ID when discharged. The patient was seen and case discussed with Dr. Sharma. ALVARO Sousa
--- NOTE | 2017-05-30 03:17 | DS ---
HISTORY OF PRESENT ILLNESS: The patient is 56 years old, seen and examined. The patient came in with abdominal pain. She was found to have C. diff colitis. She has generalized mural thickening. Stool for C. diff on 05/23/2017 was positive. The patient stared on p.o vancomycin, responded well, now eating and tolerating with minimal abdominal pain. Upon admission, she was pancultured and two of her blood cultures on 05/20/2017 came out coag-negative and she has Gram-negative rods in her urine. The patient was also being followed by ID and her culture on 05/23/2017 also came out positive for Holly ciferrii. Echocardiogram showed she has thready material at the tip of her Port-A-Cath, so that was removed and PICC line was placed. Her repeat blood cultures on 05/25/2017 were negative, so the patient got PICC line placed yesterday, being discharge today on IV antibiotic as per ID recommendation for another four weeks. PAST MEDICAL HISTORY: Significant for: 1. Being HIV positive. 2. Hepatitis C treated with Harvoni. 3. Also has a history of hypertension. 4. Pancytopenia. PAST SURGICAL HISTORY: Positive for bilateral hip replacement and breast biopsies. She also has multiple ankle surgeries. PHYSICAL EXAMINATION: GENERAL: Today, she looks comfortable, anxious to go home, eating and tolerating, no more abdominal pain. VITAL SIGNS: She is afebrile, pulse 56, respirations 18 and blood pressure 137/84. LUNGS: Bilateral fair airflow. No rhonchi or crackles. HEART: S1 and S2 audible. ABDOMEN: Soft and nontender. No rebound. No guarding. NEUROLOGIC: The patient is awake and alert, able to communicate. LABORATORY DATA: There is no new lab available today. ASSESSMENT: 1. Fungemia, blood culture on 05/23/2017 positive for Holly ciferrii and also bacteremia. 2. Human immunodeficiency virus positive. 3. Hepatitic C. 4. Hypertension. 5. Escherichia coli urinary tract infection. 6. Status post Port-A-Cath removal. 7. Pancytopenia. 8. Methicillin-resistant Staphylococcus aureus bacteremia. PLAN: Discussed with ------. The patient is going to be discharged home on p.o. vancomycin 250 q. i. d. for another week. She will be on Mycamine and vancomycin. It was explained to the patient in great detail that her vancomycin peak and trough has been monitor, so there is a need for ophthalmology exam as outpatient and also should have vancomycin peak and trough and CBC and CMP monitored as an outpatient. Her primary care doctor is Dr. Valentine, who is infectious disease specialist himself. The patient states she will make appointment with him and all this blood work will be followed by him also. Will Barton MD
--- NOTE | 2017-06-04 23:57 | CP.PCM.PN ---
Subjective - Date & Time of Evaluation Date of Evaluation: 05/28/17 Time of Evaluation: 10:15 - Subjective Subjective: addendum to progress note of KHRIS Sousa, see plan Objective - Vital Signs/Intake and Output Vital Signs (last 24 hours): Temp Pulse Resp BP Pulse Ox 98.0 F 101 H 16 128/68 98 05/28/17 17:30 05/28/17 18:16 05/28/17 17:30 05/28/17 18:16 05/28/17 17:30 Intake and Output: 05/28/17 05/29/17 18:59 06:59 Intake Total 1020 Output Total 250 Balance 770 - Medications Medications: Current Medications Abacavir Sulfate (Ziagen) 600 mg PO DAILY [facility] Last Admin: 05/28/17 09:52 Dose: 600 mg Carvedilol (Coreg) 6.25 mg PO BID [facility] Last Admin: 05/28/17 18:16 Dose: 6.25 mg Gabapentin (Neurontin) 300 mg PO TID [facility] PRN Reason: Protocol Last Admin: 05/28/17 18:17 Dose: 300 mg Hydralazine HCl (Apresoline) 10 mg IVP Q6 PRN PRN Reason: for SBP>170 & Diastolic>100 Hydromorphone HCl (Dilaudid) 1 mg IVP Q3 PRN PRN Reason: Pain, severe (8-10) Last Admin: 05/28/17 19:50 Dose: 1 mg Micafungin Sodium 100 mg/ (Sodium Chloride) 100 mls @ 100 mls/hr IV DAILY [facility] PRN Reason: Protocol Stop: 06/23/17 10:01 Last Admin: 05/28/17 12:35 Dose: 100 mls/hr Lisinopril (Zestril) 20 mg PO DAILY [facility] Last Admin: 05/28/17 09:52 Dose: 20 mg Ondansetron HCl (Zofran Inj) 4 mg IVP Q4H PRN PRN Reason: Nausea/Vomiting Last Admin: 05/28/17 18:31 Dose: 4 mg Pantoprazole Sodium (Protonix Ec Tab) 20 mg PO 0600 [facility] Last Admin: 05/28/17 05:59 Dose: 20 mg Pentoxifylline (Pentoxil) 400 mg PO TID [facility] Last Admin: 05/28/17 18:17 Dose: 400 mg Raltegravir (Isentress) 400 mg PO BID [facility] Last Admin: 05/28/17 18:16 Dose: 400 mg Vancomycin HCl (Vancocin 25 Mg/Ml (Oral Use)) 250 mg PO QID [facility] PRN Reason: Protocol Stop: 06/07/17 18:00 Last Admin: 05/28/17 22:14 Dose: 250 mg - Labs Labs: 05/27/17 17:30 05/27/17 06:04 PT 15.9 Seconds (9.9-11.8) H 05/24/17 16:20 INR 1.47 (0.93-1.08) H 05/24/17 16:20 APTT 25.4 Seconds (23.7-30.8) 05/24/17 16:20 Assessment and Plan - Assessment and Plan (Free Text) Plan: Patient is tolerated. Diet still complains of diffuse tenderness. Thrombocytopenia 9 criteria C. difficile colitis Fungemia status post removal of the Port-A-Cath Abdomen soft mildly diffuse tenderness still present
--- NOTE | 2017-06-04 23:57 | CP.PCM.PN ---
Subjective - Date & Time of Evaluation Date of Evaluation: 05/27/17 Time of Evaluation: 16:15 - Subjective Subjective: This patient today feeling better. Status post removal of the Port-A-Cath for anemia history of pancolitis right side of colon. Objective - Vital Signs/Intake and Output Vital Signs (last 24 hours): Temp Pulse Resp BP Pulse Ox 97 F L 59 L 20 140/73 98 05/27/17 19:28 05/27/17 21:59 05/27/17 19:28 05/27/17 19:28 05/27/17 18:00 - Medications Medications: Current Medications Abacavir Sulfate (Ziagen) 600 mg PO DAILY [facility] Last Admin: 05/27/17 10:29 Dose: 600 mg Carvedilol (Coreg) 6.25 mg PO BID [facility] Last Admin: 05/27/17 18:25 Dose: 6.25 mg Gabapentin (Neurontin) 300 mg PO TID [facility] PRN Reason: Protocol Last Admin: 05/27/17 18:27 Dose: 300 mg Hydralazine HCl (Apresoline) 10 mg IVP Q6 PRN PRN Reason: for SBP>170 & Diastolic>100 Hydromorphone HCl (Dilaudid) 1 mg IVP Q3 PRN PRN Reason: Pain, severe (8-10) Last Admin: 05/27/17 21:12 Dose: 1 mg Vancomycin HCl (Vancomycin 1gm) 1 gm in 250 mls @ 167 mls/hr IVPB Q12H [facility] PRN Reason: Protocol Stop: 05/28/17 22:01 Last Admin: 05/27/17 21:11 Dose: 167 mls/hr Micafungin Sodium 100 mg/ (Sodium Chloride) 100 mls @ 100 mls/hr IV DAILY [facility] PRN Reason: Protocol Stop: 06/23/17 10:01 Last Admin: 05/27/17 10:26 Dose: 100 mls/hr Lisinopril (Zestril) 20 mg PO DAILY [facility] Last Admin: 05/27/17 10:28 Dose: 20 mg Ondansetron HCl (Zofran Inj) 4 mg IVP Q4H PRN PRN Reason: Nausea/Vomiting Last Admin: 05/27/17 08:09 Dose: 4 mg Pantoprazole Sodium (Protonix Ec Tab) 20 mg PO 0600 [facility] Last Admin: 05/27/17 05:51 Dose: 20 mg Pentoxifylline (Pentoxil) 400 mg PO TID [facility] Last Admin: 05/27/17 18:27 Dose: 400 mg Raltegravir (Isentress) 400 mg PO BID [facility] Last Admin: 05/27/17 18:26 Dose: 400 mg Vancomycin HCl (Vancocin 25 Mg/Ml (Oral Use)) 250 mg PO QID [facility] PRN Reason: Protocol Stop: 06/07/17 18:00 Last Admin: 05/27/17 21:12 Dose: 250 mg - Labs Labs: 05/27/17 17:30 05/27/17 06:04 PT 15.9 Seconds (9.9-11.8) H 05/24/17 16:20 INR 1.47 (0.93-1.08) H 05/24/17 16:20 APTT 25.4 Seconds (23.7-30.8) 05/24/17 16:20 - Constitutional Appears: Non-toxic, No Acute Distress - Head Exam Head Exam: ATRAUMATIC, NORMOCEPHALIC - Eye Exam Eye Exam: EOMI, PERRL - ENT Exam ENT Exam: Mucous Membranes Moist, Normal Oropharynx - Neck Exam Neck Exam: absent: Lymphadenopathy, Tenderness - Respiratory Exam Respiratory Exam: absent: Rhonchi, Respiratory Distress - Cardiovascular Exam Cardiovascular Exam: absent: JVD, +S1, +S2 - GI/Abdominal Exam GI & Abdominal Exam: Soft, Tenderness. absent: Mass - Extremities Exam Extremities Exam: absent: Calf Tenderness - Neurological Exam Neurological Exam: Alert, Oriented x3 Assessment and Plan - Assessment and Plan (Free Text) Plan: This patient's overall is showing gradual improvement. Abdominal discomfort as significantly improved still has distention patient has a pancolitis C. difficile colitis. Chronic hep C was unable to lose a history of AIDS. Continue the antibiotics as per ID would consider flexible sigmoidoscopy if there is any further worsening of his symptomatology to rule out any active colitis Discussed with the patient Discuss with ID Patient needs to be followed by the GI post discharge
--- NOTE | 2017-06-04 23:58 | CP.PCM.PN ---
Subjective - Date & Time of Evaluation Date of Evaluation: 05/26/17 Time of Evaluation: 11:00 - Subjective Subjective: Feeling slightly better diarrhea has slowed down. No bleeding per rectum. Objective - Vital Signs/Intake and Output Vital Signs (last 24 hours): Temp Pulse Resp BP Pulse Ox 97.1 F L 59 L 20 133/84 99 05/26/17 17:48 05/26/17 18:00 05/26/17 17:48 05/26/17 17:48 05/26/17 05:45 - Medications Medications: Current Medications Abacavir Sulfate (Ziagen) 600 mg PO DAILY [facility] Last Admin: 05/26/17 10:42 Dose: 600 mg Carvedilol (Coreg) 6.25 mg PO BID [facility] Last Admin: 05/26/17 17:39 Dose: Not Given Gabapentin (Neurontin) 300 mg PO TID [facility] PRN Reason: Protocol Last Admin: 05/26/17 17:59 Dose: 300 mg Hydralazine HCl (Apresoline) 10 mg IVP Q6 PRN PRN Reason: for SBP>170 & Diastolic>100 Hydromorphone HCl (Dilaudid) 1 mg IVP Q3 PRN PRN Reason: Pain, severe (8-10) Last Admin: 05/26/17 20:38 Dose: 1 mg Vancomycin HCl (Vancomycin 1gm) 1 gm in 250 mls @ 167 mls/hr IVPB Q12H [facility] PRN Reason: Protocol Stop: 05/28/17 22:01 Last Admin: 05/26/17 22:52 Dose: 167 mls/hr Metronidazole (Flagyl) 500 mg in 100 mls @ 100 mls/hr IVPB Q8 [facility] PRN Reason: Protocol Last Admin: 05/26/17 21:21 Dose: 100 mls/hr Micafungin Sodium 100 mg/ (Sodium Chloride) 100 mls @ 100 mls/hr IV DAILY [facility] PRN Reason: Protocol Stop: 06/23/17 10:01 Last Admin: 05/26/17 16:29 Dose: 100 mls/hr Lisinopril (Zestril) 20 mg PO DAILY [facility] Last Admin: 05/26/17 10:43 Dose: 20 mg Ondansetron HCl (Zofran Inj) 4 mg IVP Q4H PRN PRN Reason: Nausea/Vomiting Last Admin: 05/26/17 20:39 Dose: 4 mg Pantoprazole Sodium (Protonix Ec Tab) 20 mg PO 0600 [facility] Last Admin: 05/26/17 06:45 Dose: 20 mg Pentoxifylline (Pentoxil) 400 mg PO TID [facility] Last Admin: 05/26/17 17:59 Dose: 400 mg Raltegravir (Isentress) 400 mg PO BID [facility] Last Admin: 05/26/17 17:59 Dose: 400 mg Vancomycin HCl (Vancocin 25 Mg/Ml (Oral Use)) 250 mg PO QID [facility] PRN Reason: Protocol Stop: 06/07/17 18:00 Last Admin: 05/26/17 21:44 Dose: 250 mg - Labs Labs: 05/26/17 18:40 05/26/17 07:38 PT 15.9 Seconds (9.9-11.8) H 05/24/17 16:20 INR 1.47 (0.93-1.08) H 05/24/17 16:20 APTT 25.4 Seconds (23.7-30.8) 05/24/17 16:20 - Constitutional Appears: No Acute Distress - Head Exam Head Exam: ATRAUMATIC, NORMOCEPHALIC - Eye Exam Eye Exam: EOMI Pupil Exam: PERRL - Neck Exam Neck Exam: Tenderness. absent: Lymphadenopathy - Respiratory Exam Respiratory Exam: NORMAL BREATHING PATTERN. absent: Rales, Rhonchi - Cardiovascular Exam Cardiovascular Exam: +S1, +S2. absent: JVD - GI/Abdominal Exam GI & Abdominal Exam: Soft, Tenderness. absent: Mass - Extremities Exam Extremities Exam: Pedal Edema. absent: Calf Tenderness - Neurological Exam Neurological Exam: Alert, Oriented x3 Assessment and Plan - Assessment and Plan (Free Text) Assessment: Sepsis s/p GI Bleed S/P Code stroke, ct head no bleed/infarct, likely narcotic induced Acute Abdominal pain Pancolitis, H/O colitis post colonoscopy 2 years ago (+) Blood cultures; staph/Mitral Valve thickening, r/o endocarditis Thrombocytopenia HIV/AIDS Hepatitis C, was on [place] H/O DVT, s/p IVC filter HTN Splenectomy Plan: on regular diet continue IVF for hydration on oral vancomycin on IV antibiotics, as per ID on antiviral meds monitor H/H Q 4H repeat CDiff continue Xifaxin s[place]AT[facility] [place] REMOVAL still Await endo report from [facility], spoke to the community recreation programmer for follow-up
== END 2017-05-29 19:05 | disposition home or self-care (01) | DRG 314 ==
LOC: ED 01:27 → ERH 04:21 → 3RSO 05:08 → OBSVTOIN 05-21 16:24 → CCU 05-22 08:08 → 2RNO 05-26 00:32 → 5RNO 05-29 12:40
PROVIDERS: ADMIT Internal Medicine Medical Oncology; ATTEND Internal Medicine
PROC: B246ZZ4 Ultrasonography of Right and Left Heart, Transesophageal (ICD-10-PCS; principal; 2017-05-23 14:00)
PROC: 05PY33Z Removal of Infusion Device from Upper Vein, Percutaneous Approach (ICD-10-PCS; 2017-05-25)
PROC: 02HV33Z Insertion of Infusion Device into Superior Vena Cava, Percutaneous Approach (ICD-10-PCS; 2017-05-25)
PROC: B548ZZA Ultrasonography of Superior Vena Cava, Guidance (ICD-10-PCS; 2017-05-25)
PROC: B51N1ZA Fluoroscopy of Left Upper Extremity Veins using Low Osmolar Contrast, Guidance (ICD-10-PCS; 2017-05-25)
DX: T80.211A Bloodstream infection due to central venous catheter, initial encounter (principal); A41.1 Sepsis due to other specified staphylococcus; D61.818 Other pancytopenia; A04.7 Enterocolitis due to Clostridium difficile; B49 Unspecified mycosis; K55.9 Vascular disorder of intestine, unspecified; E46 Unspecified protein-calorie malnutrition; D68.9 Coagulation defect, unspecified; I38 Endocarditis, valve unspecified; N39.0 Urinary tract infection, site not specified; I16.1 Hypertensive emergency; G45.9 Transient cerebral ischemic attack, unspecified; I42.9 Cardiomyopathy, unspecified; K92.2 Gastrointestinal hemorrhage, unspecified; K57.92 Diverticulitis of intestine, part unspecified, without perforation or abscess without bleeding; D70.9 Neutropenia, unspecified; B18.2 Chronic viral hepatitis C; Z21 Asymptomatic human immunodeficiency virus [HIV] infection status; B96.20 Unspecified Escherichia coli [E. coli] as the cause of diseases classified elsewhere; I16.0 Hypertensive urgency; E83.52 Hypercalcemia; E87.6 Hypokalemia; B95.62 Methicillin resistant Staphylococcus aureus infection as the cause of diseases classified elsewhere; K74.60 Unspecified cirrhosis of liver; I10 Essential (primary) hypertension; K73.2 Chronic active hepatitis, not elsewhere classified; Z79.899 Other long term (current) drug therapy; Z86.718 Personal history of other venous thrombosis and embolism; Z90.49 Acquired absence of other specified parts of digestive tract; Z90.710 Acquired absence of both cervix and uterus; Z90.81 Acquired absence of spleen; Z96.643 Presence of artificial hip joint, bilateral; G89.4 Chronic pain syndrome; Z86.73 Personal history of transient ischemic attack (TIA), and cerebral infarction without residual deficits; L97.509 Non-pressure chronic ulcer of other part of unspecified foot with unspecified severity; Z88.6 Allergy status to analgesic agent; Z88.1 Allergy status to other antibiotic agents; K52.9 Noninfective gastroenteritis and colitis, unspecified; R16.2 Hepatomegaly with splenomegaly, not elsewhere classified; Z68.30 Body mass index [BMI] 30.0-30.9, adult; I07.1 Rheumatic tricuspid insufficiency; R00.1 Bradycardia, unspecified

== ENCOUNTER 2017-11-26 11:58 | Inpatient (IN) | payer BC ==
[2017-11-26] MEDS ORDERED: Pantoprazole 80 MG in Sodium Chloride 0.9% 100 ML IV STA (12:48)
[2017-11-26] MEDS ORDERED: Sodium Chloride 0.9% 1,000 ML IV STA ×2 (12:48→16:01)
--- NOTE | 2017-11-26 12:59 | ED PDOC ---
Arrival/HPI - General Chief Complaint: GI Problem Time Seen by Provider: 11/26/17 12:42 Historian: Patient - History of Present Illness Narrative History of Present Illness (Text): you were treated in the ED today for hematemesis with epigastric abdominal discomfort and nausea otherwise without any headache/dizziness/difficulty breathing/chest pain/numbness/tingling/loss of limb function/pain with urination. 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 Time/Duration: Prior to Arrival Context: Home Past Medical History - Provider Review Nursing Documentation Reviewed: Yes - Infectious Disease Hx of Infectious Diseases: None - Reproductive Menopause: Yes - Cardiac Hx Hypertension: Yes - Pulmonary Hx Respiratory Disorders: No - Neurological Hx Neurological Disorder: No - HEENT Hx HEENT Disorder: Yes Hx Blind: No Other/Comment: Use eyeglasses for reading - Renal Hx Renal Disorder: No - Endocrine/Metabolic Hx Endocrine Disorders: No - Hematological/Oncological Hx Blood Transfusions: Yes - Integumentary Hx Dermatological Disorder: Yes (chronic ulcers) - Gastrointestinal Hx Gastrointestinal Disorders: No - Genitourinary/Gynecological Hx Genitourinary Disorders: No - Psychiatric Hx Emotional Abuse: No Hx Physical Abuse: No Hx Substance Use: No - Surgical History Hx Breast Biopsy: Yes (Right breast- benign finding) Hx Joint Replacement: Yes (bilateral hip) Hx Orthopedic Surgery: Yes (Bilateral hip replacement 2008) Hx Vascular Access Device: Yes (hx of LIFE PORT) Other/Comment: 3 right benign breast biopsy, 2 bilateral hip surgery, 15 ankle surgery, 1 - Anesthesia Hx Anesthesia Reactions: No Hx Malignant Hyperthermia: No - Suicidal Assessment Feels Threatened In Home Enviroment: No Family/Social History - Physician Review Nursing Documentation Reviewed: Yes Family/Social History: No Known Family HX Smoking Status: Never Smoked Hx Alcohol Use: No Hx Substance Use: No Allergies/Home Meds Allergies/Adverse Reactions: Allergies doxycycline Allergy (Verified 05/20/17 01:30) RASH sulfamethoxazole [From Bactrim] Allergy (Verified 05/20/17 01:30) RASH tramadol HCl [From Ultram] Allergy (Verified 05/20/17 01:30) RASH trimethoprim [From Bactrim] Allergy (Verified 05/20/17 01:30) RASH Home Medications: Home Meds Medication Instructions Recorded Confirmed Abacavir Sulfate/Lamivudine 1 each PO DAILY 05/20/17 05/20/17 [Abacavir-Lamivudine 600-300 mg] Carvedilol [Coreg] 3.125 mg PO BID 05/20/17 05/20/17 Furosemide [Lasix] 40 mg PO BID 05/20/17 05/20/17 Gabapentin [Neurontin] 300 mg PO TID 05/20/17 05/20/17 Ledipasvir/Sofosbuvir [Harvoni 1 tab PO DAILY 05/20/17 05/20/17 90-400 mg Tablet] Lisinopril [Zestril] 2.5 mg PO DAILY 05/20/17 05/20/17 Omeprazole 40 mg PO DAILY 05/20/17 05/20/17 Ondansetron ODT [Zofran ODT] 4 mg PO Q8H PRN 05/20/17 05/20/17 Pentoxifylline [Pentoxil] 400 mg PO TID 05/20/17 05/20/17 Raltegravir Potassium [Isentress] 400 mg PO BID 05/20/17 05/20/17 Review of Systems - Physician Review All systems were reviewed & negative as marked: Yes - Review of Systems Respiratory: absent: SOB Cardiovascular: absent: Chest Pain Gastrointestinal: Abdominal Pain, Nausea, Hematemesis Genitourinary Female: absent: Dysuria Neurological: absent: Headache, Dizziness, Focal Weakness Physical Exam Vital Signs Reviewed: Yes Vital Signs Temp Pulse Resp BP Pulse Ox 11/26/17 15:50 97.8 F 52 L 16 177/96 H 97 11/26/17 12:07 102 H 20 188/105 H 100 Blood Pressure: Hypertensive Pulse: Tachycardic Respiratory Rate: Normal Appearance: Positive for: Non-Toxic, Uncomfortable Pain Distress: None Mental Status: Positive for: Alert and Oriented X 3 - Systems Exam Head: Present: Atraumatic, Normocephalic Pupils: Present: PERRL Extroacular Muscles: Present: EOMI Conjunctiva: Present: Normal Mouth: Present: Moist Mucous Membranes, Other (hematemesis from oral cavity, dark red blood noted) Neck: Present: Normal Range of Motion Respiratory/Chest: Present: Clear to Auscultation, Good Air Exchange. No: Respiratory Distress, Accessory Muscle Use Cardiovascular: Present: Regular Rate and Rhythm, Normal S1, S2. No: Murmurs Abdomen: Present: Tenderness (epigastric tenderness to palpation), Normal Bowel Sounds. No: Distention, Peritoneal Signs Back: Present: Normal Inspection Upper Extremity: Present: Normal Inspection. No: Cyanosis, Edema Lower Extremity: Present: Normal Inspection. No: Edema Neurological: Present: GCS=15, CN II-XII Intact, Speech Normal Skin: Present: Warm, Dry, Normal Color. No: Rashes Psychiatric: Present: Alert, Oriented x 3, Normal Insight, Normal Concentration Medical Decision Making ED Course and Treatment: you were treated in the ED today for hematemesis with epigastric abdominal discomfort and nausea otherwise without any headache/dizziness/difficulty breathing/chest pain/numbness/tingling/loss of limb function/pain with urination. 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 You had epigastric tenderness with hematemesis from oral cavity otherwise breathing easily, pink/moist lips, good strength/sensation, alert/oriented, walking easily, clear lungs. d/w Dr. Barton who stated complete ct a/p and call Dr. Peguero GI to eval and can admit to med-surg. d/w DR. Sharma who will eval pt. 11/26/17 13:55 d/w 11/26/17 14:35 11/26/17 16:02 ct a/p difuse mural thickening and possible portal thrombosis. no fa. d/w who stated surgery consult [facility], admit to med-surge and d/w surgical assist on-call who will eval pt. 11/26/17 16:05 - Lab Interpretations Lab Results: 11/26/17 12:50 11/26/17 12:50 Lab Results 11/26/17 12:50: Blood Type A POSITIVE, Antibody Screen Negative, BBK History Checked Patient has bt 11/26/17 12:50: Sodium 142, Potassium 3.5 L, Chloride 107, Carbon Dioxide 20 L, Anion Gap 19, BUN 15, Creatinine 1.0, Est GFR ( Amer) > 60, Est GFR (Non- Af Amer) 57, Random Glucose 163 H, Calcium 11.6 H, Total Bilirubin 1.0, AST 46 H , ALT 42, Alkaline Phosphatase 131 H, Lactate Dehydrogenase 524, Total Creatine Kinase 112, Troponin I 0.01 D, Total Protein 10.8 H, Albumin 4.6, Globulin 6.3 , Albumin/Globulin Ratio 0.7 L, Amylase 119, Lipase 314 H 11/26/17 12:50: PT 17.5 H, INR 1.51 H, APTT 29.3 11/26/17 12:50: WBC 3.7 L D, RBC 4.27, Hgb 11.2 L, Hct 36.2, MCV 84.8, MCH 26.2 , MCHC 30.9 L, RDW 20.4 H, Plt Count 80 L, Gran % 61.0, Lymph % (Auto) 29.9, Stephens % (Auto) 7.0 H, Eos % (Auto) 1.3 L, Baso % (Auto) 0.8, Gran # 2.28, Lymph # 1.1 L, Stephens # 0.3, Eos # 0.1, Baso # 0.03 I have reviewed the lab results: Yes - RAD Interpretation Radiology Orders: 11/26/17 13:54 ABD & PELVIS IV CONTRAST ONLY [CT] Stat Back Panel Padder: Radiologist - EKG Interpretation Interpreted by ED Physician: Yes (sinus bradycardia) Type: 12 lead EKG - Medication Orders Current Medication Orders: Pantoprazole Sodium 80 mg/ (Sodium Chloride) 100 mls @ 10 mls/hr IV .Q10H STA PRN Reason: 8 MG/HR Stop: 11/26/17 22:47 Last Admin: 11/26/17 13:40 Dose: 10 mls/hr eMAR Start Stop Document 11/26/17 13:40 EDDA (Rec: 11/26/17 13:40 EDDA [id number]) Intravenous Solution Start Date 11/26/17 Start Time 13:40 Metronidazole (Flagyl) 500 mg in 100 mls @ 100 mls/hr IVPB STAT STA PRN Reason: Protocol Stop: 11/26/17 16:20 Discontinued Medications Hydromorphone HCl (Dilaudid) 1 mg IVP STAT STA Stop: 11/26/17 13:25 Last Admin: 11/26/17 13:41 Dose: 1 mg MAR Pain Assessment Document 11/26/17 13:41 SZA (Rec: 11/26/17 13:41 SZA [id number]) Pain Reassessment Is this a pain reassessment? No Sleep Is patient sleeping during reassessment? No Presence of Pain Presence of Pain Yes IVP Administration Document 11/26/17 13:41 SZA (Rec: 11/26/17 13:41 SZA [id number]) Charges for Administration # of IVP Administrations 1 Sodium Chloride (Sodium Chloride 0.9%) 1,000 mls @ 1,000 mls/hr IV .Q1H STA Stop: 11/26/17 13:47 Last Admin: 11/26/17 13:00 Dose: 1,000 mls/hr eMAR Start Stop Document 11/26/17 13:00 SZIsreal (Rec: 11/26/17 13:42 SZA [id number]) Intravenous Solution Start Date 11/26/17 Start Time 13:00 End Date 11/26/17 End time 14:00 Total Infusion Time 60 Morphine Sulfate (Morphine) 4 mg IVP STAT STA Stop: 11/26/17 13:07 Last Admin: 11/26/17 13:39 Dose: 4 mg MAR Pain Assessment Document 11/26/17 13:39 SZA (Rec: 11/26/17 13:39 SZA [id number]) Pain Reassessment Is this a pain reassessment? No Sleep Is patient sleeping during reassessment? No Presence of Pain Presence of Pain Yes IVP Administration Document 11/26/17 13:39 SZA (Rec: 11/26/17 13:39 SZA [id number]) Charges for Administration # of IVP Administrations 1 Pantoprazole Sodium (Protonix Inj) 80 mg IVP STAT STA Stop: 11/26/17 12:49 Last Admin: 11/26/17 13:00 Dose: 80 mg IVP Administration Document 11/26/17 13:00 SZA (Rec: 11/26/17 13:38 SZA [id number]) Charges for Administration # of IVP Administrations 1 Disposition/Present on Arrival - Present on Arrival Any Indicators Present on Arrival: No History of DVT/PE: No History of Uncontrolled Diabetes: No Urinary Catheter: No History of Decub. Ulcer: No History Surgical Site Infection Following: None - Disposition Have Diagnosis and Disposition been Completed?: Yes Diagnosis: GIB (gastrointestinal bleeding), AIDS, HIV disease, Abdominal pain, Pancolitis , Chronic hepatitis C with cirrhosis, Pancytopenia Disposition: HOSPITALIZED Disposition Time: 16:05 Patient Plan: Admission, Telemetry Condition: STABLE Discharge Instructions (ExitCare): Human Immunodeficiency Virus and Acquired Immune Deficiency Syndrome (ED), Ulcerative Colitis (ED) Referrals: Sheldon Valentine MD [Primary Care Provider] - Follow up with primary Forms: [facility] ([place])
[2017-11-26] MEDS ORDERED: Morphine 4 mg/ml ISec IVP STA (13:06)
[2017-11-26] MEDS ORDERED: HYDROmorphone 1 mg/ml ISec IVP STA ×2 (13:24→18:49)
[2017-11-26 13:25] LABS: BASO # 0.03 K/mm3 (0.0-2.0); BASO % 0.8 % (0.0-3.0); EOS # 0.1 (0.0-0.7); EOS % 1.3 % (1.5-5.0); GRAN # 2.28 (1.4-6.5); HEMOGLOBIN 11.2 g/dL (12.0-16.0); LYMPH # 1.1 (1.2-3.4); LYMPH % 29.9 % (22.0-35.0); MEAN CELL VOLUME 84.8 fl (80.0-105.0); MEAN CORPUSCULAR HEMOGLOBIN 26.2 pg (25.0-35.0); MEAN CORPUSCULAR HGB CONC 30.9 g/dl (31.0-37.0); MONO # 0.3 (0.1-0.6); RBC 4.27 10^6/uL (3.5-6.1); RED CELL DISTRIBUTION WIDTH 20.4 % (11.5-14.5); WHITE BLOOD COUNT 3.7 10^3/ul (4.5-11.0)
[2017-11-26 13:32] LABS: ALB/GLOB RATIO 0.7 (1.1-1.8); ALBUMIN 4.6 g/dL (3.0-4.8); ALT/SGPT 42 U/L (7-56); AMYLASE 119 U/L (35-125); AST/SGOT 46 U/L (14-36); BLOOD UREA NITROGEN 15 mg/dL (7-21); CALCIUM 11.6 mg/dL (8.4-10.5); GFR AFRICAN-AMERICAN > 60; GFR NON-AFRICAN AMERICAN 57; LIPASE 314 U/L (23-300)
[2017-11-26 13:38] LABS: INR 1.51 (0.93-1.08); PARTIAL THROMBOPLASTIN TIME 29.3 Seconds (25.1-36.5); PROTHROMBIN TIME 17.5 SECONDS (9.4-12.5)
[2017-11-26 13:43] LABS: TROPONIN I 0.01 ng/mL
[2017-11-26] MEDS ORDERED: Iohexol 350 MG/100 ML VIAL ONE (14:03)
[2017-11-26 14:15] LABS: PLATELET COUNT 80 10^3/uL (120.0-450.0)
--- NOTE | 2017-11-26 15:05 | CT ---
PROCEDURE: CT Abdomen and Pelvis with contrast HISTORY: 57F, abd pain, hematemesis COMPARISON: 05/22/2017 TECHNIQUE: CT scan of the abdomen and pelvis was performed after administration of intravenous contrast. Oral contrast was not administered. Coronal and sagittal reformatted images were obtained. Contrast dose: 100 mL Omnipaque 350 Radiation dose: Total exam DLP = 422.64 mGy-cm. This CT exam was performed using one or more of the following dose reduction techniques: Automated exposure control, adjustment of the mA and/or kV according to patient size, and/or use of iterative reconstruction technique. FINDINGS: LOWER THORAX: The lung bases are clear. LIVER: The liver is small in size with cirrhotic morphology. There are multiple portosystemic varices with questionable thrombosis in the right portal vein. No gross lesion or ductal dilatation. GALLBLADDER AND BILE DUCTS: The gallbladder is distended without evidence of gallstones. There is diffuse gallbladder wall thickening likely secondary to hepatic cirrhosis. PANCREAS: Unremarkable. No gross lesion or ductal dilatation. SPLEEN: The spleen is moderately enlarged and measures 18 cm. ADRENALS: No discrete nodule. . KIDNEYS AND URETERS: Both kidneys are normal in size and there is homogeneous enhancement. No hydronephrosis. No solid mass. VASCULATURE: An infrarenal IVC filter remains in place. No aortic aneurysm. BOWEL: The small bowel loops are normal in caliber. There is diffuse mild circumferential mural thickening in the colon. No evidence of bowel dilatation or obstruction. The terminal ileum and ileocecal junction are normal APPENDIX: Normal appendix. PERITONEUM: No free fluid. No free air. LYMPH NODES: No enlarged lymph nodes. BLADDER: Grossly normal in appearance. REPRODUCTIVE: Evaluation of the pelvis is limited due to extensive streak artifacts from bilateral hip arthroplasties. BONES: There are old superior endplate compression fracture deformities in the T11 and T12 vertebral body and age indeterminate mild superior endplate compression deformity in the L1 vertebral body, new since the prior examination. OTHER FINDINGS: None. IMPRESSION: 1. Apparent diffuse circumferential mural thickening in the colon may represent nonspecific infectious/ inflammatory colitis. No evidence of perforation, abscess or bowel obstruction. 2. Cirrhosis of liver with portal hypertension and question of thrombosis in the right portal vein.
[2017-11-26] MEDS ORDERED: metroNIDAZOLE IV 500 mg/100 ml 500 MG/100 ML BAG IVPB STA (15:21)
[2017-11-26] MEDS ORDERED: Cefepime 1gm in NS 100ml 1 GM/100 ML BAG IVPB STA (15:59)
--- NOTE | 2017-11-26 16:52 | CP.PCM.CON ---
<Zion Sandoval - Last Filed: 11/26/17 17:16> History of Present Illness - History of Present Illness History of Present Illness: Surgery Consult Note. Dr. Alejandro 57yo F with PMHx of HIV, Hep C cirrhosis, HTN, DVT, Pancytopenia here for evaluation of hemetemesis. She states that she has had abdominal pain located in the epigastric area, described as sharp, started this morning. Since 8AM this morning, she has had 5 episodes of hemetemesis and worsening abdominal pain. She now c/o diffuse abd pain, nausea and vomiting which has been bloody. She denies any bloody stools or melena. Patient is a poor historian. She does report a similar episode last year which resolved without any intervention. She had an EGD in 2016 which showed evidence of Type 2 esophageal varices. She obtained a CT Abd/Pelvis in the ED which showed transmural thickening and possible ? right portal vein thrombus. PMHx: HIV, Hep C cirrhosis, HTN, Pancytopenia, hx of DVT PSHx: Bilateral hip replacement; Breast bxs, Ankle ortho surgeries, IVC filter, Hysterectomy Social Hx: Denies ETOH, Denies Tobacco, Denies illicit drugs Allergy: Doxy, Sulfa, Tramadol, Trimethoprim Review of Systems - Review of Systems All systems: reviewed and no additional remarkable complaints except - Constitutional Constitutional: absent: Chills, Fever - Cardiovascular Cardiovascular: absent: Chest Pain, Dyspnea - Gastrointestinal Gastrointestinal: Abdominal Pain, Hematemesis, Nausea, Vomiting. absent: Melena - Genitourinary Genitourinary: absent: Difficulty Urinating Past Patient History - Infectious Disease Hx of Infectious Diseases: None - Past Medical History & Family History Past Medical History?: Yes - Past Social History Smoking Status: Never Smoked - CARDIAC Hx Hypertension: Yes - PULMONARY Hx Respiratory Disorders: No - NEUROLOGICAL Hx Neurological Disorder: No - HEENT Hx HEENT Problems: Yes Hx Blind: No Other/Comment: Use eyeglasses for reading - RENAL Hx Chronic Kidney Disease: No - ENDOCRINE/METABOLIC Hx Endocrine Disorders: No - HEMATOLOGICAL/ONCOLOGICAL Hx Blood Transfusions: Yes - INTEGUMENTARY Hx Dermatological Problems: Yes (chronic ulcers) - GASTROINTESTINAL Hx Gastrointestinal Disorders: No - GENITOURINARY/GYNECOLOGICAL Hx Genitourinary Disorders: No - PSYCHIATRIC Hx Emotional Abuse: No Hx Physical Abuse: No Hx Substance Use: No - SURGICAL HISTORY Hx Breast Biopsy: Yes (Right breast- benign finding) Hx Joint Replacement: Yes (bilateral hip) Hx Orthopedic Surgery: Yes (Bilateral hip replacement 2008) Hx Vascular Access Device: Yes (hx of LIFE PORT) Other/Comment: 3 right benign breast biopsy, 2 bilateral hip surgery, 15 ankle surgery, 1 - ANESTHESIA Hx Anesthesia Reactions: No Hx Malignant Hyperthermia: No Meds Allergies/Adverse Reactions: Allergies Allergy/AdvReac Type Severity Reaction Status Date / Time doxycycline Allergy RASH Verified 05/20/17 01:30 sulfamethoxazole Allergy RASH Verified 05/20/17 01:30 [From Bactrim] tramadol HCl [From Ultram] Allergy RASH Verified 05/20/17 01:30 trimethoprim [From Bactrim] Allergy RASH Verified 05/20/17 01:30 - Medications Medications: Current Medications Pantoprazole Sodium 80 mg/ (Sodium Chloride) 100 mls @ 10 mls/hr IV .Q10H STA PRN Reason: 8 MG/HR Stop: 11/26/17 22:47 Last Admin: 11/26/17 13:40 Dose: 10 mls/hr Cefepime HCl (Maxipime 1gm) 1 gm in 100 mls @ 100 mls/hr IVPB STAT STA PRN Reason: Protocol Stop: 11/26/17 16:58 Sodium Chloride (Sodium Chloride 0.9%) 1,000 mls @ 999 mls/hr IV .Q1H1M STA Stop: 11/26/17 17:01 Physical Exam - Constitutional Appears: Unkempt, Older Than Stated Age - Head Exam Head Exam: ATRAUMATIC, NORMAL INSPECTION, NORMOCEPHALIC - Eye Exam Eye Exam: EOMI - ENT Exam ENT Exam: Mucous Membranes Dry - Respiratory Exam Respiratory Exam: NORMAL BREATHING PATTERN. absent: Accessory Muscle Use, Respiratory Distress - GI/Abdominal Exam Additional comments: Diffusely tender to palpation. soft, No rebound, no guarding. - Extremities Exam Extremities exam: Positive for: normal inspection. Negative for: calf tenderness - Neurological Exam Neurological exam: Alert, Oriented x3 - Skin Skin Exam: Normal Color, Warm Results - Vital Signs Recent Vital Signs: Last Vital Signs Temp 97.8 F 11/26/17 15:50 Pulse 52 L 11/26/17 15:50 Resp 16 11/26/17 15:50 BP 177/96 H 11/26/17 15:50 Pulse Ox 97 11/26/17 15:50 - Labs Result Diagrams: 11/26/17 12:50 11/26/17 12:50 Labs: Laboratory Results - last 24 hr 11/26/17 11/26/17 11/26/17 12:50 12:50 12:50 WBC 3.7 L D RBC 4.27 Hgb 11.2 L Hct 36.2 MCV 84.8 MCH 26.2 MCHC 30.9 L RDW 20.4 H Plt Count 80 L Gran % 61.0 Lymph % (Auto) 29.9 Parmer % (Auto) 7.0 H Eos % (Auto) 1.3 L Baso % (Auto) 0.8 Gran # 2.28 Lymph # 1.1 L Parmer # 0.3 Eos # 0.1 Baso # 0.03 PT 17.5 H INR 1.51 H APTT 29.3 Sodium 142 Potassium 3.5 L Chloride 107 Carbon Dioxide 20 L Anion Gap 19 BUN 15 Creatinine 1.0 Est GFR ( Amer) > 60 Est GFR (Non-Af Amer) 57 Random Glucose 163 H Calcium 11.6 H Total Bilirubin 1.0 AST 46 H ALT 42 Alkaline Phosphatase 131 H Lactate Dehydrogenase 524 Total Creatine Kinase 112 Troponin I 0.01 D Total Protein 10.8 H Albumin 4.6 Globulin 6.3 Albumin/Globulin Ratio 0.7 L Amylase 119 Lipase 314 H Blood Type Antibody Screen BBK History Checked 11/26/17 12:50 WBC RBC Hgb Hct MCV MCH MCHC RDW Plt Count Gran % Lymph % (Auto) Parmer % (Auto) Eos % (Auto) Baso % (Auto) Gran # Lymph # Parmer # Eos # Baso # PT INR APTT Sodium Potassium Chloride Carbon Dioxide Anion Gap BUN Creatinine Est GFR ( Amer) Est GFR (Non-Af Amer) Random Glucose Calcium Total Bilirubin AST ALT Alkaline Phosphatase Lactate Dehydrogenase Total Creatine Kinase Troponin I Total Protein Albumin Globulin Albumin/Globulin Ratio Amylase Lipase Blood Type A POSITIVE Antibody Screen Negative BBK History Checked Patient has bt Assessment & Plan - Assessment and Plan (Free Text) Assessment: 56yo F with hx of HIV, Hep C cirrhosis, HTN, DVT here with Abdominal pain, UGIB - CT scan noted Plan: - Recommend GI evaluation - f/u repeat H/H - f/u hepatitis panel and quantitative serology - F/u abdominal duplex US - NPO - IVF resuscitation - Antiemetics - Protonix ggt - serial abd exams Further recs as per Dr. Javon Sandoval PGY1 surgery pager: [phone] <Juwan Alejandro - Last Filed: 11/28/17 19:30> Meds - Medications Medications: Current Medications Abacavir Sulfate (Ziagen) 600 mg PO DAILY [facility] Last Admin: 11/28/17 10:31 Dose: Not Given Carvedilol (Coreg) 3.125 mg PO BID [facility] Last Admin: 11/28/17 17:52 Dose: Not Given Hydromorphone HCl (Dilaudid) 1.5 mg IVP Q4H PRN PRN Reason: pain Last Admin: 11/28/17 17:08 Dose: 1.5 mg Dextrose/Sodium Chloride (Dextrose 5%/0.45% Ns 1000 Ml) 1,000 mls @ 100 mls/hr IV .Q10H [facility] Last Admin: 11/28/17 17:51 Dose: 100 mls/hr Metronidazole (Flagyl) 500 mg in 100 mls @ 100 mls/hr IVPB Q8 DOUGIE PRN Reason: Protocol Last Admin: 11/28/17 17:51 Dose: 100 mls/hr Cefepime HCl (Maxipime 1gm) 1 gm in 100 mls @ 100 mls/hr IVPB Q8 DOUGIE PRN Reason: Protocol Last Admin: 11/28/17 16:15 Dose: 100 mls/hr Octreotide Acetate 1,250 mcg/ (Sodium Chloride) 252.5 mls @ 10.1 mls/hr IV .Q24H DOUGIE; 50 MCG/HR PRN Reason: Protocol Last Admin: 11/28/17 04:59 Dose: 50 mcg/hr, 10.1 mls/hr Lamivudine (Epivir) 300 mg PO DAILY [facility] Last Admin: 11/28/17 10:31 Dose: Not Given Ondansetron HCl (Zofran Inj) 4 mg IVP Q6H PRN PRN Reason: Nausea/Vomiting Last Admin: 11/27/17 21:16 Dose: 4 mg Results - Vital Signs Recent Vital Signs: Last Vital Signs Temp 98.3 F 11/28/17 12:00 Pulse 74 11/28/17 18:00 Resp 18 11/28/17 12:00 BP 143/92 H 11/28/17 12:00 Pulse Ox 95 11/28/17 10:55 - Labs Result Diagrams: 11/28/17 06:00 11/28/17 06:00 Labs: Laboratory Results - last 24 hr 11/28/17 11/28/17 11/28/17 06:00 06:00 06:00 WBC 1.8 L* D RBC 3.33 L Hgb 8.7 L D Hct 28.5 L MCV 85.6 MCH 26.1 MCHC 30.5 L RDW 19.9 H Plt Count 33 L* Manual Plt Count 55 L* Gran % 61.2 Lymph % (Auto) 29.2 Parmer % (Auto) 7.3 H Eos % (Auto) 1.7 Baso % (Auto) 0.6 Gran # 1.09 L Lymph # (Auto) 0.5 L Parmer # (Auto) 0.1 Eos # (Auto) 0.0 Baso # (Auto) 0.01 PT 20.5 H INR 1.76 H APTT 29.6 Sodium 137 Potassium 3.7 Chloride 107 Carbon Dioxide 25 Anion Gap 9 L BUN 9 Creatinine 0.9 Est GFR ( Amer) > 60 Est GFR (Non-Af Amer) > 60 Random Glucose 115 H Calcium 9.3 Total Bilirubin 1.2 AST 38 H ALT 29 Alkaline Phosphatase 64 Total Protein 8.1 Albumin 3.5 Globulin 4.6 Albumin/Globulin Ratio 0.8 L Assessment & Plan - Assessment and Plan (Free Text) Assessment: This consult done under my direct supervision Jason Alejandro MD FACS
[2017-11-26] MEDS ORDERED: Sodium Chloride 0.9% 1,000 ML IV SCH (17:00)
--- NOTE | 2017-11-26 18:06 | CARD ---
APPROVED REPORT EKG Measurement Heart [id number] <Conclusion> Sinus bradycardia Nonspecific T wave abnormality Abnormal ECG
[2017-11-26] MEDS ORDERED: HYDROmorphone 2 mg/ml ISec IVP PRN (19:19)
[2017-11-26] MEDS: Dextrose 5%/0.45% NS 1,000 ML IV SCH (19:30)
[2017-11-26 20:32] LABS: HEMOGLOBIN 9.7 g/dL (12.0-16.0); MEAN CELL VOLUME 83.6 fl (80.0-105.0); MEAN CORPUSCULAR HEMOGLOBIN 26.1 pg (25.0-35.0); MEAN CORPUSCULAR HGB CONC 31.2 g/dl (31.0-37.0); PLATELET COUNT 59 10^3/uL (120.0-450.0); RBC 3.72 10^6/uL (3.5-6.1); WHITE BLOOD COUNT 3.5 10^3/ul (4.5-11.0)
[2017-11-26 20:35] LABS: URINE BILIRUBIN NEGATIVE (NEGATIVE); URINE BLOOD TRACE-LYSED (NEGATIVE); URINE GLUCOSE (UA) 100 mg/dL (NEGATIVE); URINE LEUKOCYTE ESTERASE NEGATIVE Leu/uL (NEGATIVE); URINE NITRATE NEGATIVE (NEGATIVE); URINE PROTEIN TRACE mg/dL (<30 mg/dL); URINE UROBILINOGEN 0.2 E.U./dL (<1 E.U./dL)
[2017-11-26 20:37] LABS: URINE APPEARANCE CLEAR (CLEAR); URINE COLOR YELLOW (YELLOW)
[2017-11-26 21:09] LABS: URINE RBC 0 - 2 /hpf (0-2); URINE WBC NEGATIVE /hpf (0-6)
[2017-11-26] MEDS ORDERED: HYDROmorphone 1 mg/ml ISec IVP PRN (21:48)
[2017-11-26] MEDS ORDERED: Cefepime 1gm in NS 100ml 1 GM/100 ML BAG IVPB SCH (22:00)
[2017-11-26 22:54] VITALS: BMI 26.5
[2017-11-26] MEDS ORDERED: Influenza Vaccine 60 mcg/0.5 mL SYR (4YR UP) IM ONE (22:54)
[2017-11-26] MEDS ORDERED: Pneumococcal 23-Valent Vaccine IM ONE (22:54)
[2017-11-27] MEDS: Cefepime 1gm in NS 100ml 1 GM/100 ML BAG IVPB SCH ×4 (01:20→21:16)
[2017-11-27] MEDS: metroNIDAZOLE IV 500 mg/100 ml 500 MG/100 ML BAG IVPB SCH ×4 (01:27→22:12)
--- NOTE | 2017-11-27 02:59 | HP ---
HISTORY OF PRESENT ILLNESS: The patient is a 57-year-old, who came to the emergency room because of abdominal discomfort, has been having nausea, vomiting coffee-ground material. Denies any fever or chills. She does complain of feeling weak and dizzy. Denies any chest pain. PAST MEDICAL HISTORY: Significant for, 1. HIV, CD4 count is less than 200. 2. Hepatitis C with cirrhosis of the liver. 3. History of hepatic encephalopathy. 4. History of multiple GI bleed in the past. 5. History of DVT with inferior vena cava filter. 6. Chronic kidney disease. PAST SURGICAL HISTORY: Significant for bilateral hip replacement and breast biopsy. FAMILY HISTORY: Not relevant. PERSONAL HISTORY: Denies smoking, drinking, or alcohol use. SOCIAL HISTORY: She lives with her family. ALLERGIES: SHE IS ALLERGIC TO DOXYCYCLINE, BACTRIM AND TRAMADOL. MEDICATIONS AT HOME: She is on lisinopril 2.5 mg daily, Isentress 400 twice a day, Cipro 500 twice a day, Harvoni, pentoxifylline, omeprazole, gabapentin, Coreg, and HIV medications. REVIEW OF SYSTEMS: Abdominal discomfort and feeling nauseous. PHYSICAL EXAMINATION: GENERAL: She is awake, alert, oriented, able to communicate. VITAL SIGNS: She is afebrile, pulse 52, respirations 16, blood pressure is 177/96. LUNGS: Bilateral fair airflow. No rhonchi or crackles. HEART: S1 and S2 audible. ABDOMEN: Soft , epigastric right upper quadrant and left upper quadrant discomfort. NEUROLOGIC: She is awake and alert, able to communicate. LABORATORY EXAM: WBC 3.7, hemoglobin 11.2, hematocrit 36.2, platelets of 80. PT is 17.5, INR 1.51. Chemistry; sodium 142, potassium 3.5, chloride 107, CO2 of , BUN 15, creatinine 1.0, blood sugar of 163, calcium 11.6. AST 46, ALT 42, alkaline phosphatase is 131. CT scan of the abdomen and pelvis was done that shows old superior endplate compression fracture deformity in T11 and T12 vertebral body and diffuse circumferential mural thickening in the colon representing nonspecific infectious versus inflammatory colitis. No evidence of perforation or abscess formation, cirrhosis of the liver with portal hypertension. ASSESSMENT: 1. Abdominal pain with history of gastrointestinal bleed. 2. Colitis, probably secondary to Clostridium difficile. 3. Electrolyte imbalance. 4. Human immunodeficiency syndrome positive. 5. Pancytopenia. 6. Coagulopathy. PLAN: The patient will be admitted. We will keep her n.p.o. except medications. We will give IV fluids of D5 and half normal saline at 100 mL per hour. I have started her on Protonix drip, started on metronidazole. She is given cefepime and analgesics as needed. Dr. Sharma consult for GI perspective and ID consult by Dr. Marcelo has been requested. We will follow up her electrolytes in a.m. Currently, she is on cefepime and Flagyl, we will continue that. Will Barton MD
[2017-11-27] MEDS: HYDROmorphone 0.5 mg/0.5 ml ISec IVP PRN ×5 (05:43→22:11)
[2017-11-27 06:55] LABS: HEMOGLOBIN 11.7 g/dL (12.0-16.0); MEAN CELL VOLUME 84.8 fl (80.0-105.0); MEAN CORPUSCULAR HEMOGLOBIN 26.6 pg (25.0-35.0); MEAN CORPUSCULAR HGB CONC 31.4 g/dl (31.0-37.0); PLATELET COUNT 51 10^3/uL (120.0-450.0); RED CELL DISTRIBUTION WIDTH 19.7 % (11.5-14.5); WHITE BLOOD COUNT 4.9 10^3/ul (4.5-11.0)
[2017-11-27 07:28] LABS: ALB/GLOB RATIO 0.7 (1.1-1.8); ALBUMIN 4.2 g/dL (3.0-4.8); ALT/SGPT 34 U/L (7-56); AST/SGOT 44 U/L (14-36); BLOOD UREA NITROGEN 8 mg/dL (7-21); CALCIUM 9.9 mg/dL (8.4-10.5); GFR AFRICAN-AMERICAN > 60; GFR NON-AFRICAN AMERICAN > 60
--- NOTE | 2017-11-27 07:45 | CON ---
DATE: 11/26/2017 REASON FOR CONSULTATION: Hematemesis, history of cirrhosis, abdominal pain. HISTORY OF PRESENT ILLNESS: This 57-year-old patient with HIV positive, hepatitis C, cirrhosis, hypertension, DVT, status post IVC filter, pancytopenia, admitted with acute onset of abdominal pain started this morning around 8 a.m. The patient had persistent diffuse abdominal pain, has 5 episodes of vomiting, with blood. GI consult was requested to evaluate it. No melena. The patient had history of abdominal pain for longtime, but she had acute worsening of the symptom this morning. The patient had multiple hospital admissions. She had been followed by Dr. Valentine, Infectious Disease specialist. PAST MEDICAL HISTORY: Other past medical history significant for chronic kidney disease, history of hepatic encephalopathy, questionable partial portal vein thrombosis. PAST SURGICAL HISTORY: Significant for bilateral hip replacement, hypertension, splenectomy and status post cholecystectomy. FAMILY HISTORY: Noncontributory. SOCIAL HISTORY: She denies smoking or alcohol use. REVIEW OF SYSTEMS: Other system is positive as above reviewed. PHYSICAL EXAMINATION: GENERAL: The patient is lying on the bed, not in acute distress. VITAL SIGNS: Temperature is 98, pulse 58, blood pressure 166/89, and respirations 20. O2 saturation 98%. HEENT: Atraumatic, anicteric. NECK: Supple. HEART: S1, S2 heard. LUNGS: Bilateral air entry present. ABDOMEN: Diffusely tender. Surgical scars noted. EXTREMITIES: No cyanosis. No clubbing. NEUROLOGIC: Alert, oriented. LABORATORY DATA: Hemoglobin remains stable. When the patient came to the emergency room, the hemoglobin was 11.2, repeat hemoglobin is 9.7. WBC 3.7 initially, repeat one 3.5. Platelets 80 and repeat platelet count 59. The patient's calcium is 11.6 and random glucose 163, alkaline phosphatase 131, ammonia less than 9. BUN is creatinine 1.0. The patient had abdominal ultrasound done, portal vein and appears patent in the abdominal ultrasound. The patient did have CT of the abdomen and pelvis done, showed diffuse colon thickening, cirrhosis of the liver and with questionable thrombosis of the right portal vein. IMPRESSION: 1. A 57-year-old patient with cirrhosis of the liver secondary to chronic hepatitis C, human immunodeficiency virus positive, CD4 count less than 200, admitted with acute onset of abdominal pain and vomiting, several episodes of bright red vomitus. The patient has history of portal vein esophageal varices, and the patient's last endoscopy done was in 03/2016, she was found to have grade II esophageal varices. 2. Diffuse abdominal pain, and the patient has status post cholecystectomy, partial right portal vein thrombosis, has CT scan, shows diffuse colonic thickening. 3. Rule out sepsis. Other comorbidities include peripheral neuropathy, history of colitis, hypertension. The patient was at home. 4. Diffuse colonic thickening, rule out Clostridium difficile. RECOMMENDATIONS: 1. Continue the Protonix, we will discontinue the Protonix and change it to q. 12 hourly and we will add Carafate. 2. We will start the patient also on octreotide drip. 3. Followup of the hemoglobin, hematocrit. 4. Close followup of the manual platelet count and also PT/INR. 5. Followup the cultures and continue the empiric antibiotic coverage. 6. Continue IV fluids. 7. Followup of the serum calcium level, which is elevated. We will continue to closely followup her care and suggest further management based on the clinical course. Avery Sharma MD
--- NOTE | 2017-11-27 08:26 | CP.PCM.PN ---
Subjective - Date & Time of Evaluation Date of Evaluation: 11/27/17 Time of Evaluation: 08:22 - Subjective Subjective: GENERAL SURGERY CONSULT PROGRESS NOTE FOR DR. LYN. Patient has been seen and examined at bedside. No overnight events reported. Objective - Vital Signs/Intake and Output Vital Signs (last 24 hours): Temp Pulse Resp BP Pulse Ox 99.1 F 56 L 20 174/47 H 98 11/27/17 06:00 11/27/17 06:00 11/27/17 06:00 11/27/17 06:00 11/27/17 06:00 Intake and Output: 11/27/17 11/27/17 06:59 18:59 Intake Total 2122 Balance 2122 - Medications Medications: Current Medications Abacavir Sulfate (Ziagen) 600 mg PO DAILY [facility] Carvedilol (Coreg) 3.125 mg PO BID [facility] Last Admin: 11/26/17 19:00 Dose: Not Given Hydromorphone HCl (Dilaudid) 1 mg IVP Q4H PRN PRN Reason: Pain, moderate (4-7) Last Admin: 11/27/17 05:43 Dose: 1 mg Dextrose/Sodium Chloride (Dextrose 5%/0.45% Ns 1000 Ml) 1,000 mls @ 100 mls/hr IV .Q10H [facility] Last Admin: 11/26/17 19:30 Dose: 100 mls/hr Metronidazole (Flagyl) 500 mg in 100 mls @ 100 mls/hr IVPB Q8 [facility] PRN Reason: Protocol Last Admin: 11/27/17 05:27 Dose: 100 mls/hr Cefepime HCl (Maxipime 1gm) 1 gm in 100 mls @ 100 mls/hr IVPB Q8 [facility] PRN Reason: Protocol Last Admin: 11/27/17 05:27 Dose: 100 mls/hr Octreotide Acetate 1,250 mcg/ (Sodium Chloride) 252.5 mls @ 10.1 mls/hr IV .Q24H [facility]; 50 MCG/HR PRN Reason: Protocol Last Admin: 11/27/17 02:34 Dose: 50 mcg/hr, 10.1 mls/hr Lamivudine (Epivir) 300 mg PO DAILY [facility] Ondansetron HCl (Zofran Inj) 4 mg IVP Q6H PRN PRN Reason: Nausea/Vomiting Last Admin: 11/27/17 05:43 Dose: 4 mg - Labs Labs: 11/27/17 05:15 11/27/17 05:15 PT 17.5 SECONDS (9.4-12.5) H 11/26/17 12:50 INR 1.51 (0.93-1.08) H 11/26/17 12:50 APTT 29.3 Seconds (25.1-36.5) 11/26/17 12:50 - Constitutional Appears: Non-toxic, Older Than Stated Age - Head Exam Head Exam: ATRAUMATIC, NORMAL INSPECTION, NORMOCEPHALIC - Eye Exam Eye Exam: Normal appearance - ENT Exam ENT Exam: Mucous Membranes Moist - Respiratory Exam Respiratory Exam: NORMAL BREATHING PATTERN. absent: Accessory Muscle Use - Cardiovascular Exam Cardiovascular Exam: Bradycardia, +S1, +S2 - GI/Abdominal Exam GI & Abdominal Exam: Soft, Tenderness (Epigastric/Periumbilical (Improved)). absent: Distended, Firm, Guarding, Rigid - Extremities Exam Extremities Exam: Normal Inspection. absent: Tenderness - Neurological Exam Neurological Exam: Alert, Awake, Oriented x3 - Psychiatric Exam Psychiatric exam: Normal Affect, Normal Mood - Skin Skin Exam: Normal Color, Warm Assessment and Plan - Assessment and Plan (Free Text) Assessment: 56yo F with hx of HIV, Hep C cirrhosis, HTN, DVT here with Abdominal pain, UGIB - CT scan noted - HgB stable s/p 1 unit of PRBC's - Afebrile/VSS - Abd US noted Plan: - f/u GI recs - f/u hepatitis panel and quantitative serology - NPO - IVF resuscitation - Antiemetics - Protonix ggt - serial abd exams - Stool Occult Blood - Recommend endsocopy when stable. - No surgical intervention at this time. Cont. Medical management. REEMA Christine, PGY1 surgery pager: [phone]
[2017-11-27 09:16] LABS: PLATELET COUNT MANUAL 65 K/mm3 (120-450)
--- NOTE | 2017-11-27 09:54 | US ---
PROCEDURE: Portal vein duplex ultrasound. CLINICAL HISTORY: Cirrhosis. Deteriorating liver function. Evaluate for portal vein thrombosis. PHYSICIAN(S): Alek Dangelo M.D. FINDINGS: The hepatic parenchyma is very heterogeneous. An infiltrative mass cannot be excluded on these limited images. The extrahepatic portal vein is patent with hepatopetal flow. Hepatic artery is enlarged. Limited images of the central hepatic veins are patent. No obvious ascites is noted on these limited images. IMPRESSION: 1. Patent portal vein with hepatopetal flow.
[2017-11-27] MEDS ORDERED: ABACAVIR SULFATE PO SCH (10:00)
[2017-11-27] MEDS ORDERED: LAMIVUDINE PO SCH (10:00)
[2017-11-27] MEDS ORDERED: [UNRECOGNIZED DRUG - OTHER] PO SCH (10:00)
[2017-11-27] MEDS: Dextrose 5%/0.45% NS 1,000 ML IV SCH ×3 (10:11→23:06)
[2017-11-27 13:00] LABS: HEPATITIS B SURFACE AG Negative (NEGATIVE)
[2017-11-27 13:05] LABS: HEPATITIS A IGM NEGATIVE (NEGATIVE); HEPATITIS B CORE AB NEGATIVE (NEGATIVE)
[2017-11-27 14:18] LABS: HEPATITIS C ANTIBODY REACTIVE (NEGATIVE)
--- NOTE | 2017-11-27 16:08 | PN ---
DATE: 11/27/2017 SUBJECTIVE: The patient is a 57-year-old, seen and examined. She states she is feeling well better. No more nausea or vomiting. No more episode of hematemesis. The patient states she was recently told by at [facility] that she has grade II esophageal varices secondary to cirrhosis liver, and she has plan to have ligation done. PHYSICAL EXAMINATION: GENERAL: Today, she is awake, alert, oriented, able to communicate. VITAL SIGNS: The patient is afebrile. Pulse 70, respirations 16, blood pressure 115/84. LUNGS: Bilateral fair airflow. No rhonchi or crackle. HEART: S1 and S2, audible. ABDOMEN: Soft, nontender. No rebound. No guarding. NEUROLOGIC: She is awake, alert, oriented, able to communicate. LABORATORY DATA: WBC 4.9, hemoglobin 11.7, hematocrit 37, platelets 51. Chemistry; sodium 138, potassium 3.3, chloride 109, CO2 20, BUN 8, creatinine 0.8, blood sugar of 139, total bilirubin 1.4. Alcohol is less than 10. CT scan of the abdomen and pelvis shows pancolitis with the mural thickening. ASSESSMENT: 1. Pancolitis. 2. Cirrhosis liver with esophageal varices. 3. Human immunodeficiency virus positive. 4. Cirrhosis liver with coagulopathy. 5. History of gastritis. 6. History of hepatitis C. 7. History of deep venous thrombosis, status post inferior vena cava filter placement. 8. Chronic kidney disease. PLAN: Currently, the patient is n.p.o. She is on IV Protonix. She is scheduled for endoscopy done today. We will continue her on her current medication. We will follow up her CBC, CMP in a.m. Will Barton MD
--- NOTE | 2017-11-27 20:38 | CP.PCM.PN ---
<Alysa Gracia - Last Filed: 11/27/17 20:38> Subjective - Date & Time of Evaluation Date of Evaluation: 11/27/17 Time of Evaluation: 13:24 - Subjective Subjective: Seen and examined at the bedside this afternoon, patient reports having vomited this morning and its reported to be clear no reports of coffee ground vomitus of bright red blood. The patient's does have some abdominal discomfort but slight improvement. No reports of shortness of breath chest pain blood per rectum or reports of diarrhea. Remains on octreotide drip.Patient abdominal Doppler noted, reports pain in portal vein and hepatopedal flow. Objective - Vital Signs/Intake and Output Vital Signs (last 24 hours): Temp Pulse Resp BP Pulse Ox 98.1 F 70 16 115/84 98 11/27/17 11:41 11/27/17 11:41 11/27/17 11:41 11/27/17 11:41 11/27/17 06:00 Intake and Output: 11/27/17 11/27/17 06:59 18:59 Intake Total 2122 Balance 2122 - Medications Medications: Current Medications Abacavir Sulfate (Ziagen) 600 mg PO DAILY [facility] Last Admin: 11/27/17 11:22 Dose: 600 mg Carvedilol (Coreg) 3.125 mg PO BID [facility] Last Admin: 11/27/17 10:00 Dose: 3.125 mg Hydromorphone HCl (Dilaudid) 1 mg IVP Q4H PRN PRN Reason: Pain, moderate (4-7) Last Admin: 11/27/17 10:01 Dose: 1 mg Dextrose/Sodium Chloride (Dextrose 5%/0.45% Ns 1000 Ml) 1,000 mls @ 100 mls/hr IV .Q10H [facility] Last Admin: 11/27/17 10:11 Dose: 100 mls/hr Metronidazole (Flagyl) 500 mg in 100 mls @ 100 mls/hr IVPB Q8 [facility] PRN Reason: Protocol Last Admin: 11/27/17 05:27 Dose: 100 mls/hr Cefepime HCl (Maxipime 1gm) 1 gm in 100 mls @ 100 mls/hr IVPB Q8 [facility] PRN Reason: Protocol Last Admin: 11/27/17 05:27 Dose: 100 mls/hr Octreotide Acetate 1,250 mcg/ (Sodium Chloride) 252.5 mls @ 10.1 mls/hr IV .Q24H [facility]; 50 MCG/HR PRN Reason: Protocol Last Admin: 11/27/17 02:34 Dose: 50 mcg/hr, 10.1 mls/hr Lamivudine (Epivir) 300 mg PO DAILY [facility] Last Admin: 11/27/17 11:22 Dose: 300 mg Ondansetron HCl (Zofran Inj) 4 mg IVP Q6H PRN PRN Reason: Nausea/Vomiting Last Admin: 11/27/17 05:43 Dose: 4 mg - Labs Labs: 11/27/17 05:15 11/27/17 05:15 PT 17.5 SECONDS (9.4-12.5) H 11/26/17 12:50 INR 1.51 (0.93-1.08) H 11/26/17 12:50 APTT 29.3 Seconds (25.1-36.5) 11/26/17 12:50 - Constitutional Appears: No Acute Distress - Head Exam Head Exam: NORMOCEPHALIC - Eye Exam Eye Exam: Normal appearance. absent: Scleral icterus - ENT Exam ENT Exam: Mucous Membranes Moist - Neck Exam Neck Exam: Normal Inspection - Respiratory Exam Respiratory Exam: Decreased Breath Sounds, NORMAL BREATHING PATTERN. absent: Respiratory Distress - Cardiovascular Exam Cardiovascular Exam: +S1, +S2 - GI/Abdominal Exam GI & Abdominal Exam: Soft, Tenderness (mid abdomen and left upper quadrant), Normal Bowel Sounds. absent: Guarding, Rebound - Extremities Exam Extremities Exam: absent: Calf Tenderness, Pedal Edema - Neurological Exam Neurological Exam: Alert, Awake, Oriented x3 - Skin Skin Exam: Dry, Warm Assessment and Plan - Assessment and Plan (Free Text) Assessment: Assessment: LIver Cirrhoisis Esophageal Varices Chronic Hepatiits C HIV (+) Pancytopenia Diffuse Colonic Thickening Anemia, s/p blood transfusion GIB: hematemesis H/O DVT s/p IVC filter PLAN: NPO except ice chips continue PPI on Octreotide drip monitor H/H, overt GI bleed FU Hepatitis C RNA pending transufsion of FFP tentatively plan for EGD 11/28/17, for FFP,FU platelets and INR, detailed discussion with patient regarding plan,consider IR eval for TIPS. Seen and discussed w/ Dr. Sharma. <Edith,Kovil V - Last Filed: 11/27/17 23:50> Objective - Vital Signs/Intake and Output Vital Signs (last 24 hours): Temp Pulse Resp BP Pulse Ox 98.3 F 68 20 124/81 94 L 11/27/17 23:48 11/27/17 23:48 11/27/17 23:48 11/27/17 23:48 11/27/17 23:48 Intake and Output: 11/27/17 11/28/17 18:59 06:59 Intake Total 0 Output Total 300 Balance -300 - Medications Medications: Current Medications Abacavir Sulfate (Ziagen) 600 mg PO DAILY [facility] Last Admin: 11/27/17 11:22 Dose: 600 mg Carvedilol (Coreg) 3.125 mg PO BID [facility] Last Admin: 11/27/17 18:10 Dose: 3.125 mg Hydromorphone HCl (Dilaudid) 1 mg IVP Q4H PRN PRN Reason: Pain, moderate (4-7) Last Admin: 11/27/17 22:11 Dose: 1 mg Dextrose/Sodium Chloride (Dextrose 5%/0.45% Ns 1000 Ml) 1,000 mls @ 100 mls/hr IV .Q10H [facility] Last Admin: 11/27/17 23:06 Dose: Not Given Metronidazole (Flagyl) 500 mg in 100 mls @ 100 mls/hr IVPB Q8 [facility] PRN Reason: Protocol Last Admin: 11/27/17 22:12 Dose: 100 mls/hr Cefepime HCl (Maxipime 1gm) 1 gm in 100 mls @ 100 mls/hr IVPB Q8 [facility] PRN Reason: Protocol Last Admin: 11/27/17 21:16 Dose: 100 mls/hr Octreotide Acetate 1,250 mcg/ (Sodium Chloride) 252.5 mls @ 10.1 mls/hr IV .Q24H [facility]; 50 MCG/HR PRN Reason: Protocol Last Admin: 11/27/17 02:34 Dose: 50 mcg/hr, 10.1 mls/hr Lamivudine (Epivir) 300 mg PO DAILY [facility] Last Admin: 11/27/17 11:22 Dose: 300 mg Ondansetron HCl (Zofran Inj) 4 mg IVP Q6H PRN PRN Reason: Nausea/Vomiting Last Admin: 11/27/17 21:16 Dose: 4 mg - Labs Labs: 11/27/17 05:15 11/27/17 05:15 PT 17.5 SECONDS (9.4-12.5) H 11/26/17 12:50 INR 1.51 (0.93-1.08) H 11/26/17 12:50 APTT 29.3 Seconds (25.1-36.5) 11/26/17 12:50 Attending/Attestation - Attestation I have personally seen and examined this patient.: Yes I have fully participated in the care of the patient.: Yes I have reviewed all pertinent clinical information, including history, physical exam and plan: Yes Notes (Text): This is an addendum to GI progress report dictated by Alysa Gracia APN.The patient was seen and examined earlier. Medical records, lab studies, imagings were reviewed. Last 24 hours events reviewed. Agreed with the above treatment plan as outlined in Alysa Gracia APN's notes the with the addition of the following 11/27/17 23:50
--- NOTE | 2017-11-27 20:40 | CON ---
DATE: 11/27/2017 LOCATION: The patient was seen earlier this morning in [facility], bed 1. CHIEF COMPLAINT: Weakness times several days. HISTORY OF PRESENT ILLNESS: This is a 57-year-old female, known to me from previous admissions with past medical history significant for hepatitis C, positive HIV and AIDS, hypertension, anemia. The patient was on Abacavir, Isentress, Harvoni in the past. She is followed by Dr. Valentine in [place]. She has a history of bilateral hip and splenectomy, history of right breast biopsy, IVC filter and a hysterectomy. She is allergic to doxycycline, Sulfa, tramadol, and trimethoprim. Admitted to the emergency room, was seen by Dr. Blayne Tejeda in the emergency room with a diagnosis of GI bleed and colitis and the patient complained of epigastric abdominal discomfort, nausea, and had complained of hematemesis and epigastric abdominal pain. Denied any headaches or blurred vision. She denies any dysuria or frequency. The patient has had no fevers, no chills and no chest pain at this point. PAST MEDICAL HISTORY: Significant for positive HIV and AIDS, hepatitis C, hypertension, anemia. PAST SURGICAL HISTORY: Significant for bilateral hip surgeries, splenectomy, right breast biopsy, IVC filter and hysterectomy. ALLERGIES: THE PATIENT IS ALLERGIC TO TRAMADOL, TRIMETHOPRIM/SULFAMETHOXAZOLE, DOXYCYCLINE. SHE DEVELOPS A RASH TO THE ALLERGENS LISTED. HOME MEDICATIONS: Include the patient to be on Raltegravir which is Isentress. The patient is on Harvoni which is ledipasvir and sofosbuvir. The patient also on Abacavir/lamivudine for her HIV. PHYSICAL EXAMINATION: VITAL SIGNS: The patient's temperature is 98, blood pressure is 140/90, heart rate of 56, it was 102 yesterday, respiratory rate of 20. HEENT: Unremarkable. NECK: Supple. LUNGS: Have decreased breath sounds. HEART: Normal S1 and S2. ABDOMEN: Soft, mild tenderness. No rebound or guarding. No masses. LABORATORY DATA: Reveals a white count of 3.7, hemoglobin of 11, platelets of 80 and 61% granulocytosis. Coagulation is noted. Chemistries reveal a BUN of 8, creatinine of 0.8. Lipase is elevated, alkaline phosphatase is 131, lipase is 314, upper limit is 300. Urinalysis is noted. Toxicology is alcohol less than 100. 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 Dr. Christine's progress note is reviewed. ASSESSMENT AND PLAN: A 57-year-old female who has human immunodeficiency virus and acquired immune deficiency syndrome. Last HIV PCR was undetectable in 04/2017, less than 20 and a CD4 percentage of 30% CD4 count of 129 also in 04/2017, admitted now with hematemesis, abdominal pain, hepatitis C, human immunodeficiency virus and acquired immune deficiency syndrome, hypertension, anemia; systemic inflammatory response syndrome rule out spontaneous bacterial peritonitis although no ascites is described on a CAT scan, the patient did have abdominal ultrasound read by Dr. Alek Dangelo. The patient does have a thrombosis of the right portal vein and patent portal vein was seen with hepatopetal flow on the ultrasound. No ascites was noted on the abdominal ultrasound in a patient with acute gastrointestinal bleeding. We will treat the patient with Meropenem. We will treat with cefepime 1 gm q.8 and we will make further recommendations upon the availability of vernon culture results. Panfilo Marcelo MD
[2017-11-28] MEDS: Dextrose 5%/0.45% NS 1,000 ML IV SCH ×5 (00:46→20:45)
[2017-11-28] MEDS: HYDROmorphone 0.5 mg/0.5 ml ISec IVP PRN ×2 (02:15→05:45)
[2017-11-28] MEDS: Cefepime 1gm in NS 100ml 1 GM/100 ML BAG IVPB SCH ×3 (05:00→22:22)
[2017-11-28] MEDS: metroNIDAZOLE IV 500 mg/100 ml 500 MG/100 ML BAG IVPB SCH ×3 (06:15→22:23)
[2017-11-28 06:49] LABS: BASO # 0.01 K/mm3 (0.0-2.0); BASO % 0.6 % (0.0-3.0); EOS % 1.7 % (1.5-5.0); GRAN # 1.09 (1.4-6.5); GRAN % 61.2 % (50.0-68.0); HEMOGLOBIN 8.7 g/dL (12.0-16.0); LYMPH # 0.5 (1.2-3.4); LYMPH % 29.2 % (22.0-35.0); MEAN CELL VOLUME 85.6 fl (80.0-105.0); MEAN CORPUSCULAR HEMOGLOBIN 26.1 pg (25.0-35.0); MEAN CORPUSCULAR HGB CONC 30.5 g/dl (31.0-37.0); MONO # 0.1 (0.1-0.6); MONO % 7.3 % (1.0-6.0); RBC 3.33 10^6/uL (3.5-6.1); RED CELL DISTRIBUTION WIDTH 19.9 % (11.5-14.5)
[2017-11-28 07:01] LABS: INR 1.76 (0.93-1.08); PARTIAL THROMBOPLASTIN TIME 29.6 Seconds (25.1-36.5); PROTHROMBIN TIME 20.5 SECONDS (9.4-12.5)
[2017-11-28 07:17] LABS: ALB/GLOB RATIO 0.8 (1.1-1.8); ALBUMIN 3.5 g/dL (3.0-4.8); ALT/SGPT 29 U/L (7-56); AST/SGOT 38 U/L (14-36); BLOOD UREA NITROGEN 9 mg/dL (7-21); CALCIUM 9.3 mg/dL (8.4-10.5); GFR AFRICAN-AMERICAN > 60; GFR NON-AFRICAN AMERICAN > 60
[2017-11-28 07:52] LABS: WHITE BLOOD COUNT 1.8 10^3/ul (4.5-11.0)
[2017-11-28 07:53] LABS: PLATELET COUNT 33 10^3/uL (120.0-450.0)
[2017-11-28 09:23] LABS: PLATELET COUNT MANUAL 55 K/mm3 (120-450)
[2017-11-28] MEDS ORDERED: HYDROmorphone 2 mg/ml ISec IVP PRN (10:15)
--- NOTE | 2017-11-28 11:19 | CP.PCM.PN ---
<AndrewMarissa - Last Filed: 11/28/17 17:10> Subjective - Date & Time of Evaluation Date of Evaluation: 11/28/17 Time of Evaluation: 10:45 - Subjective Subjective: General Surgery Progress Note for Dr. Alejandro Patient seen and examined. Patient is NPO and suffered no adverse events after being given FFP. Patient denies any nausea, vomiting, diarrhea, but admits to abdominal pain- generalized. Nursing notes reviewed. Case discussed with Alysa Gracia GI. Objective - Vital Signs/Intake and Output Vital Signs (last 24 hours): Temp Pulse Resp BP Pulse Ox 98.9 F 85 20 144/93 H 95 11/28/17 06:00 11/28/17 06:00 11/28/17 06:00 11/28/17 06:00 11/28/17 10:55 Intake and Output: 11/28/17 11/28/17 06:59 18:59 Intake Total 1370 0 Output Total 0 Balance 1370 0 - Medications Medications: Current Medications Abacavir Sulfate (Ziagen) 600 mg PO DAILY [facility] Last Admin: 11/28/17 10:31 Dose: Not Given Carvedilol (Coreg) 3.125 mg PO BID [facility] Last Admin: 11/28/17 10:30 Dose: Not Given Hydromorphone HCl (Dilaudid) 1 mg IVP Q4H PRN PRN Reason: Pain, moderate (4-7) Last Admin: 11/28/17 10:34 Dose: 1 mg Dextrose/Sodium Chloride (Dextrose 5%/0.45% Ns 1000 Ml) 1,000 mls @ 100 mls/hr IV .Q10H [facility] Last Admin: 11/28/17 10:34 Dose: Not Given Metronidazole (Flagyl) 500 mg in 100 mls @ 100 mls/hr IVPB Q8 [facility] PRN Reason: Protocol Last Admin: 11/28/17 06:15 Dose: 100 mls/hr Cefepime HCl (Maxipime 1gm) 1 gm in 100 mls @ 100 mls/hr IVPB Q8 [facility] PRN Reason: Protocol Last Admin: 11/28/17 05:00 Dose: 100 mls/hr Octreotide Acetate 1,250 mcg/ (Sodium Chloride) 252.5 mls @ 10.1 mls/hr IV .Q24H [facility]; 50 MCG/HR PRN Reason: Protocol Last Admin: 11/28/17 04:59 Dose: 50 mcg/hr, 10.1 mls/hr Lamivudine (Epivir) 300 mg PO DAILY [facility] Last Admin: 11/28/17 10:31 Dose: Not Given Ondansetron HCl (Zofran Inj) 4 mg IVP Q6H PRN PRN Reason: Nausea/Vomiting Last Admin: 11/27/17 21:16 Dose: 4 mg - Labs Labs: 11/28/17 06:00 11/28/17 06:00 PT 20.5 SECONDS (9.4-12.5) H 11/28/17 06:00 INR 1.76 (0.93-1.08) H 11/28/17 06:00 APTT 29.6 Seconds (25.1-36.5) 11/28/17 06:00 - Constitutional Appears: No Acute Distress - Head Exam Head Exam: ATRAUMATIC, NORMOCEPHALIC - Eye Exam Eye Exam: EOMI, Normal appearance. absent: Scleral icterus - ENT Exam ENT Exam: Mucous Membranes Dry, Mucous Membranes Moist, Normal Oropharynx - Neck Exam Additional comments: right external jugular catheter noted. - Respiratory Exam Respiratory Exam: NORMAL BREATHING PATTERN. absent: Accessory Muscle Use - GI/Abdominal Exam GI & Abdominal Exam: Soft, Normal Bowel Sounds. absent: Guarding, Rebound - Extremities Exam Extremities Exam: Normal Inspection - Neurological Exam Neurological Exam: Alert, Awake, Oriented x3 - Psychiatric Exam Psychiatric exam: Normal Affect, Normal Mood - Skin Skin Exam: Dry, Intact, Normal Color, Warm Assessment and Plan - Assessment and Plan (Free Text) Assessment: 56 year old female with a past medical history of HIV, Hepatitis C, liver cirrhosis, esophageal varices who presents with hematemesis. Plan: Serial abdominal exams. Upper endoscopy tentatively planned for tomorrow. No foreseen surgical intervention seen at this time. We will continue to follow with you. Further recommendations per Dr. Alejandro, attending. As always, thank you for allowing us to participate in the care of this patient. Marissa Morales, PGY1 Plan: No surgical intervention planned at this time. <Juwan Alejandro - Last Filed: 11/28/17 19:28> Objective - Vital Signs/Intake and Output Vital Signs (last 24 hours): Temp Pulse Resp BP Pulse Ox 98.3 F 74 18 143/92 H 95 11/28/17 12:00 11/28/17 18:00 11/28/17 12:00 11/28/17 12:00 11/28/17 10:55 Intake and Output: 11/28/17 11/29/17 18:59 06:59 Intake Total 0 Balance 0 - Medications Medications: Current Medications Abacavir Sulfate (Ziagen) 600 mg PO DAILY [facility] Last Admin: 11/28/17 10:31 Dose: Not Given Carvedilol (Coreg) 3.125 mg PO BID [facility] Last Admin: 11/28/17 17:52 Dose: Not Given Hydromorphone HCl (Dilaudid) 1.5 mg IVP Q4H PRN PRN Reason: pain Last Admin: 11/28/17 17:08 Dose: 1.5 mg Dextrose/Sodium Chloride (Dextrose 5%/0.45% Ns 1000 Ml) 1,000 mls @ 100 mls/hr IV .Q10H [facility] Last Admin: 11/28/17 17:51 Dose: 100 mls/hr Metronidazole (Flagyl) 500 mg in 100 mls @ 100 mls/hr IVPB Q8 [facility] PRN Reason: Protocol Last Admin: 11/28/17 17:51 Dose: 100 mls/hr Cefepime HCl (Maxipime 1gm) 1 gm in 100 mls @ 100 mls/hr IVPB Q8 [facility] PRN Reason: Protocol Last Admin: 11/28/17 16:15 Dose: 100 mls/hr Octreotide Acetate 1,250 mcg/ (Sodium Chloride) 252.5 mls @ 10.1 mls/hr IV .Q24H [facility]; 50 MCG/HR PRN Reason: Protocol Last Admin: 11/28/17 04:59 Dose: 50 mcg/hr, 10.1 mls/hr Lamivudine (Epivir) 300 mg PO DAILY [facility] Last Admin: 11/28/17 10:31 Dose: Not Given Ondansetron HCl (Zofran Inj) 4 mg IVP Q6H PRN PRN Reason: Nausea/Vomiting Last Admin: 11/27/17 21:16 Dose: 4 mg - Labs Labs: 11/28/17 06:00 11/28/17 06:00 PT 20.5 SECONDS (9.4-12.5) H 11/28/17 06:00 INR 1.76 (0.93-1.08) H 11/28/17 06:00 APTT 29.6 Seconds (25.1-36.5) 11/28/17 06:00 Assessment and Plan - Assessment and Plan (Free Text) Assessment: patient is being evaluated for TIPS Procedure at [facility]) and states her Jul 2017 Colonoscopy was normal(CT Now has thickened colon) The ornamental ironworker helper has found that the patient was evicted from her home and is living in her car-THIS is a significant factor in [place] [facility] should be considered when offering Treatment This evaluation done under my direct supervision Jason Alejandro MD FACS
--- NOTE | 2017-11-28 12:46 | CP.PCM.PN ---
<Alysa Gracia - Last Filed: 11/28/17 12:46> Subjective - Date & Time of Evaluation Date of Evaluation: 11/28/17 Time of Evaluation: 09:50 - Subjective Subjective: Seen and examined at the bedside earlier today, patient reports having nausea but no episodes of vomiting, on anti-emetics when necessary. She still has abdominal pain. Status post 1 unit of FFP yesterday no reports of any BM or overt GI bleed. Objective - Vital Signs/Intake and Output Vital Signs (last 24 hours): Temp Pulse Resp BP Pulse Ox 98.3 F 61 18 143/92 H 95 11/28/17 12:00 11/28/17 12:00 11/28/17 12:00 11/28/17 12:00 11/28/17 10:55 Intake and Output: 11/28/17 11/28/17 06:59 18:59 Intake Total 1370 0 Output Total 0 Balance 1370 0 - Medications Medications: Current Medications Abacavir Sulfate (Ziagen) 600 mg PO DAILY [facility] Last Admin: 11/28/17 10:31 Dose: Not Given Carvedilol (Coreg) 3.125 mg PO BID [facility] Last Admin: 11/28/17 10:30 Dose: Not Given Hydromorphone HCl (Dilaudid) 1 mg IVP Q4H PRN PRN Reason: Pain, moderate (4-7) Last Admin: 11/28/17 10:34 Dose: 1 mg Dextrose/Sodium Chloride (Dextrose 5%/0.45% Ns 1000 Ml) 1,000 mls @ 100 mls/hr IV .Q10H [facility] Last Admin: 11/28/17 10:34 Dose: Not Given Metronidazole (Flagyl) 500 mg in 100 mls @ 100 mls/hr IVPB Q8 [facility] PRN Reason: Protocol Last Admin: 11/28/17 06:15 Dose: 100 mls/hr Cefepime HCl (Maxipime 1gm) 1 gm in 100 mls @ 100 mls/hr IVPB Q8 [facility] PRN Reason: Protocol Last Admin: 11/28/17 05:00 Dose: 100 mls/hr Octreotide Acetate 1,250 mcg/ (Sodium Chloride) 252.5 mls @ 10.1 mls/hr IV .Q24H [facility]; 50 MCG/HR PRN Reason: Protocol Last Admin: 11/28/17 04:59 Dose: 50 mcg/hr, 10.1 mls/hr Lamivudine (Epivir) 300 mg PO DAILY [facility] Last Admin: 11/28/17 10:31 Dose: Not Given Ondansetron HCl (Zofran Inj) 4 mg IVP Q6H PRN PRN Reason: Nausea/Vomiting Last Admin: 11/27/17 21:16 Dose: 4 mg - Labs Labs: 11/28/17 06:00 11/28/17 06:00 PT 20.5 SECONDS (9.4-12.5) H 11/28/17 06:00 INR 1.76 (0.93-1.08) H 11/28/17 06:00 APTT 29.6 Seconds (25.1-36.5) 11/28/17 06:00 - Constitutional Appears: No Acute Distress - Eye Exam Eye Exam: Normal appearance. absent: Scleral icterus - ENT Exam ENT Exam: Mucous Membranes Moist - Respiratory Exam Respiratory Exam: NORMAL BREATHING PATTERN. absent: Respiratory Distress - Cardiovascular Exam Cardiovascular Exam: +S1, +S2 - GI/Abdominal Exam GI & Abdominal Exam: Distended, Soft, Tenderness, Normal Bowel Sounds. absent: Guarding, Rebound - Extremities Exam Extremities Exam: absent: Calf Tenderness, Pedal Edema - Neurological Exam Neurological Exam: Alert, Awake, Oriented x3 Assessment and Plan - Assessment and Plan (Free Text) Assessment: Assessment: LIver Cirrhoisis Esophageal Varices Chronic Hepatiits C HIV (+) Pancytopenia Diffuse Colonic Thickening Anemia, s/p blood transfusion GIB: hematemesis H/O DVT s/p IVC filter PLAN: NPO except ice chips continue PPI on Octreotide drip monitor H/H, overt GI bleed FU Hepatitis C RNA discuss w/ surgical team tentatively planned for EGD today but INR and platelets are not optimal, patient is pending a unit of FFP, will currently hold off today, patient no active GI bleeding. Consider eval with Dr. Alek Dangelo. Seen and discussed w/ Dr. Sharma. <Avery Sharma V - Last Filed: 11/28/17 23:36> Objective - Vital Signs/Intake and Output Vital Signs (last 24 hours): Temp Pulse Resp BP Pulse Ox 98.6 F 80 18 129/90 95 11/28/17 18:00 11/28/17 18:00 11/28/17 18:00 11/28/17 18:00 11/28/17 10:55 Intake and Output: 11/28/17 11/29/17 18:59 06:59 Intake Total 0 Balance 0 - Medications Medications: Current Medications Abacavir Sulfate (Ziagen) 600 mg PO DAILY [facility] Last Admin: 11/28/17 10:31 Dose: Not Given Atovaquone (Mepron) 750 mg PO BID [facility] Last Admin: 11/28/17 22:23 Dose: 750 mg Carvedilol (Coreg) 3.125 mg PO BID [facility] Last Admin: 11/28/17 17:52 Dose: Not Given Hydromorphone HCl (Dilaudid) 1.5 mg IVP Q4H PRN PRN Reason: pain Last Admin: 11/28/17 22:25 Dose: 1.5 mg Dextrose/Sodium Chloride (Dextrose 5%/0.45% Ns 1000 Ml) 1,000 mls @ 100 mls/hr IV .Q10H [facility] Last Admin: 11/28/17 17:51 Dose: 100 mls/hr Metronidazole (Flagyl) 500 mg in 100 mls @ 100 mls/hr IVPB Q8 [facility] PRN Reason: Protocol Last Admin: 11/28/17 22:23 Dose: 100 mls/hr Cefepime HCl (Maxipime 1gm) 1 gm in 100 mls @ 100 mls/hr IVPB Q8 [facility] PRN Reason: Protocol Last Admin: 11/28/17 22:22 Dose: 100 mls/hr Octreotide Acetate 1,250 mcg/ (Sodium Chloride) 252.5 mls @ 10.1 mls/hr IV .Q24H [facility]; 50 MCG/HR PRN Reason: Protocol Last Admin: 11/28/17 04:59 Dose: 50 mcg/hr, 10.1 mls/hr Lamivudine (Epivir) 300 mg PO DAILY [facility] Last Admin: 11/28/17 10:31 Dose: Not Given Ondansetron HCl (Zofran Inj) 4 mg IVP Q6H PRN PRN Reason: Nausea/Vomiting Last Admin: 11/27/17 21:16 Dose: 4 mg Phytonadione (Vitamin K Inj) 10 mg SC DAILY [facility] Stop: 11/30/17 21:00 - Labs Labs: 11/28/17 06:00 11/28/17 06:00 PT 20.5 SECONDS (9.4-12.5) H 11/28/17 06:00 INR 1.76 (0.93-1.08) H 11/28/17 06:00 APTT 29.6 Seconds (25.1-36.5) 11/28/17 06:00 Attending/Attestation - Attestation I have personally seen and examined this patient.: Yes I have fully participated in the care of the patient.: Yes I have reviewed all pertinent clinical information, including history, physical exam and plan: Yes Notes (Text): This is an addendum to GI progress report dictated by Alysa Gracia APN.The patient was seen and examined earlier. Medical records, lab studies, imagings were reviewed. Last 24 hours events reviewed. Agreed with the above treatment plan as outlined in Alysa Gracia APN's notes the with the addition of the following 11/28/17 23:36
[2017-11-28] MEDS: HYDROmorphone 2 mg/ml ISec IVP PRN ×3 (12:47→22:25)
--- NOTE | 2017-11-28 17:22 | US ---
PROCEDURE: Limited abdominal ultrasound HISTORY: Hepatitis-C cirrhosis. Abdominal pain. Evaluate for paracentesis P PHYSICIAN(S): Alek Dangelo MD. TECHNIQUE: Sonography of the abdomen was performed in all 4 quadrants. No significant ascites was appreciated. There is not enough fluid for diagnostic or therapeutic paracentesis. IMPRESSION: No significant ascites.
--- NOTE | 2017-11-28 21:03 | PN ---
DATE: SUBJECTIVE: The patient is 57-year-old seen and examined. Complains of abdominal discomfort, epigastric discomfort. Complains of nausea. PHYSICAL EXAMINATION: VITAL SIGNS: She is afebrile, pulse 61, respirations 18, and blood pressure 143/92. LUNGS: Bilateral fair airflow. No rhonchi or crackle. HEART: S1 and S2, audible. ABDOMEN: Soft and nontender. No rebound. No guarding. NEUROLOGIC: The patient is awake and alert, able to communicate. EXTREMITIES: Bilateral leg no edema. No ulcers. LABORATORY DATA: WBC 1.8, hemoglobin 8.7, hematocrit 28.5, and platelets of 33. PT is 20.5 and INR 1.75. Chemistry; sodium 137, potassium 3.7, chloride 107, CO2 of 25, BUN 9, creatinine 0.9, and blood sugar of 115. ASSESSMENT: 1. Status post hematemesis. 2. History of esophageal varices. 3. Cirrhosis of the liver. 4. Coagulopathy. 5. Pancytopenia. 6. History of human immunodeficiency virus. 7. Pancolitis. PLAN: The patient is being given FFP. She is given platelets. I will request Dr. Denise to evaluate the patient. Also, Dr. Alek Dangelo has been consulted for possible TIPS. Once the patient is hemodynamically stable, platelet and PT/INR is better, the plan is to do endoscopy and possible TIPS. We will discuss with other consultants also. Will Barton MD
[2017-11-28] MEDS: Atovaquone 750 mg/5 ml Susp UD PO SCH (22:23)
--- NOTE | 2017-11-28 22:43 | PN ---
DATE: 11/28/2017 SUBJECTIVE: The patient is in bed, in no acute distress. PHYSICAL EXAMINATION: VITAL SIGNS: Temperature is 98, blood pressure is 140/90, and respiratory rate of 18. HEENT: Unremarkable. NECK: Supple. LUNGS: Have decreased breath sounds. HEART: Normal S1 and S2. ABDOMEN: Soft. LABORATORY DATA: Reveals a white count of 1.8, hemoglobin of 8, platelets of 33. Coagulation is noted. Chemistries reveal a BUN of 9, creatinine of 0.9. Lipase is 314. Hepatitis C is reactive. Microbiology reveals urine for gram-positive cocci blood culture. ASSESSMENT AND PLAN: This is a 57-year-old female with positive human immunodeficiency virus and acquired immune deficiency syndrome with CD4 count of 30% at 129, admitted with hematemesis, abdominal pain, hepatitis C, human immunodeficiency virus and acquired immunodeficiency syndrome, hypertension, anemia with, 1. SIRS, systemic inflammatory response syndrome and thrombus of the right portal vein and CT with acute gastrointestinal bleeding and blood loss, currently negative blood cultures and gram-positive cocci in the urine, on cefepime and Flagyl, day #3. We will follow with you. Alysa Gracia's note is reviewed. Panfilo Marcelo MD
[2017-11-29] MEDS: Phytonadione 10 mg/ml Inj (Adult) SC SCH ×2 (00:05→09:53)
[2017-11-29] MEDS: Cefepime 1gm in NS 100ml 1 GM/100 ML BAG IVPB SCH ×3 (05:18→21:47)
[2017-11-29] MEDS: metroNIDAZOLE IV 500 mg/100 ml 500 MG/100 ML BAG IVPB SCH ×3 (05:19→21:47)
[2017-11-29] MEDS: HYDROmorphone 2 mg/ml ISec IVP PRN ×3 (05:23→14:10)
[2017-11-29] MEDS: Dextrose 5%/0.45% NS 1,000 ML IV SCH ×3 (05:23→13:17)
[2017-11-29 06:42] LABS: BASO # 0.01 K/mm3 (0.0-2.0); BASO % 0.6 % (0.0-3.0); EOS # 0.1 (0.0-0.7); EOS % 3.6 % (1.5-5.0); GRAN # 0.93 (1.4-6.5); GRAN % 55.7 % (50.0-68.0); HEMOGLOBIN 8.7 g/dL (12.0-16.0); LYMPH # 0.5 (1.2-3.4); LYMPH % 27.5 % (22.0-35.0); MEAN CORPUSCULAR HGB CONC 30.2 g/dl (31.0-37.0); MONO # 0.2 (0.1-0.6); MONO % 12.6 % (1.0-6.0); RBC 3.35 10^6/uL (3.5-6.1); RED CELL DISTRIBUTION WIDTH 20.2 % (11.5-14.5)
[2017-11-29 07:19] LABS: INR 1.83 (0.93-1.08); PARTIAL THROMBOPLASTIN TIME 26.2 Seconds (25.1-36.5); PROTHROMBIN TIME 21.3 SECONDS (9.4-12.5)
[2017-11-29 07:33] LABS: ALB/GLOB RATIO 0.8 (1.1-1.8); ALBUMIN 3.5 g/dL (3.0-4.8); ALT/SGPT 31 U/L (7-56); AST/SGOT 33 U/L (14-36); BLOOD UREA NITROGEN 8 mg/dL (7-21); CALCIUM 9.7 mg/dL (8.4-10.5); GFR AFRICAN-AMERICAN > 60; GFR NON-AFRICAN AMERICAN > 60
[2017-11-29 07:51] LABS: WHITE BLOOD COUNT 1.7 10^3/ul (4.5-11.0)
[2017-11-29 07:52] LABS: PLATELET COUNT 38 10^3/uL (120.0-450.0)
[2017-11-29] MEDS: Atovaquone 750 mg/5 ml Susp UD PO SCH ×2 (11:16→17:43)
--- NOTE | 2017-11-29 11:33 | CON ---
DATE: 11/29/2017 REQUESTING PHYSICIAN: Will Barton MD. REASON FOR CONSULTATION: Pancytopenia, coagulopathy. HISTORY OF PRESENT ILLNESS: Ms. Perea is a 57-year-old female admitted through the hospital with abdominal discomfort, nausea, vomiting, and hematemesis. She has history of liver failure, portal hypertension, hepatosplenomegaly, esophageal varices, history of hepatic encephalopathy, and previous multiple GI bleeds in the past. Currently, no melena, no hematemesis. She is coagulopathic, INR is 1.8. She received a few units of FFP in past few days. She is pancytopenic now. No fever. No cough with expectoration. PAST MEDICAL HISTORY: HIV, hepatitis, hepatic encephalopathy, multiple GI bleeds in the past, history of DVT with inferior vena cava filter, and chronic kidney disease. PAST SURGICAL HISTORY: Bilateral hip replacement and breast biopsies. FAMILY HISTORY: Noncontributory. PERSONAL HISTORY: No history of smoking. No alcohol abuse. SOCIAL HISTORY: Lives at home with the family. ALLERGIES: DOXYCYCLINE, BACTRIM, TRAMADOL. HOME MEDICATIONS: Lisinopril, Isentress, Cipro, Harvoni, omeprazole, gabapentin, Coreg, and HIV meds. REVIEW OF SYSTEMS: No abdominal pain. No nausea. No vomiting. She is n.p.o., requesting full oral diet. Rest of 12-point review of systems reviewed and negative. PHYSICAL EXAMINATION: GENERAL: Comfortable i bed, in no acute distress. VITAL SIGNS: Temperature 98.7, heart rate 60 per minute, respiratory rate 18 per minute, blood pressure 170/60. HEENT: Pallor positive. NECK: No lymphadenopathy. CHEST: Air entry present equal and bilateral. No added sounds. CARDIOVASCULAR: S1 and S2 normal. No murmur. No gallop. ABDOMEN: Soft, nontender. No rebound tenderness. No epigastric tenderness. NEUROLOGY: Awake, alert, oriented, and communicative. No focal sensory or motor deficit. LABORATORY DATA: White count 1.7, hemoglobin 8.7, platelet count 38,000, and ANC 930. INR 1.8, PT 21.3, and PTT 26. Sodium 139, potassium 3.2, and creatinine 0.9. Bilirubin 1.1. ASSESSMENT: 1. Pancytopenia. 2. Coagulopathy. 3. Cirrhosis of liver. 4. Human immunodeficiency virus positive. 5. Colitis. 6. Gastrointestinal bleed. PLAN: Vitamin K subcu 10 mg daily for 3 doses due to cirrhosis of liver and coagulopathy, INR is 1.8. Discussed with Dr. Sharma. She is high risk for bleeding, has bled in the past. One unit of FFP to be given today. We will monitor the coags. Pancytopenia, likely related to splenomegaly and cirrhosis of liver. She is also on HIV medications, which can cause bone marrow suppression. Spleen size is 18 cm on imaging studies. ANC is still good at 930. I will discontinue neutropenic precautions. No signs of infection. We will hold blood transfusion until hemoglobin is less than 8. Platelet count is 38, no overt bleeding. Platelet transfusion if actively bleeding. Renal functions are within normal limits. Hepatitis positive. She is on Harvoni. Discussed with staff nurse. Discussed with Dr. Sharma. Thank you Dr. Barton for allowing us to participate in Ms. Perea's care. Torrie Denise MD TALIA
--- NOTE | 2017-11-29 13:24 | PN ---
DATE: SUBJECTIVE: The patient is 57 years old, seen and examined. Still has abdominal discomfort. No active bleeding. No black stools. No nausea or vomiting. PHYSICAL EXAMINATION: VITAL SIGNS: The patient is afebrile, pulse 50, respirations 18, blood pressure 147/99. LUNGS: Bilateral fair airflow. No rhonchi or crackle. HEART: S1 and S2 audible. ABDOMEN: Soft. Slight epigastric discomfort. Right upper quadrant discomfort. NEUROLOGIC: The patient is awake and alert, able to communicate. LABORATORY DATA: WBC is 1.7, hemoglobin 8.7, hematocrit 28, platelet of 38. PT 21.32 and INR 1.83. ASSESSMENT: 1. Pancytopenia, multifactorial, could be drug induced. 2. Human immunodeficiency virus positive. 3. Coagulopathy. 4. History of cirrhosis or liver. 5. Hepatitis C, which was treated with Harvoni in the recent past. 6. Pancolitis. 7. Symptomatic anemia. PLAN: Discussed with Dr. Sharma. Her coag has to be corrected. The patient has been started on clear liquid. I will cut down her IV fluid to 60 mL/hour and she is on Protonix. Analgesic as needed. She is on Flagyl and cefepime. Plan is to do endoscopy and TIPS if needed after endoscopy on Sunday. Will Barton MD
--- NOTE | 2017-11-29 15:43 | CP.PCM.PN ---
<Marissa Morales - Last Filed: 11/29/17 16:02> Subjective - Date & Time of Evaluation Date of Evaluation: 11/29/17 Time of Evaluation: 08:00 - Subjective Subjective: General Surgery Progress Note for Dr. Alejandro Patient seen and examined at bedside. Patient denies any abdominal pain, nausea , vomiting, hematemesis. Neutropenic precautions observed. Nurse reports no events overnight. Objective - Vital Signs/Intake and Output Vital Signs (last 24 hours): Temp Pulse Resp BP Pulse Ox 98.1 F 113 H 21 145/88 96 11/29/17 12:00 11/29/17 12:00 11/29/17 12:00 11/29/17 12:00 11/29/17 06:00 Intake and Output: 11/29/17 11/29/17 06:59 18:59 Intake Total 1573.5 Output Total 400 Balance 1173.5 - Medications Medications: Current Medications Abacavir Sulfate (Ziagen) 600 mg PO DAILY [facility] Last Admin: 11/29/17 11:16 Dose: 600 mg Atovaquone (Mepron) 750 mg PO BID [facility] Last Admin: 11/29/17 11:16 Dose: 750 mg Carvedilol (Coreg) 3.125 mg PO BID [facility] Last Admin: 11/29/17 11:16 Dose: 3.125 mg Hydromorphone HCl (Dilaudid) 1.5 mg IVP Q4H PRN PRN Reason: pain Last Admin: 11/29/17 14:10 Dose: 1.5 mg Metronidazole (Flagyl) 500 mg in 100 mls @ 100 mls/hr IVPB Q8 [facility] PRN Reason: Protocol Last Admin: 11/29/17 15:36 Dose: 100 mls/hr Cefepime HCl (Maxipime 1gm) 1 gm in 100 mls @ 100 mls/hr IVPB Q8 [facility] PRN Reason: Protocol Last Admin: 11/29/17 14:10 Dose: 100 mls/hr Octreotide Acetate 1,250 mcg/ (Sodium Chloride) 252.5 mls @ 10.1 mls/hr IV .Q24H [facility]; 50 MCG/HR PRN Reason: Protocol Last Admin: 11/29/17 05:21 Dose: 50 mcg/hr, 10.1 mls/hr Dextrose/Sodium Chloride (Dextrose 5%/0.45% Ns 1000 Ml) 1,000 mls @ 60 mls/hr IV .[id number] [facility] Last Admin: 11/29/17 13:17 Dose: 60 mls/hr Lamivudine (Epivir) 300 mg PO DAILY [facility] Last Admin: 11/29/17 11:16 Dose: 300 mg Ondansetron HCl (Zofran Inj) 4 mg IVP Q6H PRN PRN Reason: Nausea/Vomiting Last Admin: 11/29/17 14:27 Dose: 4 mg Phytonadione (Vitamin K Inj) 10 mg SC DAILY [facility] Stop: 11/30/17 21:00 Last Admin: 11/29/17 09:53 Dose: 10 mg - Labs Labs: 11/29/17 05:45 11/29/17 05:45 PT 21.3 SECONDS (9.4-12.5) H 11/29/17 05:45 INR 1.83 (0.93-1.08) H 11/29/17 05:45 APTT 26.2 Seconds (25.1-36.5) 11/29/17 05:45 - Constitutional Appears: Non-toxic, No Acute Distress - Head Exam Head Exam: ATRAUMATIC, NORMOCEPHALIC - Eye Exam Eye Exam: EOMI, Normal appearance - ENT Exam ENT Exam: Mucous Membranes Moist, Normal Oropharynx - Neck Exam Neck Exam: Normal Inspection - Respiratory Exam Respiratory Exam: NORMAL BREATHING PATTERN. absent: Accessory Muscle Use - GI/Abdominal Exam GI & Abdominal Exam: Soft, Normal Bowel Sounds. absent: Tenderness, Rebound - Extremities Exam Extremities Exam: Normal Inspection. absent: Calf Tenderness - Neurological Exam Neurological Exam: Alert, Awake, Oriented x3 - Psychiatric Exam Psychiatric exam: Normal Affect, Normal Mood - Skin Skin Exam: Dry, Intact, Normal Color, Warm Assessment and Plan - Assessment and Plan (Free Text) Assessment: Assessment: 56 year old female with a past medical history of HIV, Hepatitis C, liver cirrhosis, esophageal varices who presents with reported hematemesis in the setting of being recently evicted. Plan: No surgical interventional planned at this time. Please recall as necessary, and as always, thank you for allowing us to participate in the care of this patient. <Juwan Alejandro - Last Filed: 11/29/17 20:27> Objective - Vital Signs/Intake and Output Vital Signs (last 24 hours): Temp Pulse Resp BP Pulse Ox 98 F 56 L 16 141/89 96 11/29/17 17:41 11/29/17 18:00 11/29/17 17:41 11/29/17 17:44 11/29/17 06:00 Intake and Output: 11/29/17 11/30/17 18:59 06:59 Intake Total 1659 Balance 1659 - Medications Medications: Current Medications Abacavir Sulfate (Ziagen) 600 mg PO DAILY [facility] Last Admin: 11/29/17 11:16 Dose: 600 mg Atovaquone (Mepron) 750 mg PO BID [facility] Last Admin: 11/29/17 17:43 Dose: 750 mg Carvedilol (Coreg) 3.125 mg PO BID [facility] Last Admin: 11/29/17 17:44 Dose: 3.125 mg Hydromorphone HCl (Dilaudid) 2 mg PO Q4H [facility] Last Admin: 11/29/17 17:43 Dose: 2 mg Metronidazole (Flagyl) 500 mg in 100 mls @ 100 mls/hr IVPB Q8 [facility] PRN Reason: Protocol Last Admin: 11/29/17 15:36 Dose: 100 mls/hr Cefepime HCl (Maxipime 1gm) 1 gm in 100 mls @ 100 mls/hr IVPB Q8 [facility] PRN Reason: Protocol Last Admin: 11/29/17 14:10 Dose: 100 mls/hr Octreotide Acetate 1,250 mcg/ (Sodium Chloride) 252.5 mls @ 10.1 mls/hr IV .Q24H [facility]; 50 MCG/HR PRN Reason: Protocol Last Admin: 11/29/17 05:21 Dose: 50 mcg/hr, 10.1 mls/hr Dextrose/Sodium Chloride (Dextrose 5%/0.45% Ns 1000 Ml) 1,000 mls @ 60 mls/hr IV .[id number] [facility] Last Admin: 11/29/17 13:17 Dose: 60 mls/hr Lamivudine (Epivir) 300 mg PO DAILY [facility] Last Admin: 11/29/17 11:16 Dose: 300 mg Ondansetron HCl (Zofran Inj) 4 mg IVP Q6H PRN PRN Reason: Nausea/Vomiting Last Admin: 11/29/17 14:27 Dose: 4 mg Phytonadione (Vitamin K Inj) 10 mg SC DAILY [facility] Stop: 11/30/17 21:00 Last Admin: 11/29/17 09:53 Dose: 10 mg - Labs Labs: 11/29/17 05:45 11/29/17 05:45 PT 21.3 SECONDS (9.4-12.5) H 11/29/17 05:45 INR 1.83 (0.93-1.08) H 11/29/17 05:45 APTT 26.2 Seconds (25.1-36.5) 11/29/17 05:45 Assessment and Plan - Assessment and Plan (Free Text) Assessment: Dx Severe Hepatic Portal Vein thrombosis-Hypertension Hypersplenism(Pancytopenia) ?Hematemesis(Variceal Grade II) Social Emergency: Evicted from [place] [address](Living in car) This pt i being worked up at [facility]) and probably should be referred back there when clinically stable Jason Alejandro MD FACS
--- NOTE | 2017-11-29 16:33 | CP.PCM.PN ---
Subjective - Date & Time of Evaluation Date of Evaluation: 11/29/17 Time of Evaluation: 10:50 - Subjective Subjective: Comfortable, no fevers. Objective - Vital Signs/Intake and Output Vital Signs (last 24 hours): Temp Pulse Resp BP Pulse Ox 99.2 F 74 18 150/92 H 96 11/29/17 06:00 11/29/17 06:00 11/29/17 06:00 11/29/17 06:00 11/29/17 06:00 Intake and Output: 11/29/17 11/29/17 06:59 18:59 Intake Total 1573.5 Output Total 400 Balance 1173.5 - Medications Medications: Current Medications Abacavir Sulfate (Ziagen) 600 mg PO DAILY [facility] Last Admin: 11/28/17 10:31 Dose: Not Given Atovaquone (Mepron) 750 mg PO BID [facility] Last Admin: 11/28/17 22:23 Dose: 750 mg Carvedilol (Coreg) 3.125 mg PO BID [facility] Last Admin: 11/28/17 17:52 Dose: Not Given Hydromorphone HCl (Dilaudid) 1.5 mg IVP Q4H PRN PRN Reason: pain Last Admin: 11/29/17 05:23 Dose: 1.5 mg Dextrose/Sodium Chloride (Dextrose 5%/0.45% Ns 1000 Ml) 1,000 mls @ 100 mls/hr IV .Q10H [facility] Last Admin: 11/29/17 08:20 Dose: Not Given Metronidazole (Flagyl) 500 mg in 100 mls @ 100 mls/hr IVPB Q8 [facility] PRN Reason: Protocol Last Admin: 11/29/17 05:19 Dose: 100 mls/hr Cefepime HCl (Maxipime 1gm) 1 gm in 100 mls @ 100 mls/hr IVPB Q8 [facility] PRN Reason: Protocol Last Admin: 11/29/17 05:18 Dose: 100 mls/hr Octreotide Acetate 1,250 mcg/ (Sodium Chloride) 252.5 mls @ 10.1 mls/hr IV .Q24H [facility]; 50 MCG/HR PRN Reason: Protocol Last Admin: 11/29/17 05:21 Dose: 50 mcg/hr, 10.1 mls/hr Lamivudine (Epivir) 300 mg PO DAILY [facility] Last Admin: 11/28/17 10:31 Dose: Not Given Ondansetron HCl (Zofran Inj) 4 mg IVP Q6H PRN PRN Reason: Nausea/Vomiting Last Admin: 11/27/17 21:16 Dose: 4 mg Phytonadione (Vitamin K Inj) 10 mg SC DAILY [facility] Stop: 11/30/17 21:00 Last Admin: 11/29/17 00:05 Dose: 10 mg - Labs Labs: 11/29/17 05:45 11/29/17 05:45 PT 21.3 SECONDS (9.4-12.5) H 11/29/17 05:45 INR 1.83 (0.93-1.08) H 11/29/17 05:45 APTT 26.2 Seconds (25.1-36.5) 11/29/17 05:45 - Constitutional Appears: Chronically Ill - Head Exam Head Exam: NORMAL INSPECTION - Neck Exam Neck Exam: absent: Meningismus - Respiratory Exam Respiratory Exam: Decreased Breath Sounds - Cardiovascular Exam Cardiovascular Exam: +S1, +S2 - GI/Abdominal Exam GI & Abdominal Exam: Soft. absent: Tenderness Assessment and Plan - Assessment and Plan (Free Text) Plan: Assessment SIRS probably from right portal vein thrombosis acute GI bleed with hematemesis history of Acute colitis in a patient with liver cirrhosis from chronic active Hepatitis C (recently finished 16 weeks of therapy with Ledipasvir and Sofosbuvir) Methicillin-resistant coagulase negative staph and Holly ciferrii bacteremia and fungemia (respectively), probably related to the port S/P removal of the port HIV/AIDS on Raltegravir and Abacavir HTN S/P bilateral hip replacement S/P right port placement chronic anemia Plan continue Cefepime and Flagyl day 4 to complete 5-7 days
[2017-11-30] MEDS: Cefepime 1gm in NS 100ml 1 GM/100 ML BAG IVPB SCH ×2 (06:28→14:42)
[2017-11-30] MEDS: metroNIDAZOLE IV 500 mg/100 ml 500 MG/100 ML BAG IVPB SCH ×2 (06:29→14:41)
[2017-11-30] MEDS: Dextrose 5%/0.45% NS 1,000 ML IV SCH (07:40)
[2017-11-30] MEDS: Phytonadione 10 mg/ml Inj (Adult) SC SCH (09:31)
[2017-11-30] MEDS: Atovaquone 750 mg/5 ml Susp UD PO SCH ×2 (09:31→17:42)
[2017-11-30 10:51] LABS: BASO # 0.01 K/mm3 (0.0-2.0); BASO % 0.6 % (0.0-3.0); EOS % 2.6 % (1.5-5.0); GRAN # 0.95 (1.4-6.5); GRAN % 61.3 % (50.0-68.0); LYMPH # 0.4 (1.2-3.4); LYMPH % 27.1 % (22.0-35.0); MEAN CELL VOLUME 86.5 fl (80.0-105.0); MEAN CORPUSCULAR HEMOGLOBIN 25.9 pg (25.0-35.0); MONO # 0.1 (0.1-0.6); MONO % 8.4 % (1.0-6.0); RBC 2.97 10^6/uL (3.5-6.1); RED CELL DISTRIBUTION WIDTH 20.1 % (11.5-14.5)
[2017-11-30 10:54] LABS: WHITE BLOOD COUNT 1.6 10^3/ul (4.5-11.0)
[2017-11-30 10:55] LABS: HEMOGLOBIN 7.7 g/dL (12.0-16.0); PLATELET COUNT 29 10^3/uL (120.0-450.0)
[2017-11-30 11:06] LABS: ALB/GLOB RATIO 0.8 (1.1-1.8); ALBUMIN 3.2 g/dL (3.0-4.8); ALT/SGPT 25 U/L (7-56); AST/SGOT 27 U/L (14-36); BLOOD UREA NITROGEN 7 mg/dL (7-21); CALCIUM 8.8 mg/dL (8.4-10.5); GFR AFRICAN-AMERICAN > 60; GFR NON-AFRICAN AMERICAN > 60
[2017-11-30 11:10] LABS: INR 2.22 (0.93-1.08); PROTHROMBIN TIME 25.9 SECONDS (9.4-12.5)
[2017-11-30 11:11] LABS: PARTIAL THROMBOPLASTIN TIME 29.2 Seconds (25.1-36.5)
--- NOTE | 2017-11-30 11:32 | CP.PCM.PCO ---
Physician Communication Note - Physician Communication Note Physician Communication Note: Jaskaran: Tertiary center referral gaurav
--- NOTE | 2017-11-30 12:09 | PN ---
DATE: SUBJECTIVE: The patient is 57-year-old, seen and examined, lying in bed, seems to be comfortable. Still has epigastric discomfort. No more episode of hematemesis. No black stool. Tolerating liquid diet. PHYSICAL EXAMINATION: VITAL SIGNS: The patient is afebrile, pulse 80, respirations 18, blood pressure 150/98. LUNGS: Bilateral fair airflow. No rhonchi or crackle. HEART: S1 and S2 audible. ABDOMEN: Soft, nontender. No rebound. No guarding. NEUROLOGIC: The patient is awake and alert, able to communicate. LABORATORY DATA: WBC is 1.6, hemoglobin 7.7, hematocrit 25.7, platelet 29. PT is 25.9 and INR 2.22. Chemistries: Sodium 142, potassium 3.4, chloride 108, CO2 of 24, BUN 7, creatinine 0.8, blood sugar of 154. ASSESSMENT: 1. Pancytopenia. 2. Human immunodeficiency virus positive. 3. History of Clostridium difficile colitis. PLAN: Continue the patient on current IV fluids. She has been started on vitamin K. Transfuse two pack RBC's if it is okay with Hematology. We will continue on liquid diet. Follow up CBC and CMP in a.m. Will Barton MD
--- NOTE | 2017-11-30 12:41 | CP.PCM.PN ---
Subjective - Date & Time of Evaluation Date of Evaluation: 11/30/17 Time of Evaluation: 11:05 - Subjective Subjective: Comfortable in bed, no fevers. Objective - Vital Signs/Intake and Output Vital Signs (last 24 hours): Temp Pulse Resp BP Pulse Ox 99.0 F 80 18 150/98 H 99 11/30/17 06:00 11/30/17 06:00 11/30/17 06:00 11/30/17 06:00 11/30/17 06:00 Intake and Output: 11/30/17 11/30/17 06:59 18:59 Intake Total 2219 Output Total 1 Balance 2218 - Medications Medications: Current Medications Abacavir Sulfate (Ziagen) 600 mg PO DAILY [facility] Last Admin: 11/29/17 11:16 Dose: 600 mg Atovaquone (Mepron) 750 mg PO BID [facility] Last Admin: 11/29/17 17:43 Dose: 750 mg Carvedilol (Coreg) 3.125 mg PO BID [facility] Last Admin: 11/29/17 17:44 Dose: 3.125 mg Hydromorphone HCl (Dilaudid) 2 mg PO Q4H [facility] Last Admin: 11/30/17 06:28 Dose: 2 mg Metronidazole (Flagyl) 500 mg in 100 mls @ 100 mls/hr IVPB Q8 [facility] PRN Reason: Protocol Last Admin: 11/30/17 06:29 Dose: 100 mls/hr Cefepime HCl (Maxipime 1gm) 1 gm in 100 mls @ 100 mls/hr IVPB Q8 [facility] PRN Reason: Protocol Last Admin: 11/30/17 06:28 Dose: 100 mls/hr Octreotide Acetate 1,250 mcg/ (Sodium Chloride) 252.5 mls @ 10.1 mls/hr IV .Q24H [facility]; 50 MCG/HR PRN Reason: Protocol Last Admin: 11/30/17 07:38 Dose: Not Given Dextrose/Sodium Chloride (Dextrose 5%/0.45% Ns 1000 Ml) 1,000 mls @ 60 mls/hr IV .[id number] [facility] Last Admin: 11/30/17 07:40 Dose: 60 mls/hr Lamivudine (Epivir) 300 mg PO DAILY [facility] Last Admin: 11/29/17 11:16 Dose: 300 mg Ondansetron HCl (Zofran Inj) 4 mg IVP Q6H PRN PRN Reason: Nausea/Vomiting Last Admin: 11/30/17 06:00 Dose: 4 mg Phytonadione (Vitamin K Inj) 10 mg SC DAILY [facility] Stop: 11/30/17 21:00 Last Admin: 11/29/17 09:53 Dose: 10 mg Raltegravir (Isentress) 400 mg PO BID [facility] - Labs Labs: 11/29/17 05:45 11/29/17 05:45 PT 21.3 SECONDS (9.4-12.5) H 11/29/17 05:45 INR 1.83 (0.93-1.08) H 11/29/17 05:45 APTT 26.2 Seconds (25.1-36.5) 11/29/17 05:45 - Constitutional Appears: Chronically Ill - Head Exam Head Exam: NORMAL INSPECTION - Neck Exam Neck Exam: absent: Meningismus - Respiratory Exam Respiratory Exam: Decreased Breath Sounds - Cardiovascular Exam Cardiovascular Exam: +S1, +S2 - GI/Abdominal Exam GI & Abdominal Exam: Soft. absent: Tenderness Assessment and Plan - Assessment and Plan (Free Text) Plan: Assessment SIRS probably from right portal vein thrombosis acute GI bleed with hematemesis history of Acute colitis in a patient with liver cirrhosis from chronic active Hepatitis C (recently finished 16 weeks of therapy with Ledipasvir and Sofosbuvir) Methicillin-resistant coagulase negative staph and Holly ciferrii bacteremia and fungemia (respectively), probably related to the port S/P removal of the port HIV/AIDS on Raltegravir and Abacavir and Lamivudine HTN S/P bilateral hip replacement S/P right port placement chronic anemia Plan on Cefepime and Flagyl day 5 (for the Upper GI bleed) - can d/c after today continue to monitor WBC count continue ART and PJP prophylaxis
--- NOTE | 2017-11-30 16:46 | CP.PCM.PN ---
<Alysa Gracia - Last Filed: 11/30/17 16:45> Subjective - Date & Time of Evaluation Date of Evaluation: 11/30/17 Time of Evaluation: 10:00 - Subjective Subjective: Seen and examined this morning, the chart was reviewed. Patient tolerating the clear liquid diet. Still has episodes of nausea and reported to have episode of vomiting and noted small tinged blood. Abdominal pain a bit better today, no complaints of shortness of breath or chest pain. No BM. Objective - Vital Signs/Intake and Output Vital Signs (last 24 hours): Temp Pulse Resp BP Pulse Ox 98.2 F 55 L 20 147/86 99 11/30/17 12:00 11/30/17 12:00 11/30/17 12:00 11/30/17 12:00 11/30/17 06:00 Intake and Output: 11/30/17 11/30/17 06:59 18:59 Intake Total 2219 Output Total 1 Balance 2218 - Medications Medications: Current Medications Abacavir Sulfate (Ziagen) 600 mg PO DAILY [facility] Last Admin: 11/30/17 09:31 Dose: 600 mg Atovaquone (Mepron) 750 mg PO BID [facility] Last Admin: 11/30/17 09:31 Dose: 750 mg Carvedilol (Coreg) 3.125 mg PO BID [facility] Last Admin: 11/30/17 09:29 Dose: 3.125 mg Hydromorphone HCl (Dilaudid) 2 mg PO Q4H [facility] Last Admin: 11/30/17 09:30 Dose: 2 mg Metronidazole (Flagyl) 500 mg in 100 mls @ 100 mls/hr IVPB Q8 [facility] PRN Reason: Protocol Last Admin: 11/30/17 06:29 Dose: 100 mls/hr Cefepime HCl (Maxipime 1gm) 1 gm in 100 mls @ 100 mls/hr IVPB Q8 [facility] PRN Reason: Protocol Last Admin: 11/30/17 06:28 Dose: 100 mls/hr Octreotide Acetate 1,250 mcg/ (Sodium Chloride) 252.5 mls @ 10.1 mls/hr IV .Q24H [facility]; 50 MCG/HR PRN Reason: Protocol Last Admin: 11/30/17 07:38 Dose: Not Given Dextrose/Sodium Chloride (Dextrose 5%/0.45% Ns 1000 Ml) 1,000 mls @ 60 mls/hr IV .[id number] [facility] Last Admin: 11/30/17 07:40 Dose: 60 mls/hr Lamivudine (Epivir) 300 mg PO DAILY [facility] Last Admin: 11/30/17 09:30 Dose: 300 mg Ondansetron HCl (Zofran Inj) 4 mg IVP Q6H PRN PRN Reason: Nausea/Vomiting Last Admin: 11/30/17 06:00 Dose: 4 mg Phytonadione (Vitamin K Inj) 10 mg SC DAILY [facility] Stop: 11/30/17 21:00 Last Admin: 11/30/17 09:31 Dose: 10 mg Raltegravir (Isentress) 400 mg PO BID [facility] Last Admin: 11/30/17 09:33 Dose: 400 mg - Labs Labs: 11/30/17 10:30 11/30/17 10:30 PT 25.9 SECONDS (9.4-12.5) H 11/30/17 10:30 INR 2.22 (0.93-1.08) H 11/30/17 10:30 APTT 29.2 Seconds (25.1-36.5) 11/30/17 10:30 - Constitutional Appears: No Acute Distress - Eye Exam Eye Exam: Normal appearance. absent: Scleral icterus - ENT Exam ENT Exam: Mucous Membranes Moist - Respiratory Exam Respiratory Exam: NORMAL BREATHING PATTERN. absent: Respiratory Distress - Cardiovascular Exam Cardiovascular Exam: +S1, +S2 - GI/Abdominal Exam GI & Abdominal Exam: Distended, Soft, Tenderness (epigastric), Normal Bowel Sounds. absent: Guarding, Rebound - Extremities Exam Extremities Exam: Pedal Edema (trace left side edema, ho DVT). absent: Calf Tenderness - Neurological Exam Neurological Exam: Alert, Awake, Oriented x3 - Skin Skin Exam: Dry, Warm Assessment and Plan - Assessment and Plan (Free Text) Assessment: Assessment: Liver Cirrhosis Esophageal Varices Chronic Hepatiits C HIV (+) Pancytopenia Diffuse Colonic Thickening Anemia, s/p blood transfusion GIB: hematemesis H/O DVT s/p IVC filter PLAN: clear liquid OFF PPI pending blood transfusion on Vitamin K on Octreotide drip monitor H/H, overt GI bleed on IV antibiotics Hematology follow-up Seen and discussed w/ Dr. Sharma. <Edith,Kovil V - Last Filed: 11/30/17 22:47> Objective - Vital Signs/Intake and Output Vital Signs (last 24 hours): Temp Pulse Resp BP Pulse Ox 98 F 57 L 16 157/88 H 99 11/30/17 19:17 11/30/17 19:17 11/30/17 19:17 11/30/17 19:17 11/30/17 06:00 Intake and Output: 11/30/17 12/01/17 18:59 06:59 Intake Total 840 Balance 840 - Medications Medications: Current Medications Abacavir Sulfate (Ziagen) 600 mg PO DAILY [facility] Last Admin: 11/30/17 09:31 Dose: 600 mg Atovaquone (Mepron) 750 mg PO BID [facility] Last Admin: 11/30/17 17:42 Dose: 750 mg Carvedilol (Coreg) 3.125 mg PO BID [facility] Last Admin: 11/30/17 17:40 Dose: 3.125 mg Hydromorphone HCl (Dilaudid) 2 mg PO Q4H [facility] Last Admin: 11/30/17 21:42 Dose: Not Given Octreotide Acetate 1,250 mcg/ (Sodium Chloride) 252.5 mls @ 10.1 mls/hr IV .Q24H [facility]; 50 MCG/HR PRN Reason: Protocol Last Admin: 11/30/17 07:38 Dose: Not Given Dextrose/Sodium Chloride (Dextrose 5%/0.45% Ns 1000 Ml) 1,000 mls @ 60 mls/hr IV .[id number] [facility] Last Admin: 11/30/17 07:40 Dose: 60 mls/hr Piperacillin Sod/Tazobactam Sod (Zosyn 3.375 In Ns 100ml) 100 mls @ 200 mls/hr IVPB Q6 [facility] PRN Reason: Protocol Stop: 12/01/17 06:29 Metronidazole (Flagyl) 250 mg in 50 mls @ 100 mls/hr IVPB Q8 [facility] PRN Reason: Protocol Stop: 12/05/17 22:01 Pantoprazole Sodium (Protonix 40mg Ivpb) 40 mg in 100 mls @ 10 mls/hr IVPB .Q10H [facility] Last Admin: 11/30/17 21:00 Dose: 10 mls/hr Lamivudine (Epivir) 300 mg PO DAILY [facility] Last Admin: 11/30/17 09:30 Dose: 300 mg Ondansetron HCl (Zofran Inj) 4 mg IVP Q6H PRN PRN Reason: Nausea/Vomiting Last Admin: 11/30/17 06:00 Dose: 4 mg Raltegravir (Isentress) 400 mg PO BID [facility] Last Admin: 11/30/17 17:42 Dose: 400 mg - Labs Labs: 11/30/17 21:42 11/30/17 21:42 PT 24.5 SECONDS (9.4-12.5) H 11/30/17 21:42 INR 2.12 (0.93-1.08) H 11/30/17 21:42 APTT 29.5 Seconds (25.1-36.5) 11/30/17 21:42 Attending/Attestation - Attestation I have personally seen and examined this patient.: Yes I have fully participated in the care of the patient.: Yes I have reviewed all pertinent clinical information, including history, physical exam and plan: Yes Notes (Text): This is an addendum to GI progress report dictated by Alysa Gracia APN.The patient was seen and examined earlier. Medical records, lab studies, imagings were reviewed. Last 24 hours events reviewed. Agreed with the above treatment plan as outlined in Alysa Gracia APN's notes the with the addition of the following 11/30/17 22:47
--- NOTE | 2017-11-30 18:29 | CP.PCM.PN ---
Subjective - Date & Time of Evaluation Date of Evaluation: 11/29/17 Time of Evaluation: 10:15 - Subjective Subjective: Selina abdominal pain less no vomitting blood remains afebrile Objective - Vital Signs/Intake and Output Vital Signs (last 24 hours): Temp Pulse Resp BP Pulse Ox 98 F 56 L 16 141/89 96 11/29/17 17:41 11/29/17 18:00 11/29/17 17:41 11/29/17 17:44 11/29/17 06:00 Intake and Output: 11/29/17 11/30/17 18:59 06:59 Intake Total 1659 Balance 1659 - Medications Medications: Current Medications Abacavir Sulfate (Ziagen) 600 mg PO DAILY [facility] Last Admin: 11/29/17 11:16 Dose: 600 mg Atovaquone (Mepron) 750 mg PO BID [facility] Last Admin: 11/29/17 17:43 Dose: 750 mg Carvedilol (Coreg) 3.125 mg PO BID [facility] Last Admin: 11/29/17 17:44 Dose: 3.125 mg Hydromorphone HCl (Dilaudid) 2 mg PO Q4H [facility] Last Admin: 11/29/17 21:47 Dose: 2 mg Metronidazole (Flagyl) 500 mg in 100 mls @ 100 mls/hr IVPB Q8 [facility] PRN Reason: Protocol Last Admin: 11/29/17 21:47 Dose: 100 mls/hr Cefepime HCl (Maxipime 1gm) 1 gm in 100 mls @ 100 mls/hr IVPB Q8 [facility] PRN Reason: Protocol Last Admin: 11/29/17 21:47 Dose: 100 mls/hr Octreotide Acetate 1,250 mcg/ (Sodium Chloride) 252.5 mls @ 10.1 mls/hr IV .Q24H [facility]; 50 MCG/HR PRN Reason: Protocol Last Admin: 11/29/17 05:21 Dose: 50 mcg/hr, 10.1 mls/hr Dextrose/Sodium Chloride (Dextrose 5%/0.45% Ns 1000 Ml) 1,000 mls @ 60 mls/hr IV .[id number] [facility] Last Admin: 11/29/17 13:17 Dose: 60 mls/hr Lamivudine (Epivir) 300 mg PO DAILY [facility] Last Admin: 11/29/17 11:16 Dose: 300 mg Ondansetron HCl (Zofran Inj) 4 mg IVP Q6H PRN PRN Reason: Nausea/Vomiting Last Admin: 11/29/17 14:27 Dose: 4 mg Phytonadione (Vitamin K Inj) 10 mg SC DAILY [facility] Stop: 11/30/17 21:00 Last Admin: 11/29/17 09:53 Dose: 10 mg - Labs Labs: 11/29/17 05:45 11/29/17 05:45 PT 21.3 SECONDS (9.4-12.5) H 11/29/17 05:45 INR 1.83 (0.93-1.08) H 11/29/17 05:45 APTT 26.2 Seconds (25.1-36.5) 11/29/17 05:45 - Head Exam Head Exam: ATRAUMATIC, NORMOCEPHALIC - Eye Exam Eye Exam: EOMI, Scleral icterus - ENT Exam ENT Exam: Mucous Membranes Moist - Neck Exam Neck Exam: Full ROM. absent: Lymphadenopathy - Respiratory Exam Respiratory Exam: Clear to Ausculation Bilateral, NORMAL BREATHING PATTERN - Cardiovascular Exam Cardiovascular Exam: REGULAR RHYTHM, +S1, +S2. absent: JVD - GI/Abdominal Exam GI & Abdominal Exam: Soft, Tenderness. absent: Mass Additional comments: mild diffuse tenderness - Extremities Exam Extremities Exam: Full ROM. absent: Calf Tenderness, Pedal Edema - Neurological Exam Neurological Exam: Alert, Awake, Oriented x3 Assessment and Plan - Assessment and Plan (Free Text) Assessment: 57 yr patient with HIV positive, cirrhosis admitted with abdominal pain, vomitting GI blleding h/o hematemesis ?right pottsl gabbie thrombosis Thrombocytopenia Coagulopathy Colitis h/o c diff before Plan: .discussed with retail [employer] sales consultant and interventional radiologist earlier followup hb/hct correct coagulopathy FFP and vitamin k Platelet transfusionif any further episodes of bleeding now off PPI continue antibiotics as per ID
[2017-11-30] MEDS ORDERED: Albumin Human 5% (12.5 gm/250 ml) IV ONE ×2 (18:44)
[2017-11-30] MEDS ORDERED: Pantoprazole 40mg/100mL NS 40 MG/100 ML BAG IVPB SCH ×2 (18:45→19:59)
--- NOTE | 2017-11-30 19:57 | CP.PCM.PCO ---
Assessment & Plan - Assessment and Plan (Free Text) Assessment: Spoke to ICU Staff nurse. First unit of PRBC running. To give FFP after the first unit of PRBC. Platelets 2 units pharesis when available. second unit of PRBC after FFP and platelets. Awaiting bed for transfer to [facility].
--- NOTE | 2017-11-30 20:22 | CP.PCM.CON ---
<Camron Rosales - Last Filed: 11/30/17 20:01> History of Present Illness - History of Present Illness History of Present Illness: ICU Consult Note 57 F with PMHx of HIV, Hep C (16 weeks of therapy with Ledipasvir and Sofosbuvir ) cirrhosis, Esophageal Varicesv HTN, DVT, Pancytopenia admitted for evaluation of hemetemesis. She states that she has had abdominal pain located in the epigastric area, described as sharp, started few days ago. She had an EGD in 2016 which showed evidence of Type 2 esophageal varices. She obtained a CT Abd/ Pelvis in the ED which showed transmural thickening and right portal vein thrombus. Pt was being managed for SIRS likely from right portal vein thrombosis , hemetemesis, acute colitis 2/2 chronic active Hep C, HIV/AIDS and chronic anemia. ICU was consulted for evaluation for acute massive blood loss. Pt was experiencing abdominal pain and subsequently experienced a large bloody bowel movement prompting transfer to ICU for close hemodynamic monitoring. Pt denied fevers, chills, sob, chest pains, or urinary symptoms. PMHx: HIV, Hep C cirrhosis, HTN, Pancytopenia, hx of DVT s/p IVC filter, Anemia , s/p blood transfusion, Esophageal Varices PSHx: Bilateral hip replacement; splenectomy, Breast bxs, Ankle ortho surgeries , IVC filter, Hysterectomy SHx: Denies ETOH, Denies Tobacco, Denies illicit drugs FamilyHx: Noncontributory Meds: MAR Reviewed Allergy: Doxy, Sulfa, Tramadol, Trimethoprim PMD:Dr. Valentine Review of Systems - Review of Systems Review of Systems: As per HPI otherwise negative Past Patient History - Infectious Disease Hx of Infectious Diseases: None - Past Medical History & Family History Past Medical History?: Yes - Past Social History Smoking Status: Former Smoker - CARDIAC Hx Pacemaker: No - PULMONARY Hx Respiratory Disorders: No - NEUROLOGICAL Hx Neurological Disorder: Yes Other/Comment: severe pain fromneuropathy ble - HEENT Hx HEENT Problems: Yes Hx Blind: No Other/Comment: Use eyeglasses for reading - RENAL Hx Chronic Kidney Disease: No - ENDOCRINE/METABOLIC Hx Endocrine Disorders: No - HEMATOLOGICAL/ONCOLOGICAL Hx Cancer: No - INTEGUMENTARY Hx Dermatological Problems: Yes (chronic ulcers) Other/Comment: left inner ankle sx scar, multiple ble skin discolorations, crooked left great toe, yusuf scar from fall - MUSCULOSKELETAL/RHEUMATOLOGICAL Hx Musculoskeletal Disorders: Yes (bursitis lower back) Hx Arthritis: Yes (lower back) Hx Falls: Yes (past) Hx Herniated Disk: Yes (lower back) Hx Osteoarthritis: Yes Hx Osteomyelitis: Yes Hx Unsteady Gait: Yes Other/Comment: left foot leans to the left - GASTROINTESTINAL Hx Gastrointestinal Disorders: No Other/Comment: + c dif 05/23/17 - GENITOURINARY/GYNECOLOGICAL Hx Genitourinary Disorders: No - PSYCHIATRIC Hx Emotional Abuse: No Hx Physical Abuse: No Hx Substance Use: No - SURGICAL HISTORY Hx Mastectomy: No - ANESTHESIA Hx Anesthesia Reactions: No Hx Malignant Hyperthermia: No Meds Allergies/Adverse Reactions: Allergies Allergy/AdvReac Type Severity Reaction Status Date / Time doxycycline Allergy RASH Verified 05/20/17 01:30 sulfamethoxazole Allergy RASH Verified 05/20/17 01:30 [From Bactrim] tramadol HCl [From Ultram] Allergy RASH Verified 05/20/17 01:30 trimethoprim [From Bactrim] Allergy RASH Verified 05/20/17 01:30 - Medications Medications: Current Medications Abacavir Sulfate (Ziagen) 600 mg PO DAILY [facility] Last Admin: 11/30/17 09:31 Dose: 600 mg Atovaquone (Mepron) 750 mg PO BID [facility] Last Admin: 11/30/17 17:42 Dose: 750 mg Carvedilol (Coreg) 3.125 mg PO BID [facility] Last Admin: 11/30/17 17:40 Dose: 3.125 mg Hydromorphone HCl (Dilaudid) 2 mg PO Q4H [facility] Last Admin: 11/30/17 17:41 Dose: 2 mg Octreotide Acetate 1,250 mcg/ (Sodium Chloride) 252.5 mls @ 10.1 mls/hr IV .Q24H DOUGIE; 50 MCG/HR PRN Reason: Protocol Last Admin: 11/30/17 07:38 Dose: Not Given Dextrose/Sodium Chloride (Dextrose 5%/0.45% Ns 1000 Ml) 1,000 mls @ 60 mls/hr IV .[id number] [facility] Last Admin: 11/30/17 07:40 Dose: 60 mls/hr Piperacillin Sod/Tazobactam Sod (Zosyn 3.375 In Ns 100ml) 100 mls @ 200 mls/hr IVPB Q6 DOUGIE PRN Reason: Protocol Stop: 12/01/17 06:29 Metronidazole (Flagyl) 250 mg in 50 mls @ 100 mls/hr IVPB Q8 DOUGIE PRN Reason: Protocol Stop: 12/05/17 22:01 Pantoprazole Sodium (Protonix 40mg Ivpb) 40 mg in 100 mls @ 10 mls/hr IVPB .Q10H [facility] Lamivudine (Epivir) 300 mg PO DAILY [facility] Last Admin: 11/30/17 09:30 Dose: 300 mg Ondansetron HCl (Zofran Inj) 4 mg IVP Q6H PRN PRN Reason: Nausea/Vomiting Last Admin: 11/30/17 06:00 Dose: 4 mg Phytonadione (Vitamin K Inj) 10 mg SC DAILY [facility] Stop: 11/30/17 21:00 Last Admin: 11/30/17 09:31 Dose: 10 mg Raltegravir (Isentress) 400 mg PO BID [facility] Last Admin: 11/30/17 17:42 Dose: 400 mg Physical Exam - Constitutional Appears: Chronically Ill - Head Exam Head Exam: ATRAUMATIC, NORMAL INSPECTION, NORMOCEPHALIC - Eye Exam Eye Exam: EOMI, Normal appearance, PERRL Pupil Exam: NORMAL ACCOMODATION, PERRL - ENT Exam ENT Exam: Mucous Membranes Dry - Respiratory Exam Respiratory Exam: Clear to Auscultation Bilateral, NORMAL BREATHING PATTERN - Cardiovascular Exam Cardiovascular Exam: Bradycardia, +S1, +S2 - GI/Abdominal Exam GI & Abdominal Exam: Normal Bowel Sounds, Soft, Tenderness (diffuse) - Rectal Exam Rectal Exam: Bloody Stool - Extremities Exam Extremities exam: Positive for: normal inspection - Neurological Exam Neurological exam: Alert, CN II-XII Intact, Oriented x3, Reflexes Normal - Psychiatric Exam Psychiatric exam: Normal Affect, Normal Mood - Skin Skin Exam: Dry, Intact, Normal Color, Warm Results - Vital Signs Recent Vital Signs: Last Vital Signs Temp 98 F 11/30/17 19:17 Pulse 57 L 11/30/17 19:17 Resp 16 11/30/17 19:17 BP 157/88 H 11/30/17 19:17 Pulse Ox 99 11/30/17 06:00 - Labs Result Diagrams: 11/30/17 10:30 11/30/17 10:30 Labs: Laboratory Results - last 24 hr 11/30/17 11/30/17 11/30/17 10:30 10:30 10:30 WBC 1.6 L* RBC 2.97 L Hgb 7.7 L Hct 25.7 L MCV 86.5 MCH 25.9 MCHC 30.0 L RDW 20.1 H Plt Count 29 L* Gran % 61.3 Lymph % (Auto) 27.1 Coleman % (Auto) 8.4 H Eos % (Auto) 2.6 Baso % (Auto) 0.6 Gran # 0.95 L Lymph # (Auto) 0.4 L Coleman # (Auto) 0.1 Eos # (Auto) 0.0 Baso # (Auto) 0.01 PT 25.9 H INR 2.22 H APTT 29.2 Sodium 142 Potassium 3.4 L Chloride 108 H Carbon Dioxide 24 Anion Gap 13 BUN 7 Creatinine 0.8 Est GFR ( Amer) > 60 Est GFR (Non-Af Amer) > 60 Random Glucose 154 H Calcium 8.8 Total Bilirubin 1.1 AST 27 ALT 25 Alkaline Phosphatase 51 Total Protein 7.5 Albumin 3.2 Globulin 4.3 Albumin/Globulin Ratio 0.8 L Stool Occult Blood Blood Type Antibody Screen Crossmatch BBK History Checked 11/30/17 11/30/17 13:00 15:30 WBC RBC Hgb Hct MCV MCH MCHC RDW Plt Count Gran % Lymph % (Auto) Coleman % (Auto) Eos % (Auto) Baso % (Auto) Gran # Lymph # (Auto) Coleman # (Auto) Eos # (Auto) Baso # (Auto) PT INR APTT Sodium Potassium Chloride Carbon Dioxide Anion Gap BUN Creatinine Est GFR ( Amer) Est GFR (Non-Af Amer) Random Glucose Calcium Total Bilirubin AST ALT Alkaline Phosphatase Total Protein Albumin Globulin Albumin/Globulin Ratio Stool Occult Blood Positive H Blood Type A POSITIVE Antibody Screen Negative Crossmatch See Detail BBK History Checked Patient has bt Assessment & Plan - Assessment and Plan (Free Text) Assessment: 57 F with a PMHx of HIV, Hep C (16 weeks of therapy with Ledipasvir and Sofosbuvir) cirrhosis, Esophageal Varicesv HTN, DVT, and Pancytopenia being managed for SIRS likely from right portal vein thrombosis, hemetemesis, acute colitis 2/2 chronic active Hep C, HIV/AIDS and chronic anemia. ICU was consulted for evaluation for acute massive blood loss. Pt was experiencing abdominal pain and subsequently experienced a large bloody bowel movement prompting transfer to ICU for close hemodynamic monitoring. Neuro stable speaking in full sentences moving all extremities spontaneously frequent neurochecks continue to monitor Pulm stable 02 sat >90% 02 NC 2L prn maintain 02 sat >90% CVS acute massive blood loss with hemetemisis and large bloody BM 2/2 esphageal varices HD Stable INR 2.2 thrombocytopenia octreotide ggt GI esophagel varices protonix drip octreotide drip albumin Cdif colitis GI Dr. Sharma consulted, rec dc cefepime and decrease flagyl dose 250mg, start zosyn NPO Renal stable continue to monitor and supplement electrolytes as needed fu BUN/Cr strict I&Os daily weights monitor uop Heme coagulopathy 4 u FFp 2 u Plt monitor CBC Q6 Heme/onc Dr. Denise consulted HIV/AIDs Colitis neutropenic/pancytopenic ID Dr Marcelo consulted, continue flagyl zosyn, and HIV meds GI DVT ppx reviewed Seen reviewed and discussed with Dr. Ferraro <Jasmine LEW,[facility] - Last Filed: 12/02/17 09:00> Results - Vital Signs Recent Vital Signs: Last Vital Signs Temp 98.6 F 12/01/17 00:01 Pulse 64 12/01/17 01:40 Resp 22 12/01/17 01:40 BP 151/83 H 12/01/17 01:00 Pulse Ox 100 12/01/17 01:40 - Labs Result Diagrams: 12/01/17 01:10 11/30/17 21:42 Labs: Laboratory Results - last 24 hr 11/30/17 13:00 Crossmatch See Detail Attending/Attestation - Attestation I have personally seen and examined this patient.: Yes I have fully participated in the care of the patient.: Yes I have reviewed all pertinent clinical information: Yes Notes (Text): -I agree with the above ICU consult note completed by the resident physician. Once the patient's platelet count and INR has improved (with transfusions), she will undergo an EGD. Until then, she will receive IV antibiotics empirically for acute colitis as well as Protonix and Octreotide drips for presumed esophageal varices as underlying etiology.
[2017-11-30] MEDS ORDERED: HYDROmorphone 0.5 mg/0.5 ml ISec IVP STA (20:26)
[2017-11-30 21:45] LABS: VENOUS BLOOD GAS BASE EXCESS 0.3 mmol/L (0.0-2.0); VENOUS BLOOD GAS PO2 60 mm/Hg (30-55); VENOUS BLOOD PH 7.37 (7.32-7.43)
[2017-11-30 21:46] LABS: BASO # 0.02 K/mm3 (0.0-2.0); BASO % 1.3 % (0.0-3.0); EOS % 1.9 % (1.5-5.0); GRAN # 0.83 (1.4-6.5); LYMPH # 0.5 (1.2-3.4); LYMPH % 31.8 % (22.0-35.0); MEAN CELL VOLUME 86.3 fl (80.0-105.0); MEAN CORPUSCULAR HEMOGLOBIN 26.9 pg (25.0-35.0); MEAN CORPUSCULAR HGB CONC 31.1 g/dl (31.0-37.0); MONO # 0.2 (0.1-0.6); RBC 3.35 10^6/uL (3.5-6.1); RED CELL DISTRIBUTION WIDTH 19.2 % (11.5-14.5)
[2017-11-30 21:50] LABS: PLATELET COUNT 34 10^3/uL (120.0-450.0); WHITE BLOOD COUNT 1.5 10^3/ul (4.5-11.0)
[2017-11-30 21:58] LABS: INR 2.12 (0.93-1.08); PARTIAL THROMBOPLASTIN TIME 29.5 Seconds (25.1-36.5); PROTHROMBIN TIME 24.5 SECONDS (9.4-12.5)
[2017-11-30] MEDS ORDERED: metroNIDAZOLE IV 250mg/50 ml 250 MG/50 ML BAG IVPB SCH (22:00)
[2017-11-30 22:17] LABS: TROPONIN I 0.04 ng/mL
[2017-11-30 22:23] LABS: ALB/GLOB RATIO 0.8 (1.1-1.8); ALBUMIN 3.6 g/dL (3.0-4.8); ALT/SGPT 31 U/L (7-56); AST/SGOT 34 U/L (14-36); BLOOD UREA NITROGEN 10 mg/dL (7-21); CALCIUM 9.4 mg/dL (8.4-10.5); GFR AFRICAN-AMERICAN > 60; GFR NON-AFRICAN AMERICAN > 60
[2017-12-01] MEDS ORDERED: Piperacillin/Tazobact 3.375 gm 100 ML IVPB SCH ×2
[2017-12-01 01:27] LABS: HEMOGLOBIN 8.4 g/dL (12.0-16.0); MEAN CELL VOLUME 85.4 fl (80.0-105.0); MEAN CORPUSCULAR HEMOGLOBIN 26.6 pg (25.0-35.0); MEAN CORPUSCULAR HGB CONC 31.1 g/dl (31.0-37.0); MEAN PLATELET VOLUME 10.4 fl (7.0-11.0); RBC 3.16 10^6/uL (3.5-6.1); RED CELL DISTRIBUTION WIDTH 19.2 % (11.5-14.5)
[2017-12-01 01:35] LABS: WHITE BLOOD COUNT 1.4 10^3/ul (4.5-11.0)
[2017-12-01] MEDS ORDERED: HYDROmorphone 0.5 mg/0.5 ml ISec IVP STA (01:39)
[2017-12-01 02:11] VITALS: BP 151/83; PULSE 64; RESP 22; O2SAT 100
[2017-12-01 04:12] VITALS: TEMP 98.6
--- NOTE | 2017-12-03 09:35 | DS ---
HISTORY OF PRESENT ILLNESS: The patient is a 57-year-old who was seen earlier yesterday. Started to have bleeding yesterday afternoon. Discussed with . The patient needs vernon-endoscopy and possible TIPS, so she was transferred to the [facility] yesterday. DISCHARGE DIAGNOSES 1. Upper gastrointestinal bleed secondary to esophageal varices. 2. Hepatitis C. 3. Cirrhosis of the liver. 4. Human immunodeficiency virus positive. 5. Pancytopenia. 6. Pancolitis. The patient is transferred to the [facility] for further management. Will Barton MD
--- NOTE | 2017-12-04 11:29 | PQF ANEMIA ---
12/04/17 Dr. Barton, Patient admitted with anemia and GI bleed found to be due to esophageal varices. Please specify whether anemia is due to the GI bleed and acute or chronic. Thank you. Clarification of your documentation is requested to better reflect the severity of illness and intensity of treatment of your patient. Indicators present [x] Anemia [] Drop in H&H from []___ to []___ [] Hypotension x] GI Bleed [] Transfusion(s) [] Acute bleed other sites [] Tachycardia [] Surgical Procedure Blood Loss (expected not a complication) Other:[] Location in the medical record that reflects the above clinical findings: [] Treatment Provided: [] PHYSICIAN'S RESPONSE Based on your medical judgment of the clinical indicators outlined above, are you treating this patient for a known or suspected: [x] Acute blood loss anemia [] Chronic blood loss anemia [] Acute on Chronic blood loss anemia [] Anemia due to malignancy [] Anemia due to chemotherapy or radiation therapy [] Anemia of Chronic Disease, please specify: [] [] Other, please indicate type of anemia []____ [] If Unable to Determine, please check the box, sign and date. Present On Admission (POA) Indicator: [] Present at the time of admission [] Not present at the time of admission [] Clinically Undetermined In responding to this query, please exercise your independent professional judgment. The fact that a question is asked does not imply that any particular answer is desired or expected. Thank you for your clarification on this documentation. If you have any questions please call:[ ] * Thank you, [ ] production specialist TALIA
== END 2017-12-01 01:50 | disposition short-term general hospital (02) | DRG 368 ==
LOC: ED 11:58 → ERH 16:00 → 2RSO 22:12 → CCU 11-30 19:20
PROVIDERS: ADMIT Internal Medicine; ATTEND Internal Medicine
PROC: 30233N1 Transfusion of Nonautologous Red Blood Cells into Peripheral Vein, Percutaneous Approach (ICD-10-PCS; principal; 2017-11-26)
PROC: 30233K1 Transfusion of Nonautologous Frozen Plasma into Peripheral Vein, Percutaneous Approach (ICD-10-PCS; 2017-11-27)
PROC: BW40ZZZ Ultrasonography of Abdomen (ICD-10-PCS; 2017-11-28)
PROC: 6A551Z2 Pheresis of Platelets, Multiple (ICD-10-PCS; 2017-11-30)
DX: I85.01 Esophageal varices with bleeding (principal); I81 Portal vein thrombosis; D61.818 Other pancytopenia; D68.9 Coagulation defect, unspecified; K76.6 Portal hypertension; R65.10 Systemic inflammatory response syndrome (SIRS) of non-infectious origin without acute organ dysfunction; G62.9 Polyneuropathy, unspecified; K51.00 Ulcerative (chronic) pancolitis without complications; D62 Acute posthemorrhagic anemia; K74.60 Unspecified cirrhosis of liver; N18.3 Chronic kidney disease, stage 3 (moderate); B18.2 Chronic viral hepatitis C; Z21 Asymptomatic human immunodeficiency virus [HIV] infection status; D73.1 Hypersplenism; I12.9 Hypertensive chronic kidney disease with stage 1 through stage 4 chronic kidney disease, or unspecified chronic kidney disease; Z79.899 Other long term (current) drug therapy; Z86.19 Personal history of other infectious and parasitic diseases; Z86.718 Personal history of other venous thrombosis and embolism; Z87.891 Personal history of nicotine dependence; Z88.2 Allergy status to sulfonamides; Z90.49 Acquired absence of other specified parts of digestive tract; Z90.710 Acquired absence of both cervix and uterus; Z90.81 Acquired absence of spleen; Z96.643 Presence of artificial hip joint, bilateral; Z88.6 Allergy status to analgesic agent; Z88.1 Allergy status to other antibiotic agents; Z88.3 Allergy status to other anti-infective agents; R40.2412 Glasgow coma scale score 13-15, at arrival to emergency department